=== PATIENT | male | born 1955 | race Caucasian/White ===

== ENCOUNTER → 2023-11-29 09:55 | Outpatient (REF) | payer MEDICARE, OTHER, SELFPAY ==
[2023-11-29 13:30] LABS: Microalbumin, Random Urine < 0.6 mg/dl (0.6-1.7)
[2023-11-29 13:32] LABS: Free T4 1.12 ng/dl (0.78-2.19)
[2023-11-29 13:36] LABS: ALT (SGPT) 39 U/L (0-50); AST (SGOT) 31 U/L (17-59); Albumin 4.7 g/dl (3.5-5.0); Alkaline Phosphatase 53 U/L (38-126); Blood Urea Nitrogen 38 mg/dl (9-20); Calcium 9.9 mg/dl (8.4-10.2); Carbon Dioxide 29 mmol/L (22-30); Chloride 100 mmol/L (98-107); Glucose 125 mg/dl (70-99); HDL Cholesterol 27 mg/dl; LDL Cholesterol, Calculated 50 mg/dl; Potassium 4.8 mmol/L (3.5-5.1); Sodium 143 mmol/L (135-145); Total Bilirubin 0.5 mg/dl (0.2-1.3); Total Cholesterol 115 mg/dl (50-199); Total Protein 7.7 g/dl (6.3-8.2); Triglyceride 191 mg/dl (10-149); Very Low Density Lipoprotein 38 mg/dl (0-30); eGFR > 60.00
[2023-11-29 13:45] LABS: TSH 2.63 uIU/ml (0.47-4.68)
[2023-11-29 14:06] LABS: Glycohemoglobin (HgbA1c) 7.5 % (4.0-5.6)
[2023-12-02 01:21] LABS: Total T3 (Sendout) 101 ng/dL (80-200)
== END ==
LOC: REG 09:55
PROVIDERS: ATTENDING PHYSICIAN Internal Medicine Endocrinology, Diabetes & Metabolism; FAMILY PHYSICIAN Internal Medicine; REFERRING PHYSICIAN Internal Medicine Cardiovascular Disease
DX: E03.9 Hypothyroidism, unspecified (principal); R80.9 Proteinuria, unspecified; E11.65 Type 2 diabetes mellitus with hyperglycemia; R74.01 Elevation of levels of liver transaminase levels; R53.83 Other fatigue
CPT/HCPCS: 36415; 80053; 80061; 82043; 82570; 83036; 84439; 84443; 84480; 84481

== ENCOUNTER → 2023-12-24 07:30 | Outpatient (REF) | payer MEDICARE, OTHER, SELFPAY ==
[2023-12-24 10:42] LABS: Erythrocyte Sed Rate 29 mm/hour (0-20); PSA, Total - Screen 1.81 ng/ml (0.0-4.0)
[2023-12-24 11:01] LABS: Vitamin B12 542 pg/ml (239-931)
[2023-12-24 14:53] LABS: Syphilis/T. pallidum Ab Reflex Negative (Negative)
[2023-12-27 16:12] LABS: Lyme Antibody Screen, EIA Negative (Negative)
== END ==
LOC: RAD 07:30
PROVIDERS: ATTENDING PHYSICIAN Internal Medicine
DX: R41.89 Other symptoms and signs involving cognitive functions and awareness (principal); R91.1 Solitary pulmonary nodule; Z00.00 Encounter for general adult medical examination without abnormal findings; Z79.4 Long term (current) use of insulin; E11.69 Type 2 diabetes mellitus with other specified complication; I10 Essential (primary) hypertension; E66.01 Morbid (severe) obesity due to excess calories; Z68.37 Body mass index [BMI] 37.0-37.9, adult; Z12.5 Encounter for screening for malignant neoplasm of prostate; E78.5 Hyperlipidemia, unspecified; Z87.891 Personal history of nicotine dependence
CPT/HCPCS: 36415; 70450; 71271; 82607; 85652; 86140; 86618; 86780; G0103

== ENCOUNTER → 2024-02-14 10:26 | Outpatient (REF) | payer MEDICARE, OTHER, SELFPAY ==
[2024-02-14 11:09] LABS: % Basophils 1.4 % (0-2); % Eosinophils 3.4 % (0-6); % Immature Granulocytes 0.2 % (0-0.5); % Lymphocytes 19.6 % (20.5-51.1); % Monocytes 9.7 % (1.7-9.3); % Neutrophils 65.7 % (42.2-75.2); Absolute Basophils 0.1 10^3/uL (0-0.2); Absolute Eosinophils 0.2 10^3/uL (0-0.7); Absolute Lymphocytes 1.2 10^3/uL (1.2-3.4); Absolute Monocytes 0.6 10^3/uL (0.1-0.6); Absolute Neutrophils 3.9 10^3/uL (1.4-6.5); Hemoglobin 12.5 g/dL (13.0-18.0); Mean Corp Hgb Conc. 32.9 g/dL (33.0-37.0); Mean Corpuscular Volume 88.2 fL (80.0-94.0); Mean Platelet Volume 10.5 fL (7.4-10.4); Nucleated Red Blood Cells % 0 % (-); Platelet Count 236 10^3/uL (130-400); Red Blood Cell Count 4.31 10^6/uL (4.70-6.10); Red Cell Dist. Width 16.5 % (11.5-14.5); White Blood Cell Count 5.9 10^3/uL (4.8-10.8)
[2024-02-14 11:51] LABS: ALT (SGPT) 33 U/L (0-50); AST (SGOT) 28 U/L (17-59); Albumin 4.7 g/dl (3.5-5.0); Alkaline Phosphatase 58 U/L (38-126); Blood Urea Nitrogen 48 mg/dl (9-20); Calcium 10.1 mg/dl (8.4-10.2); Carbon Dioxide 28 mmol/L (22-30); Chloride 100 mmol/L (98-107); Glucose 156 mg/dl (70-99); HDL Cholesterol 29 mg/dl; LDL Cholesterol, Calculated 58 mg/dl; Potassium 4.3 mmol/L (3.5-5.1); Sodium 140 mmol/L (135-145); Total Bilirubin 0.6 mg/dl (0.2-1.3); Total Cholesterol 124 mg/dl (50-199); Total Protein 7.7 g/dl (6.3-8.2); Triglyceride 185 mg/dl (10-149); Very Low Density Lipoprotein 37 mg/dl (0-30); eGFR > 60.00
[2024-02-14 12:10] LABS: Glycohemoglobin (HgbA1c) 8.2 % (4.0-5.6)
[2024-02-15 14:20] LABS: Syphilis/T. pallidum Ab Reflex Negative (Negative)
== END ==
LOC: REG 10:26
PROVIDERS: ATTENDING PHYSICIAN Internal Medicine
DX: E11.69 Type 2 diabetes mellitus with other specified complication (principal); I10 Essential (primary) hypertension; E66.01 Morbid (severe) obesity due to excess calories; Z79.4 Long term (current) use of insulin; Z12.5 Encounter for screening for malignant neoplasm of prostate; Z00.00 Encounter for general adult medical examination without abnormal findings; Z68.37 Body mass index [BMI] 37.0-37.9, adult
CPT/HCPCS: 36415; 80053; 80061; 83036; 85025; 86780

== ENCOUNTER → 2024-02-22 09:38 | Outpatient (REF) | payer MEDICARE, OTHER, SELFPAY ==
[2024-02-22 10:12] LABS: Urine Albumin Negative (Neg - Trace); Urine Bilirubin Negative (Negative); Urine Character Clear (Clear); Urine Color Yellow; Urine Glucose Trace (Negative); Urine Ketone Negative (Negative); Urine Leukocyte Negative (Negative); Urine Nitrite Negative (Negative); Urine Occult Blood Negative (Negative); Urine Specific Gravity 1.015 (<1.030); Urine Urobilinogen Negative (Neg - 1+)
[2024-02-22 10:22] LABS: % Basophils 0.8 % (0-2); % Immature Granulocytes 0.4 % (0-0.5); % Lymphocytes 13.8 % (20.5-51.1); % Monocytes 8.9 % (1.7-9.3); % Neutrophils 74.1 % (42.2-75.2); Absolute Basophils 0.1 10^3/uL (0-0.2); Absolute Eosinophils 0.2 10^3/uL (0-0.7); Absolute Lymphocytes 1.2 10^3/uL (1.2-3.4); Absolute Monocytes 0.8 10^3/uL (0.1-0.6); Absolute Neutrophils 6.4 10^3/uL (1.4-6.5); Hematocrit 35.2 % (39.0-52.0); Hemoglobin 11.5 g/dL (13.0-18.0); Mean Corp Hgb Conc. 32.7 g/dL (33.0-37.0); Mean Corpuscular Hgb 28.8 pg (27.0-31.0); Mean Corpuscular Volume 88.2 fL (80.0-94.0); Mean Platelet Volume 10.8 fL (7.4-10.4); Nucleated Red Blood Cells % 0 % (-); Platelet Count 194 10^3/uL (130-400); Red Blood Cell Count 3.99 10^6/uL (4.70-6.10); Red Cell Dist. Width 16.7 % (11.5-14.5); White Blood Cell Count 8.6 10^3/uL (4.8-10.8)
[2024-02-22 10:23] LABS: Hemoglobin 11.5 g/dL (13.0-18.0)
[2024-02-22 10:42] LABS: ALT (SGPT) 27 U/L (0-50); AST (SGOT) 23 U/L (17-59); Albumin 4.2 g/dl (3.5-5.0); Alkaline Phosphatase 57 U/L (38-126); Blood Urea Nitrogen 41 mg/dl (9-20); Calcium 9.7 mg/dl (8.4-10.2); Carbon Dioxide 28 mmol/L (22-30); Chloride 104 mmol/L (98-107); Glucose 180 mg/dl (70-99); HDL Cholesterol 25 mg/dl; Iron 53 ug/dl (49-181); LDL Cholesterol, Calculated 62 mg/dl; Potassium 4.2 mmol/L (3.5-5.1); Sodium 142 mmol/L (135-145); Total Bilirubin 0.6 mg/dl (0.2-1.3); Total Cholesterol 122 mg/dl (50-199); Total Protein 7.1 g/dl (6.3-8.2); Triglyceride 177 mg/dl (10-149); Very Low Density Lipoprotein 35 mg/dl (0-30); eGFR > 60.00
[2024-02-22 10:52] LABS: Percent Saturation 16 % (20-50); Total Iron Binding Capacity 314 ug/dl (261-462)
[2024-02-22 10:59] LABS: Microalbumin, Random Urine 1.2 mg/dl (0.6-1.7)
[2024-02-22 11:00] LABS: Free T3 2.81 pg/ml (2.77-5.27)
[2024-02-22 11:14] LABS: TSH 1.94 uIU/ml (0.47-4.68)
[2024-02-22 11:27] LABS: Free T4 1.09 ng/dl (0.78-2.19)
[2024-02-22 11:50] LABS: Vitamin B12 393 pg/ml (239-931)
[2024-02-22 11:54] LABS: Glycohemoglobin (HgbA1c) 7.7 % (4.0-5.6)
[2024-02-22 15:12] LABS: Folate 18.3 ng/ml (2.76-20)
== END ==
LOC: REG 09:38
PROVIDERS: ATTENDING PHYSICIAN Internal Medicine; REFERRING PHYSICIAN Internal Medicine Endocrinology, Diabetes & Metabolism
DX: D64.9 Anemia, unspecified (principal); R20.2 Paresthesia of skin; E11.65 Type 2 diabetes mellitus with hyperglycemia; R53.83 Other fatigue; R80.9 Proteinuria, unspecified; E78.5 Hyperlipidemia, unspecified; E03.9 Hypothyroidism, unspecified
CPT/HCPCS: 36415; 80053; 80061; 81003; 82043; 82570; 82607; 82746; 83036; 83540; 83550; 84439; 84443; 84481; 85018; 85025

== ENCOUNTER 2024-02-27 23:01 | Inpatient (IN) | payer MEDICARE, OTHER, SELFPAY ==
[2024-02-27 18:58] VITALS: BP 117/40
[2024-02-27 18:58] LABS: Glucose - Point of Care 151 mg/dl (70-99)
--- NOTE | 2024-02-27 18:59 | ED.GENMED ---
History of Present Illness
<Justen Gonzáles PA-C - Last Filed: 02/27/24 23:51>
General
Chief Complaint: Fever
Time Seen by Provider: 02/27/24 18:53
History of Present Illness
History of Present Illness:
68 yo male w/ hx of IDDM, PAF on Eliquis, hypothyroidism, and s/p PPM presents to the Emergency Department for evaluation of 'confusion' that began at approx 1500 today. Pt's spouse notes that he developed symptoms and began with a series of
repetitive speech/questions. She checked his blood sugar at 104 via Dexcom. He then noted generalized weakness and dizziness prompting them to come to the ED. He reports having a fever briefly last week for <24 hours, did not seek treatment.
Currently denies chest pain, SOB, abd pain, N/V. Has baseline diplopia secondary to 3rd CN palsy.
Noted to be febrile on arrival to ED.
Past History
<Justen Gonzáles PA-C - Last Filed: 02/27/24 23:51>
Past History
ED Past Medical History: Arrthythmia, HTN, Hypercholesterolemia and NIDDM
ED Past Surgical History: Cardiac
Social History
Tobacco: Smoker
Alcohol: None
Drug: None
Personal:
Living: with family
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
Review of Systems
<Justen Gonzáles PA-C - Last Filed: 02/27/24 23:51>
Review of Systems
Allergies reviewed?: Yes
All Other Systems: ROS reviewed and negative except as documented in HPI and ROS
Phy Exam
<Justen Gonzáles PA-C - Last Filed: 02/27/24 23:51>
Physical Exam
Physical Exam:
GEN: Well appearing, NAD, WDWN
HEENT: Oral mucosa moist, no scleral icterus, no nasal congestion
Cardiac: Regular rate and rhythm
Lung: No respiratory distress, no tachypnea, lungs CTAB
MSK: No gross deformity or injuries
Skin: Good color, no pallor or jaundice, no rashes
Neuro: AO x3; CN II-XII grossly intact, with exception of baseline L CN III palsy. BUE strength 5/5 in all davison, sensation intact and symmetric. BLE strength 5/5 in all davison, sensation intact and symmetric.
Psych: Calm, cooperative
Course
<Justen Gonzáles PA-C - Last Filed: 02/27/24 23:51>
Orders/Labs/Results
Orders:
Orders
02/27/24 18:55
Electrocardiogram (*1) Urgent
Reason for Study: Other
Other Reason for Exam: Possible Stroke
Bedside Glucose- Treatment ONCE
Cardiac Monitoring- Treatment ONCE
IV Insert/Care/Rem.- Treatment PRN
Vital Signs As Directed
Frequency: Other
Weight As Directed
Frequency: Once
Comment: ZERO STRETCHER SCALE FOR ACCURATE WEIGHT
O2 Therapy [RESP] Urgent
Titrate/Wean O2 to maintain O2 sat greater than (%): 93
Special Instructions: MAINTAIN CONTINUOUS O2 SATS > OR = 93%
02/27/24 18:56
EKG- Treatment ONCE
02/27/24 18:57
CT Head W/o Iv Contrast Urgent
Comment:
Reason For Exam: tia symptoms
02/27/24 19:00
Complete Blood Count/With Diff Urgent
Comprehensive Metabolic Panel Urgent
PTT Urgent
Prothrombin Time Urgent
Troponin I Urgent
Urinalysis Reflex To Culture Urgent
Date Specimen was Collected: 02/27/24
Time Specimen was Collected: 18:56
Urine Microscopic Reflex Cult Urgent
Urine Culture Urgent
AR Source: U
Specimen Description:
Date Specimen was Collected: 02/27/24
Time Specimen was Collected: 18:56
02/27/24 19:03
COVID-19 Antigen Urgent
Source: Nasal Swab
Lactic Acid Q4H
Comment: ON ICE, CANCEL 2ND ORDER IF FIRST LACTIC ACID LEVEL <2
Blood Culture Q30M
AR Source: Blood/Venous
Specimen Description:
Comment: FROM 2 SEPARATE SITES
Influenza A+B Rapid Molecular Urgent
AR Source: Nasal Swab
Specimen Description:
02/27/24 19:05
Blood Culture Q30M
AR Source: Blood/Venous
Specimen Description:
Comment: FROM 2 SEPARATE SITES
02/27/24 19:17
Acetaminophen [Tylenol] 650 mg PO NOW STA
CR Chest - 2 Views Urgent
Comment:
Reason For Exam: fever
02/27/24 20:24
CefTRIAXone [Rocephin] 1,000 mg IV NOW STA
02/27/24 20:27
Sterile Water [Sterile Water For Injection] 10 ml .ROUTE .[facility]
02/27/24 21:23
0.9% Sodium Chloride 1000 ml [Nss] 1,000 ml IV BOLUS
02/27/24 22:49
Admit/Transfer Patient As Directed
Co-Sign Provider:
Level of Care: Inpatient admission
Assign to:: Medical/Surgical
Physician / Group: Hospitalist
Diagnosis: UTI
Reason for Hospitalization: UTI with metabolic encephalopathy
Expected length of stay greater than two midnights?: Yes
ELOS- Estimated Length of Stay in days: 3
I certify the patient meets the requirements for IP care: Yes
02/27/24 22:52
Code Status As Directed
Resuscitation Status: Full Code
Abnormal Lab Results
02/27/24 02/27/24
18:56 19:00
WBC 11.2 H 10^3/uL
(4.8-10.8)
RBC 3.82 L 10^6/uL
(4.70-6.10)
Hgb 11.0 L g/dL
(13.0-18.0)
Hct 32.6 L %
(39.0-52.0)
RDW 16.3 H %
(11.5-14.5)
Abs Immat Gran (auto) 0.1 H 10^3/uL
(0-0.05)
Absolute Neuts (auto) 8.6 H 10^3/uL
(1.4-6.5)
Absolute Monos (auto) 1.1 H 10^3/uL
(0.1-0.6)
Neutrophils % 76.8 H %
(42.2-75.2)
Lymphocytes % 10.9 L %
(20.5-51.1)
Monocytes % 9.9 H %
(1.7-9.3)
PT 17.1 H Sec
(11.4-14.6)
APTT 41.8 H Sec
(23.4-35.0)
BUN 40 H mg/dl
(9-20)
Creatinine 1.4 H mg/dL
(0.7-1.3)
Glucose 135 H mg/dl
(70-99)
Ur Occult Blood Reflex 1+ A
(Negative)
Leukocyte Esterase Rfl 2+ A
(Negative)
Urine RBC 3-6 A /HPF
(0-2)
Urine WBC (Reflex) 11-15 A /HPF
(0-5)
Urine Bacteria (Reflex) Few A
(Negative)
Urine Glucose 3+ A
(Negative)
POC Glucose 151 H mg/dl
(70-99)
02/27/24 19:00
02/27/24 19:00
Vital Signs
Initial and Last Documented VS:
Initial Vital Signs
Temp Pulse Resp BP Pulse Ox
101.4 F H 71 20 117/40 92
02/27/24 19:01 02/27/24 19:01 02/27/24 19:01 02/27/24 19:01 02/27/24 19:01
Last Documented Vital Signs
Temp Pulse Resp BP Pulse Ox
99.3 F 71 20 117/40 92
02/27/24 21:20 02/27/24 19:01 02/27/24 19:01 02/27/24 19:01 02/27/24 19:01
<Dorothy Clark MD - Last Filed: 02/27/24 19:44>
Orders/Labs/Results
Orders:
Orders
02/27/24 18:55
Electrocardiogram (*1) Urgent
Reason for Study: Other
Other Reason for Exam: Possible Stroke
Bedside Glucose- Treatment ONCE
Cardiac Monitoring- Treatment ONCE
IV Insert/Care/Rem.- Treatment PRN
Vital Signs As Directed
Frequency: Other
Weight As Directed
Frequency: Once
Comment: ZERO STRETCHER SCALE FOR ACCURATE WEIGHT
O2 Therapy [RESP] Urgent
Titrate/Wean O2 to maintain O2 sat greater than (%): 93
Special Instructions: MAINTAIN CONTINUOUS O2 SATS > OR = 93%
02/27/24 18:56
EKG- Treatment ONCE
02/27/24 18:57
CT Head W/o Iv Contrast Urgent
Comment:
Reason For Exam: tia symptoms
02/27/24 19:00
Complete Blood Count/With Diff Urgent
Comprehensive Metabolic Panel Urgent
PTT Urgent
Prothrombin Time Urgent
Troponin I Urgent
Urinalysis Reflex To Culture Urgent
Date Specimen was Collected: 02/27/24
Time Specimen was Collected: 18:56
Urine Microscopic Reflex Cult Urgent
Urine Culture Urgent
AR Source: U
Specimen Description:
Date Specimen was Collected: 02/27/24
Time Specimen was Collected: 18:56
02/27/24 19:03
COVID-19 Antigen Urgent
Source: Nasal Swab
Lactic Acid Q4H
Comment: ON ICE, CANCEL 2ND ORDER IF FIRST LACTIC ACID LEVEL <2
Blood Culture Q30M
AR Source: Blood/Venous
Specimen Description:
Comment: FROM 2 SEPARATE SITES
Influenza A+B Rapid Molecular Urgent
AR Source: Nasal Swab
Specimen Description:
02/27/24 19:05
Blood Culture Q30M
AR Source: Blood/Venous
Specimen Description:
Comment: FROM 2 SEPARATE SITES
02/27/24 19:17
Acetaminophen [Tylenol] 650 mg PO NOW STA
CR Chest - 2 Views Urgent
Comment:
Reason For Exam: fever
02/27/24 20:24
CefTRIAXone [Rocephin] 1,000 mg IV NOW STA
02/27/24 20:27
Sterile Water [Sterile Water For Injection] 10 ml .ROUTE .[facility]
02/27/24 21:23
0.9% Sodium Chloride 1000 ml [Nss] 1,000 ml IV BOLUS
02/27/24 22:49
Admit/Transfer Patient As Directed
Co-Sign Provider:
Level of Care: Inpatient admission
Assign to:: Medical/Surgical
Physician / Group: Hospitalist
Diagnosis: UTI
Reason for Hospitalization: UTI with metabolic encephalopathy
Expected length of stay greater than two midnights?: Yes
ELOS- Estimated Length of Stay in days: 3
I certify the patient meets the requirements for IP care: Yes
02/27/24 22:52
Code Status As Directed
Resuscitation Status: Full Code
Abnormal Lab Results
02/27/24 02/27/24
18:56 19:00
WBC 11.2 H 10^3/uL
(4.8-10.8)
RBC 3.82 L 10^6/uL
(4.70-6.10)
Hgb 11.0 L g/dL
(13.0-18.0)
Hct 32.6 L %
(39.0-52.0)
RDW 16.3 H %
(11.5-14.5)
Abs Immat Gran (auto) 0.1 H 10^3/uL
(0-0.05)
Absolute Neuts (auto) 8.6 H 10^3/uL
(1.4-6.5)
Absolute Monos (auto) 1.1 H 10^3/uL
(0.1-0.6)
Neutrophils % 76.8 H %
(42.2-75.2)
Lymphocytes % 10.9 L %
(20.5-51.1)
Monocytes % 9.9 H %
(1.7-9.3)
PT 17.1 H Sec
(11.4-14.6)
APTT 41.8 H Sec
(23.4-35.0)
BUN 40 H mg/dl
(9-20)
Creatinine 1.4 H mg/dL
(0.7-1.3)
Glucose 135 H mg/dl
(70-99)
Ur Occult Blood Reflex 1+ A
(Negative)
Leukocyte Esterase Rfl 2+ A
(Negative)
Urine RBC 3-6 A /HPF
(0-2)
Urine WBC (Reflex) 11-15 A /HPF
(0-5)
Urine Bacteria (Reflex) Few A
(Negative)
Urine Glucose 3+ A
(Negative)
POC Glucose 151 H mg/dl
(70-99)
02/27/24 19:00
02/27/24 19:00
Vital Signs
Initial and Last Documented VS:
Initial Vital Signs
Temp Pulse Resp BP Pulse Ox
101.4 F H 71 20 117/40 92
02/27/24 19:01 02/27/24 19:01 02/27/24 19:01 02/27/24 19:01 02/27/24 19:01
Last Documented Vital Signs
Temp Pulse Resp BP Pulse Ox
99.3 F 71 20 117/40 92
02/27/24 21:20 02/27/24 19:01 02/27/24 19:01 02/27/24 19:01 02/27/24 19:01
<Justen Gonzáles PA-C - Last Filed: 02/27/24 23:51>
MDM/Problems Addressed
MDM/Problems Addressed:
Pt displaying no focal neurologic symptoms on arrival to ED, noted to be febrile. Workup remarkable for mild leukocytosis and UA suspicious for UTI; higher risk for UTI in the setting of recent Farxiga use. CXR w/o evidence of pulmonary infiltrate.
PPM interrogation reassuring. Given transient encephalopathy and hx of IDDM, high risk for outpatient management on PO abx. Will admit for IV abx
<Justen Gonzáles PA-C - Last Filed: 02/27/24 23:51>
Comment
Comment:
Initial EKG independently interpreted by me shows a V paced rhythm at a rate of 73
*Critical Care Note
Total Time (30-74mins, 75-104mins- exclusive of procedures): Not Applicable
<Justen Gonzáles PA-C - Last Filed: 02/27/24 23:51>
Update Note
Update Note:
[employer] interrogation reveals no arrhythmia or high rate episodes since last interrogation on 02/23
ED Attending Note
<Justen Gonzáles PA-C - Last Filed: 02/27/24 23:51>
-
Portions of this chart may have been created with voice recognition software.� Occasional wrong word or��sound alike� substitutions may have occurred due to the inherent limitations of voice recognition software.
<Dorothy Clark MD - Last Filed: 02/27/24 19:44>
ED Attending Note
Patient seen and examined by attending physician: Yes
I performed the substantive portion of visit, reviewed & personally made and approve the management plan that is documented in note by myself or JOSE.: Yes
ED Attending Note:
68 yr old male with noted repetitive speech, (not slurred as originally reported) and hightened memory loss/confusion noted today after religion. He also had an episode of urinary incont. No focal findings such as facial droop, motor weakness,
ataxia, etc. Pt awake and alert, says his 'whole body hurts', no focal pain, no sob, no neck stiffness or photophobia. Has a mild headache. Moves neck easily, nods yes and no without hesitation. Fever noted. Suspect infectious process causing
ms changes.
Discharge Plan
Departure
Patient Disposition: Admit
Date of Disposition: 02/27/24
Time of Disposition: 21:24
Admit to: Med/Surg
Presentation/result/management discussed w/ accepting MD/DO: Hospitalist
Discharge Problem:
Acute UTI, Acute metabolic encephalopathy
Interventions
Interventions:
*Risk Screen - Suicide Last Done: 02/27/24 19:01
*General Assessment Last Done: 02/27/24 19:01
*Neglect/Abuse Screening Last Done: 02/27/24 19:01
ED- Fall Risk Assessment Last Done: 02/27/24 19:13
*ED COVID-19 Vaccine History Last Done: 02/27/24 19:01
ED- Neurological Assessment Last Done: 02/27/24 19:23
ED-Skin Assessment Last Done: 02/27/24 19:15
[2024-02-27 19:01] VITALS: BP 117/40; BMI 37.4
[2024-02-27 19:10] LABS: % Basophils 0.7 % (0-2); % Eosinophils 1.3 % (0-6); % Immature Granulocytes 0.4 % (0-0.5); % Lymphocytes 10.9 % (20.5-51.1); % Monocytes 9.9 % (1.7-9.3); % Neutrophils 76.8 % (42.2-75.2); Absolute Basophils 0.1 10^3/uL (0-0.2); Absolute Eosinophils 0.2 10^3/uL (0-0.7); Absolute Immature Granulocytes 0.1 10^3/uL (0-0.05); Absolute Lymphocytes 1.2 10^3/uL (1.2-3.4); Absolute Monocytes 1.1 10^3/uL (0.1-0.6); Absolute Neutrophils 8.6 10^3/uL (1.4-6.5); Hematocrit 32.6 % (39.0-52.0); Mean Corp Hgb Conc. 33.7 g/dL (33.0-37.0); Mean Corpuscular Hgb 28.8 pg (27.0-31.0); Mean Corpuscular Volume 85.3 fL (80.0-94.0); Mean Platelet Volume 10.4 fL (7.4-10.4); Nucleated Red Blood Cells % 0 % (-); Platelet Count 249 10^3/uL (130-400); Red Blood Cell Count 3.82 10^6/uL (4.70-6.10); Red Cell Dist. Width 16.3 % (11.5-14.5); White Blood Cell Count 11.2 10^3/uL (4.8-10.8)
[2024-02-27 19:22] LABS: Lactic Acid 0.9 mmol/L (0.7-2.0)
[2024-02-27 19:23] LABS: INR 1.41; PT 17.1 Sec (11.4-14.6)
[2024-02-27 19:24] LABS: ALT (SGPT) 40 U/L (0-50); APTT 41.8 Sec (23.4-35.0); AST (SGOT) 33 U/L (17-59); Albumin 4.2 g/dl (3.5-5.0); Alkaline Phosphatase 54 U/L (38-126); Blood Urea Nitrogen 40 mg/dl (9-20); Calcium 9.8 mg/dl (8.4-10.2); Carbon Dioxide 26 mmol/L (22-30); Chloride 101 mmol/L (98-107); Estimated Creatinine Clearance 62 ml/min; Glucose 135 mg/dl (70-99); Potassium 4.1 mmol/L (3.5-5.1); Sodium 140 mmol/L (135-145); Total Bilirubin 0.6 mg/dl (0.2-1.3); Total Protein 7.4 g/dl (6.3-8.2); eGFR 54.41
[2024-02-27] MEDS: TYLENOL 650 MG PO (19:25)
[2024-02-27 19:28] LABS: COVID-19 Antigen Negative (Negative)
[2024-02-27 19:36] LABS: Troponin I 0.014 ng/ml
[2024-02-27 19:44] LABS: Urine Albumin Trace (Neg - Trace); Urine Bilirubin Negative (Negative); Urine Character Clear (Clear); Urine Color Yellow; Urine Glucose 3+ (Negative); Urine Ketone Negative (Negative); Urine Leukocyte 2+ (Negative); Urine Nitrite Negative (Negative); Urine Occult Blood 1+ (Negative); Urine Urobilinogen Negative (Neg - 1+)
[2024-02-27 19:54] LABS: Urine Bacteria Few (Negative)
[2024-02-27 20:00] VITALS: BP 119/48
--- NOTE | 2024-02-27 20:02 | EDRN ---
Went over labs and things with patient and patient sitting in chair, more comfortable this way.
[2024-02-27] MEDS: ROCEPHIN 1000 MG IV (20:55)
[2024-02-27] MEDS: NSS 1000 IV (21:52)
[2024-02-27 22:00] VITALS: BP 115/46
--- NOTE | 2024-02-27 22:08 | HPS.HSE ---
Family Physician
-
Family Physician: Chan Conrad
Chief Complaint
-
Change of mental status
History of Present Illness
68 man presents to the Emergency Department for evaluation of 'confusion.'. Pt's noted that he developed symptoms of repetitive speech/questions. His blood sugar was 104. He then had generalized weakness and dizziness and came to the ED. He
reports having a fever briefly last week for <24 hours, but did not seek treatment. He Currently denies chest pain, SOB, abd pain, N/V. He Has baseline diplopia secondary to 3rd CN palsy. At the time of my interview, he said he was feeling better.
Medical History
Past Medical History
Past Medical History: Reports Other
Additional Past Medical History:
Afib arrthythmia, permanent
essential HTN,
Hypercholesterolemia
IDDM
Cardiac surgery
CKD stage 3
Lumbar spine stenosis
Hearing loss
Pulm nodule
Fatty liver
Obesity
Past Surgical History: Reports Other
Additional Past Surgical History:
See above
Social History
Tobacco: Non-smoker
Alcohol: Occasional
Drug: None
Personal:
Living: With Family
Employment: Retired
Family History
Family History: Not pertinent
Allergies / Home Medications
Allergies reflects when Allergies were last updated in [employer].
Home Medications with original date entered in [employer] [facility]
Allergy/Medication List:
Allergies
Allergy/AdvReac Type Severity Reaction Status Date / Time
avocado Allergy Swelling Verified 02/27/24 19:08
banana Allergy Swelling Verified 02/27/24 19:08
morphine Allergy Rash/resp Verified 02/27/24 19:08
distress
tuberculin,PPD,multi-puncture Allergy arm Verified 02/27/24 19:08
[From Tuberculin PPD Joya inflammation
Test]
walnut Allergy swelling Verified 02/27/24 19:08
in your
throat
Home Medications
ascorbic acid (vitamin C) 1,000 mg tablet (Vitamin C) 1,000 mg PO DAILY Supplement 02/08/09
montelukast 10 mg tablet 10 mg PO QPM Lung/breathing issues 02/08/09
multivitamin 1 tab PO DAILY Supplement ##0 02/08/09
omeprazole 20 mg capsule,delayed release 20 mg PO DAILY Gastrointestinal issue 02/08/09
cyanocobalamin (vitamin B-12) 100 mcg tablet (Vitamin B-12) 300 mcg PO DAILY Supplement ##0 10/24/18
pyridoxine (vitamin B6) 100 mg tablet (Vitamin B-6) 100 mg PO DAILY Supplement ##0 10/24/18
Testosterone 1.62 % topical DAILY Hormonal agent 10/22/20
atorvastatin 80 mg tablet 80 mg PO QPM High cholesterol 10/22/20
Fish Oil 1,000 Mg Capsule 4,000 mg PO DAILY Supplement ##0 10/24/20
aspirin 81 mg tablet,delayed release (Thu Low Dose Aspirin) 81 mg PO DAILY Blood clot prevention/tx ##0 10/24/20
albuterol sulfate 90 mcg/actuation aerosol inhaler 2 puff inhalation R Q4 PRN sob 12/28/22
apixaban 5 mg tablet 5 mg PO BID Blood clot prevention/tx 12/28/22
cholecalciferol (vitamin D3) 25 mcg (1,000 unit) tablet (Vitamin D3) 25 mcg PO DAILY Supplement 12/28/22
fenofibrate 160 mg tablet 160 mg PO QPM High cholesterol 12/28/22
levothyroxine 50 mcg tablet 50 mcg PO DAILY AT 0700 Thyroid 12/28/22
pregabalin 75 mg capsule 75 mg PO QPM Neurological Condition 12/28/22
salmeterol 50 mcg/dose blister powder for inhalation (Serevent Diskus) 1 inh inhalation R BID Lung/breathing issues 12/28/22
tamsulosin 0.4 mg capsule 0.4 mg PO QPM Urinary issue 12/28/22
metformin 500 mg tablet 500 mg PO BID@0800,1700 Diabetes 12/29/22
thiamine HCl (vitamin B1) 100 mg tablet 300 mg PO DAILY 01/03/23
insulin aspart U-100 100 unit/mL (3 mL) subcutaneous pen (Novolog FlexPen U-100 Insulin aspart) 15 unit (0.15 mL) SC AC 30 days #15 mL 01/05/23
dapagliflozin propanediol 10 mg tablet (Farxiga) 10 mg PO DAILY 02/27/24
donepezil 10 mg tablet (Aricept) 10 mg PO HS 02/27/24
furosemide 20 mg tablet (Lasix) 80 mg PO AMHS 02/27/24
furosemide 40 mg tablet (Lasix) 40 mg PO .1600 02/27/24
insulin glargine 100 unit/mL subcutaneous solution 50 unit SC BID Diabetes 02/27/24
metolazone 2.5 mg tablet 2.5 mg PO .MON,Wed02/27/24
Review of Systems
-
History Source: Patient
A 12 point ROS was completed and negative except as noted: Yes
Physical Exam
Vital Signs
Vital Signs
Temp Pulse Resp BP Pulse Ox
99.3 F 71 20 117/40 92
02/27/24 21:20 02/27/24 19:01 02/27/24 19:01 02/27/24 19:01 02/27/24 19:01
Physical Exam
General: Well Developed, Well Nourished, No Apparent Distress, Comfortable, Conversant and Obese
HEENT: Moist mucous membranes, No Ptosis, Nose Appears Normal, Ears Appear Normal and Hearing Impaired
Respiratory: Clear
Cardiac: S1/S2 and Irregular Rhythm
GI: Soft, Non Tender and Non Distended; No Flat
Musculoskeletal: No Clubbing, No Cyanosis, Edema, Left Lower Extremity and Edema, Right Lower Extremity
Skin: Warm and Dry
Neuro: Awake, Alert, Oriented and AO x 3
Psych: Calm
Laboratory Results
-
06/16/24 19:00
02/27/24 19:00
Laboratory Results
PT 17.1 Sec (11.4-14.6) H 02/27/24 19:00
INR 1.41 02/27/24 19:00
APTT 41.8 Sec (23.4-35.0) H 02/27/24 19:00
Lactic Acid Cancelled 02/27/24 23:15
Total Bilirubin 0.6 mg/dl (0.2-1.3) 02/27/24 19:00
AST 33 U/L (17-59) 02/27/24 19:00
ALT 40 U/L (0-50) 02/27/24 19:00
Alkaline Phosphatase 54 U/L (38-126) 02/27/24 19:00
Troponin I 0.014 ng/ml 02/27/24 19:00
Data Reviewed
-
Lab Data: Labs Reviewed by me
Impression/Plan
-
IMPRESSION:
68 man with UTI and change of mental status
UA OB, LE, RBC, WBC, Анна
WBC 11.2
BUN/Creat 40/1.4
H/H 11.0/32.6
PLAN:
1. UTI - with metabolic encephalopathy
IV abx
Await culture results
2. Stage 3 renal failure, levels at baseline
encourage usual po intake
3. Chronic anemia - levels at baseline
No indication for transfusion
Otherwise continue home meds
Ful code
VCD for DVTp
--- NOTE | 2024-02-27 22:23 | EDRN ---
Patient ambulated to the restroom to have a BM and back resting in the chair comfortably, call thomason in reach.
[2024-02-27 23:00] VITALS: BP 125/55
--- NOTE | 2024-02-27 23:15 | EDRN ---
Patient provided with a boxed lunch and drink of water, call thomason in reach, is going home for the evening.
[2024-02-28 00:05] VITALS: BP 143/76
[2024-02-28 00:07] VITALS: BMI 36.1
--- NOTE | 2024-02-28 00:10 | PTCARENOTE ---
Pt arrived to room 435-02. Pt ambulated from stretcher to room. Pt AAOx3, VSS. Pt in no signs of acute distress, respirations regular. Pt oriented to room, call thomason placed within reach.
[2024-02-28] MEDS: ARICEPT 10 MG PO ×2 (00:45→21:08)
[2024-02-28] MEDS: TYLENOL 650 MG PO (00:45)
[2024-02-28] MEDS: ProAIR HFA INHALER 2 PUFF INH ×4 (01:23→21:47)
[2024-02-28 01:45] VITALS: PULSE 65
[2024-02-28] MEDS: TYLENOL PO ×6 (05:14→23:13)
[2024-02-28] MEDS: SYNTHROID 50 MCG PO (06:00)
[2024-02-28 07:01] LABS: Hematocrit 30.6 % (39.0-52.0); Hemoglobin 10.1 g/dL (13.0-18.0); Mean Corpuscular Hgb 28.5 pg (27.0-31.0); Mean Corpuscular Volume 86.4 fL (80.0-94.0); Mean Platelet Volume 10.6 fL (7.4-10.4); Platelet Count 230 10^3/uL (130-400); Red Blood Cell Count 3.54 10^6/uL (4.70-6.10); Red Cell Dist. Width 16.2 % (11.5-14.5); White Blood Cell Count 8.6 10^3/uL (4.8-10.8)
[2024-02-28 07:28] LABS: Blood Urea Nitrogen 45 mg/dl (9-20); Calcium 9.4 mg/dl (8.4-10.2); Carbon Dioxide 28 mmol/L (22-30); Chloride 103 mmol/L (98-107); Estimated Creatinine Clearance 57 ml/min; Glucose 79 mg/dl (70-99); Potassium 3.8 mmol/L (3.5-5.1); Sodium 144 mmol/L (135-145); eGFR 50.08
[2024-02-28] MEDS: STRIVERDI RESPIMAT 2 PUFF INH (07:54)
[2024-02-28 08:00] VITALS: BP 126/58
--- NOTE | 2024-02-28 08:00 | PTCARENOTE ---
Addendum entered by Jessica Eagle RN 02/28/24 19:10:
@1638 blood sugar per dexicom device 140.
Addendum entered by Jessica Eagle RN 02/28/24 12:22:
Blood sugar per dexicom device 133
Original Note:
Pt refuses accu checks, morning FBS [address] Watson made aware, to document pt's blood sugars in patient care note.
[2024-02-28] MEDS: NOVOLOG FLEXPEN 15 UNITS SC ×3 (08:36→17:03)
[2024-02-28] MEDS: ZAROXOLYN 2.5 MG PO (08:37)
[2024-02-28] MEDS: VITAMIN B1 300 MG PO (08:39)
[2024-02-28] MEDS: GLUCOPHAGE 500 MG PO ×2 (08:39→16:47)
[2024-02-28] MEDS: ELIQUIS 5 MG PO ×2 (08:39→21:08)
[2024-02-28] MEDS: THERAGRAN 1 TABLET PO (08:40)
[2024-02-28] MEDS: VITAMIN B-12 300 MCG PO (08:40)
[2024-02-28] MEDS: FARXIGA 10 MG PO (08:40)
[2024-02-28] MEDS: PROTONIX 40 MG PO (08:40)
[2024-02-28] MEDS: VITAMIN D3 (cholecalciferol) 25 MCG PO (08:40)
[2024-02-28] MEDS: ASPIR LOW (ENTERIC COATED) 81 MG PO (08:40)
[2024-02-28] MEDS: VITAMIN B-6 100 MG PO (08:40)
[2024-02-28] MEDS: VITAMIN C 1000 MG PO (08:40)
[2024-02-28] MEDS: LANTUS 0.5 UNITS SC ×2 (08:42→21:08)
--- NOTE | 2024-02-28 09:53 | W.PN.HOSP.TC ---
Today's Communication/Plan
-
see bold
Assessment / Plan
Assessment / Plan
HPI: 68 man presents to the Emergency Department for evaluation of 'confusion.'. Pt's noted that he developed symptoms of repetitive speech/questions. His blood sugar was 104. He then had generalized weakness and dizziness and came to the ED.
He reports having a fever briefly last week for <24 hours, but did not seek treatment. He Currently denies chest pain, SOB, abd pain, N/V. He Has baseline diplopia secondary to 3rd CN palsy. At the time of my interview, he said he was feeling better.
#Acute urinary tract infection
Continue Rocephin, follow-up on urine cultures
#Acute toxic metabolic encephalopathy
#Cognitive impairment
Improving per
Continue Aricept
#Chronic heart failure with preserved ejection fraction
states patient takes Lasix 80 mg in the morning, 40 in the afternoon�adjustments made
Continue metolazone, Farxiga
#Stage III chronic kidney disease
Creatinine 1.4. His baseline is about 1.2.
Allow degree of renal sufficiency to maintain euvolemia
#Type 2 diabetes
Continue Farxiga, metformin, glargine 50 units twice daily, NovoLog 15 units AC 3 times daily
#Permanent atrial fibrillation
Continue Eliquis
#Chronic normocytic anemia
Monitor Hgb
#Left eye 3rd nerve palsy
Monitor
DVT prophylaxis�Eliquis
Full code
Updated on phone 02/27
Total time spent to see the patient on the floor, examine the patient, review data and lab results, discuss treatment plan with patient, nursing staff around 50 minutes.
Physical Exam
General: No acute distress
HEENT: Normocephalic, Atraumatic, EOMI, MMM
Left eye 3rd nerve palsy
Respiratory: Clear to Auscultation bilaterally
Cardiac: Normal S1/S2, Regular Rate and Rhythm
GI: Soft, Nontender, Nondistended, Normal Bowel Sounds
Extremities: No Clubbing, Cyanosis, or Edema
Neuro: Pleasantly confused
Psych: Calm, Cooperative
Derm: No Visible lesions
Anticipated Discharge: 24 - 48 hours
Subjective/Interval History
-
Date of Service: February 28, 2024
Patient denies dysuria. He had some nausea, no vomiting. He also has some left-sided flank pain. No fever.
Objective Data
-
Labs:
Laboratory Results
02/28/24
06:06
WBC 8.6
Hgb 10.1 L
Hct 30.6 L
Plt Count 230
Sodium 144
Potassium 3.8
Chloride 103
Carbon Dioxide 28
BUN 45 H
Creatinine 1.5 H
Glucose 79
Calcium 9.4
Vital Signs:
Vital Signs
Temp Pulse Resp BP Pulse Ox
99 F 68 20 126/58 99
02/28/24 08:00 02/28/24 08:00 02/28/24 08:00 02/28/24 08:00 02/28/24 08:00
I&O
02/27/24 02/28/24 02/29/24
06:59 06:59 06:59
Intake Total 120 / 120
Output Total 650 / 650
Balance -530 / -530
[2024-02-28] MEDS: LASIX 80 MG PO (09:57)
--- NOTE | 2024-02-28 15:09 | CM ---
government program manager reviewed patient's chart and met with patient and patient lives with spouse in a 2 story home, patient is independent with adl's and ambulation, patient has a cane and a walker in home that he does not use. Patient has a prescription
plan and uses [facility].
PCP: Dr. Conrad
Plan; Home when stable, no needs.
[2024-02-28 16:00] VITALS: BP 128/60
[2024-02-28] MEDS: FLOMAX 0.400000000000000022 MG PO (16:47)
[2024-02-28] MEDS: TRICOR 145 MG PO (16:47)
[2024-02-28] MEDS: LIPITOR 80 MG PO (16:47)
[2024-02-28] MEDS: SINGULAIR 10 MG PO (16:47)
[2024-02-28] MEDS: LASIX 40 MG PO (16:47)
[2024-02-28] MEDS: LYRICA 75 MG PO (16:51)
--- NOTE | 2024-02-28 21:07 | PTCARENOTE ---
Pt blood sugar per dexcom 141 at 2107.
[2024-02-28] MEDS: STERILE WATER FOR INJECTION 10 ML IV (21:08)
[2024-02-28] MEDS: ROCEPHIN 1000 MG IV (21:08)
[2024-02-28] MEDS: NON-FORMULARY ITEM 1 MCG INH (21:44)
[2024-02-28 23:00] VITALS: BP 136/60
[2024-02-29] MEDS: TYLENOL PO ×2 (04:48→23:24)
[2024-02-29] MEDS: SYNTHROID 50 MCG PO (05:56)
[2024-02-29] MEDS: ProAIR HFA INHALER 2 PUFF INH ×3 (07:13→21:56)
[2024-02-29] MEDS: NON-FORMULARY ITEM 50 MCG INH ×2 (07:13→21:56)
[2024-02-29 07:39] VITALS: BP 120/51
[2024-02-29] MEDS: ASPIR LOW (ENTERIC COATED) 81 MG PO (07:51)
[2024-02-29] MEDS: VITAMIN B1 300 MG PO (07:51)
[2024-02-29] MEDS: FARXIGA 10 MG PO (07:52)
[2024-02-29] MEDS: VITAMIN B-12 300 MCG PO (07:52)
[2024-02-29] MEDS: LASIX 80 MG PO (07:52)
[2024-02-29] MEDS: PROTONIX 40 MG PO (07:52)
[2024-02-29] MEDS: VITAMIN C 1000 MG PO (07:53)
[2024-02-29] MEDS: GLUCOPHAGE 500 MG PO ×2 (07:53→18:05)
[2024-02-29] MEDS: VITAMIN B-6 100 MG PO (07:54)
[2024-02-29] MEDS: VITAMIN D3 (cholecalciferol) 25 MCG PO (07:54)
[2024-02-29] MEDS: TYLENOL 650 MG PO ×4 (07:54→21:15)
[2024-02-29] MEDS: ELIQUIS 5 MG PO ×2 (07:54→21:14)
[2024-02-29] MEDS: THERAGRAN 1 TABLET PO (07:54)
[2024-02-29] MEDS: LANTUS 0.5 UNITS SC ×2 (07:55→21:14)
[2024-02-29 08:22] LABS: Hematocrit 33.6 % (39.0-52.0); Hemoglobin 11.2 g/dL (13.0-18.0); Mean Corp Hgb Conc. 33.3 g/dL (33.0-37.0); Mean Corpuscular Hgb 28.4 pg (27.0-31.0); Mean Corpuscular Volume 85.3 fL (80.0-94.0); Mean Platelet Volume 10.5 fL (7.4-10.4); Platelet Count 299 10^3/uL (130-400); Red Blood Cell Count 3.94 10^6/uL (4.70-6.10); Red Cell Dist. Width 15.9 % (11.5-14.5); White Blood Cell Count 8.6 10^3/uL (4.8-10.8)
[2024-02-29 09:08] LABS: Blood Urea Nitrogen 46 mg/dl (9-20); Calcium 10.1 mg/dl (8.4-10.2); Carbon Dioxide 30 mmol/L (22-30); Chloride 97 mmol/L (98-107); Estimated Creatinine Clearance 57 ml/min; Glucose 154 mg/dl (70-99); Magnesium 1.9 mg/dl (1.6-2.3); Phosphorus 4.5 mg/dl (2.5-4.5); Potassium 4.1 mmol/L (3.5-5.1); Sodium 141 mmol/L (135-145); eGFR 50.08
[2024-02-29] MEDS: NOVOLOG FLEXPEN 15 UNITS SC ×3 (09:08→18:05)
[2024-02-29] MEDS: NOVOLOG FLEXPEN-MODERATE RESISTANCE 1 UNITS SC (09:08)
--- NOTE | 2024-02-29 09:09 | W.PN.HOSP.TC ---
Today's Communication/Plan
-
Possible discharge tomorrow with continued improvement
Assessment / Plan
Assessment / Plan
HPI: 68 man presents to the Emergency Department for evaluation of 'confusion.'. Pt's noted that he developed symptoms of repetitive speech/questions. His blood sugar was 104. He then had generalized weakness and dizziness and came to the ED.
He reports having a fever briefly last week for <24 hours, but did not seek treatment. He Currently denies chest pain, SOB, abd pain, N/V. He Has baseline diplopia secondary to 3rd CN palsy. At the time of my interview, he said he was feeling better.
#Fever/leukocytosis
Patient had fever on 02/26, temperature 101.4, WBC upon admission 11.2
Chest x-ray negative, urine cultures negative, blood cultures negative, influenza negative, COVID-negative
Interestingly enough, he has improved on IV Rocephin
Continue IV Rocephin, likely can transition to cefdinir upon discharge to complete a 7-day course
Seen by PT, he is independent
#Acute urinary tract infection ruled out
Urine cultures with no growth
#Acute toxic metabolic encephalopathy
#Cognitive impairment
Improving per
Continue Aricept
#Chronic heart failure with preserved ejection fraction
states patient takes Lasix 80 mg in the morning, 40 in the afternoon�adjustments made
Continue metolazone, Farxiga
#Stage III chronic kidney disease
Creatinine 1.5. His baseline is about 1.2.
Allow degree of renal sufficiency to maintain euvolemia
#Type 2 diabetes
Continue Farxiga, metformin, glargine 50 units twice daily, NovoLog 15 units AC 3 times daily
#Permanent atrial fibrillation
Continue Eliquis
#Chronic normocytic anemia
Monitor Hgb
#Left eye 3rd nerve palsy
Monitor
DVT prophylaxis�Eliquis
Full code
Updated on phone 02/28
Total time spent to see the patient on the floor, examine the patient, review data and lab results, discuss treatment plan with patient, nursing staff around 50 minutes.
Physical Exam
General: No acute distress
HEENT: Normocephalic, Atraumatic, EOMI, MMM
Left eye 3rd nerve palsy
Respiratory: Clear to Auscultation bilaterally
Cardiac: Normal S1/S2, Regular Rate and Rhythm
GI: Soft, Nontender, Nondistended, Normal Bowel Sounds
Extremities: No Clubbing, Cyanosis
Bilateral lower extremity edema noted
Neuro: Pleasantly confused
Psych: Calm, Cooperative
Derm: No Visible lesions
Anticipated Discharge: Within 24 hours
Subjective/Interval History
-
Date of Service: February 29, 2024
Patient's mentation has improved. Continues to have left-sided abd pain, mild. No nausea, no vomiting.
Objective Data
-
Labs:
Laboratory Results
02/29/24
07:26
WBC 8.6
Hgb 11.2 L
Hct 33.6 L
Plt Count 299 D
Sodium 141
Potassium 4.1
Chloride 97 L
Carbon Dioxide 30
BUN 46 H
Creatinine 1.5 H
Glucose 154 H
Calcium 10.1
Vital Signs:
Vital Signs
Temp Pulse Resp BP Pulse Ox
98.2 F 65 17 120/51 96
02/29/24 07:39 02/29/24 07:39 02/29/24 07:39 02/29/24 07:39 02/29/24 07:39
I&O
02/28/24 02/29/24 03/01/24
06:59 06:59 06:59
Intake Total 120 / 120 960 / 960
Output Total 650 / 650 200 / 200
Balance -530 / -530 760 / 760
[2024-02-29 12:00] LABS: Lipase 122 U/L (23-300)
[2024-02-29] MEDS: NOVOLOG FLEXPEN-MODERATE RESISTANCE 5 UNITS SC (12:08)
--- NOTE | 2024-02-29 12:35 | CM ---
Chart reviewed and plan is to home when stable.
Plan; Home when stable.
[2024-02-29 15:37] VITALS: BP 126/64
[2024-02-29] MEDS: LASIX 40 MG PO (15:56)
[2024-02-29 15:59] VITALS: BMI 34.7
--- NOTE | 2024-02-29 16:47 | PTCARENOTE ---
Pt appears to be doing well cognitively. AOx3, pleasant, conversing w/ staff. Ambulating around unit w/o issue. BILL stockings applied to help w/ b/l lower extremity edema. Complained of leg cramps overnight that improved once up this morning.
Mild BARNETT - asks for inhaler after being OOB. Otherwise no complaints.
[2024-02-29] MEDS: NOVOLOG FLEXPEN-MODERATE RESISTANCE SC (18:04)
[2024-02-29] MEDS: LIPITOR 80 MG PO (18:06)
[2024-02-29] MEDS: TRICOR 145 MG PO (18:06)
[2024-02-29] MEDS: LYRICA 75 MG PO (18:06)
[2024-02-29] MEDS: SINGULAIR 10 MG PO (18:06)
[2024-02-29] MEDS: FLOMAX 0.400000000000000022 MG PO (18:07)
[2024-02-29] MEDS: ARICEPT 10 MG PO (21:15)
[2024-02-29] MEDS: STERILE WATER FOR INJECTION 10 ML IV (21:15)
[2024-02-29] MEDS: ROCEPHIN 1000 MG IV (21:15)
--- NOTE | 2024-02-29 21:21 | PTCARENOTE ---
Pt blood sugar 125 per own dexcom.
[2024-02-29 23:08] VITALS: BP 121/50
[2024-03-01] MEDS: TYLENOL PO (03:54)
--- NOTE | 2024-03-01 04:15 | DOWNTIME ---
There was a Infectious Client Design Technician Downtime on 03/01/2024 from 0100 to 03/01/2024 at 0337. Downtime documentation of patient's care, including medication administrations, has been reconciled in the electronic record per guidelines. Refer to the
patient's paper chart under the miscellaneous tab to see printed paper medication records and downtime forms.
[2024-03-01] MEDS: TYLENOL 650 MG PO ×4 (05:25→15:21)
[2024-03-01] MEDS: SYNTHROID 50 MCG PO (05:27)
[2024-03-01 06:00] VITALS: BMI 34.6
[2024-03-01 07:20] LABS: Hematocrit 34.9 % (39.0-52.0); Hemoglobin 11.6 g/dL (13.0-18.0); Mean Corp Hgb Conc. 33.2 g/dL (33.0-37.0); Mean Corpuscular Hgb 28.5 pg (27.0-31.0); Mean Corpuscular Volume 85.7 fL (80.0-94.0); Mean Platelet Volume 10.2 fL (7.4-10.4); Platelet Count 329 10^3/uL (130-400); Red Blood Cell Count 4.07 10^6/uL (4.70-6.10); Red Cell Dist. Width 15.8 % (11.5-14.5); White Blood Cell Count 10.9 10^3/uL (4.8-10.8)
[2024-03-01 07:29] VITALS: BP 162/81
[2024-03-01] MEDS: NON-FORMULARY ITEM 50 MCG INH (07:45)
[2024-03-01] MEDS: ProAIR HFA INHALER 2 PUFF INH (07:53)
[2024-03-01 08:03] LABS: Blood Urea Nitrogen 53 mg/dl (9-20); Carbon Dioxide 31 mmol/L (22-30); Chloride 96 mmol/L (98-107); Estimated Creatinine Clearance 56 ml/min; Glucose 131 mg/dl (70-99); Potassium 4.1 mmol/L (3.5-5.1); Sodium 142 mmol/L (135-145); eGFR 50.08
[2024-03-01] MEDS: LANTUS 0.5 UNITS SC (08:35)
[2024-03-01] MEDS: NOVOLOG FLEXPEN-MODERATE RESISTANCE 1 UNITS SC ×3 (08:36→16:18)
[2024-03-01] MEDS: NOVOLOG FLEXPEN 15 UNITS SC ×3 (08:36→16:17)
[2024-03-01] MEDS: THERAGRAN 1 TABLET PO (08:42)
[2024-03-01] MEDS: LASIX 80 MG PO (08:42)
[2024-03-01] MEDS: VITAMIN B-6 100 MG PO (08:42)
[2024-03-01] MEDS: VITAMIN B1 300 MG PO (08:42)
[2024-03-01] MEDS: ASPIR LOW (ENTERIC COATED) 81 MG PO (08:42)
[2024-03-01] MEDS: PROTONIX 40 MG PO (08:43)
[2024-03-01] MEDS: VITAMIN C 1000 MG PO (08:43)
[2024-03-01] MEDS: VITAMIN D3 (cholecalciferol) 25 MCG PO (08:43)
[2024-03-01] MEDS: GLUCOPHAGE 500 MG PO ×2 (08:43→16:16)
[2024-03-01] MEDS: VITAMIN B-12 300 MCG PO (08:43)
[2024-03-01] MEDS: FARXIGA 10 MG PO (08:43)
[2024-03-01] MEDS: ELIQUIS 5 MG PO (08:43)
--- NOTE | 2024-03-01 08:49 | PTCARENOTE ---
Pt's sugar was 170 this morning per patients Dexcom. Dr. Watson is ok with patient checking his sugar this way without using our glucometer. Appropriate coverage was given along with morning dose of Lantus.
--- NOTE | 2024-03-01 09:06 | W.PN.HOSP.TC ---
Today's Communication/Plan
-
Discharge today
Assessment / Plan
Assessment / Plan
HPI: 68 man presents to the Emergency Department for evaluation of 'confusion.'. Pt's noted that he developed symptoms of repetitive speech/questions. His blood sugar was 104. He then had generalized weakness and dizziness and came to the ED.
He reports having a fever briefly last week for <24 hours, but did not seek treatment. He Currently denies chest pain, SOB, abd pain, N/V. He Has baseline diplopia secondary to 3rd CN palsy. At the time of my interview, he said he was feeling better.
#Fever/leukocytosis
Patient had fever on 02/26, temperature 101.4, WBC upon admission 11.2
Chest x-ray negative, urine cultures negative, blood cultures negative, influenza negative, COVID-negative
Interestingly enough, he has improved on IV Rocephin
Status post IV Rocephin, transition to cefdinir upon discharge to complete a 7-day course
Seen by PT, he is independent
Medically stable for discharge
#Acute urinary tract infection ruled out
Urine cultures with no growth
#Acute toxic metabolic encephalopathy
#Cognitive impairment
Improving per , but not at baseline
Recommend follow-up with neuropsychiatry outpatient for dementia testing
Continue Aricept
#Left-sided flank pain
Suspect musculoskeletal
Lipase normal
#Chronic heart failure with preserved ejection fraction
states patient takes Lasix 80 mg in the morning, 40 in the afternoon�adjustments made
Continue metolazone, Farxiga
#Stage III chronic kidney disease
Creatinine 1.5. His baseline is about 1.2.
Allow degree of renal sufficiency to maintain euvolemia
#Type 2 diabetes
Continue Farxiga, metformin, glargine 50 units twice daily, NovoLog 15 units AC 3 times daily
#Permanent atrial fibrillation
Continue Eliquis
#Nocturnal leg cramps
Start Flexeril at bedtime
#Chronic normocytic anemia
Monitor Hgb
#Left eye 3rd nerve palsy
Monitor
DVT prophylaxis�Eliquis
Full code
Updated on phone 03/01
Physical Exam
General: No acute distress
HEENT: Normocephalic, Atraumatic, EOMI, MMM
Left eye 3rd nerve palsy
Respiratory: Clear to Auscultation bilaterally
Cardiac: Normal S1/S2, Regular Rate and Rhythm
GI: Soft, Nontender, Nondistended, Normal Bowel Sounds
Extremities: No Clubbing, Cyanosis
Bilateral lower extremity edema noted
Neuro: Pleasantly confused
Psych: Calm, Cooperative
Derm: No Visible lesions
Anticipated Discharge: Today
Subjective/Interval History
-
Date of Service: February 29, 2024
Patient complains of not being go to sleep due to leg cramps at night. No fever, no vomiting.
Objective Data
-
Labs:
Laboratory Results
02/29/24
07:26
WBC 8.6
Hgb 11.2 L
Hct 33.6 L
Plt Count 299 D
Sodium 141
Potassium 4.1
Chloride 97 L
Carbon Dioxide 30
BUN 46 H
Creatinine 1.5 H
Glucose 154 H
Calcium 10.1
Vital Signs:
Vital Signs
Temp Pulse Resp BP Pulse Ox
98.4 F 72 17 126/64 96
02/29/24 15:37 02/29/24 15:37 02/29/24 15:37 02/29/24 15:37 02/29/24 15:37
I&O
02/28/24 02/29/24 03/01/24
06:59 06:59 06:59
Intake Total 120 / 120 960 / 960
Output Total 650 / 650 200 / 200
Balance -530 / -530 760 / 760
[2024-03-01] MEDS: OMNICEF 300 MG PO (11:11)
[2024-03-01 12:11] LABS: % Eosinophils 2.7 % (0-6); % Immature Granulocytes 0.4 % (0-0.5); % Lymphocytes 12.7 % (20.5-51.1); % Monocytes 9.7 % (1.7-9.3); % Neutrophils 73.5 % (42.2-75.2); Absolute Basophils 0.1 10^3/uL (0-0.2); Absolute Eosinophils 0.3 10^3/uL (0-0.7); Absolute Lymphocytes 1.3 10^3/uL (1.2-3.4); Absolute Neutrophils 7.4 10^3/uL (1.4-6.5); Hematocrit 37.8 % (39.0-52.0); Hemoglobin 12.2 g/dL (13.0-18.0); Mean Corp Hgb Conc. 32.3 g/dL (33.0-37.0); Mean Corpuscular Hgb 28.4 pg (27.0-31.0); Mean Corpuscular Volume 87.9 fL (80.0-94.0); Mean Platelet Volume 10.2 fL (7.4-10.4); Nucleated Red Blood Cells % 0 % (-); Platelet Count 349 10^3/uL (130-400); Red Cell Dist. Width 15.8 % (11.5-14.5)
[2024-03-01 12:34] LABS: Vitamin B12 614 pg/ml (239-931)
--- NOTE | 2024-03-01 13:01 | CM ---
Home when stable.
Plan; Home at discharge.
--- NOTE | 2024-03-01 15:08 | W.DCSUMMARY ---
Discharge Summary
Discharge Data
Date of Admission: 02/27/24
Date of Discharge: 03/01/24
-
Pending Results: No
Hospital Course
Discharge diagnosis:
Fever and leukocytosis concerning for infection with no source identified
Acute toxic metabolic encephalopathy
Cognitive impairment
Chronic heart failure with a preserved ejection fraction
Permanent atrial fibrillation on Eliquis
Stage III chronic kidney disease
Type 2 diabetes
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
Obesity due to excess calories
Head CT:
Unenhanced CT imaging of the head reveals no findings to suggest recent infarction, intracranial hemorrhage, extra-axial fluid collection, mass effect or midline shift. The ventricles, cisterns and sulci are stable. The brainstem and posterior fossa
structures demonstrate no significant focal abnormality.
CXR:
No focal parenchymal opacification to suggest pneumonia.
Hospital course:
68-year-old male with a past medical history of cognitive impairment, permanent atrial fibrillation on Eliquis, CHF, stage III chronic kidney disease, type 2 diabetes, and chronic left 3rd nerve palsy presented with altered mental status, fever, and
weakness. Patient was found to have a mildly elevated white blood cell count. Chest x-ray was negative, urine analysis was initially concerning for a urinary tract infection. He was treated with Rocephin.
Urine cultures were negative. Since he did have a leukocytosis with a fever upon admission, his Rocephin was continued to cover for possible bacterial infection. His leukocytosis resolved. His fever resolved.
Patient's mentation did improve. However, his reports that he is not at baseline. It is recommended that he follow-up with neuropsychiatry in the office for official dementia testing. Patient was seen in conjunction with PT, and he was
independent. He is medically stable for discharge on cefdinir 300 mg twice a day to complete a 7-day course. He has been instructed to follow-up with his primary care doctor in 1 week.
Disposition: Home self-care
Discharge planning: Required 39 minutes
Discharge Plan
-
Patient Disposition: Home (Routine Discharge)
Discharge Diagnosis/Procedures: Fever with elevated white blood cell count concerning for infection with no source identified, cognitive impairment with worsening confusion, chronic heart failure, stage III chronic kidney disease, type 2 diabetes,
permanent atrial fibrillation
Condition: Good
Diet: Low Sodium and Diabetic, Carb Controlled
Specialty Instructions: Weigh Daily- Call MD for wt gain/loss 3 lbs overnight/5 lbs in 1 week
Activity Restrictions/Additional Instructions:
You can call Dr. Donavan Collazo, neuropsychiatry, to see if there is an earlier appointment for dementia testing.
Please follow-up with your primary care doctor in 1 week.
Instructions: Fever, Adult (DC)
Referrals:
Vish Collazo PSY [Specified Professional Personl] - in three to four weeks
Calin Conrad MD [Family Provider] - in one week
Prescriptions:
New
furosemide 40 mg Tablet
40 mg PO DAILY@1600 Qty: 0 0RF
furosemide 80 mg Tablet
80 mg PO DAILY Qty: 0 0RF
cefdinir 300 mg capsule
300 mg PO BID 5 Days Qty: 10 0RF
cyclobenzaprine 5 mg tablet
5 mg PO HS Qty: 30 0RF
Continued
multivitamin Tablet
1 tab PO DAILY Qty: 0
ascorbic acid (vitamin C) [Vitamin C] 1,000 MG tablet
1,000 mg PO DAILY
omeprazole 20 MG capsule,delayed release(DR/EC)
20 mg PO DAILY
montelukast 10 MG tablet
10 mg PO QPM
cyanocobalamin (vitamin B-12) [Vitamin B-12] 100 mcg Tablet
300 mcg PO DAILY Qty: 0
pyridoxine (vitamin B6) [Vitamin B-6] 100 mg Tablet
100 mg PO DAILY Qty: 0
atorvastatin 80 MG tablet
80 mg PO QPM
Testosterone
1.62 % topical DAILY
aspirin [Thu Low Dose Aspirin] 81 MG tablet,delayed release (DR/EC)
81 mg PO DAILY Qty: 0 0RF
Rx Instructions:
Resume on 10/28/20.
Fish Oil 1,000 Mg Capsule
4,000 mg PO DAILY Qty: 0 0RF
tamsulosin 0.4 mg Capsule
0.4 mg PO QPM
Patient Comments:
Pt states he dos not take this anymore
levothyroxine 50 mcg tablet
50 mcg PO DAILY AT 0700
Serevent Diskus 50 mcg/dose blister with device
1 inh INHALATION R BID
albuterol sulfate 90 mcg/actuation Hfa Aerosol Inhaler
2 puff INHALATION R Q4 PRN (Reason: sob)
fenofibrate 160 mg tablet
160 mg PO QPM
pregabalin 75 mg capsule
75 mg PO QPM
cholecalciferol (vitamin D3) [Vitamin D3] 25 mcg (1,000 unit) Tablet
25 mcg PO DAILY
apixaban 5 mg Tablet
5 mg PO BID
metformin 500 mg Tablet
500 mg PO BID@0800,1700
thiamine HCl (vitamin B1) 100 mg Tablet
300 mg PO DAILY
Patient Comments:
spoke with pt and about pts medications. Pt/ state pt takes Vitamin B1 300mg PO daily.
insulin aspart U-100 [Novolog FlexPen U-100 Insulin] 100 unit/mL (3 mL) Insulin Pen
15 unit SC AC 30 Days Qty: 15 0RF
Rx Instructions:
sliding scale
donepezil [Aricept] 10 mg Tablet
10 mg PO HS
insulin glargine 100 UNIT/ML solution
50 unit SC BID
metolazone 2.5 mg Tablet
2.5 mg PO .MON,FRI
dapagliflozin propanediol [Farxiga] 10 mg Tablet
10 mg PO DAILY
Discontinued
furosemide [Lasix] 40 mg Tablet
40 mg PO .1600
furosemide [Lasix] 20 mg tablet
80 mg PO AMHS
Discharge Orders:
Discharge Patient (As Directed); Ordered 03/01/24
Ordered By: Justus Watson
Discharge Date and Time
Discharge Date/Time: 03/01/24 17:33
Print Language: MAURITANIAN
[2024-03-01] MEDS: LASIX 40 MG PO (15:21)
--- NOTE | 2024-03-01 15:27 | PTCARENOTE ---
Patients lunch time glucose was 171 via patients Dexcom. appropriate coverage was given.
[2024-03-01 15:39] VITALS: BP 146/57
[2024-03-01] MEDS: LYRICA 75 MG PO (16:44)
[2024-03-01] MEDS: FLOMAX 0.400000000000000022 MG PO (16:44)
[2024-03-01] MEDS: TRICOR 145 MG PO (16:44)
[2024-03-01] MEDS: SINGULAIR 10 MG PO (16:44)
[2024-03-01] MEDS: LIPITOR 80 MG PO (16:44)
== END 2024-03-01 17:33 | disposition home or self-care (01) | DRG 92 ==
LOC: 4 WEST ACU 23:01
PROVIDERS: Physician Assistant; ADMITTING PHYSICIAN Internal Medicine; ATTENDING PHYSICIAN Family Medicine; EMERGENCY PHYSICIAN Emergency Medicine; FAMILY PHYSICIAN Internal Medicine
DX: G92.8 Other toxic encephalopathy (principal); I13.0 Hypertensive heart and chronic kidney disease with heart failure and stage 1 through stage 4 chronic kidney disease, or unspecified chronic kidney disease; I50.32 Chronic diastolic (congestive) heart failure; I48.21 Permanent atrial fibrillation; D72.829 Elevated white blood cell count, unspecified; H53.2 Diplopia; N18.30 Chronic kidney disease, stage 3 unspecified; E11.22 Type 2 diabetes mellitus with diabetic chronic kidney disease; E78.00 Pure hypercholesterolemia, unspecified; H49.02 Third [oculomotor] nerve palsy, left eye; E03.9 Hypothyroidism, unspecified; R50.9 Fever, unspecified; G47.62 Sleep related leg cramps; D63.1 Anemia in chronic kidney disease; G31.84 Mild cognitive impairment of uncertain or unknown etiology; F17.200 Nicotine dependence, unspecified, uncomplicated; K76.0 Fatty (change of) liver, not elsewhere classified; E66.09 Other obesity due to excess calories; Z68.34 Body mass index [BMI] 34.0-34.9, adult; Z79.01 Long term (current) use of anticoagulants; Z88.5 Allergy status to narcotic agent; Z95.0 Presence of cardiac pacemaker; Z79.84 Long term (current) use of oral hypoglycemic drugs; Z79.4 Long term (current) use of insulin; Z79.82 Long term (current) use of aspirin; Z79.890 Hormone replacement therapy; Z11.52 Encounter for screening for COVID-19
CPT/HCPCS: 70450; 71046; 80048; 80053; 81003; 81015; 82607; 82962; 83605; 83690; 83735; 84100; 84484; 85025; 85027; 85610; 85730; 87040; 87086; 87502; 87811; 93005; 94640; 94660; 96361; 96374; 97161; 99285

== ENCOUNTER → 2024-03-22 08:43 | Outpatient (REF) | payer MEDICARE, OTHER, SELFPAY ==
--- NOTE | 2024-03-23 09:24 | PN.DE.MGMTRT ---
Insulin Management
- -
03/22/2024 Insulin review and management Consult
Patient and attended visit. Patient admits he is having difficulty with his memory and his glucose control has been poor. Patient diabetes regimen Lantus 50 units BID, 500 mg metformin BID. A1C 7.7, cr 1.5, EGFR 50.08. On patient previous
admission patient and were instructed on carb counting and dosing insulin for carbs but 'they got away from it'.
When speaking with patient he reports taking lantus at 7am and 7pm. interjected he doesn't get up till 10 so that is not possible. He reports novolog is 16 units with meals or just guesstimating how much he needs.
Provided nutrition booklet and instruction for how to count carbs, will start 1:3 carb ratio. Will also start 1:20 for correction factor. All instructions were written out on how to calculate math for carbs and corrections. Patient to utilize
Char and send emails with glucose for possible needed adjustments.
Diabetes History
- -
Type of Diabetes: 2 requiring insulin
Pre-Admission Diabetes Regimen
Insulin Pump Settings
IP Diabetes Regimen
Patient Education
== END ==
LOC: DES 08:43
PROVIDERS: ATTENDING PHYSICIAN Internal Medicine
DX: E11.65 Type 2 diabetes mellitus with hyperglycemia (principal)
CPT/HCPCS: 99078

== ENCOUNTER → 2024-03-22 10:57 | Outpatient (REF) | payer MEDICARE, OTHER, SELFPAY ==
[2024-03-22 12:35] LABS: NT-proBNP 411 pg/ml
== END ==
LOC: REG 10:57
PROVIDERS: ATTENDING PHYSICIAN Internal Medicine
DX: I50.9 Heart failure, unspecified (principal)
CPT/HCPCS: 36415; 83880

== ENCOUNTER → 2024-03-27 12:49 | Outpatient (REF) | payer MEDICARE, OTHER, SELFPAY | LOC: EMG 12:49 | PROVIDERS: ATTENDING PHYSICIAN Internal Medicine | DX: E11.69 Type 2 diabetes mellitus with other specified complication (principal); M79.604 Pain in right leg; M79.605 Pain in left leg; G56.03 Carpal tunnel syndrome, bilateral upper limbs | CPT/HCPCS: 95886; 95913 ==

== ENCOUNTER → 2024-05-25 10:31 | Outpatient (REF) | payer MEDICARE, OTHER, SELFPAY ==
[2024-05-25 12:09] LABS: Hemoglobin 12.1 g/dL (13.0-18.0)
[2024-05-25 12:38] LABS: Glucose 130 mg/dl (70-99)
[2024-05-25 12:40] LABS: ALT (SGPT) 31 U/L (0-50); AST (SGOT) 32 U/L (17-59); Albumin 4.7 g/dl (3.5-5.0); Alkaline Phosphatase 56 U/L (38-126); Blood Urea Nitrogen 70 mg/dl (9-20); Calcium 9.8 mg/dl (8.4-10.2); Carbon Dioxide 29 mmol/L (22-30); Chloride 98 mmol/L (98-107); Glucose 130 mg/dl (70-99); HDL Cholesterol 27 mg/dl; LDL Cholesterol, Calculated 72 mg/dl; Magnesium 2.1 mg/dl (1.6-2.3); Sodium 145 mmol/L (135-145); Total Bilirubin 0.4 mg/dl (0.2-1.3); Total Cholesterol 151 mg/dl (50-199); Total Protein 7.8 g/dl (6.3-8.2); Triglyceride 260 mg/dl (10-149); Very Low Density Lipoprotein 52 mg/dl (0-30); eGFR 46.35
[2024-05-25 12:55] LABS: Free T3 3.12 pg/ml (2.77-5.27); Free T4 1.09 ng/dl (0.78-2.19)
[2024-05-25 13:08] LABS: TSH 2.89 uIU/ml (0.47-4.68)
[2024-05-25 14:05] LABS: Glycohemoglobin (HgbA1c) 7.2 % (4.0-5.6)
[2024-05-27 05:07] LABS: Total T3 (Sendout) 84 ng/dL (80-200)
[2024-05-27 05:29] LABS: % Free Testosterone 2.2 % (1.6-2.9); Free Testosterone 72 pg/mL (47-244); Sex Hormone Binding Globulin 23 nmol/L (19-76); Total Testosterone 334 ng/dL (300-720)
== END ==
LOC: REG 10:31
PROVIDERS: ATTENDING PHYSICIAN Internal Medicine Cardiovascular Disease; FAMILY PHYSICIAN Internal Medicine; REFERRING PHYSICIAN Internal Medicine Endocrinology, Diabetes & Metabolism
DX: I48.21 Permanent atrial fibrillation (principal); R06.02 Shortness of breath; I50.32 Chronic diastolic (congestive) heart failure; I10 Essential (primary) hypertension; Z79.4 Long term (current) use of insulin; E29.1 Testicular hypofunction; E10.65 Type 1 diabetes mellitus with hyperglycemia; R33.9 Retention of urine, unspecified
CPT/HCPCS: 36415; 80053; 80061; 82947; 83036; 83735; 84153; 84270; 84402; 84403; 84439; 84443; 84480; 84481; 85018

== ENCOUNTER → 2024-06-21 06:37 | Day surgery (SDC) | payer MEDICARE, OTHER, SELFPAY ==
[2024-06-21 07:46] LABS: Glucose - Point of Care 144 mg/dl (70-99)
== END ==
LOC: GI 06:37
PROVIDERS: ATTENDING PHYSICIAN Internal Medicine Gastroenterology
DX: Z12.11 Encounter for screening for malignant neoplasm of colon (principal); K64.8 Other hemorrhoids; K57.30 Diverticulosis of large intestine without perforation or abscess without bleeding; D12.0 Benign neoplasm of cecum; D12.3 Benign neoplasm of transverse colon; D12.4 Benign neoplasm of descending colon; Z86.0100 Personal history of colon polyps, unspecified
CPT/HCPCS: 45385; 88305; 82962

== ENCOUNTER → 2024-07-17 07:32 | Outpatient (REF) | payer MEDICARE, OTHER, SELFPAY | LOC: RAD 07:32 | PROVIDERS: ATTENDING PHYSICIAN Physician Assistant Medical; FAMILY PHYSICIAN Internal Medicine | DX: M54.6 Pain in thoracic spine (principal); M54.16 Radiculopathy, lumbar region; M48.062 Spinal stenosis, lumbar region with neurogenic claudication; Z98.1 Arthrodesis status | CPT/HCPCS: 72131 ==

== ENCOUNTER → 2024-08-02 10:44 | Outpatient (REF) | payer MEDICARE, OTHER, SELFPAY ==
[2024-08-02 12:03] LABS: ALT (SGPT) 38 U/L (0-50); AST (SGOT) 35 U/L (17-59); Albumin 4.9 g/dl (3.5-5.0); Alkaline Phosphatase 45 U/L (38-126); Blood Urea Nitrogen 67 mg/dl (9-20); Calcium 10.1 mg/dl (8.4-10.2); Carbon Dioxide 29 mmol/L (22-30); Chloride 96 mmol/L (98-107); Glucose 142 mg/dl (70-99); HDL Cholesterol 30 mg/dl; LDL Cholesterol, Calculated 70 mg/dl; Sodium 140 mmol/L (135-145); Total Bilirubin 0.4 mg/dl (0.2-1.3); Total Cholesterol 132 mg/dl (50-199); Total Protein 8.2 g/dl (6.3-8.2); Triglyceride 161 mg/dl (10-149); Very Low Density Lipoprotein 32 mg/dl (0-30); eGFR 54.41
[2024-08-02 12:21] LABS: Free T3 3.52 pg/ml (2.77-5.27); Free T4 1.23 ng/dl (0.78-2.19); Vitamin D, 25-OH*** 50.4 ng/mL (30-80)
[2024-08-02 12:31] LABS: Microalbumin, Random Urine <0.6 mg/dl (0.6-1.7)
[2024-08-02 12:34] LABS: TSH 2.58 uIU/ml (0.47-4.68)
[2024-08-02 16:42] LABS: Glycohemoglobin (HgbA1c) 7.1 % (4.0-5.6)
[2024-08-04 11:40] LABS: Thyroid Peroxidase Ab (TPO) 0.4 IU/mL (0.0-9.0)
== END ==
LOC: REG 10:44
PROVIDERS: ATTENDING PHYSICIAN Internal Medicine Endocrinology, Diabetes & Metabolism; FAMILY PHYSICIAN Internal Medicine
DX: E03.9 Hypothyroidism, unspecified (principal); E55.9 Vitamin D deficiency, unspecified; R80.9 Proteinuria, unspecified; E11.65 Type 2 diabetes mellitus with hyperglycemia; E78.5 Hyperlipidemia, unspecified; R53.83 Other fatigue; R74.01 Elevation of levels of liver transaminase levels
CPT/HCPCS: 36415; 80053; 80061; 82043; 82306; 82570; 83036; 84439; 84443; 84481; 86376

== ENCOUNTER → 2024-08-31 10:10 | Outpatient (REF) | payer MEDICARE, OTHER, SELFPAY ==
[2024-08-31 11:48] LABS: ALT (SGPT) 33 U/L (0-50); AST (SGOT) 30 U/L (17-59); Albumin 4.5 g/dl (3.5-5.0); Alkaline Phosphatase 41 U/L (38-126); Blood Urea Nitrogen 60 mg/dl (9-20); Calcium 9.2 mg/dl (8.4-10.2); Carbon Dioxide 32 mmol/L (22-30); Chloride 96 mmol/L (98-107); Glucose 127 mg/dl (70-99); HDL Cholesterol 24 mg/dl; LDL Cholesterol, Calculated 56 mg/dl; Potassium 3.5 mmol/L (3.5-5.1); Sodium 139 mmol/L (135-145); Total Bilirubin 0.2 mg/dl (0.2-1.3); Total Cholesterol 110 mg/dl (50-199); Total Protein 7.4 g/dl (6.3-8.2); Triglyceride 150 mg/dl (10-149); Very Low Density Lipoprotein 30 mg/dl (0-30); eGFR 59.47
[2024-08-31 12:04] LABS: Free T4 1.15 ng/dl (0.78-2.19)
[2024-08-31 12:05] LABS: Free T3 2.68 pg/ml (2.77-5.27)
[2024-09-02 03:08] LABS: Total T3 (Sendout) 96 ng/dL (80-200)
== END ==
LOC: REG 10:10
PROVIDERS: ATTENDING PHYSICIAN Internal Medicine Endocrinology, Diabetes & Metabolism; FAMILY PHYSICIAN Internal Medicine; REFERRING PHYSICIAN Internal Medicine Cardiovascular Disease
DX: E03.9 Hypothyroidism, unspecified (principal); E11.65 Type 2 diabetes mellitus with hyperglycemia; E78.5 Hyperlipidemia, unspecified; R53.83 Other fatigue
CPT/HCPCS: 36415; 80053; 80061; 84403; 84439; 84443; 84480; 84481

== ENCOUNTER → 2024-12-08 09:02 | Outpatient (REF) | payer MEDICARE, OTHER, SELFPAY ==
[2024-12-08 10:14] LABS: Microalbumin, Random Urine 0.7 mg/dl (0.6-1.7); Microalbumin/creatinine Ratio 8.9 mg/g
[2024-12-08 10:26] LABS: ALT (SGPT) 32 U/L (0-50); AST (SGOT) 31 U/L (17-59); Albumin 4.7 g/dl (3.5-5.0); Alkaline Phosphatase 50 U/L (38-126); Blood Urea Nitrogen 61 mg/dl (9-20); Calcium 10.3 mg/dl (8.4-10.2); Carbon Dioxide 30 mmol/L (22-30); Chloride 101 mmol/L (98-107); Glucose 145 mg/dl (70-99); HDL Cholesterol 25 mg/dl; LDL Cholesterol, Calculated 60 mg/dl; Sodium 145 mmol/L (135-145); Total Bilirubin 0.4 mg/dl (0.2-1.3); Total Cholesterol 120 mg/dl (50-199); Total Protein 7.6 g/dl (6.3-8.2); Triglyceride 176 mg/dl (10-149); Very Low Density Lipoprotein 35 mg/dl (0-30); eGFR 49.77
[2024-12-08 10:42] LABS: Free T4 1.18 ng/dl (0.78-2.19)
[2024-12-08 10:45] LABS: Free T3 2.98 pg/ml (2.77-5.27); Vitamin D, 25-OH*** 46.6 ng/mL (30-80)
[2024-12-08 10:56] LABS: TSH 3.62 uIU/ml (0.47-4.68)
[2024-12-08 11:43] LABS: Glycohemoglobin (HgbA1c) 6.9 % (4.0-5.6)
== END ==
LOC: REG 09:02
PROVIDERS: ATTENDING PHYSICIAN Internal Medicine Endocrinology, Diabetes & Metabolism; FAMILY PHYSICIAN Internal Medicine; OTHER PHYSICIAN Internal Medicine Cardiovascular Disease
DX: E78.5 Hyperlipidemia, unspecified (principal); E03.9 Hypothyroidism, unspecified; E55.9 Vitamin D deficiency, unspecified; R80.9 Proteinuria, unspecified; E11.65 Type 2 diabetes mellitus with hyperglycemia; R53.83 Other fatigue; R74.01 Elevation of levels of liver transaminase levels
CPT/HCPCS: 36415; 80053; 80061; 82043; 82306; 82570; 83036; 84403; 84439; 84443; 84481

== ENCOUNTER → 2024-12-25 08:58 | Outpatient (REF) | payer MEDICARE, OTHER, SELFPAY | LOC: HWRAD 08:58 | PROVIDERS: ATTENDING PHYSICIAN Internal Medicine; OTHER PHYSICIAN Internal Medicine Cardiovascular Disease; REFERRING PHYSICIAN Internal Medicine Critical Care Medicine | DX: Z87.891 Personal history of nicotine dependence (principal) | CPT/HCPCS: 71271 ==

== ENCOUNTER → 2025-01-08 07:17 | Outpatient (REF) | payer MEDICARE, OTHER, SELFPAY | LOC: HWRCS 07:17 | PROVIDERS: ATTENDING PHYSICIAN Nurse Practitioner; FAMILY PHYSICIAN Internal Medicine | DX: I48.21 Permanent atrial fibrillation (principal); I50.32 Chronic diastolic (congestive) heart failure; R07.89 Other chest pain | CPT/HCPCS: 78452; 93017; A9500; J2785 ==

== ENCOUNTER → 2025-01-16 13:50 | Outpatient (REF) | payer MEDICARE, OTHER, SELFPAY | LOC: RCS 13:50 | PROVIDERS: ATTENDING PHYSICIAN Nurse Practitioner; FAMILY PHYSICIAN Internal Medicine | DX: I48.21 Permanent atrial fibrillation (principal); I50.32 Chronic diastolic (congestive) heart failure; R07.89 Other chest pain | CPT/HCPCS: 93306 ==

== ENCOUNTER → 2025-01-25 11:28 | Outpatient (REF) | payer MEDICARE, OTHER, SELFPAY ==
[2025-01-25 12:17] LABS: % Basophils 1.5 % (0-2); % Eosinophils 4.9 % (0-6); % Immature Granulocytes 0.2 % (0-0.5); % Lymphocytes 20.2 % (20.5-51.1); % Monocytes 10.7 % (1.7-9.3); % Neutrophils 62.5 % (42.2-75.2); Absolute Basophils 0.1 10^3/uL (0-0.2); Absolute Eosinophils 0.3 10^3/uL (0-0.7); Absolute Lymphocytes 1.1 10^3/uL (1.2-3.4); Absolute Monocytes 0.6 10^3/uL (0.1-0.6); Absolute Neutrophils 3.4 10^3/uL (1.4-6.5); Hematocrit 35.4 % (39.0-52.0); Hemoglobin 11.6 g/dL (13.0-18.0); Mean Corp Hgb Conc. 32.8 g/dL (33.0-37.0); Mean Corpuscular Hgb 29.6 pg (27.0-31.0); Mean Corpuscular Volume 90.3 fL (80.0-94.0); Mean Platelet Volume 10.7 fL (7.4-10.4); Nucleated Red Blood Cells % 0 % (-); Platelet Count 234 10^3/uL (130-400); Red Blood Cell Count 3.92 10^6/uL (4.70-6.10); Red Cell Dist. Width 15.9 % (11.5-14.5); White Blood Cell Count 5.4 10^3/uL (4.8-10.8)
[2025-01-25 12:27] LABS: INR 1.12; PT 14.7 Sec (11.4-14.6)
[2025-01-25 12:50] LABS: ALT (SGPT) 34 U/L (0-50); AST (SGOT) 30 U/L (17-59); Albumin 4.6 g/dl (3.5-5.0); Alkaline Phosphatase 45 U/L (38-126); Blood Urea Nitrogen 53 mg/dl (9-20); Calcium 9.8 mg/dl (8.4-10.2); Carbon Dioxide 29 mmol/L (22-30); Chloride 103 mmol/L (98-107); Glucose 192 mg/dl (70-99); Potassium 4.2 mmol/L (3.5-5.1); Sodium 143 mmol/L (135-145); Total Bilirubin 0.6 mg/dl (0.2-1.3); Total Protein 7.4 g/dl (6.3-8.2)
== END ==
LOC: SDSPAT 11:28
PROVIDERS: ATTENDING PHYSICIAN Internal Medicine Interventional Cardiology; FAMILY PHYSICIAN Internal Medicine; OTHER PHYSICIAN Internal Medicine Cardiovascular Disease
DX: R07.89 Other chest pain (principal); R06.02 Shortness of breath
CPT/HCPCS: 36415; 80053; 85025; 85610; 93005

== ENCOUNTER 2025-01-29 09:51 | Inpatient (IN) | payer MEDICARE, OTHER, SELFPAY ==
[2025-01-25 11:47] VITALS: BMI 37.7
[2025-01-29] VITALS (10 sets, daily range): BP systolic 118–138; BP diastolic 47–72; BMI 33.4
[2025-01-29 07:29] LABS: Glucose - Point of Care 197 mg/dl (70-99)
[2025-01-29] MEDS: NSS 318 ML IV (07:35)
--- NOTE | 2025-01-29 10:15 | CONSULT.CT ---
Consultation
-
Date/Time Consultation Requested: 01/29 0949
Date/Time Consultation Performed: 01/29 1016
Requesting Provider: Raghu NUÑEZ
Performing Provider: Jeancarlos Reyna MD
Reason for Consultation: CABG eval
Patient History
Physicians
Family Physician: Chan Conrad
Outpatient Automotive Starter Repairer: Kurt Donohue MD
Inpatient Automotive Starter Repairer: Zana Carter MD
History of Present Illness
69-year-old male with past medical history significant for HTN, A-fib on Eliquis, IDDM, HLD, SSS s/p PPM in 1998, and CHF with preserved ejection fraction presented electively on 01/29 for a left heart cath with Dr. Carter. He reports of chest pain
with activity that radiates to his jaw and down bilateral upper extremities. This pain has been more happening for weeks and is relieved by rest. Patient underwent an echocardiogram and a nuclear stress test. Echocardiogram showed a low normal
ejection fraction of 50-55% with mild to moderate MR and stress test showed a small mildly reversible defect in the apical inferior and apical lateral segments. Today he came for a left heart cardiac catheterization with Dr. Carter which coronary
artery disease and CT surgery was consulted for surgical evaluation.
Past Medical History
Past Medical History: Other
1. Chest pain.
2. Shortness of breath.
3. Hypertension.
4. Hypertriglyceridemia.
5. Permanent atrial fibrillation, status post remote AVN ablation;
pharmacological therapy with Eliquis.
6. Sick sinus syndrome and complete AV block, status post pacemaker
implant, 1998, and subsequent generator changes.
7. Congestive heart failure, preserved ejection fraction.
8. Mild to moderate mitral regurgitation.
9. COPD with asthmatic component.
10. Obstructive sleep apnea, compliant with CPAP.
11. Chronic kidney disease (patient denied)
12. Insulin-dependent diabetes.
13. GERD.
14. Tubular adenoma on colonoscopy 2017.
15. Diverticulosis.
16. Nephrolithiasis.
17. Pancreatic pseudocyst.
18. Acute pancreatitis, 2008, secondary to hypertriglyceridemia.
19. 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
20. Cognitive impairment.
21. Chronic left 3rd nerve palsy.
22. Vertigo.
23. Lumbar degenerative disc disease with radiculopathy.
24. Hypothyroidism.
25. BPH.
26. History of hematuria 2018.
27. Chronic normocytic anemia.
28. MRSA positive nasal swab 2020; 2 negative swabs since diagnosis.
29. Obesity, BMI 37.7.
30. Remote history of tobacco abuse.
Past Surgical History
Past Surgical History: Other
1. AVN ablation.
2. Cardioversion.
3. Pacemaker implant and subsequent generator changes.
4. Kidney stone extraction.
5. Tonsillectomy.
6. Multiple epidural steroid injections.
7. Multiple colonoscopies
Family History
Family Medical History: CAD (mother)
Social History
Alcohol: Occasional
Drug: None
Tobacco: Former Smoker (quit 20 years ago)
Personal:
Living: With Spouse
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
Allergies
Allergy/AdvReac Type Severity Reaction Status Date / Time
avocado Allergy Swelling Verified 01/29/25 06:55
banana Allergy Patient Verified 01/29/25 06:55
denies
morphine Allergy Patient Verified 01/29/25 06:55
Denies
pollen extracts Allergy Congestion, Verified 01/29/25 06:55
itchy eyes
tuberculin,PPD,multi-puncture Allergy arm Verified 01/29/25 06:55
[From Tuberculin PPD Joya inflammation
Test]
walnut Allergy Throat Verified 01/29/25 06:55
Swelling
Home Medications
�Medication �Instructions �Recorded �Confirmed �Type
montelukast 10 mg tablet 10 mg PO HS Lung/breathing issues 02/08/09 01/29/25 History
multivitamin 1 tab PO DAILY Supplement ##0 02/08/09 01/29/25 History
omeprazole 20 mg capsule,delayed 20 mg PO DAILY Gastrointestinal 02/08/09 01/29/25 History
release issue
cyanocobalamin (vitamin B-12) 100 300 mcg PO DAILY Supplement ##0 10/24/18 01/29/25 History
mcg tablet (Vitamin B-12)
pyridoxine (vitamin B6) 100 mg 100 mg PO DAILY Supplement ##0 10/24/18 01/29/25 History
tablet (Vitamin B-6)
atorvastatin 80 mg tablet 80 mg PO QPM High cholesterol 10/22/20 01/29/25 History
testosterone 50 mg/5 gram (1 %) 2 tube transdermal DAILY Hormonal 10/22/20 01/29/25 History
transdermal gel agent ##0
aspirin 81 mg tablet,delayed 81 mg PO DAILY Blood clot 10/24/20 01/29/25 Rx
release (Thu Low Dose Aspirin) prevention/tx ##0
albuterol sulfate 90 mcg/actuation 2 puff inhalation R Q4 PRN sob 12/28/22 01/29/25 History
aerosol inhaler
apixaban 5 mg tablet 5 mg PO BID Blood clot 12/28/22 01/29/25 History
prevention/tx
cholecalciferol (vitamin D3) 25 50 mcg PO DAILY Supplement 12/28/22 01/29/25 History
mcg (1,000 unit) tablet (Vitamin
D3)
levothyroxine 50 mcg tablet 50 mcg PO DAILY AT 0700 Thyroid 12/28/22 01/29/25 History
pregabalin 75 mg capsule 75 mg PO QPM Neurological Condition 12/28/22 01/29/25 History
salmeterol 50 mcg/dose blister 1 inh inhalation R BID 12/28/22 01/29/25 History
powder for inhalation (Serevent Lung/breathing issues
Diskus)
metformin 500 mg tablet 500 mg PO Daily Diabetes 12/29/22 01/29/25 History
thiamine HCl (vitamin B1) 100 mg 100 mg PO DAILY Supplement 01/03/23 01/29/25 History
tablet
donepezil 10 mg tablet (Aricept) 10 mg PO QPM Alzheimer's 02/27/24 01/29/25 History
insulin glargine 100 unit/mL 50 unit SC BID Diabetes 02/27/24 01/29/25 History
subcutaneous solution
metolazone 2.5 mg tablet 2.5 mg PO MOFR Fluid 02/27/24 01/29/25 History
Retention/Swelling
furosemide 80 mg tablet 80 mg PO DAILY #0 tabs 03/01/24 01/29/25 Rx
ascorbic acid (vitamin C) 500 mg 500 mg PO DAILY 01/24/25 01/29/25 History
tablet (Vitamin C)
buspirone 10 mg tablet 10 mg PO BID 01/24/25 01/29/25 History
fenofibrate micronized 134 mg 134 mg PO QPM 01/24/25 01/29/25 History
capsule
fluticasone 500 mcg-salmeterol 50 1 inh inhalation PRN PRN Chest 01/24/25 01/29/25 History
mcg/dose blistr powdr for Congestion
inhalation
furosemide 40 mg tablet 40 mg PO QPM 01/24/25 01/29/25 History
insulin aspart U-100 100 unit/mL 0 - 20 unit SC AC 01/24/25 01/29/25 History
(3 mL) subcutaneous pen (Novolog
FlexPen U-100 Insulin aspart)
isosorbide mononitrate 30 mg 30 mg PO DAILY 01/24/25 01/29/25 History
tablet,extended release 24 hr
losartan 50 mg tablet 50 mg PO DAILY 01/24/25 01/29/25 History
metformin 500 mg tablet,extended 1,000 mg PO QPM 01/24/25 01/29/25 History
release 24 hr
omega 0-rsp-xta-fish oil 1,000 mg 2 cap PO BID 01/24/25 01/29/25 History
(120 mg-180 mg) capsule (Fish Oil)
pregabalin 75 mg capsule (Lyrica) 75 mg PO PRN PRN Nerve Pain 01/24/25 01/24/25 History
semaglutide 0.25 mg or 0.5 mg (2 0.5 mg SC TU 01/24/25 01/24/25 History
mg/1.5 mL) subcutaneous pen
injector (Ozempic)
Review of Systems
-
History Source: Patient and Family
General: Reports Weight Gain
HEENT: Reports No Symptoms
Respiratory: Reports SOB and BARNETT
Cardiac: Reports Chest Pain
Abdomen/GI: Reports No Symptoms
: Reports No Symptoms
Musculoskeletal: Reports No Symptoms
Skin: Reports No Symptoms
Neurological: Reports No Symptoms
Vascular: Reports No Symptoms
Physical Exam
Vital Signs
Temp 97.8 F 01/29/25 07:19
Temp route: Temporal 01/29/25 07:19
Pulse 71 01/29/25 09:58
Resp Rate 16 01/29/25 07:19
Blood pressure 123/59 01/29/25 09:58
Blood pressure extremity used: Right upper arm 01/29/25 07:19
Position: Sitting 01/29/25 07:19
MAP (cuff-Anthony Monitor) 80 01/29/25 09:58
SaO2 96 01/29/25 09:58
Oxygen Mode of Delivery Room air 01/29/25 07:19
Can the patient verbally communicate their pain? Yes 01/29/25 10:00
Actual Weight 102.512 kg 01/29/25 07:39
Body Mass Index (BMI) 33.4 01/29/25 07:39
Labs
01/29/25 12:33
Exam
General: Well Developed, Well Nourished, No Apparent Distress and Comfortable
HEENT: Normocephalic
Respiratory: Clear
Cardiac: S1/S2 and Regular Rhythm
GI: Soft and Other (obese)
Rectal: Deferred by Provider
Skin: Warm and Dry
Neuro: AO x 3 and Other (endoreses short term memory loss)
Lymph: No Lymphadenopathy
Psych: Calm
Assessment / Plan
-
69-year-old male with past medical history above presented for a left heart cath and was found to have coronary artery disease. CT surgery was consulted for surgical evaluation.
#CAD
-Patient's case will be discussed with attending physician. Further details regarding surgical timing intervention will be determined after attending physicians full evaluation
-Routine preoperative cardiothoracic surgery orders will be initiated.
-STS risk stratification score will be calculated after preoperative testing is complete
-Heparin gtt per cardiology
-Last dose of Eliquis was on Wednesday
[2025-01-29 10:16] LABS: Glucose - Point of Care 210 mg/dl (70-99)
--- NOTE | 2025-01-29 11:30 | PTCARENOTE ---
Received pt from lab animal technician. Right radial cath site with TR band in place. No bleeding or hematoma noted at this time. Positive radial pulse. V-paced on the monitor. HR in the 60-70's. Pt denies chest pain or SOB at this time. Heart failure packet and
education given to pt. pt verbalizes understanding. Call thomason within reach.
[2025-01-29 12:04] LABS: ACT-LR - POC 236 Seconds (116-155)
[2025-01-29 12:04] LABS: ACT-LR - POC 211 Seconds (116-155)
[2025-01-29 12:06] LABS: Glucose - Point of Care 263 mg/dl (70-99)
[2025-01-29] MEDS: NOVOLOG FLEXPEN-MODERATE RESISTANCE 5 UNITS SC (12:09)
[2025-01-29] MEDS: COZAAR 50 MG PO (12:11)
--- NOTE | 2025-01-29 12:11 | CM ---
Chart reviewed. Patient is independent of ADLS, lives with his in a 2 STH, 1-2 GREG, has a RW and SPC at home but does not use them. Plan is for the patient to return home. CM to follow
[2025-01-29 12:44] LABS: Hematocrit 32.5 % (39.0-52.0); Hemoglobin 10.7 g/dL (13.0-18.0); Mean Corp Hgb Conc. 32.9 g/dL (33.0-37.0); Mean Corpuscular Hgb 29.5 pg (27.0-31.0); Mean Corpuscular Volume 89.5 fL (80.0-94.0); Mean Platelet Volume 10.5 fL (7.4-10.4); Platelet Count 203 10^3/uL (130-400); Red Blood Cell Count 3.63 10^6/uL (4.70-6.10); Red Cell Dist. Width 15.9 % (11.5-14.5); White Blood Cell Count 6.2 10^3/uL (4.8-10.8)
--- NOTE | 2025-01-29 12:46 | ITS.CL.CATH ---
Nematologist - Catheterization
Cardiac Catheterization
Procedure Report:
LEFT HEART CATHETERIZATION
Date of Procedure: January 29, 2025
Referring: Dr. Kurt Donohue
PROCEDURES:
1. Left heart catheterization with coronary and single-plane left ventriculography
2. Hemodynamic assessment of RCA
INDICATION: This is a 69-year-old gentleman with a past medical history notable for hypertension, atrial fibrillation on apixaban, insulin-dependent diabetes mellitus, hyperlipidemia, and sick sinus syndrome with history of permanent pacemaker
implant in 1998. He has underlying moderate COPD. He reported the onset of substernal chest tightness that radiates to the jaw and bilateral upper extremities and a recent stress study was notable for a small reversible apical defect and inferior
and apical lateral segment. His symptoms persisted and is now referred for coronary angiography. He has moderate-severe mitral regurgitation.
ACCESS: Right radial artery, 6 Portuguese sheath
HEMODYNAMICS : (mmHg)
AO (s/d) : 105/55, 76
LV (s/d) : 109/13
LVEDP : 22
CORONARY FINDINGS
DOMINANCE: Right
LEFT MAIN: Normal
LEFT ANTERIOR DESCENDING: The LAD is a large-caliber vessel that arises normally from the left main running in the anterior interventricular groove. The mid LAD beyond the first septal public speaking professor has a complex 90% stenosis with aneurysmal dilation
on the distal edge of the stenosis. The mid to distal LAD is large and has minor irregularities but no focal obstructive stenosis
CIRCUMFLEX: The circumflex is a moderate to large caliber nondominant vessel giving rise to a moderate-sized bifurcating OM1. The circumflex then continues in the AV groove with luminal irregularities to 30% just proximal to the origin of a
terminal posterolateral branch.
RIGHT CORONARY ARTERY: The right coronary artery is a large-caliber dominant vessel with a smooth 60-70% stenosis in its midportion just beyond a small RV marginal branch. The mid RCA has a 50% stenosis and the crux of the RCA has a 50% stenosis.
The PDA is large and widely patent. Hemodynamic assessment of the stenotic segments in the mid and distal right coronary artery was performed using a [place] Omni wire. The Omni wire was advanced to the guide catheter tip and normalized to the
guide catheter pressure then advanced to the PDA where hemodynamic assessment was performed. The iFR surprisingly serially measured above the ischemic threshold at 0.97, 0.97, and 0.97. The Omni wire was withdrawn to the guide cath tip confirming
no baseline drift. Angiographically, the RCA appeared significant which was not confirmed with hemodynamic assessment as above
VENTRICULOGRAPHY: Left ventriculography is performed in an BUTCHER projection. The digital single-plane left ventricular ejection fraction is visually estimated at 50% with mild global hypokinesis
SEDATION: 40 minutes of procedural sedation was utilized. An independent medical tech was present to assist with and help manage the patient's level of consciousness and physiologic status.
RADIATION SUMMARY: Fluoro Time (min): 6.2, Dose (mGy): 367, DAP (Gy.cm2) : 59
Closure Device: TR band
CONCLUSIONS
1. There is a high-grade 90% stenosis in the mid LAD beyond the first septal public speaking professor with aneurysmal dilation at the distal edge of the stenosis. Angiographically, the RCA had significant atherosclerotic disease, however, hemodynamically the
iFR measured above the ischemic threshold.
2. Low normal LVEF
RECOMMENDATIONS
1. Given the patient's diabetes and the high-grade LAD stenosis with aneurysmal dilation as well as angiographically significant (hemodynamically nonsignificant) RCA stenosis the decision was made to obtain a CT surgical evaluation render an
opinion on surgical versus percutaneous treatment options.
2. Further management decisions will be made on the basis of CT surgical discussions
Copy to: Dr. Kurt Donohue
[2025-01-29 13:01] LABS: APTT 66.7 Sec (23.4-35.0)
[2025-01-29 13:26] LABS: Glucose - Point of Care 339 mg/dl (70-99)
--- NOTE | 2025-01-29 13:45 | PTCARENOTE ---
@1330 Pt reports 'my glucose monitor is alarming a reading of 341 and rising' after 5 units of insulin given with lunch @ noon. glucose reading taken on our machine resulted 339. Jael Krishnamurthy NP made aware. No further orders for insulin at this
time. To check glucose reading at dinner and dose off sliding scale
[2025-01-29] MEDS: HEPARIN 25000 UNITS/250 ML IV (15:17)
[2025-01-29 15:18] LABS: Glucose - Point of Care 281 mg/dl (70-99)
[2025-01-29 17:06] LABS: Glucose - Point of Care 222 mg/dl (70-99)
[2025-01-29] MEDS: NOVOLOG FLEXPEN-MODERATE RESISTANCE 3 UNITS SC (17:46)
[2025-01-29] MEDS: ARICEPT 10 MG PO (17:46)
[2025-01-29] MEDS: LYRICA 75 MG PO (17:46)
[2025-01-29] MEDS: TRICOR 145 MG PO (17:46)
[2025-01-29] MEDS: LIPITOR 80 MG PO (17:46)
[2025-01-29] MEDS: BUSPAR 10 MG PO (19:44)
[2025-01-29] MEDS: LANTUS 0.5 UNITS SC (19:45)
[2025-01-29 19:52] LABS: Glucose - Point of Care 212 mg/dl (70-99)
[2025-01-29] MEDS: NON-FORMULARY ITEM 1 MCG INH (20:05)
[2025-01-29] MEDS: SINGULAIR 10 MG PO (21:45)
[2025-01-29 21:46] LABS: Glucose - Point of Care 176 mg/dl (70-99)
[2025-01-29 23:04] LABS: APTT 32.8 Sec (23.4-35.0)
--- NOTE | 2025-01-29 23:47 | PTCARENOTE ---
Pt rec'd at change of shift oob in recliner chair where he remains at this time. oob to br independently. Pt and spouse report pt having couple episodes of loose stool which pt reports have lessened at this time. INFANT CHILDCARE PROVIDER on telemetry. Right radial site
with DDI, no bleeding or hematoma present. pt instructed on limb restrictions. Heparin gtt adjusted for ptt. Currently infusing at 1200 units/hr.
[2025-01-30] VITALS (9 sets, daily range): BP systolic 107–134; BP diastolic 42–68; BMI 34.1
[2025-01-30] MEDS: SYNTHROID 50 MCG PO (04:54)
[2025-01-30] MEDS: TYLENOL 650 MG PO (05:20)
[2025-01-30 05:27] LABS: Hematocrit 31.9 % (39.0-52.0); Hemoglobin 10.3 g/dL (13.0-18.0); Mean Corp Hgb Conc. 32.3 g/dL (33.0-37.0); Mean Corpuscular Hgb 29.2 pg (27.0-31.0); Mean Corpuscular Volume 90.4 fL (80.0-94.0); Mean Platelet Volume 10.9 fL (7.4-10.4); Platelet Count 208 10^3/uL (130-400); Red Blood Cell Count 3.53 10^6/uL (4.70-6.10); Red Cell Dist. Width 15.9 % (11.5-14.5); White Blood Cell Count 7.5 10^3/uL (4.8-10.8)
[2025-01-30 05:42] LABS: INR 1.09; PT 14.6 Sec (11.4-14.6)
[2025-01-30 05:43] LABS: APTT 34.2 Sec (23.4-35.0)
[2025-01-30 06:05] LABS: ALT (SGPT) 31 U/L (0-50); AST (SGOT) 22 U/L (17-59); Albumin 4.2 g/dl (3.5-5.0); Alkaline Phosphatase 34 U/L (38-126); Blood Urea Nitrogen 33 mg/dl (9-20); Calcium 9.9 mg/dl (8.4-10.2); Carbon Dioxide 29 mmol/L (22-30); Chloride 110 mmol/L (98-107); Direct Bilirubin 0.1 mg/dl (0.0-0.4); Estimated Creatinine Clearance 82 ml/min; Glucose 176 mg/dl (70-99); HDL Cholesterol 23 mg/dl; LDL Cholesterol, Calculated 40 mg/dl; Potassium 4.2 mmol/L (3.5-5.1); Sodium 145 mmol/L (135-145); Total Bilirubin 0.5 mg/dl (0.2-1.3); Total Cholesterol 105 mg/dl (50-199); Triglyceride 213 mg/dl (10-149); Very Low Density Lipoprotein 42 mg/dl (0-30); eGFR > 60.00
[2025-01-30 06:28] LABS: B.E. 2.9 mmol/L; HCO3 27.1 mmol/L (21-28); O2 Saturation % 96.2 % (94-98); PCO2 39 mmHg (35-48); PO2 86 mmHg (83-108); pH 7.45 (7.35-7.45)
[2025-01-30 08:05] LABS: Glucose - Point of Care 154 mg/dl (70-99)
[2025-01-30 08:08] LABS: Glycohemoglobin (HgbA1c) 6.9 % (4.0-5.6)
[2025-01-30] MEDS: LASIX 80 MG PO (08:33)
[2025-01-30] MEDS: LANTUS 0.5 UNITS SC ×2 (08:33→20:01)
[2025-01-30] MEDS: IMDUR (EXTENDED RELEASE) 30 MG PO (08:33)
[2025-01-30] MEDS: PLAVIX 600 MG PO (08:33)
[2025-01-30] MEDS: COZAAR 50 MG PO (08:33)
[2025-01-30] MEDS: ASPIR LOW (ENTERIC COATED) 81 MG PO (08:33)
[2025-01-30] MEDS: BUSPAR 10 MG PO ×2 (08:33→20:01)
[2025-01-30] MEDS: PROTONIX 40 MG PO (08:33)
[2025-01-30] MEDS: NOVOLOG FLEXPEN-MODERATE RESISTANCE 1 UNITS SC (08:34)
[2025-01-30] MEDS: NON-FORMULARY ITEM 1 MCG INH ×2 (08:40→19:50)
[2025-01-30] MEDS: ProAIR HFA INHALER 2 PUFF INH (08:44)
[2025-01-30 09:24] LABS: Glucose - Point of Care 262 mg/dl (70-99)
--- NOTE | 2025-01-30 10:19 | W.PN.UPDATE ---
Addendum entered and electronically signed by Alana Riojas MD 01/30/25 19:09:
CT surgery evaluated the patient and given underlying pulmonary issues with IFR negative RCA disease he was felt to be too high risk for coronary artery bypass grafting and therefore the plan is to proceed with PCI of mid LAD.
Extensive discussion was had with patient as well as at bedside reviewing the risk and benefits of the procedure and the decision making. The procedure was explained to them in significant detail and we re-reviewed the risk with the procedure
multiple times.
They were agreeable with the plan to move forward later today.
Alana Riojas MD, [facility], [facility]
Total time spent: 36-minutes
Original Note:
Update Note
Progress Note Update
discussed with IC as well as CT surgery. PCI felt to be best option, will plan to move forward with LAD PCI today. NPO after breakfast. given 600mg plavix this AM, 75mg daily to start 01/31. d/w nursing.
[2025-01-30] MEDS: HEPARIN 25000 UNITS/250 ML IV (11:22)
--- NOTE | 2025-01-30 11:43 | CM ---
Chart reviewed. Patient is going for a PCI today. Patient is independent of ADLS, lives with his in a 2 STH, 1-2 GREG, has a RW and SPC at home if needed. Plan is for the patient to return home. CM to follow
--- NOTE | 2025-01-30 12:00 | PTCARENOTE ---
Received pt from tender labor, s/p stent. VSS, v paced on monitor. Right radial band intact, +cms to fingers. Instructed on weight bearing status to right arm/hand. Family at bedside, call thomason in reach.
[2025-01-30 13:15] LABS: APTT 40.9 Sec (23.4-35.0)
[2025-01-30 13:28] LABS: Glucose - Point of Care 192 mg/dl (70-99)
[2025-01-30] MEDS: NOVOLOG FLEXPEN-MODERATE RESISTANCE SC ×2 (13:54→18:15)
[2025-01-30 18:14] LABS: Glucose - Point of Care 116 mg/dl (70-99)
[2025-01-30] MEDS: LYRICA 75 MG PO (18:14)
[2025-01-30] MEDS: ARICEPT 10 MG PO (18:14)
[2025-01-30] MEDS: TRICOR 145 MG PO (18:14)
[2025-01-30] MEDS: LIPITOR 80 MG PO (18:15)
--- NOTE | 2025-01-30 18:45 | ITS.CL.CATH ---
Psychiatric Security Nurse - Catheterization
Cardiac Catheterization
Procedure Report:
LEFT HEART CATHETERIZATION AND CORONARY INTERVENTION
Date of Procedure: January 30, 2025
Referring: Zana Carter
PROCEDURES:
1. Left heart catheterization, selective left coronary angiogram.
2. Moderate sedation.
3. Successful percutaneous coronary artery intervention of a 90% mid LAD stenosis with one 3.0 x 34 mm Medtronic [place] drug-eluting stent, postdilated using IVUS guidance with a 3.5 x 25 mm NC balloon at 18 jose manuel with an excellent angiographic and
IVUS based result.
4. Intravascular ultrasound (IVUS).
INDICATION: Staged PCI of mid LAD
ACCESS: Right radial artery, 6Fr. sheath, under US guidance.
HEMODYNAMICS : (mmHg)
AO (s/d) : 113/50
LVEDP : 22 (assessed to help with post procedure fluid hydration and optimizing diuretics in the setting of known mitral regurgitation)
No significant gradient across the aortic valve to suggest aortic stenosis.
CORONARY FINDINGS
DOMINANCE: Right
LEFT MAIN: Normal
LEFT ANTERIOR DESCENDING: The LAD is a large-caliber vessel that arises normally from the left main running in the anterior interventricular groove. The mid LAD beyond the first septal footwear machinery instructor has a 90% stenosis with aneurysmal dilation on the
distal edge of the stenosis. The mid to distal LAD is large and has minor irregularities but no focal obstructive stenosis
CIRCUMFLEX: The circumflex is a moderate to large caliber nondominant vessel giving rise to a moderate-sized bifurcating OM1. The circumflex then continues in the AV groove with luminal irregularities to 30% just proximal to the origin of a
terminal posterolateral branch.
RIGHT CORONARY ARTERY: The right coronary artery was not selectively shot on this study.
CORONARY INTERVENTION: The left coronary artery was selectively engaged using a 6 Pakistani EBU 3.75 guide catheter. Additional heparin was given to maintain a therapeutic ACT throughout the case. A 190 cm 0.14' run-through coronary wire was
successfully navigated across the mid LAD stenosis into the distal vessel. We initially predilated the lesion using a 2.5 x 15 mm semi-compliant balloon with good expansion. At this point we attempted to deliver a 3.0 x 34 mm Medtronic [place]
drug-eluting stent however we could not get it to pass the most severe lesion. We decided to further predilate using a 3.0 x 25 mm semi-compliant balloon which was delivered using a 6 Pakistani GuideLiner support achieving good expansion. Through the
guide liner we subsequently were able to successfully deliver a 3.0 x 34 mm Medtronic [place] drug-eluting stent. Using [place] eye IVUS catheter, we further postdilated the stent with a 3.5 x 25 mm NC balloon at 18 jose manuel with an excellent
angiographic and IVUS based result. On post PCI IVUS imaging, the stent was well-expanded and well apposed with no evidence of proximal or distal stent edge dissections. The patient tolerated the procedure well. He had been loaded with 600 mg of
Plavix this morning. No acute complications.
SEDATION: 67 minutes of procedural sedation was utilized. IV Midazolam and IV Fentanyl were administered. An independent medical receptionist medical assistant was present to assist with and help manage the patient's level of consciousness and physiologic status.
Closure Device: There were no immediate intra-procedural complications. The sheath was pulled in the laborer salvage and a vascular-band applied to the right wrist for radial artery hemostasis using the patent hemostasis technique.
CONCLUSIONS
1. Successful percutaneous coronary artery intervention of a 90% mid LAD stenosis with one 3.0 x 34 mm Medtronic [place] drug-eluting stent, postdilated using IVUS guidance with a 3.5 x 25 mm NC balloon at 18 jose manuel with an excellent angiographic and
IVUS based result.
2. Elevated LVEDP at 22 mmHg
RECOMMENDATIONS
1. Wean radial band per protocol. Monitor right hand perfusion and for bleeding from the radial site following removal of the vascular-band following trans-radial access.
2. Continue aggressive medical therapy and risk factor modification for secondary CAD prevention.
3. IV diuresis to optimize filling pressures.
4. Dual antiplatelet therapy with daily baby aspirin and Plavix for 7 days with plan to then continue Plavix along with Eliquis which will be resumed tonight as long as there is no issues with the right radial access site. High intensity statin
and beta-ni as tolerated.
5. Referral for outpatient cardiac rehab.
Alana Riojas MD, FACC, [facility]
[2025-01-30 20:08] LABS: Glucose - Point of Care 251 mg/dl (70-99)
[2025-01-30] MEDS: SINGULAIR 10 MG PO (22:44)
[2025-01-30] MEDS: ELIQUIS 5 MG PO (22:46)
--- NOTE | 2025-01-30 23:47 | PTCARENOTE ---
Pt rec'd at change of shift in recliner chair with at bedside. Right radial band removed over couple of hours. site dry and intact with no active bleeding or hematoma present. Presently resting pain free on own cpap.
[2025-01-31 04:25] VITALS: BP 127/55
[2025-01-31] MEDS: ProAIR HFA INHALER 2 PUFF INH (04:31)
[2025-01-31 04:47] VITALS: BMI 34.1
--- NOTE | 2025-01-31 04:51 | PTCARENOTE ---
OOB with assist for wt. and am labs. +2 pedal edema. no c/o cp -mild dyspnea with some wheezing. rsp called for treatment.
[2025-01-31 04:59] LABS: Hemoglobin 10.2 g/dL (13.0-18.0); Mean Corp Hgb Conc. 32.9 g/dL (33.0-37.0); Mean Corpuscular Hgb 29.6 pg (27.0-31.0); Mean Corpuscular Volume 89.9 fL (80.0-94.0); Mean Platelet Volume 10.3 fL (7.4-10.4); Platelet Count 203 10^3/uL (130-400); Red Blood Cell Count 3.45 10^6/uL (4.70-6.10); White Blood Cell Count 8.1 10^3/uL (4.8-10.8)
[2025-01-31 05:26] LABS: Blood Urea Nitrogen 32 mg/dl (9-20); Calcium 9.7 mg/dl (8.4-10.2); Carbon Dioxide 25 mmol/L (22-30); Chloride 110 mmol/L (98-107); Estimated Creatinine Clearance 74 ml/min; Glucose 139 mg/dl (70-99); Sodium 143 mmol/L (135-145); eGFR > 60.00
[2025-01-31] MEDS: SYNTHROID 50 MCG PO (07:11)
[2025-01-31] MEDS: NON-FORMULARY ITEM 1 MCG INH (07:24)
[2025-01-31 07:33] VITALS: BP 128/68
[2025-01-31 07:39] LABS: Glucose - Point of Care 143 mg/dl (70-99)
[2025-01-31] MEDS: NOVOLOG FLEXPEN-MODERATE RESISTANCE SC (07:42)
[2025-01-31] MEDS: PLAVIX 75 MG PO (07:43)
[2025-01-31] MEDS: IMDUR (EXTENDED RELEASE) 30 MG PO (07:43)
[2025-01-31] MEDS: BUSPAR 10 MG PO (07:43)
[2025-01-31] MEDS: PROTONIX 40 MG PO (07:43)
[2025-01-31] MEDS: ASPIR LOW (ENTERIC COATED) 81 MG PO (07:43)
[2025-01-31] MEDS: COZAAR 50 MG PO (07:43)
[2025-01-31] MEDS: LANTUS 0.5 UNITS SC (07:43)
[2025-01-31] MEDS: ELIQUIS 5 MG PO (07:44)
[2025-01-31] MEDS: TYLENOL 650 MG PO (07:44)
[2025-01-31] MEDS: FLUSH (NSS) 1 FLUSH IV ×2 (07:45→07:47)
[2025-01-31] MEDS: LASIX 40 MG IV ×2 (07:47→12:26)
--- NOTE | 2025-01-31 07:55 | PTCARENOTE ---
Patient is aaox4, vital signs are stable. 100% v-paced is noted on the monitor. His right wrist dressing is c/d/i. A positive right radial pulse is noted. He complains of bl lateral left foot pain and rates it an 8/10 on scale. He states that it has
been hurting since last night. +2 pitting edema is noted at the left foot and ankle. Right foot has +1 pitting edema. Tylenol given for pain.
[2025-01-31 08:23] LABS: ACT-LR - POC 273 Seconds (116-155)
[2025-01-31 08:23] LABS: ACT-LR - POC 237 Seconds (116-155)
[2025-01-31 08:23] LABS: ACT-LR - POC 332 Seconds (116-155)
--- NOTE | 2025-01-31 08:38 | W.PN.CARDCBS ---
Addendum entered and electronically signed by Alana Riojas MD 01/31/25 12:46:
I saw and examined the patient.
The Plating Inspector's note was reviewed and I agree with the note.
Comment: Doing well from a cardiac standpoint overnight. Complains of some left foot pain that he has been having even at home predating this admission with no real evaluation which may be a little bit worse. No groin access this admission
.
Vital signs and lab work reviewed. On exam patient is a bit forgetful, no acute distress, awake, alert and oriented x 2-3, regular rate, normal S1 and S2, no murmurs, rubs or gallops, obese, lungs are clear to auscultation bilaterally, abdomen is
obese, soft, nontender with active bowel sounds, right radial access site shows no evidence of hematoma or bruit, warm extremities with 1+ pitting edema
.
Recommendations:
1. Status post mid LAD PCI that was IVUS guided plan for triple therapy with aspirin Plavix and Eliquis for 7 days then plan to stop aspirin and continue Plavix and Eliquis only.
2. X-ray of left foot performed given his complaints which was negative for fracture. Will ask him to follow-up with his primary care physician as an outpatient for this.
3. High intensity statin and beta-ni as tolerated with LDL goal of less than 55 to be followed as an outpatient.
4. We will give additional dose of IV Lasix prior to discharge and increase his outpatient diuretic dose to 80 mg twice daily in the setting of an elevated LVEDP at 22 and bilateral lower extremity edema.
5. He will have a BMP checked in 1 week with cardiology follow-up set up.
6. Referral for outpatient cardiac rehab.
Stable for discharge from a cardiac standpoint.
Discussed with nursing at bedside.
Alana Riojas MD, [facility], [facility]
Original Note:
Today's Communication / Plan
-
Triple therapy with asa/plavix/eliquis for 7 days, then plavix/eliquis only
Xray of left foot
Likely d/c later today
Impression / Plan
-
PCP: Chan Conrad MD
CDY: Tim Donohue MD
69 y/o, PMH HTN, permanent AFib on eliquis, sss w/PPM in 1998 with subsequent AVJ ablation, mild-mod MR, DM, moderate COPD.
Presented with new onset SSCP/tightness radiating to jaw/BUE. NST revealed inferoapical and apical lateral ischemia, EF 50%.
Initial LHC on 01/29 with 50% mid RCA lesion that was non flow limiting, and high grade 90% mid LAD stenosis. Referred to CT surgery, and given underlying pulmonary issues with IFR negative RCA disease, was felt to be too high risk for CABG and
returned to lab for mid LAD PCI.
C 01/30- IVUS guided mid LAD angioplasty/VAN x1
elevated LVEDP at 22mmHg
IMPRESSION/PLAN:
CAD with abnormal NST
s/p staged LAD PCI w/VAN x1
residual 50% mid RCA- iFR negative
radial cath site stable
tele- VPaced w/underlying AF 70s, no VT/arrhythmia
will be on triple therapy w/asa, plavix, eliquis for 7 days, then stop asa and remain on plavix/eliquis only
elevated LVEDP- got 20mg IV lasix post cath and 40mg IV lasix this morning
moderate bl foot/ankle +2-3 pitting edema, L>R that is stable over the last few days
no dyspnea/hypoxia/SOB
mild-mod MR noted on echo
continue losartan, isosorbide, metolazone, furosemide
no BB d/t COPD/asthma
cardiac rehab consulted
followup at [facility] at d/c
anticipate d/c home later today
AFib/SSS/PPM w/prior AVJ ablation
[id number]
has been on heparin gtt since admission, eliquis restarted last evening after cath
Left Foot pain
c/o left lateral foot pain overnight- as noted, mod b/l +2-3 foot/ankle edema, L>R
endorses mild-moderate pain prior to admission in the same area, felt it was related to his shoes
progressive overnight, walking on it with some discomfort
exam with pain on palpation to left lateral foot area only, negative martita's, palpable pulse, +2-3 pitting edema
he has numbness/tingling normally d/t neuropathy but denies that it's worse than normal
possible DVT but unlikely as he has been properly anticoagulated with heparin, eliquis, negative exam
possible gout, possible musculoskeletal issue
will check foot xray today and he can followup with primary doctor
HLD- lipid profile noted, continue atorvastatin, fenofibrate
HTN- good control on current meds
COPD/Asthma- continue inhalers, per pulm
intolerant of Beta blockers
DM- has transdermal glucose monitor
continue insulins, resume metformin 48h after last cath
Progress Note - Rn Examiner
Subjective
Date of Service: January 31, 2025
Denies cp/palps/dyspnea
oob ambulating
c/o left lateral foot pain, progressive since prior to admission, some discomfort with ambulation, mild numbness that is normal d/t neuropathy,
Objective
Labs:
01/31/25 04:39
01/31/25 04:39
Labs
Hgb 10.2 g/dL (13.0-18.0) L 01/31/25 04:39
Hct 31.0 % (39.0-52.0) L 01/31/25 04:39
Plt Count 203 10^3/uL (130-400) 01/31/25 04:39
PT 14.6 Sec (11.4-14.6) 01/30/25 05:00
INR 1.09 01/30/25 05:00
APTT 40.9 Sec (23.4-35.0) H 01/30/25 12:42
Sodium 143 mmol/L (135-145) 01/31/25 04:39
Potassium 4.0 mmol/L (3.5-5.1) 01/31/25 04:39
BUN 32 mg/dl (9-20) H 01/31/25 04:39
Creatinine 1.1 mg/dL (0.7-1.3) 01/31/25 04:39
Glucose 139 mg/dl (70-99) H 01/31/25 04:39
Vital Signs and I&O:
Vital Signs
Temp Pulse Resp BP Pulse Ox
98.9 F 70 18 128/68 95
01/31/25 07:32 01/31/25 07:33 01/31/25 07:32 01/31/25 07:33 01/31/25 07:32
Vital Signs
Temp Pulse Resp BP Pulse Ox
98.9 F 70 18 128/68 95
01/31/25 07:32 01/31/25 07:33 01/31/25 07:32 01/31/25 07:33 01/31/25 07:32
Intake & Output
01/29/25 01/30/25 01/31/25 02/01/25
06:59 06:59 06:59 06:59
Intake Total 240 / 240
Output Total 600 / 600 900 / 900 225 / 225
Balance -600 / -600 -660 / -660 -225 / -225
Physical Exam
Physical Exam
AAOx3, MAEE 5/5
RRR S1 S2, soft 2/6 holosystolic murmur at left base
CTA bilat, non labored
obese soft abd, + be
right radial cath site STEPHANIE, no ht/bleeding, non tender
Bilat LE w/+2-3 pitting edema foot/ankle, L>R
left lateral foot with tenderness on palpation, palpable pulses, negative martita's sign, no calf warmth/tenderness
some pain to foot with ambulation but he is walking to and from the bathroom without limping/no assist
[2025-01-31 11:25] VITALS: BP 137/64
[2025-01-31] MEDS: LYRICA 75 MG PO ×2 (12:26→17:21)
[2025-01-31] MEDS: FLUSH (NSS) 2 FLUSH IV (12:26)
[2025-01-31] MEDS: KCL 20 MEQ PO (12:26)
[2025-01-31 12:35] LABS: Glucose - Point of Care 197 mg/dl (70-99)
[2025-01-31] MEDS: NOVOLOG FLEXPEN-MODERATE RESISTANCE 1 UNITS SC (12:35)
--- NOTE | 2025-01-31 12:43 | W.DS.TRANS ---
DC Summary - Desk Interviewer
-
Discharge Instructions:
Discharge Diagnosis/Procedures Angioplasty and stent to Left Anterior
Descending artery
Diet Low Cholesterol,Diabetic, Carb Controlled
Driving Restrictions No driving for 24 hours
Blood Work BMP in 1 week- results to Dr. Donohue
Other Services Cardiac Rehab
Instructions:
Stand-Alone Forms: DC Instructions- Cath/EP Lab
Changes to Home Medications: Yes
Discharge Medications:
DC Medications w/original date entered in [employer]
montelukast 10 mg tablet 10 mg PO HS Lung/breathing issues 02/08/09
multivitamin 1 tab PO DAILY Supplement ##0 02/08/09
cyanocobalamin (vitamin B-12) 100 mcg tablet (Vitamin B-12) 300 mcg PO DAILY Supplement ##0 10/24/18
pyridoxine (vitamin B6) 100 mg tablet (Vitamin B-6) 100 mg PO DAILY Supplement ##0 10/24/18
atorvastatin 80 mg tablet 80 mg PO QPM High cholesterol 10/22/20
testosterone 50 mg/5 gram (1 %) transdermal gel 2 tube transdermal DAILY Hormonal agent ##0 10/22/20
albuterol sulfate 90 mcg/actuation aerosol inhaler 2 puff inhalation R Q4 PRN sob 12/28/22
apixaban 5 mg tablet 5 mg PO BID Blood clot prevention/tx 12/28/22
cholecalciferol (vitamin D3) 25 mcg (1,000 unit) tablet (Vitamin D3) 50 mcg PO DAILY Supplement 12/28/22
levothyroxine 50 mcg tablet 50 mcg PO DAILY AT 0700 Thyroid 12/28/22
pregabalin 75 mg capsule (Lyrica) 75 mg PO QPM Neurological Condition 12/28/22
salmeterol 50 mcg/dose blister powder for inhalation (Serevent Diskus) 1 inh inhalation R BID Lung/breathing issues 12/28/22
metformin 500 mg tablet 500 mg PO DAILY Diabetes 12/29/22
thiamine HCl (vitamin B1) 100 mg tablet 100 mg PO DAILY Supplement 01/03/23
donepezil 10 mg tablet (Aricept) 10 mg PO QPM Alzheimer's 02/27/24
insulin glargine 100 unit/mL subcutaneous solution 50 unit SC BID Diabetes 02/27/24
metolazone 2.5 mg tablet 2.5 mg PO MOFR Fluid Retention/Swelling 02/27/24
ascorbic acid (vitamin C) 500 mg tablet (Vitamin C) 500 mg PO DAILY 01/24/25
buspirone 10 mg tablet 10 mg PO Q12 01/24/25
fenofibrate micronized 134 mg capsule 134 mg PO QPM 01/24/25
fluticasone 500 mcg-salmeterol 50 mcg/dose blistr powdr for inhalation 1 inh inhalation PRN PRN Chest Congestion 01/24/25
furosemide 40 mg tablet 40 mg PO DAILYPRN PRN leg swelling 01/24/25
insulin aspart U-100 100 unit/mL (3 mL) subcutaneous pen (Novolog FlexPen U-100 Insulin aspart) 0 - 20 unit SC AC 01/24/25
isosorbide mononitrate 30 mg tablet,extended release 24 hr 30 mg PO DAILY 01/24/25
losartan 50 mg tablet 50 mg PO DAILY 01/24/25
omega [id number] oil 1,000 mg (120 mg-180 mg) capsule (Fish Oil) 2 cap PO BID 01/24/25
pregabalin 75 mg capsule (Lyrica) 75 mg PO PRN PRN Nerve Pain 01/24/25
semaglutide 0.25 mg or 0.5 mg (2 mg/1.5 mL) subcutaneous pen injector (Ozempic) 0.5 mg SC TU 01/24/25
metformin 500 mg tablet 1,000 mg PO QPM 01/29/25
aspirin 81 mg tablet,delayed release (Thu Low Dose Aspirin) 81 mg PO DAILY Blood clot prevention/tx #1 tab 01/31/25
clopidogrel 75 mg tablet 75 mg PO DAILY #30 tabs 01/31/25
furosemide 80 mg tablet 80 mg PO BID #0 tabs 01/31/25
pantoprazole 40 mg tablet,delayed release 40 mg PO DAILY #30 tabs 01/31/25
Home Medication Changes
NEW: clopidogrel, pantoprazole
STOP: omeprazole, aspirin after 7 days post cath
DOSE CHANGE: furosemide
Pending Results: No
[2025-01-31 15:35] VITALS: BP 125/64
[2025-01-31] MEDS: ARICEPT 10 MG PO (17:21)
[2025-01-31] MEDS: TRICOR 145 MG PO (17:21)
[2025-01-31] MEDS: LIPITOR 80 MG PO (17:21)
== END 2025-01-31 18:32 | disposition home or self-care (01) | DRG 322 ==
LOC: IVU 09:51
PROVIDERS: Clinical Nurse Specialist Acute Care; Internal Medicine Interventional Cardiology; Nurse Practitioner; ADMITTING PHYSICIAN Internal Medicine Interventional Cardiology; FAMILY PHYSICIAN Internal Medicine
PROC: 4A023N7 Measurement of Cardiac Sampling and Pressure, Left Heart, Percutaneous Approach (ICD-10-PCS; 2025-01-29)
PROC: B2111ZZ Fluoroscopy of Multiple Coronary Arteries using Low Osmolar Contrast (ICD-10-PCS; 2025-01-29)
PROC: B2151ZZ Fluoroscopy of Left Heart using Low Osmolar Contrast (ICD-10-PCS; 2025-01-29)
PROC: 027034Z Dilation of Coronary Artery, One Artery with Drug-eluting Intraluminal Device, Percutaneous Approach (ICD-10-PCS; 2025-01-30)
DX: I25.10 Atherosclerotic heart disease of native coronary artery without angina pectoris (principal); I50.32 Chronic diastolic (congestive) heart failure; I13.0 Hypertensive heart and chronic kidney disease with heart failure and stage 1 through stage 4 chronic kidney disease, or unspecified chronic kidney disease; I48.21 Permanent atrial fibrillation; I44.2 Atrioventricular block, complete; I49.5 Sick sinus syndrome; Z95.0 Presence of cardiac pacemaker; N18.30 Chronic kidney disease, stage 3 unspecified; E11.22 Type 2 diabetes mellitus with diabetic chronic kidney disease; E11.40 Type 2 diabetes mellitus with diabetic neuropathy, unspecified; Z79.4 Long term (current) use of insulin; Z79.84 Long term (current) use of oral hypoglycemic drugs; J44.89 Other specified chronic obstructive pulmonary disease; D63.1 Anemia in chronic kidney disease; E03.9 Hypothyroidism, unspecified; Z79.01 Long term (current) use of anticoagulants; E66.9 Obesity, unspecified; Z68.34 Body mass index [BMI] 34.0-34.9, adult; E78.5 Hyperlipidemia, unspecified; G47.33 Obstructive sleep apnea (adult) (pediatric); K21.9 Gastro-esophageal reflux disease without esophagitis; K52.9 Noninfective gastroenteritis and colitis, unspecified; H49.02 Third [oculomotor] nerve palsy, left eye; M51.16 Intervertebral disc disorders with radiculopathy, lumbar region; N40.0 Benign prostatic hyperplasia without lower urinary tract symptoms; Z87.891 Personal history of nicotine dependence; Z79.890 Hormone replacement therapy; Z82.49 Family history of ischemic heart disease and other diseases of the circulatory system
CPT/HCPCS: 36600; 71250; 73620; 80048; 80053; 80061; 82248; 82805; 82962; 83036; 85027; 85347; 85610; 85730; 92978; 93005; 93458; 93880; 94060; 94640; 99152; 99153; C1725; C1753; C1769; C1874; C1894; C9600; Q9967

== ENCOUNTER → 2025-02-07 10:38 | Outpatient (REF) | payer MEDICARE, OTHER, SELFPAY ==
[2025-02-07 12:04] LABS: Blood Urea Nitrogen 77 mg/dl (9-20); Calcium 9.6 mg/dl (8.4-10.2); Carbon Dioxide 26 mmol/L (22-30); Chloride 101 mmol/L (98-107); Glucose 177 mg/dl (70-99); Potassium 4.4 mmol/L (3.5-5.1); Sodium 138 mmol/L (135-145); eGFR 54.07
== END ==
LOC: REG 10:38
PROVIDERS: ATTENDING PHYSICIAN Internal Medicine Interventional Cardiology; FAMILY PHYSICIAN Internal Medicine; REFERRING PHYSICIAN Internal Medicine Cardiovascular Disease
DX: I25.9 Chronic ischemic heart disease, unspecified (principal); R60.9 Edema, unspecified
CPT/HCPCS: 36415; 80048

== ENCOUNTER → 2025-03-10 10:32 | Outpatient (REF) | payer MEDICARE, OTHER, SELFPAY ==
[2025-03-10 12:10] LABS: ALT (SGPT) 27 U/L (0-50); AST (SGOT) 25 U/L (17-59); Albumin 4.6 g/dl (3.5-5.0); Alkaline Phosphatase 47 U/L (38-126); Blood Urea Nitrogen 57 mg/dl (9-20); Calcium 9.8 mg/dl (8.4-10.2); Carbon Dioxide 32 mmol/L (22-30); Chloride 101 mmol/L (98-107); Glucose 134 mg/dl (70-99); HDL Cholesterol 26 mg/dl; LDL Cholesterol, Calculated 53 mg/dl; Potassium 3.9 mmol/L (3.5-5.1); Sodium 143 mmol/L (135-145); Total Bilirubin 0.5 mg/dl (0.2-1.3); Total Cholesterol 108 mg/dl (50-199); Total Protein 7.7 g/dl (6.3-8.2); Triglyceride 147 mg/dl (10-149); Very Low Density Lipoprotein 29 mg/dl (0-30); eGFR > 60.00
[2025-03-10 12:29] LABS: Free T3 3.32 pg/ml (2.77-5.27); Free T4 1.24 ng/dl (0.78-2.19); Vitamin D, 25-OH*** 49.2 ng/mL (30-80)
[2025-03-10 12:42] LABS: TSH 1.82 uIU/ml (0.47-4.68)
[2025-03-10 12:59] LABS: Microalbumin, Random Urine < 0.6 mg/dl (0.6-1.7)
[2025-03-10 13:01] LABS: Glycohemoglobin (HgbA1c) 7.1 % (4.0-5.6)
== END ==
LOC: REG 10:32
PROVIDERS: ATTENDING PHYSICIAN Internal Medicine Endocrinology, Diabetes & Metabolism; FAMILY PHYSICIAN Internal Medicine; REFERRING PHYSICIAN Internal Medicine Cardiovascular Disease
DX: R74.01 Elevation of levels of liver transaminase levels (principal); R53.83 Other fatigue; D55.9 Anemia due to enzyme disorder, unspecified; E03.9 Hypothyroidism, unspecified; R80.9 Proteinuria, unspecified; E11.65 Type 2 diabetes mellitus with hyperglycemia; E78.5 Hyperlipidemia, unspecified; R79.89 Other specified abnormal findings of blood chemistry
CPT/HCPCS: 36415; 80053; 80061; 82043; 82306; 82570; 83036; 84439; 84443; 84481

== ENCOUNTER 2025-04-11 13:44 | Outpatient (RCR) | payer MEDICARE, OTHER, SELFPAY ==
[2025-03-21 14:38] LABS: Glucose - Point of Care 149 mg/dl (70-99)
[2025-03-21 15:27] LABS: Glucose - Point of Care 135 mg/dl (70-99)
[2025-03-23 13:11] LABS: Glucose - Point of Care 133 mg/dl (70-99)
[2025-03-23 14:12] LABS: Glucose - Point of Care 73 mg/dl (70-99)
[2025-03-23 14:51] LABS: Glucose - Point of Care 131 mg/dl (70-99)
[2025-03-26 13:10] LABS: Glucose - Point of Care 162 mg/dl (70-99)
[2025-03-26 14:09] LABS: Glucose - Point of Care 135 mg/dl (70-99)
[2025-04-02 13:10] LABS: Glucose - Point of Care 109 mg/dl (70-99)
[2025-04-02 14:11] LABS: Glucose - Point of Care 133 mg/dl (70-99)
[2025-04-04 13:06] LABS: Glucose - Point of Care 110 mg/dl (70-99)
[2025-04-04 14:00] LABS: Glucose - Point of Care 123 mg/dl (70-99)
[2025-04-06 13:09] LABS: Glucose - Point of Care 166 mg/dl (70-99)
[2025-04-06 14:03] LABS: Glucose - Point of Care 151 mg/dl (70-99)
[2025-04-09 13:15] LABS: Glucose - Point of Care 187 mg/dl (70-99)
[2025-04-09 14:07] LABS: Glucose - Point of Care 157 mg/dl (70-99)
[2025-04-11 13:02] LABS: Glucose - Point of Care 163 mg/dl (70-99)
[2025-04-11 13:57] LABS: Glucose - Point of Care 140 mg/dl (70-99)
== END 2025-04-11 23:59 | disposition home or self-care (01) ==
LOC: CRHB 13:44
PROVIDERS: ATTENDING PHYSICIAN Internal Medicine Cardiovascular Disease; FAMILY PHYSICIAN Internal Medicine
DX: I25.10 Atherosclerotic heart disease of native coronary artery without angina pectoris (principal); Z95.5 Presence of coronary angioplasty implant and graft
CPT/HCPCS: 82962; G0422; G0423

== ENCOUNTER 2025-05-11 14:06 | Outpatient (RCR) | payer MEDICARE, OTHER, SELFPAY ==
[2025-04-13 13:08] LABS: Glucose - Point of Care 121 mg/dl (70-99)
[2025-04-13 14:09] LABS: Glucose - Point of Care 96 mg/dl (70-99)
[2025-04-13 14:41] LABS: Glucose - Point of Care 138 mg/dl (70-99)
[2025-04-16 13:11] LABS: Glucose - Point of Care 198 mg/dl (70-99)
[2025-04-16 14:10] LABS: Glucose - Point of Care 145 mg/dl (70-99)
[2025-04-20 13:00] LABS: Glucose - Point of Care 273 mg/dl (70-99)
[2025-04-23 13:21] LABS: Glucose - Point of Care 182 mg/dl (70-99)
[2025-04-23 14:02] LABS: Glucose - Point of Care 124 mg/dl (70-99)
[2025-04-25 13:10] LABS: Glucose - Point of Care 148 mg/dl (70-99)
[2025-04-25 14:04] LABS: Glucose - Point of Care 131 mg/dl (70-99)
[2025-04-27 13:17] LABS: Glucose - Point of Care 157 mg/dl (70-99)
[2025-04-27 14:06] LABS: Glucose - Point of Care 118 mg/dl (70-99)
[2025-04-30 13:05] LABS: Glucose - Point of Care 172 mg/dl (70-99)
[2025-04-30 14:08] LABS: Glucose - Point of Care 147 mg/dl (70-99)
[2025-05-02 13:06] LABS: Glucose - Point of Care 85 mg/dl (70-99)
[2025-05-02 13:25] LABS: Glucose - Point of Care 111 mg/dl (70-99)
[2025-05-02 14:07] LABS: Glucose - Point of Care 116 mg/dl (70-99)
[2025-05-04 13:08] LABS: Glucose - Point of Care 122 mg/dl (70-99)
[2025-05-04 14:09] LABS: Glucose - Point of Care 111 mg/dl (70-99)
[2025-05-07 13:02] LABS: Glucose - Point of Care 166 mg/dl (70-99)
[2025-05-07 14:15] LABS: Glucose - Point of Care 150 mg/dl (70-99)
[2025-05-09 13:01] LABS: Glucose - Point of Care 158 mg/dl (70-99)
[2025-05-09 14:08] LABS: Glucose - Point of Care 137 mg/dl (70-99)
[2025-05-11 13:14] LABS: Glucose - Point of Care 163 mg/dl (70-99)
[2025-05-11 14:15] LABS: Glucose - Point of Care 138 mg/dl (70-99)
== END 2025-05-11 23:59 | disposition home or self-care (01) ==
LOC: CRHB 14:06
PROVIDERS: ATTENDING PHYSICIAN Internal Medicine Cardiovascular Disease; FAMILY PHYSICIAN Internal Medicine
DX: I25.10 Atherosclerotic heart disease of native coronary artery without angina pectoris (principal); Z95.5 Presence of coronary angioplasty implant and graft
CPT/HCPCS: 82962; G0422; G0423

== ENCOUNTER 2025-06-11 14:04 | Outpatient (RCR) | payer MEDICARE, OTHER, SELFPAY ==
[2025-05-16 13:44] LABS: Glucose - Point of Care 191 mg/dl (70-99)
[2025-05-16 14:12] LABS: Glucose - Point of Care 191 mg/dl (70-99)
== END 2025-06-11 23:59 | disposition home or self-care (01) ==
LOC: CRHB 14:04
PROVIDERS: ATTENDING PHYSICIAN Internal Medicine Cardiovascular Disease; FAMILY PHYSICIAN Internal Medicine
DX: I25.10 Atherosclerotic heart disease of native coronary artery without angina pectoris (principal); Z95.5 Presence of coronary angioplasty implant and graft
CPT/HCPCS: 82962; 93797; 93798; G0422; G0423

== ENCOUNTER 2025-06-11 22:15 | Inpatient (IN) | payer MEDICARE, OTHER, SELFPAY ==
[2025-06-11 18:21] VITALS: BP 125/46
[2025-06-11] MEDS: TYLENOL 650 MG PO (18:34)
--- NOTE | 2025-06-11 18:49 | ED.GENMED ---
History of Present Illness
<Sharron Rabago PA-C - Last Filed: 06/11/25 23:45>
General
Chief Complaint: Fever
Source: patient and family
Exam Limitations: none
Time Seen by Provider: 06/11/25 18:33
History of Present Illness
History of Present Illness:
69yoM with a history of coronary artery disease s/p LAD stent in January 2025, atrial fibrillation, insulin-dependent diabetes, hypertension, hyperlipidemia presenting via EMS for evaluation of a fever. Patient started with chills earlier today. He
was able to go to cardiac rehab. His returned home this evening and patient was noted to be shaking and confused. 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 He also had a temperature of 103 as well as urinary
incontinence. Patient denies any abdominal pain, flank pain, testicular pain, dysuria, cough, shortness of breath. 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 His Imdur dose was increased and he is
scheduled to have a nuclear stress test next week. He follows with Dr. Donohue.
Past History
<Sharron Rabago PA-C - Last Filed: 06/11/25 23:45>
Past History
ED Past Medical History: Arrthythmia, HTN, Hypercholesterolemia and NIDDM
ED Past Surgical History: Cardiac
Social History
Tobacco: Smoker
Alcohol: None
Drug: None
Personal:
Living: with family
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
Phy Exam
<Sharron Rabago PA-C - Last Filed: 06/11/25 23:45>
Physical Exam
Physical Exam:
Patient ill appearing with rigors
General Physical Exam
General Presentation: mild distress
General Skin: warm and dry
General Habitus: elderly
General Mental: alert
ENT Exam
ENT Exam: normocephalic
Cardiovascular Exam
Cardiovascular Exam: regular rate/rhythm
Pulmonary Exam
Pulmonary Exam: lungs clear, no respiratory distress, no rales, no crackles, no rhonchi and no wheezing
Gastrointestinal Exam
Gastrointestinal Exam: non tender, soft and non distended
Genitourinary Exam Male
Exam Male: no testicular swelling
Neurological Exam
Neurological Exam: alert and other (Oriented to person and place. Does not know month or year. )
[place] Coma Scale
Eye Opening: Spontaneous
Verbal Response: Confused
Motor Response: Obeys Commands
GCS Total Score: 14
Skin Exam
Skin Exam: normal color and warm/dry
Psychiatric Exam
Psychiatric Exam: normal mood/affect
<Edin Valdez DO - Last Filed: 06/11/25 20:37>
[place] Coma Scale
GCS Total Score: 14
Sepsis
<Sharron Rabago PA-C - Last Filed: 06/11/25 23:45>
Sepsis Screening
Sepsis Assessment: Sepsis
Sepsis Screen
Sepsis Screen: Sepsis
Date: 06/11/25
Time: 23:42
Course
<Sharron Rabago PA-C - Last Filed: 06/11/25 23:45>
Orders/Labs/Results
Orders:
Orders
06/11/25 Breakfast
2000 calorie (17 carb) Diabetic
At Your Request: Full Participation
06/11/25 18:31
Acetaminophen [Tylenol] 650 mg PO NOW STA
06/11/25 18:47
0.9% Sodium Chloride 1000 ml [Nss] 1,000 ml IV BOLUS
06/11/25 18:48
Electrocardiogram (*1) Urgent
Reason for Study: Fatigue / Weakness
CT Head W/o Iv Contrast Urgent
Comment:
Reason For Exam: AMS
06/11/25 18:52
CT Abd/pelvis W Iv Cont Urgent
Comment:
Reason For Exam: fever, UTI symptoms
06/11/25 18:53
COVID-19 Antigen Urgent
Source: Nasal Swab
Complete Blood Count/With Diff Urgent
Lactate Level [Lactic Acid] Urgent
Troponin I Urgent
Blood Culture Q30M
AR Source: Blood/Venous
Specimen Description:
Influenza A+B Rapid Molecular Urgent
AR Source: Nasal Swab
Specimen Description:
06/11/25 19:57
Urinalysis Reflex To Culture Urgent
Date Specimen was Collected: 06/11/25
Time Specimen was Collected: 18:38
Urine Microscopic Reflex Cult Urgent
Urine Culture Urgent
AR Source: U
Specimen Description:
Date Specimen was Collected: 06/11/25
Time Specimen was Collected: 18:38
06/11/25 20:01
Comprehensive Metabolic Panel Urgent
Blood Culture Q30M
AR Source: Blood/Venous
Specimen Description:
06/11/25 20:21
0.9% Sodium Chloride 1000 ml [Nss] 1,000 ml IV BOLUS
Cefepime HCl [Maxipime] 2,000 mg IV NOW STA
06/11/25 20:47
Sterile Water [Sterile Water For Injection] 20 ml .ROUTE .[facility]
06/11/25 21:06
Bladder Scan As Directed
Follow Bladder Retention/Intermittent Cath Algorithm?: Yes
PRN if no void in __ hours: 6
Frequency: Per Retention Algorithm
If Bladder Scan Result >: 400
then:: Straight cath
Straight Cath As Directed
Frequency: Per Retention Algorithm
Additional Instructions: straight cath as needed per acute urinary retention algorithm for 24 hrs
Additional Instructions: for bladder scan greater than 400 mL
06/11/25 21:23
Admit/Transfer Patient As Directed
Co-Sign Provider:
Level of Care: Inpatient admission
Assign to:: Telemetry
Physician / Group: antoinette lorenzana
Diagnosis: sepsis
Reason for Telemetry: Arrhythmia
Date to Stop Telemetry: 06/14/25
Time to Stop Telemetry: 11:00
Reason for Hospitalization: sepsis
Expected length of stay greater than two midnights?: Yes
ELOS- Estimated Length of Stay in days: 3
I certify the patient meets the requirements for IP care: Yes
PRN Pain Medication Management As Directed
May give lesser potent ordered pain med per pt: Yes
preference::
Protocol:: Medication orders for pain may be administered in a
manner that supports deferring to patient preference
when the pt is:
- Requesting an ordered lesser potent pain medication.
Least to most potent pain medications are defined
as: acetaminophen < NSAID < tramadol < opioids
(morphine, oxycodone, hydromorphone).
- Requesting a lesser dose of the same medication IF
ORDERED.
- Requesting a less intrusive route of administration
if both routes are prescribed by the provider (PO <
IV).
06/11/25 21:26
Code Status As Directed
Resuscitation Status: Full Code
06/11/25 22:29
0.9% Sodium Chloride 1000 ml [Nss] 1,000 ml IV 80 mls/hr
Albuterol [ProAIR HFA INHALER] 2 puff INH R Q4HPRN PRN sob
Atorvastatin [Lipitor] 80 mg PO QPM
Dextrose 50%-Water [Dextrose 50% Syringe] 12.5 grams IV [id number] PRN
Glucagon [GlucaGen] 1 mg IM PRN PRN
Montelukast Sodium [Singulair] 10 mg PO HS
insulin glargine 50 unit SC BID
06/11/25 22:29
Activity As Directed
Activity Level: As Tolerated
Bedside Glucose Monitoring As Directed
Frequency: AC&HS
Additional Instructions:: Change to q6h if pt on TPN, tube feeding or not eating
Intake/ Output As Directed
Frequency: Per unit guidelines
Vital Signs As Directed
Frequency: Per unit guidelines
Weight As Directed
Frequency: Daily
Cpap [RESP] Routine
Patient to use own unit?: Yes
Instructions: CPAP HS
Pt Eval And Treat Routine
Activity Level: As Tolerated
06/11/25 23:00
Acetaminophen [Tylenol/Feverall] 650 mg RECTAL Q4HPRN PRN
Acetaminophen [Tylenol] 650 mg PO Q4HPRN PRN
Apixaban [Eliquis] 5 mg PO BID
Buspirone [Buspar] 10 mg PO Q12
Clopidogrel Bisulfate [Plavix] 75 mg PO QPM
Donepezil HCl [Aricept] 10 mg PO QPM
06/12/25 03:00
Cefepime HCl [Maxipime] 1,000 mg IV Q6H
06/12/25 06:00
BMP [Basic Metabolic Panel] IN AM
Complete Blood Count/No Diff IN AM
Glycohemoglobin (HgbA1c) IN AM
06/12/25 07:00
Levothyroxine [Synthroid] 50 mcg PO DAILY AT 0700
06/12/25 07:30
Insulin Aspart Corrective Low [Novolog Flexpen-Low Resistance] See Protocol SC AC
06/12/25 08:00
ISOSORBIDE MONOnitrate ER [Imdur (Extended Release)] 120 mg PO DAILY
Olodaterol HCl [Striverdi Respimat] 2 puff INH R DAILY
Pantoprazole [Protonix] 40 mg PO DAILY
Pregabalin [Lyrica] 75 mg PO BID
06/12/25 18:00
Fenofibrate 145 [Tricor] 145 mg PO QPM
06/13/25 06:00
Complete Blood Count/No Diff IN AM
06/14/25 06:00
Complete Blood Count/No Diff IN AM
06/14/25 11:00
DC Protocol for Telemetry ONCE
06/15/25 06:00
Complete Blood Count/No Diff IN AM
Abnormal Lab Results
06/11/25 06/11/25 06/11/25
18:53 19:57 20:01
WBC 14.7 H 10^3/uL
(4.8-10.8)
RBC 3.80 L 10^6/uL
(4.70-6.10)
Hgb 10.7 L g/dL
(13.0-18.0)
Hct 32.9 L %
(39.0-52.0)
MCHC 32.5 L g/dL
(33.0-37.0)
RDW 16.1 H %
(11.5-14.5)
MPV 10.5 H fL
(7.4-10.4)
Abs Immat Gran (auto) 0.1 H 10^3/uL
(0-0.05)
Absolute Neuts (auto) 12.2 H 10^3/uL
(1.4-6.5)
Absolute Lymphs (auto) 0.9 L 10^3/uL
(1.2-3.4)
Absolute Monos (auto) 1.5 H 10^3/uL
(0.1-0.6)
Neutrophils % 82.8 H %
(42.2-75.2)
Lymphocytes % 5.9 L %
(20.5-51.1)
Monocytes % 9.9 H %
(1.7-9.3)
Sodium 134 L D mmol/L
(135-145)
BUN 84 H mg/dl
(9-20)
Creatinine 1.8 H mg/dL
(0.7-1.3)
Glucose 217 H mg/dl
(70-99)
Urine Ketones 1+ A
(Negative)
Ur Occult Blood Reflex 4+ A
(Negative)
Leukocyte Esterase Rfl 3+ A
(Negative)
Urine RBC 3-6 A /HPF
(0-2)
Urine WBC (Reflex) >100 A /HPF
(0-5)
Urine Bacteria (Reflex) Many A
(Negative)
Urine Albumin (Reflex) 2+ A
(Neg - Trace)
POC Glucose 232 H mg/dl
(70-99)
06/11/25 18:53
06/11/25 20:01
Vital Signs
Initial and Last Documented VS:
Initial Vital Signs
Temp Pulse Resp BP Pulse Ox
102.6 F H 69 18 125/46 95
06/11/25 18:21 06/11/25 18:21 06/11/25 18:21 06/11/25 18:21 06/11/25 18:21
Last Documented Vital Signs
Temp Pulse Resp BP Pulse Ox
101.3 F H 65 18 143/50 94
06/11/25 23:00 06/11/25 23:00 06/11/25 23:00 06/11/25 23:00 06/11/25 23:00
<Edin Valdez, DO - Last Filed: 06/11/25 20:37>
Orders/Labs/Results
Orders:
Orders
06/11/25 Breakfast
2000 calorie (17 carb) Diabetic
At Your Request: Full Participation
06/11/25 18:31
Acetaminophen [Tylenol] 650 mg PO NOW STA
06/11/25 18:47
0.9% Sodium Chloride 1000 ml [Nss] 1,000 ml IV BOLUS
06/11/25 18:48
Electrocardiogram (*1) Urgent
Reason for Study: Fatigue / Weakness
CT Head W/o Iv Contrast Urgent
Comment:
Reason For Exam: AMS
06/11/25 18:52
CT Abd/pelvis W Iv Cont Urgent
Comment:
Reason For Exam: fever, UTI symptoms
06/11/25 18:53
COVID-19 Antigen Urgent
Source: Nasal Swab
Complete Blood Count/With Diff Urgent
Lactate Level [Lactic Acid] Urgent
Troponin I Urgent
Blood Culture Q30M
AR Source: Blood/Venous
Specimen Description:
Influenza A+B Rapid Molecular Urgent
AR Source: Nasal Swab
Specimen Description:
06/11/25 19:57
Urinalysis Reflex To Culture Urgent
Date Specimen was Collected: 06/11/25
Time Specimen was Collected: 18:38
Urine Microscopic Reflex Cult Urgent
Urine Culture Urgent
AR Source: U
Specimen Description:
Date Specimen was Collected: 06/11/25
Time Specimen was Collected: 18:38
06/11/25 20:01
Comprehensive Metabolic Panel Urgent
Blood Culture Q30M
AR Source: Blood/Venous
Specimen Description:
06/11/25 20:21
0.9% Sodium Chloride 1000 ml [Nss] 1,000 ml IV BOLUS
Cefepime HCl [Maxipime] 2,000 mg IV NOW STA
06/11/25 20:47
Sterile Water [Sterile Water For Injection] 20 ml .ROUTE .[facility]
06/11/25 21:06
Bladder Scan As Directed
Follow Bladder Retention/Intermittent Cath Algorithm?: Yes
PRN if no void in __ hours: 6
Frequency: Per Retention Algorithm
If Bladder Scan Result >: 400
then:: Straight cath
Straight Cath As Directed
Frequency: Per Retention Algorithm
Additional Instructions: straight cath as needed per acute urinary retention algorithm for 24 hrs
Additional Instructions: for bladder scan greater than 400 mL
06/11/25 21:23
Admit/Transfer Patient As Directed
Co-Sign Provider:
Level of Care: Inpatient admission
Assign to:: Telemetry
Physician / Group: antoinette lorenzana
Diagnosis: sepsis
Reason for Telemetry: Arrhythmia
Date to Stop Telemetry: 06/14/25
Time to Stop Telemetry: 11:00
Reason for Hospitalization: sepsis
Expected length of stay greater than two midnights?: Yes
ELOS- Estimated Length of Stay in days: 3
I certify the patient meets the requirements for IP care: Yes
PRN Pain Medication Management As Directed
May give lesser potent ordered pain med per pt: Yes
preference::
Protocol:: Medication orders for pain may be administered in a
manner that supports deferring to patient preference
when the pt is:
- Requesting an ordered lesser potent pain medication.
Least to most potent pain medications are defined
as: acetaminophen < NSAID < tramadol < opioids
(morphine, oxycodone, hydromorphone).
- Requesting a lesser dose of the same medication IF
ORDERED.
- Requesting a less intrusive route of administration
if both routes are prescribed by the provider (PO <
IV).
06/11/25 21:26
Code Status As Directed
Resuscitation Status: Full Code
06/11/25 22:29
0.9% Sodium Chloride 1000 ml [Nss] 1,000 ml IV 80 mls/hr
Albuterol [ProAIR HFA INHALER] 2 puff INH R Q4HPRN PRN sob
Atorvastatin [Lipitor] 80 mg PO QPM
Dextrose 50%-Water [Dextrose 50% Syringe] 12.5 grams IV [id number] PRN
Glucagon [GlucaGen] 1 mg IM PRN PRN
Montelukast Sodium [Singulair] 10 mg PO HS
insulin glargine 50 unit SC BID
06/11/25 22:29
Activity As Directed
Activity Level: As Tolerated
Bedside Glucose Monitoring As Directed
Frequency: AC&HS
Additional Instructions:: Change to q6h if pt on TPN, tube feeding or not eating
Intake/ Output As Directed
Frequency: Per unit guidelines
Vital Signs As Directed
Frequency: Per unit guidelines
Weight As Directed
Frequency: Daily
Cpap [RESP] Routine
Patient to use own unit?: Yes
Instructions: CPAP HS
Pt Eval And Treat Routine
Activity Level: As Tolerated
06/11/25 23:00
Acetaminophen [Tylenol/Feverall] 650 mg RECTAL Q4HPRN PRN
Acetaminophen [Tylenol] 650 mg PO Q4HPRN PRN
Apixaban [Eliquis] 5 mg PO BID
Buspirone [Buspar] 10 mg PO Q12
Clopidogrel Bisulfate [Plavix] 75 mg PO QPM
Donepezil HCl [Aricept] 10 mg PO QPM
06/12/25 03:00
Cefepime HCl [Maxipime] 1,000 mg IV Q6H
06/12/25 06:00
BMP [Basic Metabolic Panel] IN AM
Complete Blood Count/No Diff IN AM
Glycohemoglobin (HgbA1c) IN AM
06/12/25 07:00
Levothyroxine [Synthroid] 50 mcg PO DAILY AT 0700
06/12/25 07:30
Insulin Aspart Corrective Low [Novolog Flexpen-Low Resistance] See Protocol SC AC
06/12/25 08:00
ISOSORBIDE MONOnitrate ER [Imdur (Extended Release)] 120 mg PO DAILY
Olodaterol HCl [Striverdi Respimat] 2 puff INH R DAILY
Pantoprazole [Protonix] 40 mg PO DAILY
Pregabalin [Lyrica] 75 mg PO BID
06/12/25 18:00
Fenofibrate 145 [Tricor] 145 mg PO QPM
06/13/25 06:00
Complete Blood Count/No Diff IN AM
06/14/25 06:00
Complete Blood Count/No Diff IN AM
06/14/25 11:00
DC Protocol for Telemetry ONCE
06/15/25 06:00
Complete Blood Count/No Diff IN AM
Abnormal Lab Results
06/11/25 06/11/25 06/11/25
18:53 19:57 20:01
WBC 14.7 H 10^3/uL
(4.8-10.8)
RBC 3.80 L 10^6/uL
(4.70-6.10)
Hgb 10.7 L g/dL
(13.0-18.0)
Hct 32.9 L %
(39.0-52.0)
MCHC 32.5 L g/dL
(33.0-37.0)
RDW 16.1 H %
(11.5-14.5)
MPV 10.5 H fL
(7.4-10.4)
Abs Immat Gran (auto) 0.1 H 10^3/uL
(0-0.05)
Absolute Neuts (auto) 12.2 H 10^3/uL
(1.4-6.5)
Absolute Lymphs (auto) 0.9 L 10^3/uL
(1.2-3.4)
Absolute Monos (auto) 1.5 H 10^3/uL
(0.1-0.6)
Neutrophils % 82.8 H %
(42.2-75.2)
Lymphocytes % 5.9 L %
(20.5-51.1)
Monocytes % 9.9 H %
(1.7-9.3)
Sodium 134 L D mmol/L
(135-145)
BUN 84 H mg/dl
(9-20)
Creatinine 1.8 H mg/dL
(0.7-1.3)
Glucose 217 H mg/dl
(70-99)
Urine Ketones 1+ A
(Negative)
Ur Occult Blood Reflex 4+ A
(Negative)
Leukocyte Esterase Rfl 3+ A
(Negative)
Urine RBC 3-6 A /HPF
(0-2)
Urine WBC (Reflex) >100 A /HPF
(0-5)
Urine Bacteria (Reflex) Many A
(Negative)
Urine Albumin (Reflex) 2+ A
(Neg - Trace)
POC Glucose 232 H mg/dl
(70-99)
06/11/25 18:53
06/11/25 20:01
Vital Signs
Initial and Last Documented VS:
Initial Vital Signs
Temp Pulse Resp BP Pulse Ox
102.6 F H 69 18 125/46 95
06/11/25 18:21 06/11/25 18:21 06/11/25 18:21 06/11/25 18:21 06/11/25 18:21
Last Documented Vital Signs
Temp Pulse Resp BP Pulse Ox
101.3 F H 65 18 143/50 94
06/11/25 23:00 06/11/25 23:00 06/11/25 23:00 06/11/25 23:00 06/11/25 23:00
Cherlt;Sharron Rabago PA-C - Last Filed: 06/11/25 23:45>
MDM/Problems Addressed
Differential Diagnosis Includes:
69yoM here with fever, confusion, and urinary incontinence that began this morning. Temp 102.6 on arrival. BP stable. He is awake and alert but is confused. Oriented to person/place but not time. Differential diagnosis includes: UTI, THANIA,
dehydration, sepsis, toxic metabolic encephalopathy
Initial ED plan: Check septic workup including blood cultures, lactate, UA, and COVID/flu swab. Will obtain CT head and CT abdomen. Tylenol and IV fluid bolus.
<Sharron Rabago PA-C - Last Filed: 06/11/25 23:45>
*Pulse Oximetry
SaO2: 95
Oxygen Mode of Delivery: Room air
Patient hypoxic: no
*Critical Care Note
Total Time (30-74mins, 75-104mins- exclusive of procedures): Not Applicable
<Sharron Rabago PA-C - Last Filed: 06/11/25 23:45>
Update Note
Update Note:
Labs reveal a leukocytosis with a white count of 14.7 with a left shift. Lactate normal. Creatinine elevated at 1.8. Patient did have blood work earlier today and creatinine was 1.3 at that time. UA with >100 WBC and many bacteria. No
obstructive uropathy seen on CT. IV cefepime ordered and patient admitted for further management.
ED Attending Note
<Sharron Rabago PA-C - Last Filed: 06/11/25 23:45>
-
Portions of this chart may have been created with voice recognition software.� Occasional wrong word or��sound alike� substitutions may have occurred due to the inherent limitations of voice recognition software.
<Edin Valdez, - Last Filed: 06/11/25 20:37>
ED Attending Note
Patient seen and examined by attending physician: Yes
ED Attending Note:
I reviewed and agree with history and treatment plan by Sharron Rabago PA-C. My exam revealed 69-year-old male febrile no respiratory distress. Normal heart rate. Symptoms and labs consistent with UTI. Cefepime given. CT abdomen pelvis
pending. Admit to hospital
Discharge Plan
Departure
Patient Disposition: Admit
Date of Disposition: 06/11/25
Time of Disposition: 20:46
Presentation/result/management discussed w/ accepting MD/DO: Hospitalist
Discharge Problem:
Sepsis, Acute kidney injury, Urinary tract infection
Interventions
Interventions:
*General Assessment Last Done: 06/11/25 18:21
*ED- Fall Risk Assessment Last Done: 06/11/25 18:29
*Nursing Disposition Last Done: 06/11/25 22:25
ED- Neurological Assessment Last Done: 06/11/25 18:29
ED-Skin Assessment Last Done: 06/11/25 20:07
Discharge Date and Time
Discharge Date/Time: 06/11/25 22:26
[2025-06-11 19:03] LABS: Hematocrit 32.9 % (39.0-52.0); Hemoglobin 10.7 g/dL (13.0-18.0); Mean Corp Hgb Conc. 32.5 g/dL (33.0-37.0); Mean Corpuscular Volume 86.6 fL (80.0-94.0); Nucleated Red Blood Cells % 0 % (-); Platelet Count 297 10^3/uL (130-400); Red Cell Dist. Width 16.1 % (11.5-14.5)
[2025-06-11 20:00] VITALS: BP 102/48
[2025-06-11 20:03] LABS: Glucose - Point of Care 232 mg/dl (70-99)
[2025-06-11] MEDS: NSS 1000 IV (20:06)
[2025-06-11 20:12] LABS: Urine Character Cloudy (Clear)
[2025-06-11 20:17] LABS: Troponin I 0.015 ng/ml
[2025-06-11 20:20] LABS: Urine Squamous Cell 0-2 /LPF (Few); Urine White Cell >100 /HPF (0-5)
[2025-06-11 20:29] LABS: COVID-19 Antigen Negative (Negative)
[2025-06-11 20:41] LABS: ALT (SGPT) 21 U/L (0-50); AST (SGOT) 22 U/L (17-59); Albumin 4.1 g/dl (3.5-5.0); Alkaline Phosphatase 38 U/L (38-126); Blood Urea Nitrogen 84 mg/dl (9-20); Calcium 9.0 mg/dl (8.4-10.2); Carbon Dioxide 24 mmol/L (22-30); Chloride 99 mmol/L (98-107); Glucose 217 mg/dl (70-99); Potassium 4.7 mmol/L (3.5-5.1); Sodium 134 mmol/L (135-145); Total Protein 7.2 g/dl (6.3-8.2); eGFR 39.99
[2025-06-11] MEDS: MAXIPIME 2000 MG IV (20:50)
--- NOTE | 2025-06-11 20:50 | HPS.HSE ---
Family Physician
-
Family Physician: Chan Conrad
Chief Complaint
-
confusion, urinary urgency, painful urination
History of Present Illness
69yoM with a history of coronary artery disease s/p LAD stent in January 2025, atrial fibrillation, insulin-dependent diabetes, hypertension, hyperlipidemia presenting via EMS for evaluation of a fever. Patient started with chills earlier today. He
was able to go to cardiac rehab. His returned home this evening and patient was noted to be shaking and confused. he was sitting on the toilet confused. He empty the manager concrete and put everything away in the wrong spot. He also had a
temperature of 103 as well as urinary incontinence. as per he was confused and was not making sense. he was noted very weak. he was having painful urination in the ER as well as noted urgency here in the hospital. Patient denies any
abdominal pain, flank pain, testicular pain, dysuria, cough, shortness of breath.
concern for sepsis secondary to UTI. received Tylenol, cefepime, normal saline in ER. blood culture sent from ER. admitting for further management.
Medical History
Past Medical History
Past Medical History: Reports Other
Additional Past Medical History:
Hypertension, pancreatitis, asthma, A-fib, sick sinus syndrome type 1 diabetes, complete heart block diverticulosis, pneumonia, CHF
Past Surgical History: Reports Other
Additional Past Surgical History:
Cardiac ablation, cardiac pacemaker, tonsillectomy laminectomy with fusion
Social History
Tobacco: Non-smoker
Alcohol: None
Drug: None
Personal:
Living: With Family
Family History
Family History: Not pertinent
Allergies / Home Medications
Allergies reflects when Allergies were last updated in [facility].
Home Medications with original date entered in [facility]
Allergy/Medication List:
Allergies
Allergy/AdvReac Type Severity Reaction Status Date / Time
avocado Allergy Swelling Verified 06/11/25 18:21
banana Allergy Patient Verified 06/11/25 18:21
denies
house dust Allergy Congestion, Verified 06/11/25 18:21
itchy eyes
mold Allergy Congestion, Verified 06/11/25 18:21
itchy eyes
morphine Allergy Patient Verified 06/11/25 18:21
Denies
pollen extracts Allergy Congestion, Verified 06/11/25 18:21
itchy eyes
tree and shrub pollen Allergy Congestion, Verified 06/11/25 18:21
itchy eyes
tuberculin,PPD,multi-puncture Allergy arm Verified 06/11/25 18:21
(From Tuberculin PPD Joya inflammation
Test)
walnut Allergy Throat Verified 06/11/25 18:21
Swelling
Home Medications
montelukast 10 mg tablet 10 mg PO HS Lung/breathing issues 02/08/09
multivitamin (One-A-Day Essential tablet) 1 tab PO DAILY Supplement ##0 02/08/09
cyanocobalamin (vitamin B-12) 100 mcg tablet (Vitamin B-12) 300 mcg PO DAILY@1200 Supplement ##0 10/24/18
pyridoxine (vitamin B6) 100 mg tablet (Vitamin B-6) 100 mg PO DAILY@1200 Supplement ##0 10/24/18
atorvastatin 80 mg tablet 80 mg PO QPM High cholesterol 10/22/20
albuterol sulfate 90 mcg/actuation aerosol inhaler 2 puff inhalation R Q4HPRN PRN sob 12/28/22
apixaban 5 mg tablet 5 mg PO BID Blood clot prevention/tx 12/28/22
cholecalciferol (vitamin D3) 25 mcg (1,000 unit) tablet (Vitamin D3) 50 mcg PO DAILY@1200 Supplement 12/28/22
levothyroxine 50 mcg tablet 50 mcg PO DAILY AT 0700 Thyroid 12/28/22
salmeterol 50 mcg/dose blister powder for inhalation (Serevent Diskus) 1 inh inhalation R BID Lung/breathing issues 12/28/22
metformin 500 mg tablet 500 mg PO DAILY Diabetes 12/29/22
donepezil 10 mg tablet (Aricept) 10 mg PO QPM Alzheimer's 02/27/24
insulin glargine 100 unit/mL subcutaneous solution 50 unit SC BID Diabetes 02/27/24
metolazone 2.5 mg tablet 2.5 mg PO MOFR Fluid Retention/Swelling 02/27/24
ascorbic acid (vitamin C) 500 mg tablet (Vitamin C) 250 mg PO DAILY@1200 01/24/25
buspirone 10 mg tablet 10 mg PO Q12 01/24/25
fenofibrate micronized 134 mg capsule 134 mg PO QPM 01/24/25
furosemide 40 mg tablet 40 mg PO QPM 01/24/25
losartan 50 mg tablet 50 mg PO DAILY 01/24/25
omega [id number]-rfq-fish oil 1,000 mg (120 mg-180 mg) capsule (Fish Oil) 2 cap PO BID 01/24/25
pregabalin 75 mg capsule (Lyrica) 75 mg PO BID 01/24/25
metformin 500 mg tablet 1,000 mg PO QPM 01/29/25
pantoprazole 40 mg tablet,delayed release 40 mg PO DAILY #30 tabs 01/31/25
clopidogrel 75 mg tablet 75 mg PO QPM 06/11/25
furosemide 80 mg tablet 80 mg PO DAILY 06/11/25
insulin lispro 100 unit/mL subcutaneous solution (Humalog U-100 Insulin) 20 sliding scale dose SC AC 06/11/25
isosorbide mononitrate 120 mg tablet,extended release 24 hr 120 mg PO DAILY 06/11/25
sodium chloride 0.65 % nasal spray aerosol 2 spray intranasal HS 06/11/25
testosterone 2 pump topical DAILY 06/11/25
tirzepatide 2.5 mg/0.5 mL subcutaneous pen injector (Mounjaro) 2.5 mg SC FR 06/11/25
Review of Systems
-
Constitutional: Reports Fever and Chills
EENT: Reports No Symptoms
Respiratory: Reports No Symptoms
Cardiac: Reports No Symptoms
Abdomen/GI: Reports No Symptoms
: Reports Difficulty Voiding and Urgency
Musculoskeletal: Reports No Symptoms
Skin: Reports No Symptoms
Neurological: Reports No Symptoms
Endocrine: Reports No Symptoms
Hematologic/Lymphatic: Reports No Symptoms
Psych: Reports No Symptoms
Physical Exam
Vital Signs
Vital Signs
Temp Pulse Resp BP Pulse Ox
100.2 F 65 14 102/48 94
06/11/25 20:06 06/11/25 20:00 06/11/25 20:00 06/11/25 20:00 06/11/25 19:55
Physical Exam
General: Well Developed, Well Nourished and No Apparent Distress
HEENT: NormoCephalic, Moist mucous membranes and Atraumatic
Respiratory: Clear
Cardiac: S1/S2 and Regular Rhythm; No Murmur or Rub
GI: Soft, Non Tender, Non Distended and Normal Bowel Sounds; No Organomegaly
Rectal: Deferred by Provider
Musculoskeletal: No Clubbing, No Cyanosis and No Edema
Skin: No Rash
Neuro: AO x 3 and Nonfocal/grossly intact
Psych: Calm
Laboratory Results
-
06/11/25 18:53
06/11/25 20:01
Laboratory Results
Lactic Acid 1.9 mmol/L (0.7-2.0) 06/11/25 18:53
Total Bilirubin 0.7 mg/dl (0.2-1.3) 06/11/25 20:01
AST 22 U/L (17-59) 06/11/25 20:01
ALT 21 U/L (0-50) 06/11/25 20:01
Alkaline Phosphatase 38 U/L (38-126) 06/11/25 20:01
Troponin I 0.015 ng/ml 06/11/25 18:53
Data Reviewed
-
CT Scan: Report Reviewed by me
Lab Data: Labs Reviewed by me
Impression/Plan
-
# Metabolic encephalopathy/sepsis secondary to urinary tract infection
- Temp 102.6, WBCs 14.7, lactate normal
- IV cefepime continued
- Fluids continued
-Blood culture sent from ER, urine culture pending
- Tylenol as needed for fever or pain
- CT abdomen pelvis with impression of Hepatomegaly. Fatty infiltration of liver.No obstructive uropathy. Relatively stable mild chronic perinephric soft tissue stranding. Small renal cysts.A few scattered diverticula of the colon. No evidence of
acute diverticulitis. The bladder is underdistended, with limited assessment of bowel wall thickness.
- Head CT No acute intracranial abnormality noted.trace air-fluid level in the right maxillary sinus, which may be related to nonspecific inflammation, allergy, or infection (Sinusitis).
# THANIA on CKD stage IIIb secondary to dehydration
- Creatinine 1.8
- Fluids continued
- Monitor BMP in the morning
# Anemia of chronic disease
- Hemoglobin stable at 10.7, no active bleeding
- Continue to monitor
#Chronic heart failure with preserved ejection fraction
-will hold Lasix and metolazone. strict I&O,daily weight
-ctm
#Type 2 diabetes
-glargine 50u with meals, sliding scale
-hold metformin
-CHO diet
#hxt of CAD s/p stents
-cardiac stents
-Imdur continued
#GERD
-PPI continued
#hypothyroidism
-levothyroxine continued
#essential HTN
-hold losartan
#Permanent atrial fibrillation
Continue Eliquis
#hxt of CVA
-Plavix continued
#alzhmiers
-Aricept continued
#HLD
-statin,fenofibrate continued
#anxiety
-Buspirone continued
#hxt of COPD
-Singulair continued
DVT prophylaxis�Eliquis
Full code
--- NOTE | 2025-06-11 20:55 | W.PN.UPDATE ---
Addendum entered and electronically signed by Shay Fiore MD 06/12/25 08:10:
Reviewed VS:
Vital Signs
Temp Pulse Resp BP Pulse Ox
98 F 62 17 141/48 100
PE
Gen: obese , intermittently fallen asleep
HEENT: anicteric
Neck:supple
Lungs: symmetric AE
Cor:RRR
Abdomen:�obese
DIAMOND SORTER: awake , interactive but sleepy from time ti time
Original Note:
Update Note
Progress Note Update
This note serves as an addendum to the H&P by shellfish dredge operator JOSE�
Maryellen UZAIR�
HPI�
69M Class II obesity HX CAD s/p LAD stent in January 2025, AF, IDDM, HTN, HLD, BiB EMS
- for evaluation of a fever with chills earlier today.
- returned home this evening and noted patoent is shaking and confused.
- fever 103 as well as urinary incontinence.
- denies any abdominal pain, flank pain, testicular pain, dysuria
- denied cough, shortness of breath.
Of note,
- was seen by his lieutenant fire fighter last week and was experiencing chest pain.
- Imdur dose was increased and he is scheduled to have a nuclear stress test next week.
- follows with Dr. Donohue
Relevant VS
Temp Pulse Resp BP Pulse Ox
100.2 F 65 14 102/48 94
06/11/25 20:06 06/11/25 20:00 06/11/25 20:00 06/11/25 20:00 06/11/25 19:55
Reviewed VS:
PE
Gen:
HEENT:
Neck:
Lungs:
Cor:
Abdomen:�
DIAMOND SORTER:
MS:
Psych:
Relevant Data�
06/11/25
19:57
Leukocyte Esterase Rfl 3+ A
Urine RBC 3-6 A
Urine WBC (Reflex) >100 A
Urine Bacteria (Reflex) Many A
01/31/25 06/11/25 06/11/25
04:39 10:27 18:53
WBC 14.7 H
Hgb 10.2 L 10.7 L
Sodium 134
BUN 71 H 84
Creatinine 1.3 1.8
eGFR 59.10 39.9
Troponin I 0.015
BCx sent
HCT
- No acute intracranial abnormality noted.
CT AP
- Hepatomegaly.
- Fatty infiltration of liver.
- No obstructive uropathy. Relatively stable mild chronic perinephric soft tissue stranding. Small renal cysts.
- A few scattered diverticula of the colon. No evidence of acute diverticulitis.
- The bladder is underdistended, with limited assessment of bowel wall thickness.
Last admission to [facility] card: DATE OF ADMISSION: 01/29/2025 -DATE OF DISCHARGE: 01/31/2025
DC DX;
- CAD abnormal stress test.
- S/P IVUS-guided angioplasty with VAN stent to the left anterior descending, 01/31/2025.
ASSESSMENT & PLAN
Sepsis due to UTI
AMS due to TME 2/2 UTI and THANIA
Mildly hypotensive
- UCx and BCx sent
- Empiric IV CFP
- Hold Losartan
- Septic IVF w NS s/p 2 L
- Trend T and WCC
Hypotension due to sepsis
Benign HTN
- Observe BP in response to septic IVF plus observing off anti HTN and diuretics
THANIA Cr 1.8 due to sepsis
HX CKD2/3a - baseline Cr 1.3, baseline eGFR hi 50s
- Trend Cr in response to septic Fluid
- Hold Metformin
- Hold Losartan
IDDM
- c/w [employer] FORMER Lantus
- add ISS low
- Holding metformin due to THANIA
HX CAD s/p LAD stent in January 2025
- HX IMN
HX chr HFpEF
- Hold off [employer] FORMER Lasix for now guillermo to THANIA + sepsis with hypotension
- daily Wt
Class II obesity
Known REINA wear CPAP HS
- c/w CPAP HS ( own)
Known HX
Hx Prx AF
HX SSS with PPM implant and prior atrioventricular junction ablation.
Hyperlipidemia.
COPD
Mild to moderate MR
HX Dementia suspect vascular origin - Mild
DVT Px:
Full code
IP TLM
[2025-06-11 21:00] VITALS: BP 122/42
[2025-06-11 21:35] VITALS: BMI 35.5
[2025-06-11 22:00] VITALS: BP 119/46
[2025-06-11 22:21] VITALS: BP 120/44
[2025-06-11 22:31] VITALS: BMI 34.6
--- NOTE | 2025-06-11 22:37 | PTCARENOTE ---
Pt arrived onto floor @2237. Pt AAOx3 and able to ambulate into room w/ assistance. Pt with no complaints of pain at this time. Pt oriented to room and call thomason; will continue to monitor
[2025-06-11 23:00] VITALS: BP 143/50
[2025-06-11 23:07] LABS: Glucose - Point of Care 251 mg/dl (70-99)
[2025-06-11] MEDS: LIPITOR 80 MG PO (23:50)
[2025-06-11] MEDS: ARICEPT 10 MG PO (23:50)
[2025-06-11] MEDS: PLAVIX 75 MG PO (23:50)
[2025-06-11] MEDS: ELIQUIS 5 MG PO (23:50)
[2025-06-11] MEDS: BUSPAR 10 MG PO (23:50)
[2025-06-11] MEDS: SINGULAIR 10 MG PO (23:50)
[2025-06-11] MEDS: LANTUS 0.3 UNITS SC (23:51)
[2025-06-12] VITALS (7 sets, daily range): BP systolic 112–141; BP diastolic 42–58; O2SAT 96; BMI 34.6; BMI 34.5
[2025-06-12] MEDS: NSS 1000 IV ×2 (00:18→11:47)
[2025-06-12] MEDS: TYLENOL 650 MG PO (02:20)
[2025-06-12] MEDS: STERILE WATER FOR INJECTION 10 ML IV ×4 (02:21→20:15)
[2025-06-12] MEDS: MAXIPIME 1000 MG IV ×4 (02:21→20:14)
[2025-06-12] MEDS: SYNTHROID 50 MCG PO (06:06)
[2025-06-12 07:53] LABS: Glucose - Point of Care 208 mg/dl (70-99)
[2025-06-12 08:06] LABS: Hematocrit 30.3 % (39.0-52.0); Hemoglobin 9.8 g/dL (13.0-18.0); Mean Corp Hgb Conc. 32.3 g/dL (33.0-37.0); Mean Corpuscular Volume 86.1 fL (80.0-94.0); Platelet Count 239 10^3/uL (130-400); Red Cell Dist. Width 16.4 % (11.5-14.5)
[2025-06-12] MEDS: STRIVERDI RESPIMAT 2 PUFF INH (08:13)
[2025-06-12] MEDS: ELIQUIS 5 MG PO ×2 (08:19→20:14)
[2025-06-12] MEDS: IMDUR (EXTENDED RELEASE) 120 MG PO (08:19)
[2025-06-12] MEDS: PROTONIX 40 MG PO (08:19)
[2025-06-12] MEDS: LYRICA 75 MG PO (08:19)
[2025-06-12] MEDS: LANTUS 0.3 UNITS SC ×2 (08:20→20:14)
[2025-06-12] MEDS: BUSPAR 10 MG PO ×2 (08:24→20:14)
[2025-06-12 08:29] LABS: Blood Urea Nitrogen 87 mg/dl (9-20); Calcium 8.9 mg/dl (8.4-10.2); Carbon Dioxide 26 mmol/L (22-30); Chloride 102 mmol/L (98-107); Estimated Creatinine Clearance 41 ml/min; Glucose 172 mg/dl (70-99); Potassium 3.8 mmol/L (3.5-5.1); Sodium 139 mmol/L (135-145); eGFR 35.24
[2025-06-12] MEDS: NOVOLOG FLEXPEN-LOW RESISTANCE 2 UNITS SC (09:48)
[2025-06-12 11:41] LABS: Glucose - Point of Care 307 mg/dl (70-99)
[2025-06-12] MEDS: NOVOLOG FLEXPEN-LOW RESISTANCE 4 UNITS SC ×2 (12:03→17:12)
--- NOTE | 2025-06-12 14:55 | W.PN.HOSP.TC ---
Today's Communication/Plan
-
Empiric antibiotics pending urine and blood cultures.
Hold diuretics
IV hydration
Follow renal function
Assessment / Plan
Assessment / Plan
Impression:
69 years old male with CAD, recent PCI with LAD stent 02/04, atrial fibrillation, IDDM, hypertension, dyslipidemia presenting via EMS for evaluation of fever and confusion. He complains of shaking chills at home. He denies any urinary,
gastrointestinal, respiratory complaints upon admission.
Concern for sepsis secondary to urinary tract infection
Abnormal urinalysis with mild pyuria without urinary complaints.
Leukocytosis.
Acute kidney injury
Mild hypovolemic hyponatremia
Toxic metabolic encephalopathy
Conditions prior to admission:
CAD.
� Status post angioplasty with VAN to LAD 02/04.
Chronic atrial fibrillation.
Anticoagulation with Eliquis per
Sick sinus syndrome with pacemaker implantation
Mild MR
Dyslipidemia
Hypertension
Chronic obstructive pulmonary disease/asthma.
Obesity due to excessive calories BMI 34.
Obstructive sleep apnea on CPAP at night
IDDM.
Hypothyroidism on replacement
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
BPH
Plan:
Concern for sepsis.
UTI? Prostatitis
Urinalysis with pyuria.
Patient offers no urinary complaints. Complains of chills at home.
CT scan of the abdomen pelvis with mild chronic perinephric stranding, no obstructive uropathy
Empiric antibiotics: Cefepime pending blood and urine cultures
COVID-negative
Toxic metabolic encephalopathy in patient with suspected underlying Alzheimer's versus vascular dementia.
Forgetful, although with no focal findings on exam.
CT scan of the head with no acute abnormalities.
Monitor closely
Continue preadmission Aricept
Hold Lyrica acutely
Continue BuSpar
Acute kidney injury
CKD stage IIIa-IIIb
Bladder scan rule out retention.
Continue IV fluids with isotonic solution
Hold Lasix.
Hold losartan
Follow BMP
IDDM
Hemoglobin A1c 7.1
Preadmission regimen including Mounjaro, Lantus, metformin
Continue Lantus, dose reduced from 50 to 30 units twice daily. Adjust accordingly avoiding type for glycemic given decreased GFR
Basal bolus protocol
Hold metformin
CAD
Recent VAN to LAD.
Echo 02/04 LVEF 50-55%.
Preadmission regimen including Plavix, statin, Imdur, losartan.
In addition on Lasix and metolazone MAIL CLERK BILLS with preserved biventricular function.
Chronic atrial fibrillation baseline rate controlled with metoprolol.
Continue anticoagulation with Eliquis
Full code.
Anticipated Discharge: 24 - 48 hours
Subjective/Interval History
-
Date of Service: June 12, 2025
Objective Data
-
Labs:
Laboratory Results
06/12/25
07:40
WBC 16.6 H
Hgb 9.8 L
Hct 30.3 L
Plt Count 239
Sodium 139
Potassium 3.8
Chloride 102
Carbon Dioxide 26
BUN 87 H
Creatinine 2.0 H
Glucose 172 H
Calcium 8.9
Vital Signs:
Vital Signs
Temp Pulse Resp BP Pulse Ox
100.5 F H 67 14 112/47 95
06/12/25 11:24 06/12/25 11:24 06/12/25 11:24 06/12/25 11:24 06/12/25 11:24
I&O
06/11/25 06/12/25 06/13/25
06:59 06:59 06:59
Output Total 200 / 200
Balance -200 / -200
Physical Exam
-
General: Well Developed and No Apparent Distress
HEENT: Normocephalic, Atraumatic and Moist Mucous Membranes
Respiratory: Clear to Auscultation
Cardiac: Regular Rhythm and S1/S2; Negative Murmur, Rub or Gallop
GI: Soft, Nontender, Nondistended and Normal Bowel Sounds; Negative Organomegaly
Rectal: Deferred by Provider
Musculoskeletal: No Clubbing, No Cyanosis and No Edema
Skin: Negative Rash
Neuro: Awake, Alert, Oriented (Name and place, not on time) and Nonfocal/Grossly Intact
--- NOTE | 2025-06-12 15:57 | CM ---
Patient seen at bedside on . Patient lives with his in a 2 story home with a nebulizer and CPAP machine at home. Patient uses [facility] on [address] and his pcp is Dr. Conrad. Patient has had [facility] in the past.Patient has had cardiac rehab
recently. 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 Patient plan is for discharge home with VN pending therapy recommendations. CM will continue to follow for discharge planning needs.
Plan; home with VN vs cardiac rehab
[2025-06-12] MEDS: LIPITOR 80 MG PO (17:07)
[2025-06-12] MEDS: TRICOR 145 MG PO (17:08)
[2025-06-12] MEDS: PLAVIX 75 MG PO (17:08)
[2025-06-12] MEDS: ARICEPT 10 MG PO (17:08)
[2025-06-12 17:12] LABS: Glucose - Point of Care 303 mg/dl (70-99)
[2025-06-12 19:10] LABS: Glucose - Point of Care 279 mg/dl (70-99)
[2025-06-12] MEDS: SINGULAIR 10 MG PO (20:14)
[2025-06-12] MEDS: OCEAN, SALINE MIST 1 SPRAYS NASAL (20:15)
[2025-06-13 03:00] VITALS: BP 133/48
[2025-06-13 03:39] VITALS: BMI 35.1
[2025-06-13] MEDS: MAXIPIME 1000 MG IV ×4 (03:58→21:16)
[2025-06-13] MEDS: STERILE WATER FOR INJECTION 10 ML IV ×4 (03:58→21:16)
[2025-06-13] MEDS: SYNTHROID 50 MCG PO (04:06)
[2025-06-13] MEDS: NSS 1000 IV ×2 (04:08→12:12)
[2025-06-13 07:15] VITALS: BP 120/53
[2025-06-13 07:42] LABS: Glucose - Point of Care 218 mg/dl (70-99)
[2025-06-13] MEDS: STRIVERDI RESPIMAT 2 PUFF INH (07:57)
[2025-06-13] MEDS: ELIQUIS 5 MG PO ×2 (08:10→19:35)
[2025-06-13] MEDS: IMDUR (EXTENDED RELEASE) 120 MG PO (08:10)
[2025-06-13] MEDS: BUSPAR 10 MG PO ×2 (08:10→19:35)
[2025-06-13] MEDS: PROTONIX 40 MG PO (08:10)
[2025-06-13] MEDS: LANTUS 0.3 UNITS SC (08:10)
[2025-06-13] MEDS: NOVOLOG FLEXPEN-LOW RESISTANCE 2 UNITS SC (08:13)
[2025-06-13 08:18] LABS: Hematocrit 28.1 % (39.0-52.0); Hemoglobin 9.2 g/dL (13.0-18.0); Mean Corp Hgb Conc. 32.7 g/dL (33.0-37.0); Mean Corpuscular Volume 87.5 fL (80.0-94.0); Platelet Count 205 10^3/uL (130-400); Red Cell Dist. Width 16.1 % (11.5-14.5)
[2025-06-13 09:03] LABS: Blood Urea Nitrogen 83 mg/dl (9-20); Calcium 8.4 mg/dl (8.4-10.2); Carbon Dioxide 24 mmol/L (22-30); Chloride 105 mmol/L (98-107); Estimated Creatinine Clearance 52 ml/min; Glucose 189 mg/dl (70-99); Potassium 3.8 mmol/L (3.5-5.1); Sodium 138 mmol/L (135-145); eGFR 46.06
[2025-06-13 11:15] VITALS: BP 111/45
[2025-06-13 11:51] LABS: Glucose - Point of Care 320 mg/dl (70-99)
--- NOTE | 2025-06-13 12:02 | CM ---
CM reviewed chart, patient seen bedside.
CM discussed therapy recommendations of home health. Patient reports he is current with cardiac therapy and would like to continue with that.
Patient on IV antibiotics.
Patient denies needs from CM at this time, will continue to follow.
Plan; home with continuance of cardiac therapy
[2025-06-13] MEDS: NOVOLOG FLEXPEN-LOW RESISTANCE 4 UNITS SC (12:10)
[2025-06-13] MEDS: NOVOLOG FLEXPEN 8 UNITS SC ×2 (12:11→17:34)
--- NOTE | 2025-06-13 12:28 | PN.DE.MGMTRT ---
Insulin Management
- -
06/13/2025 Diabetes Management Consult
Patient admitted 06/11 with confusion, fever - sepsis, UTI. PMH CAD s/p LAD stent 02/04, a-fib, diabetes, HTN, HLD. Prior to admission was taking lantus 50 units in AM and had recently reduced HS dose from 50 units to 35 units lantus due to AM
hypoglycemia, Humalog ~ 20 units ac with metformin 500 mg in AM and 1000 mg pm and Mounjaro 2.5 mg on Wednesday. A1C 7.8%, cr 1.6, eGFR 46.06.
Patient sleeping, awakened confused, forgetful. Admits he has been quite forgetful recently. Able to be oriented and discuss diabetes care. States he recently decreased his HS lantus to 35 units but continued 50 units in AM.
Patient glucose yesterday 208 to 307. Received 30 units lantus AM and @ hs last evening. Fasting glucose 218. AC novolog started with lunch 8 units. Pre lunch glucose today 320. will give one time dose 15 units lantus now. Will increase AM
lantus to 50 units to start tomorrow.
Discussed with nurse.
Will follow.
Diabetes History
- -
Type of Diabetes: 2 requiring insulin
Pre-Admission Diabetes Regimen
06/13/25
07:09
Creatinine 1.6 H
Insulin Pump Settings
IP Diabetes Regimen
06/12/25 06/12/25 06/13/25
17:10 19:09 07:09
Glucose 189 H
POC Glucose 303 H 279 H
06/13/25 06/13/25
07:41 11:48
Glucose
POC Glucose 218 H 320 H
Patient Education
--- NOTE | 2025-06-13 12:34 | W.PN.HOSP.TC ---
Today's Communication/Plan
-
Monitor vitals
See plan
PT evaluation
Diabetes PRINCIPAL RESEARCH ECONOMIST
Continue with antibiotic
Urine culture with E. coli
Assessment / Plan
Assessment / Plan
Impression:
69 years old male with CAD, recent PCI with LAD stent 02/04, atrial fibrillation, IDDM, hypertension, dyslipidemia presenting via EMS for evaluation of fever and confusion. He complains of shaking chills at home. He denies any urinary,
gastrointestinal, respiratory complaints upon admission.
Concern for sepsis secondary to urinary tract infection
Abnormal urinalysis with mild pyuria without urinary complaints.
Leukocytosis.
Acute kidney injury
Mild hypovolemic hyponatremia
Toxic metabolic encephalopathy
Conditions prior to admission:
CAD.
� Status post angioplasty with VAN to LAD 02/04.
Chronic atrial fibrillation.
Anticoagulation with Eliquis per
Sick sinus syndrome with pacemaker implantation
Mild MR
Dyslipidemia
Hypertension
Chronic obstructive pulmonary disease/asthma.
Obesity due to excessive calories BMI 34.
Obstructive sleep apnea on CPAP at night
IDDM.
Hypothyroidism on replacement
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
BPH
Plan:
Concern for sepsis.
UTI? Prostatitis
Urinalysis with pyuria.
Patient offers no urinary complaints. Complains of chills at home.
CT scan of the abdomen pelvis with mild chronic perinephric stranding, no obstructive uropathy
Empiric antibiotics: Cefepime pending blood and urine cultures
urine cx with ecoli
COVID-negative
Toxic metabolic encephalopathy in patient with suspected underlying Alzheimer's versus vascular dementia.
Forgetful, although with no focal findings on exam.
CT scan of the head with no acute abnormalities.
Monitor closely
Continue preadmission Aricept
Hold Lyrica acutely
Continue BuSpar
Acute kidney injury
CKD stage IIIa-IIIb
Bladder scan rule out retention.
Continue IV fluids with isotonic solution
Hold Lasix.
Hold losartan
Follow BMP
IDDM
Hemoglobin A1c 7.1
Preadmission regimen including Mounjaro, Lantus, metformin
Continue Lantus, Requested diabetes PRINCIPAL RESEARCH ECONOMIST for management as he sees them outpatient, Added mealtime insulin
Basal bolus protocol
Hold metformin
CAD
Recent VAN to LAD.
Echo 02/04 LVEF 50-55%.
Preadmission regimen including Plavix, statin, Imdur, losartan.
In addition on Lasix and metolazone PATIENT SUPPORT REPRESENTATIVE with preserved biventricular function.
Chronic atrial fibrillation baseline rate controlled with metoprolol.
Continue anticoagulation with Eliquis
Full code.
General: Well Developed and No Apparent Distress
HEENT: Normocephalic, Atraumatic and Moist Mucous Membranes
Respiratory: Clear to Auscultation
Cardiac: Regular Rhythm and S1/S2
GI: Soft, Nontender, Nondistended and Normal Bowel Sounds
Musculoskeletal: No Edema
Neuro: Awake, Alert, Oriented and Nonfocal/Grossly Intact
Anticipated Discharge: > 48 hours
Subjective/Interval History
-
Date of Service: June 13, 2025
denies nausea
Objective Data
-
Labs:
Laboratory Results
06/13/25
07:09
WBC 12.9 H
Hgb 9.2 L
Hct 28.1 L
Plt Count 205
Sodium 138
Potassium 3.8
Chloride 105
Carbon Dioxide 24
BUN 83 H
Creatinine 1.6 H
Glucose 189 H
Calcium 8.4
Vital Signs:
Vital Signs
Temp Pulse Resp BP Pulse Ox
99.7 F 68 24 111/45 96
06/13/25 11:15 06/13/25 11:15 06/13/25 11:15 06/13/25 11:15 06/13/25 11:15
I&O
06/12/25 06/13/25 06/14/25
06:59 06:59 06:59
Intake Total 880 / 880
Output Total 750 / 750 500 / 500
Balance 130 / 130 -500 / -500
[2025-06-13] MEDS: LANTUS 0.15 UNITS SC (13:01)
[2025-06-13 15:15] VITALS: BP 119/48
[2025-06-13] MEDS: TYLENOL 650 MG PO (16:16)
[2025-06-13 17:04] LABS: Glucose - Point of Care 296 mg/dl (70-99)
[2025-06-13] MEDS: NOVOLOG FLEXPEN-LOW RESISTANCE 3 UNITS SC (17:35)
[2025-06-13] MEDS: LIPITOR 80 MG PO (17:36)
[2025-06-13] MEDS: PLAVIX 75 MG PO (17:36)
[2025-06-13] MEDS: ARICEPT 10 MG PO (17:36)
[2025-06-13] MEDS: TRICOR 145 MG PO (17:36)
[2025-06-13 19:00] VITALS: BP 136/63
[2025-06-13] MEDS: SINGULAIR 10 MG PO (21:16)
[2025-06-13] MEDS: OCEAN, SALINE MIST 1 SPRAYS NASAL (21:17)
[2025-06-13] MEDS: LANTUS 0.35 UNITS SC (21:22)
[2025-06-13 21:23] LABS: Glucose - Point of Care 192 mg/dl (70-99)
[2025-06-13 23:00] VITALS: BP 144/61
[2025-06-14] MEDS: STERILE WATER FOR INJECTION 10 ML IV ×2 (02:27→09:08)
[2025-06-14] MEDS: MAXIPIME 1000 MG IV (02:27)
[2025-06-14 03:00] VITALS: BP 131/55
[2025-06-14] MEDS: SYNTHROID 50 MCG PO (05:59)
[2025-06-14 07:15] VITALS: BP 118/51
[2025-06-14] MEDS: STRIVERDI RESPIMAT 2 PUFF INH (07:48)
[2025-06-14 08:00] VITALS: BMI 35.1
--- NOTE | 2025-06-14 08:13 | PN.DE.MGMTRT ---
Insulin Management
- -
06/14/2025 Diabetes Management Consult Follow up
Patient admitted 06/11 with confusion, fever - sepsis, UTI. PMH CAD s/p LAD stent 02/04, a-fib, diabetes, HTN, HLD. Prior to admission was taking lantus 50 units in AM and had recently reduced HS dose from 50 units to 35 units lantus due to AM
hypoglycemia, Humalog ~ 20 units ac with metformin 500 mg in AM and 1000 mg pm and Mounjaro 2.5 mg on Wednesday. A1C 7.8%, cr 1.6, eGFR 46.06.
Patient awake alert and oriented, out of bed in chair. Admits he has been quite forgetful recently. Able to discuss diabetes care. at bedside very supportive. States he recently decreased his HS lantus to 35 units but continued 50 units in
AM.
Patient glucose yesterday 192 to 320. Received 30 units lantus AM with additional 15 units ~ 12 noon and AC novolog started with lunch 8 units. Glucose improved by HS - 192.
Fasting glucose 201. To resume home dose AM lantus 50 units this AM with novolog 12 units and low corrective insulin. Will continue 35 units lantus @ HS.
Discussed with nurse.
Will follow.
Diabetes History
- -
Type of Diabetes: 2 requiring insulin
Pre-Admission Diabetes Regimen
06/13/25
07:09
Creatinine 1.6 H
Insulin Pump Settings
IP Diabetes Regimen
06/13/25 06/13/25 06/13/25
07:09 11:48 17:00
Glucose 189 H
POC Glucose 320 H 296 H
06/13/25
21:21
Glucose
POC Glucose 192 H
Meal type: Dinner
Meal type: Lunch
Meal type: Breakfast
Amount consumed: 100%
Amount consumed: 100%
Amount consumed: 100%
Patient Education
[2025-06-14 08:15] LABS: Hematocrit 28.6 % (39.0-52.0); Hemoglobin 9.3 g/dL (13.0-18.0); Mean Corp Hgb Conc. 32.5 g/dL (33.0-37.0); Mean Corpuscular Volume 88.5 fL (80.0-94.0); Platelet Count 222 10^3/uL (130-400); Red Cell Dist. Width 16.2 % (11.5-14.5)
[2025-06-14 08:33] LABS: Glucose - Point of Care 201 mg/dl (70-99)
[2025-06-14] MEDS: LANTUS 0.5 UNITS SC (08:56)
[2025-06-14] MEDS: PROTONIX 40 MG PO (08:56)
[2025-06-14] MEDS: IMDUR (EXTENDED RELEASE) 120 MG PO (08:56)
[2025-06-14] MEDS: BUSPAR 10 MG PO ×2 (08:56→20:17)
[2025-06-14] MEDS: ELIQUIS 5 MG PO ×2 (08:56→20:17)
[2025-06-14] MEDS: NOVOLOG FLEXPEN-LOW RESISTANCE 2 UNITS SC ×2 (08:57→17:29)
[2025-06-14] MEDS: NOVOLOG FLEXPEN 8 UNITS SC (08:58)
[2025-06-14] MEDS: TYLENOL 650 MG PO ×2 (09:07→20:16)
[2025-06-14] MEDS: ROCEPHIN 1000 MG IV (09:08)
[2025-06-14 09:32] LABS: Blood Urea Nitrogen 72 mg/dl (9-20); Calcium 8.6 mg/dl (8.4-10.2); Carbon Dioxide 22 mmol/L (22-30); Chloride 108 mmol/L (98-107); Estimated Creatinine Clearance 52 ml/min; Glucose 169 mg/dl (70-99); Potassium 4.0 mmol/L (3.5-5.1); Sodium 142 mmol/L (135-145); eGFR 46.06
[2025-06-14 11:31] VITALS: BP 115/59
[2025-06-14 11:43] LABS: Glucose - Point of Care 269 mg/dl (70-99)
[2025-06-14] MEDS: LASIX 80 MG PO (11:52)
--- NOTE | 2025-06-14 12:43 | W.PN.HOSP.TC ---
Today's Communication/Plan
-
Monitor vital signs see plan
Continues to spike fever, ID evaluation
Continue ceftriaxone
Bladder scan
Restart Lasix
Check proBNP
Cardiology evaluation
Monitor mental status
Assessment / Plan
Assessment / Plan
Impression:
69 years old male with CAD, recent PCI with LAD stent 02/04, atrial fibrillation, IDDM, hypertension, dyslipidemia presenting via EMS for evaluation of fever and confusion. He complains of shaking chills at home. He denies any urinary,
gastrointestinal, respiratory complaints upon admission.
Concern for sepsis secondary to urinary tract infection
Abnormal urinalysis with mild pyuria without urinary complaints.
Leukocytosis.
Acute kidney injury
Mild hyponatremia
Toxic metabolic encephalopathy
Conditions prior to admission:
CAD.
� Status post angioplasty with VAN to LAD 02/04.
Chronic atrial fibrillation.
Anticoagulation with Eliquis per
Sick sinus syndrome with pacemaker implantation
Mild MR
Dyslipidemia
Hypertension
Chronic obstructive pulmonary disease/asthma.
Obesity due to excessive calories BMI 34.
Obstructive sleep apnea on CPAP at night
IDDM.
Hypothyroidism on replacement
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
BPH
Plan:
Concern for sepsis.
Suspected UTI with possibility of pyelonephritis
Urine culture with E. coli, switched cefepime to ceftriaxone. Blood culture NGTD
Continues to spike fever, consult infectious disease
CT scan of the abdomen pelvis with mild chronic perinephric stranding, no obstructive uropathy
COVID-negative
Toxic metabolic encephalopathy in patient with suspected underlying Alzheimer's versus vascular dementia.
Forgetful, although with no focal findings on exam.
CT scan of the head with no acute abnormalities.
Monitor closely
Continue preadmission Aricept
Hold Lyrica acutely
Continue BuSpar
Acute kidney injury
CKD stage IIIa-IIIb
Bladder scan rule out retention.
cr now 1.6; restart lasix
Hold losartan
Follow BMP
IDDM
Hemoglobin A1c 7.1
Preadmission regimen including Mounjaro, Lantus, metformin
Continue Lantus, Requested diabetes [employer] for management as he sees them outpatient, Added mealtime insulin
Basal bolus protocol
Hold metformin
CAD
Recent VAN to LAD.
Echo 02/04 LVEF 50-55%.
hx of Chronic CHF with preserved EF; LE swelling. Follows up with Dr. Donohue outpatient. Restart Lasix. Consult cardiology. check probnp
Preadmission regimen including Plavix, statin, Imdur, losartan.
In addition on Lasix and metolazone [employer] with preserved biventricular function.
Chronic atrial fibrillation baseline rate controlled with metoprolol.
Continue anticoagulation with Eliquis
Full code.
General: Well Developed and No Apparent Distress
HEENT: Normocephalic, Atraumatic and Moist Mucous Membranes
Respiratory: Clear to Auscultation
Cardiac: Regular Rhythm and S1/S2
GI: Soft, Nontender, Nondistended and Normal Bowel Sounds
Musculoskeletal: No Edema
Neuro: Awake, Alert, Oriented
I spent a total of 52 minutes with the patient or on the floor. More than 50% of this time involved counseling and coordination of care.
Anticipated Discharge: > 48 hours
Subjective/Interval History
-
Date of Service: June 14, 2025
Continues to spike fever
Objective Data
-
Labs:
Laboratory Results
06/14/25 06/14/25
07:18 07:19
WBC 12.8 H
Hgb 9.3 L
Hct 28.6 L
Plt Count 222
Sodium 142
Potassium 4.0
Chloride 108 H
Carbon Dioxide 22
BUN 72 H
Creatinine 1.6 H
Glucose 169 H
Calcium 8.6
Vital Signs:
Vital Signs
Temp Pulse Resp BP Pulse Ox
99.3 F 66 24 118/51 95
06/14/25 11:31 06/14/25 11:31 06/14/25 11:31 06/14/25 11:52 06/14/25 11:33
I&O
06/13/25 06/14/25 06/15/25
06:59 06:59 06:59
Intake Total 880 / 880 1100 / 1100
Output Total 750 / 750 1325 / 1325
Balance 130 / 130 -225 / -225
[2025-06-14] MEDS: NOVOLOG FLEXPEN-LOW RESISTANCE 3 UNITS SC (12:48)
[2025-06-14] MEDS: NOVOLOG FLEXPEN 12 UNITS SC ×2 (12:49→17:31)
[2025-06-14] MEDS: NOVOLOG FLEXPEN SC (12:53)
[2025-06-14 15:15] VITALS: BP 140/59
--- NOTE | 2025-06-14 15:22 | CON.ID ---
Consultation
-
Date/Time Consultation Requested: 06/14/2025 0929
Date/Time Consultation Performed: 06/14/2025 1523
Requesting Provider: Dr. Vizcaino
Performing Provider: Dr. Vargas
Reason for Consultation: Fever
Chief Complaint / Past History
History of Present Illness
Jack Burnette is a 69-year-old man being evaluated at the request of Dr. Vizcaino in regards to bacteremia. History is obtained from chart review, along with patient interview.
The patient presented to [facility] on 06/11 via EMS for evaluation of fever after chills were noted earlier in the day. The patient noted that following cardiac rehab that day he returned home and developed generalized shaking and appeared
more confused to his . He was noted to have temperature up to 103 and urinary incontinence. Upon presentation to the emergency room, he was found to be febrile to 102.6 degrees. Additionally, he was noted to have a leukocytosis, but abdominal
imaging did not reveal any significant pathology. Blood cultures obtained at the time of admission have remained negative, but a urine culture has revealed growth of E. coli. Because of ongoing fevers, Infectious Diseases asked to comment upon
further antimicrobial therapy.
At present, he admits to some right flank discomfort. Additionally, he is currently rigors. He denies any other pain. He denies any dysuria.
Past History
Additional Past Medical History:
A-fib
HTN
HLD
DM type II
Diverticulosis
CHF
Additional Past Surgical History:
Cardiac ablation
PPM placement
Tonsillectomy
Laminectomy
PCI with stenting
Allergy History:
avocado Allergy (Verified 06/11/25 18:21)
Swelling
banana Allergy (Verified 06/11/25 18:21)
Patient denies
house dust Allergy (Verified 06/11/25 18:21)
Congestion, itchy eyes
mold Allergy (Verified 06/11/25 18:21)
Congestion, itchy eyes
morphine Allergy (Verified 06/11/25 18:21)
Patient Denies
pollen extracts Allergy (Verified 06/11/25 18:21)
Congestion, itchy eyes
tree and shrub pollen Allergy (Verified 06/11/25 18:21)
Congestion, itchy eyes
tuberculin,PPD,multi-puncture (From Tuberculin PPD Joya Test) Allergy (Verified 06/11/25 18:21)
arm inflammation
walnut Allergy (Verified 06/11/25 18:21)
Throat Swelling
Medications Reviewed: Yes
Current Antibiotics:
Ceftriaxone 1 gm IV q.24 hours
Social History
Tobacco: Non-Smoker
Alcohol: None
Drug: None
Personal:
Living: With Family
Employment: Retired
Family History
Family History: Not Pertinent
Review of Systems
Review of Systems
General: Fever and Chills
HEENT: Negative Headache
Cardiovascular: Dyspnea; Negative Edema
Gasteroenterology: Negative Nausea or Vomiting
Genital / Urological: Flank Pain (right); Negative Dysuria or Hematuria
Vital Signs
Temp Pulse Resp BP Pulse Ox
99.3 F 66 24 118/51 95
06/14/25 11:31 06/14/25 11:31 06/14/25 11:31 06/14/25 11:52 06/14/25 11:33
Physical Exam
Physical Exam
Constitutional: Acutely Ill, Chronically Ill, Non-toxic and Obese
Head: Normocephalic
Eyes: Pupils Equal, Pupils Round, No Conjunctival Hemorrhage and Sclera Anicteric
Oral: Poor Dentition, No Thrush and No Ulcers
Cardiovascular: Irregular Rate and S1/S2; Negative S3/S4
Pulmonary: Clear; Negative Wheezes, Rales or Rhonchi
Gastrointestinal: Soft, Non Tender, Non Distended, Normal Bowel Sounds, No Rebound and No Guarding
Genito-Urinary: CVA Tenderness (right; mild); Negative Clark
Extremities: Negative Edema, Cyanosis or Erythema
Musculoskeletal: Negative Joint Swelling or Joint Effusion
Skin: Warm and Dry; Negative Rash or Jaundice
Neurological: Awake and Alert
Psychological: Calm
.
Lab / Diagnostic Study Results
06/14/25 07:19
06/14/25 07:18
Abs Immat Gran (auto) 0.1 10^3/uL (0-0.05) H 06/11/25 18:53
Absolute Neuts (auto) 12.2 10^3/uL (1.4-6.5) H 06/11/25 18:53
Absolute Lymphs (auto) 0.9 10^3/uL (1.2-3.4) L 06/11/25 18:53
Absolute Monos (auto) 1.5 10^3/uL (0.1-0.6) H 06/11/25 18:53
Absolute Basos (auto) 0.1 10^3/uL (0-0.2) 06/11/25 18:53
Immature Gran % 0.5 % (0-0.5) 06/11/25 18:53
Neutrophils % 82.8 % (42.2-75.2) H 06/11/25 18:53
Lymphocytes % 5.9 % (20.5-51.1) L 06/11/25 18:53
Monocytes % 9.9 % (1.7-9.3) H 06/11/25 18:53
Eosinophils % 0.4 % (0-6) 06/11/25 18:53
Basophils % 0.5 % (0-2) 06/11/25 18:53
Lactic Acid 1.9 mmol/L (0.7-2.0) 06/11/25 18:53
Ur Squamous Epith Cells 0-2 /LPF (Few) 06/11/25 19:57
Microbiology Results
Micro:
06/11/25 19:57 Urine Culture - Final
Urine Escherichia coli
06/11/25 20:01 Blood Culture - Preliminary
Blood/Venous No Growth in 48 hours- Final report to follow
06/11/25 18:53 Blood Culture - Preliminary
Blood/Venous No Growth in 48 hours- Final report to follow
06/12/25 03:44 MRSA Screen - Final
Nose No Methicillin Resistant Staphylococcus aureus isolated.
06/11/25 18:53 Influenza Types A & B (RANJAN) - Final
Nasal Swab Negative for Influenza A & B, NAAT
Negative results must be combined with clinical observations
and patient history.
Nucleic Acid Amplification test (NAAT)performed on the
[employer] platform.
Urine Culture Final 06/11/25
CC: Greater than 100,000 CFU/ML Escherichia coli
Organism 1 Escherichia coli
1. Escherichia coli
M.I.C. RX
--------- ---
Amoxicillin/Potas. Clavulanate <=8/4 S
Ampicillin <=8 S
Ampicillin/Sulbactam <=4/2 S
Aztreonam <=4 S
Cefazolin <=2 S
Ertapenem <=0.5 S
Ciprofloxacin <=0.25 S
Gentamicin <=2 S
Meropenem <=1 S
Nitrofurantoin-Urine Only <=32 S
Piperacillin/Tazobactam <=8 S
Tetracycline <=4 S
Tobramycin 4 S
Trimethoprim/Sulfamethoxazole <=2/38 S
Imaging:
06/11/2025 CT abdomen/pelvis with contrast: no renal or ureteral calculi noted. No hydronephrosis or obstructive uropathy. There is minor perinephric soft tissue stranding bilaterally, but also seen on previous exams. Few scattered diverticula
noted in the colon. No evidence of acute diverticulitis. Hepatomegaly and fatty infiltration of the liver noted. No obstructive uropathy. Please see full dictation for additional detail.
Assessment / Plan
Ongoing fevers
Complicated urinary tract infection 2* E. coli
Rigors
Leukocytosis
A-fib
HTN
HLD
DM type II
Tightness
Diverticulosis
CHF
Recommendations:
Given current rigors, will check blood cultures to assess for bacteremia. Admission blood cultures NGTG
Given right flank discomfort, suspect a component of pyelonephritis to which the rigors may be attributed.
E. coli isolate susceptibilities reviewed. Will transition to cefazolin 2 gm IV q.8 hours.
Monitor white count and temperature curve.
--- NOTE | 2025-06-14 15:28 | CON.CAR ---
Addendum entered and electronically signed by Zana Lima MD 06/14/25 17:33:
69-year-old man well-known to our practice with complex cardiac history, most recently with LAD PCI January 2025. He was admitted in June 11 with fever and confusion related to a complicated UTI/pyelonephritis. In the setting, he had THANIA with
creatinine up to 2.0, furosemide has been held, and now he has some lower extremity edema with proBNP of 2049, usually mid 100s. Creatinine is dropping, currently 1.6, feels it has been resumed and he has a minimally detectable troponin of 0.15.
Of late he has had chest discomfort and a sestamibi study had been planned for next week.
PMH/PSH: Permanent A-fib, HFpEF, Medtronic pacemaker, AV farzad ablation, hypertension, hyperlipidemia, CKD 3B, obesity, asthma, VAN to LAD January 2025 with moderate RCA disease, spinal stenosis with L4-L5 laminectomy/fusion, obesity, cognitive
impairment
Current meds: Apixaban 5 mg twice daily, atorvastatin 80 mg nightly, BuSpar 10 every 12, clopidogrel 75 daily, Aricept
Fenofibrate, Imdur 120 mg a day, levothyroxine, Singulair, pantoprazole, Lyrica, Striverdi, Lantus, furosemide 80 mg a.m. and 40 p.m., resumed today, cefazolin
140/59, pulse 65, Tmax 39.2, respiratory rate 20, currently with rigors, head neck exam unremarkable, lungs relatively clear, regular rate and rhythm soft apical systolic murmur, JVD not dramatically elevated, no gallops and limited exam, abdomen
obese, extremities with 1+ to 2+ edema distal pulses diminished but still palpable
ECG: A-fib with ventricular pacing
White count 12.8, hemoglobin 9.3, BUN/creatinine 72 and 1.6, Cr peaked at 2.0, was 1.3 on admission, potassium 4.0, proBNP today 2049, Troponin 0.015
Impression:
Complicated UTI/pyelonephritis
Mild acute on chronic HFpEF
THANIA on CKD
Lower extremity edema
Chest pain
CAD status post VAN 01/30/2025, known 50% RCA stenosis, nonflow limiting
Permanent atrial fibrillation status post AVJ ablation, on Eliquis
Sick sinus syndrome
Pacemaker-Medtronic
Hypertension
COPD/asthma
hyperlipidemia
Diabetes mellitus
Plan:
Note below reviewed in detail and agree, unless otherwise specified.
He presents with evidence of mild acute on chronic HFpEF in the setting of THANIA related to pyelonephritis, after diuretics have been held.
At present, major issue remains ongoing pyelonephritis. Defer to hospitalist and ID regarding best management.
Furosemide has been restarted at prior dose. This seems appropriate. His creatinine has peaked and is dropping.
SGLT2 antagonist for HFpEF probably contraindicated given UTI/pyelonephritis. Spironolactone probably not warranted given THANIA.
When recovered from pyelonephritis he should undergo pharmacologic sestamibi study as planned given his ongoing symptoms of chest pain and minimally detectable troponin. Will recheck a troponin in the a.m. His proBNP is elevated but not
dramatically so.
Further cardiac management to be based upon his clinical course.
Original Note:
Consultation
Consultation Request
Date/Time Consultation Requested: 06/14/2025, 11 AM
Date/Time Consultation Performed: 06/14/2025, 1130
Requesting Provider: Dr. Vizcaino
Performing Provider: SAVANNAH Mckenna for Dr. Lima
Reason for Consultation: Lower extremity edema
Medical History
-
Chief Complaint: Lower extremity edema
History of Present Illness:
Patient is a 69 yo M with PMH of permanent atrial fibrillation on Eliquis s/p remote AVN ablation and Medtronic PPM implant in , chronic HFpEF, HTN, HLD, DM, CKD3b, asthma, obesity, and most recently diagnosed with CAD s/p IVUS guided mid LAD
angioplasty and stenting on 01/30/2025. LVEDP was elevated at 22 mmHg. Of note he also had a 50% mid RCA lesion. He was initially referred to CT surgery but given his underlying pulmonary issues he was felt to be high to high risk for CABG and
underwent PTCA and stenting as above. Furosemide was uptitrated for elevated LVEDP. He participated in cardiac rehab. He has continued to have chest pain with both typical and atypical features and was recently seen by his primary director systems,
Dr. Kurt Donohue and Imdur was uptitrated to 120 mg daily and a Lexiscan nuclear stress test was ordered and is scheduled for next week. He was continued on Plavix as well as Eliquis, high intensity statin. He is not on a beta-ni given
his brittle lung disease.
He presented to the ED on 06/11/2025 with fever as high as 103, confusion. He was found to have E. coli UTI with concern for pyelonephritis. Blood cultures checked and so far negative, influenza A and B negative. Lasix held due to THANIA with
creatinine up to 2.0, baseline creatinine 1-1.3.
He has developed increasing lower extremity edema since admission, cardiology consulted for evaluation of edema.
proBNP today 2049, which is highest it has been.
Weight today 237 pounds, was 234 pounds on admission 06/11/2025.
troponin 06/11/2025 0.015
PMH:
UTI
CAD status post VAN to LAD 01/30/2025, also with known 50% mid RCA lesion
Permanent atrial fibrillation status post remote AVN ablation and Medtronic pacemaker implant in the
Chronic heart failure with preserved EF
Hypertension
Hyperlipidemia
Hypothyroidism
DM
CKD 3B
Asthma
chronic back pain
Lumbar spinal stenosis s/p L4-L5 laminectomy and post spinal infusion
Obesity
Past Medical History
Past Medical History: Other (in HPI)
Past Surgical History: Other (Pacemaker, AV farzad ablation, back injections, tonsillectomy, L4-L5 laminectomy with fusion 2020, LAD stent 2024)
Social History
Tobacco: Former Smoker
Alcohol: None
Personal:
Living: With Family
Employment: Retired
Family History
Family History: Cancer, Diabetes and Hypertension
Allergies / Home Medications
Allergy/AdvReac Type Severity Reaction Status Date / Time
avocado Allergy Swelling Verified 06/11/25 18:21
banana Allergy Patient Verified 06/11/25 18:21
denies
house dust Allergy Congestion, Verified 06/11/25 18:21
itchy eyes
mold Allergy Congestion, Verified 06/11/25 18:21
itchy eyes
morphine Allergy Patient Verified 06/11/25 18:21
Denies
pollen extracts Allergy Congestion, Verified 06/11/25 18:21
itchy eyes
tree and shrub pollen Allergy Congestion, Verified 06/11/25 18:21
itchy eyes
tuberculin,PPD,multi-puncture Allergy arm Verified 06/11/25 18:21
(From Tuberculin PPD Joya inflammation
Test)
walnut Allergy Throat Verified 06/11/25 18:21
Swelling
�Medication �Instructions �Recorded �Confirmed �Type
montelukast 10 mg tablet 10 mg PO HS Lung/breathing issues 02/08/09 06/11/25 History
multivitamin (One-A-Day Essential 1 tab PO DAILY Supplement ##0 02/08/09 06/11/25 History
tablet)
cyanocobalamin (vitamin B-12) 100 300 mcg PO DAILY@1200 Supplement 10/24/18 06/11/25 History
mcg tablet (Vitamin B-12) ##0
pyridoxine (vitamin B6) 100 mg 100 mg PO DAILY@1200 Supplement ##0 10/24/18 06/11/25 History
tablet (Vitamin B-6)
atorvastatin 80 mg tablet 80 mg PO QPM High cholesterol 10/22/20 06/11/25 History
albuterol sulfate 90 mcg/actuation 2 puff inhalation R Q4HPRN PRN sob 12/28/22 06/11/25 History
aerosol inhaler
apixaban 5 mg tablet 5 mg PO BID Blood clot 12/28/22 06/11/25 History
prevention/tx
cholecalciferol (vitamin D3) 25 50 mcg PO DAILY@1200 Supplement 12/28/22 06/11/25 History
mcg (1,000 unit) tablet (Vitamin
D3)
levothyroxine 50 mcg tablet 50 mcg PO DAILY AT 0700 Thyroid 12/28/22 06/11/25 History
salmeterol 50 mcg/dose blister 1 inh inhalation R BID 12/28/22 06/11/25 History
powder for inhalation (Serevent Lung/breathing issues
Diskus)
metformin 500 mg tablet 500 mg PO DAILY Diabetes 12/29/22 06/11/25 History
donepezil 10 mg tablet (Aricept) 10 mg PO QPM Alzheimer's 02/27/24 06/11/25 History
insulin glargine 100 unit/mL 50 unit SC BID Diabetes 02/27/24 06/11/25 History
subcutaneous solution
metolazone 2.5 mg tablet 2.5 mg PO MOFR Fluid 02/27/24 06/11/25 History
Retention/Swelling
ascorbic acid (vitamin C) 500 mg 250 mg PO DAILY@1200 Supplement 01/24/25 06/11/25 History
tablet (Vitamin C)
buspirone 10 mg tablet 10 mg PO Q12 Antianxiety Agent 01/24/25 06/11/25 History
fenofibrate micronized 134 mg 134 mg PO QPM HIGH TRIGLYCERIDES 01/24/25 06/11/25 History
capsule
furosemide 40 mg tablet 40 mg PO QPM Fluid 01/24/25 06/11/25 History
Retention/Swelling
losartan 50 mg tablet 50 mg PO DAILY Blood Pressure 01/24/25 06/11/25 History
omega 6-skj-lqj-fish oil 1,000 mg 2 cap PO BID Supplement 01/24/25 06/11/25 History
(120 mg-180 mg) capsule (Fish Oil)
pregabalin 75 mg capsule (Lyrica) 75 mg PO BID Antiseizure Agent 01/24/25 06/11/25 History
metformin 500 mg tablet 1,000 mg PO QPM Diabetes 01/29/25 06/11/25 History
pantoprazole 40 mg tablet,delayed 40 mg PO DAILY #30 tabs 01/31/25 06/11/25 Rx
release
clopidogrel 75 mg tablet 75 mg PO QPM Blood Clot 06/11/25 06/11/25 History
Prevention/Tx
furosemide 80 mg tablet 80 mg PO DAILY Fluid 06/11/25 06/11/25 History
Retention/Swelling
insulin lispro 100 unit/mL 20 sliding scale dose SC AC 06/11/25 06/11/25 History
subcutaneous solution (Humalog Diabetes
U-100 Insulin)
isosorbide mononitrate 120 mg 120 mg PO DAILY Heart 06/11/25 06/11/25 History
tablet,extended release 24 hr Disease/Condition
sodium chloride 0.65 % nasal spray 2 spray intranasal HS Congestion 06/11/25 06/11/25 History
aerosol
testosterone 2 pump topical DAILY HORMONE 06/11/25 06/11/25 History
tirzepatide 2.5 mg/0.5 mL 2.5 mg SC FR Diabetes 06/11/25 06/11/25 History
subcutaneous pen injector
(Rosalind)
Review of Systems
-
History Source: Patient and Family
All other systems: Negative unless noted
Physical Exam
Vital Signs
Temp Pulse Resp BP Pulse Ox
99.3 F 66 24 118/51 95
06/14/25 11:31 06/14/25 11:31 06/14/25 11:31 06/14/25 11:52 06/14/25 11:33
Lab Results
06/14/25 07:19
06/14/25 07:18
Troponin I 0.015 ng/ml 06/11/25 18:53
Gry-Q-Qcojcxcgfgp Pept 2050 pg/ml 06/14/25 07:18
GEN: No distress, awake, Ox3
HEENT: supple, anicteric, mmm
LUNGS: CTA, no wheezes/rales
CV: Reg, S1/S2, 1/6 syst LSB, no murmur
ABD: soft, BS+, NT/ND
EXT: 1+ lower extremity edema bilaterally
NEURO: Gross non-focal
SKIN: No rash
Impression / Plan
-
PCP: Chan Conrad MD
CDY: Tim Donohue MD
Impression:
UTI
Lower extremity edema
Chest pain
CAD status post VAN 01/30/2025, known 50% RCA stenosis, nonflow limiting
Permanent atrial fibrillation status post AVJ ablation, on Eliquis
Sick sinus syndrome
Pacemaker-Medtronic
Hypertension
COPD
hyperlipidemia
Diabetes mellitus
Previous cardiovascular testing:
Left heart cath 01/29/15: 50% mid RCA lesion that was non flow limiting, and high grade 90% mid LAD stenosis, s/p angioplasty VAN LAD 01/30/2025., LVEDP 22 mmHg
*initially referred to CT surgery, and given underlying pulmonary issues with IFR negative RCA disease, was felt to be too high risk for CABG and returned to lab for mid LAD PCI.
Lexiscan nuclear stress test 01/08/2025: Small, mild defect in the apical inferior and apical lateral segments which is reversible and persistent prone imaging suggestive of mild ischemia
Echo 01/16/2025: Normal LV chamber size, LVEF 50 to 55%, RV enlarged, mild to moderate MR, PAP 34 mmHg
Plan:
69 yo M with CAD s/p VAN LAD 01/2025, permanent afib, AVN ablation, PPM, chronic HFpEF, HTN, HLD, DM, CKD3b, asthma, obesity, recently with reoccurrence with chest discomfort that has both typical and atypical features with uptitration in isosorbide
and plan for outpt nuclear stress test, presents to ED 06/11/25 with fever 103, confusion, found to have E. coli UTI with concern for pyelonephritis. Blood cultures checked and so far negative, influenza A and B negative. Lasix held due to THANIA with
creatinine up to 2.0, baseline creatinine 1-1.3.
He has developed increasing lower extremity edema since admission, cardiology consulted for evaluation of edema.
proBNP today 2049.
1.HFpEF
- Outpatient diuretic (Lasix 80 mg in morning, 40 mg at night) has been on hold due to THANIA with bump in creatinine to 2.0, baseline creatinine 1-1.3. Patient subsequently developed increased lower extremity edema and 3lb weight gain since admission.
- BNP 2049, highest its been
- Given improvement in creatinine okay to resume Lasix at outpt dose. If no diuresis by am, switch to IV Lasix
-Patient has chronic lower extremity edema but worsened this admission
-Losartan on hold due to THANIA, cont to hold for now and if creat improves, resume
-echo 01/2025 EF 50-55%
2. CAD
- Status post VAN to LAD on 01/30/2025. Also with known 50% mid RCA lesion. Was on triple therapy with aspirin, Plavix, and Eliquis for 1 week post stent, subsequently on Plavix and Eliquis. Continue these meds.
- Not on beta-ni due to brittle COPD
- Isosorbide recently uptitrated due to both typical and atypical anginal symptoms and plan for nuclear stress test next week
- Patient without chest pain
- Troponin checked on admission and was 0.015
- Twelve-lead EKG V-paced
- Continue atorvastatin 80 mg, fenofibrate.
-He is not on a beta-ni given his brittle lung disease.
- Telemetry personally reviewed, V-paced 70s
3.AFib/SSS/PPM w/prior AVJ ablation
[id number]
Continue Eliquis 5 mg twice daily
4. HLD
- lipid profile noted with LDL 62, HDL 27, triglycerides 163, total cholesterol 121.
-continue atorvastatin, fenofibrate
5. HTN
- good control on current meds
6. UTI
-care per primary team
Data Reviewed
-
EKG: Tracing Personally Visualized and interpreted
Labs: Labs Reviewed by me
Old Records: Reviewed
[2025-06-14] MEDS: TYLENOL/FEVERALL 650 MG RECTAL (15:57)
[2025-06-14 16:27] LABS: Glucose - Point of Care 209 mg/dl (70-99)
[2025-06-14] MEDS: LASIX 40 MG PO (17:24)
[2025-06-14] MEDS: LIPITOR 80 MG PO (17:24)
[2025-06-14] MEDS: PLAVIX 75 MG PO (17:24)
[2025-06-14] MEDS: ARICEPT 10 MG PO (17:29)
[2025-06-14] MEDS: TRICOR 145 MG PO (17:29)
--- NOTE | 2025-06-14 18:45 | PTCARENOTE ---
Pt had an oral temp of 102.5. Tylenol given suppository. Temp came down to 100.5. Plan of care ongoing. Hospitalist aware.
[2025-06-14 19:00] VITALS: BP 129/53
[2025-06-14] MEDS: OCEAN, SALINE MIST 1 SPRAYS NASAL (20:18)
[2025-06-14] MEDS: SINGULAIR 10 MG PO (20:18)
[2025-06-14 21:57] LABS: Glucose - Point of Care 152 mg/dl (70-99)
[2025-06-14] MEDS: LANTUS 0.35 UNITS SC (22:03)
[2025-06-14 23:00] VITALS: BP 139/63
[2025-06-15] VITALS (7 sets, daily range): BP systolic 104–155; BP diastolic 45–65; BMI 35.6
[2025-06-15] MEDS: TYLENOL 650 MG PO ×3 (00:40→18:19)
--- NOTE | 2025-06-15 07:46 | PN.DE.MGMTRT ---
Insulin Management
- -
06/15/2025: Diabetes Management Follow up
Patient admitted 06/11 with confusion, fever - sepsis, UTI. PMH: CAD s/p LAD stent 02/04, A-Fib, T2DM, HTN, HLD.
Prior to admission was taking Lantus 50 units in AM and had recently reduced HS dose from 50 units to 35 units Lantus due to AM hypoglycemia, Humalog ~ 20 units ac with metformin 500 mg in AM and 1000 mg pm and Mounjaro 2.5 mg on Wednesday. A1C 7.8%,
cr 1.6, eGFR 46.06. Pt admits he has been quite forgetful recently.
Patient awake, alert and oriented, resting in bed, states he is not hungry this morning. NovoLog dose has been held. Pt able to discuss diabetes care.
Glucose range yesterday was 201 to 269. Received 50 units Lantus in AM. pre-lunch glucose was 269, AC NovoLog was increased from 8 units to 12 units.
Glucose improved by HS- 152, received Lantus 35 units, Fasting glucose 103 POC this AM.
Will cont home dose AM Lantus 50 units, 35 units Lantus. Cont AC NovoLog 12 units and low corrective insulin.
Discussed with nurse. Will cont to follow.
Diabetes History
- -
Type of Diabetes: 2 requiring insulin
Pre-Admission Diabetes Regimen
06/14/25
07:18
Creatinine 1.6 H
Insulin Pump Settings
IP Diabetes Regimen
06/14/25 06/14/25 06/14/25
07:18 08:31 11:42
Glucose 169 H
POC Glucose 201 H 269 H
06/14/25 06/14/25
16:23 21:55
Glucose
POC Glucose 209 H 152 H
Meal type: Dinner
Meal type: Lunch
Meal type: Breakfast
Amount consumed: 50%
Amount consumed: 25%
Amount consumed: 50%
Patient Education
[2025-06-15 07:47] LABS: Glucose - Point of Care 103 mg/dl (70-99)
[2025-06-15] MEDS: NOVOLOG FLEXPEN-LOW RESISTANCE SC ×2 (07:49→11:26)
[2025-06-15] MEDS: STRIVERDI RESPIMAT 2 PUFF INH (08:04)
[2025-06-15] MEDS: SYNTHROID 50 MCG PO (08:17)
[2025-06-15 08:53] LABS: Hematocrit 27.7 % (39.0-52.0); Hemoglobin 8.8 g/dL (13.0-18.0); Mean Corp Hgb Conc. 31.8 g/dL (33.0-37.0); Mean Corpuscular Volume 86.0 fL (80.0-94.0); Nucleated Red Blood Cells % 0 % (-); Platelet Count 202 10^3/uL (130-400); Red Cell Dist. Width 16.3 % (11.5-14.5)
[2025-06-15] MEDS: LASIX 80 MG PO (08:56)
[2025-06-15] MEDS: IMDUR (EXTENDED RELEASE) 120 MG PO (08:56)
[2025-06-15] MEDS: BUSPAR 10 MG PO ×2 (08:56→20:16)
[2025-06-15] MEDS: ELIQUIS 5 MG PO ×2 (08:56→20:17)
[2025-06-15] MEDS: ANCEF 10 IV ×3 (08:56→23:07)
[2025-06-15] MEDS: PROTONIX 40 MG PO (08:56)
[2025-06-15] MEDS: LANTUS 0.5 UNITS SC (08:59)
[2025-06-15] MEDS: NOVOLOG FLEXPEN SC ×3 (09:06→19:24)
[2025-06-15 09:20] LABS: Troponin I 0.123 ng/ml
[2025-06-15 09:46] LABS: Blood Urea Nitrogen 76 mg/dl (9-20); Calcium 8.7 mg/dl (8.4-10.2); Carbon Dioxide 23 mmol/L (22-30); Chloride 106 mmol/L (98-107); Estimated Creatinine Clearance 52 ml/min; Glucose 105 mg/dl (70-99); Potassium 4.0 mmol/L (3.5-5.1); Sodium 142 mmol/L (135-145); eGFR 46.06
[2025-06-15 11:20] LABS: Glucose - Point of Care 131 mg/dl (70-99)
--- NOTE | 2025-06-15 11:23 | W.PN.HOSP.TC ---
Addendum entered and electronically signed by Greyson Vizcaino MD 06/15/25 15:01:
Unclear chronicity of pyelonephritis at this time
Original Note:
Today's Communication/Plan
-
Monitor vitals
See plan
Continue with Lasix
Monitor renal function
Check chest x-ray
Cardiology to see today
Follow fever curve
Continue with antibiotic
Bladder scan
Discussed with Spouse
Assessment / Plan
Assessment / Plan
Impression:
69 years old male with CAD, recent PCI with LAD stent 02/04, atrial fibrillation, IDDM, hypertension, dyslipidemia presenting via EMS for evaluation of fever and confusion. He complains of shaking chills at home. He denies any urinary,
gastrointestinal, respiratory complaints upon admission.
Concern for sepsis secondary to urinary tract infection
Complicated UTI
Leukocytosis.
Acute kidney injury
Mild hyponatremia
Toxic metabolic encephalopathy
Acute on chronic HFpEF
elevated trop
Conditions prior to admission:
CAD.
� Status post angioplasty with VAN to LAD 02/04.
Chronic atrial fibrillation.
Anticoagulation with Eliquis per
Sick sinus syndrome with pacemaker implantation
Mild MR
Dyslipidemia
Hypertension
Chronic obstructive pulmonary disease/asthma.
Obesity due to excessive calories BMI 34.
Obstructive sleep apnea on CPAP at night
IDDM.
Hypothyroidism on replacement
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
BPH
Plan:
Concern for sepsis.
Suspected UTI with possibility of pyelonephritis
Urine culture with E. coli, now on ancef. Blood culture from admission NGTD. new sets ordered by ID pending
Continues to spike fever, ID following
CT scan of the abdomen pelvis with mild chronic perinephric stranding, no obstructive uropathy
COVID-negative
Toxic metabolic encephalopathy in patient with suspected underlying Alzheimer's versus vascular dementia.
Forgetful, although with no focal findings on exam.
CT scan of the head with no acute abnormalities.
Monitor closely
Continue preadmission Aricept
Hold Lyrica acutely
Continue BuSpar
Mild acute on chronic HFpEF
check CXR
cw lasix; might need to switch to IV if do not improve
cardiology following
Acute kidney injury
CKD stage IIIa-IIIb
Bladder scan rule out retention.
cr now 1.6; restarted lasix
Hold losartan
Follow BMP
IDDM
Hemoglobin A1c 7.1
Preadmission regimen including Mounjaro, Lantus, metformin
Continue Lantus, Requested diabetes [facility] for management as he sees them outpatient, Added mealtime insulin
Hold metformin
CAD
Recent VAN to LAD.
Echo 02/04 LVEF 50-55%.
Follows up with Dr. Donohue outpatient. Restarted lasix.
Preadmission regimen including Plavix, statin, Imdur, losartan. losartan on hold
stress test when ok with cardiology
trop elevated; unclear etiology, denies any chest pain at this time. also has THANIA
Chronic atrial fibrillation baseline rate controlled with metoprolol.
Continue anticoagulation with Eliquis
Full code.
General: Well Developed and No Apparent Distress
HEENT: Normocephalic, Atraumatic and Moist Mucous Membranes
Respiratory: Clear to Auscultation
Cardiac: Regular Rhythm and S1/S2
GI: Soft, Nontender, Nondistended and Normal Bowel Sounds
Musculoskeletal: No Edema
Neuro: Awake, Alert, Oriented
I spent a total of 53 minutes with the patient or on the floor. More than 50% of this time involved counseling and coordination of care.
Anticipated Discharge: > 48 hours
Subjective/Interval History
-
Date of Service: June 15, 2025
continues to spike fever
Objective Data
-
Labs:
Laboratory Results
06/15/25
08:31
WBC 11.1 H
Hgb 8.8 L
Hct 27.7 L
Plt Count 202
Sodium 142
Potassium 4.0
Chloride 106
Carbon Dioxide 23
BUN 76 H
Creatinine 1.6 H
Glucose 105 H
Calcium 8.7
Vital Signs:
Vital Signs
Temp Pulse Resp BP Pulse Ox
100.9 F H 60 20 155/65 95
06/15/25 07:00 06/15/25 08:09 06/15/25 08:09 06/15/25 08:56 06/15/25 11:22
I&O
06/14/25 06/15/25 06/16/25
06:59 06:59 06:59
Intake Total 1100 / 1100 1470 / 1470
Output Total 1325 / 1325 200 / 200
Balance -225 / -225 1270 / 1270
--- NOTE | 2025-06-15 13:02 | W.PN.CARDCBS ---
Addendum entered and electronically signed by Sanchez Brooks MD 06/15/25 17:34:
I saw and examined the patient.
The Electrical Service Technician's note was reviewed and I agree with the note.
Comment: Briefly, 69-year-old man past medical history of heart failure with preserved ejection fraction presenting with confusion and dysuria diagnosed with complicated UTI and is currently on IV antibiotics.
Cardiology is consulted with concern for acute heart failure
Patient appears mildly volume overloaded on exam, proBNP greater than 2000 and chest x-ray concerning for pulmonary edema
Plan to treat with IV Lasix 40 mg twice daily
Follow renal function electrolytes closely
Ideally would have standing weights
Low-level troponin elevation noted. Would trend to peak.
Not reporting chest discomfort to me
ECG is paced which makes interpretation of ischemic changes challenging
Overall suspect nonischemic myocardial injury troponin elevation
Rest per Malka Cruz
Original Note:
Today's Communication / Plan
-
change to IV diuretics
Impression / Plan
-
PCP: Chan Conrad MD
CDY: Tim Donohue MD
Impression:
UTI
Lower extremity edema
acute on chronic HFpEF
elevated troponin
Chest pain
CAD status post VAN 01/30/2025, known 50% RCA stenosis, nonflow limiting
Permanent atrial fibrillation status post AVJ ablation, on Eliquis
Sick sinus syndrome
Pacemaker-Medtronic
Hypertension
COPD
hyperlipidemia
Diabetes mellitus
Previous cardiovascular testing:
Left heart cath 01/29/15: 50% mid RCA lesion that was non flow limiting, and high grade 90% mid LAD stenosis, s/p angioplasty VAN LAD 01/30/2025., LVEDP 22 mmHg
*initially referred to CT surgery, and given underlying pulmonary issues with IFR negative RCA disease, was felt to be too high risk for CABG and returned to lab for mid LAD PCI.
Lexiscan nuclear stress test 01/08/2025: Small, mild defect in the apical inferior and apical lateral segments which is reversible and persistent prone imaging suggestive of mild ischemia
Echo 01/16/2025: Normal LV chamber size, LVEF 50 to 55%, RV enlarged, mild to moderate MR, PAP 34 mmHg
Plan:
69 yo M with CAD s/p VAN LAD 01/2025, permanent afib, AVN ablation, PPM, chronic HFpEF, HTN, HLD, DM, CKD3b, asthma, obesity, recently with reoccurrence with chest discomfort that has both typical and atypical features with uptitration in isosorbide
and plan for outpt nuclear stress test, presents to ED 06/11/25 with fever 103, confusion, found to have E. coli UTI with concern for pyelonephritis. Blood cultures checked and so far negative, influenza A and B negative. Lasix held due to THANIA with
creatinine up to 2.0, baseline creatinine 1-1.3.
He has developed increasing lower extremity edema since admission, cardiology consulted for evaluation of edema.
proBNP today 2049.
1.HFpEF
- Outpatient diuretic (Lasix 80 mg in morning, 40 mg at night) has been on hold due to THANIA with bump in creatinine to 2.0, baseline creatinine 1-1.3. Patient subsequently developed increased lower extremity edema and 3lb weight gain since admission.
- BNP 2049, highest its been
-started home doses of Lasix 06/14 but wt up 4lbs overnight so switch to IV Lasix. Will give 40 mg IV now, start 40 mg IV bid.
-Patient has chronic lower extremity edema but worsened this admission
-Losartan on hold due to THANIA, cont to hold for now and if creat improves, resume
-echo 01/2025 EF 50-55%
-repeat echo
2. CAD
- Status post VAN to LAD on 01/30/2025. Also with known 50% mid RCA lesion. Was on triple therapy with aspirin, Plavix, and Eliquis for 1 week post stent, subsequently on Plavix and Eliquis. Continue these meds.
- Not on beta-ni due to brittle COPD
- Isosorbide recently uptitrated due to both typical and atypical anginal symptoms and had plan for nuclear stress test next week. Now that pt in house consider inpt stress test on Wednesday.
- Patient without chest pain
- Troponin 0.015 --> 0.123, cont to trend
- Twelve-lead EKG V-paced
- Continue atorvastatin 80 mg, fenofibrate.
-He is not on a beta-ni given his brittle lung disease.
- Telemetry personally reviewed, V-paced 70s
3.AFib/SSS/PPM w/prior AVJ ablation
[id number]
Continue Eliquis 5 mg twice daily
4. HLD
- lipid profile noted with LDL 62, HDL 27, triglycerides 163, total cholesterol 121.
-continue atorvastatin, fenofibrate
5. HTN
- good control on current meds
6. UTI
-care per primary team
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
Subjective
Date of Service: June 15, 2025
SOB and wt up 4 lbs overnight
no chest pain
Objective
Labs:
06/15/25 08:31
06/15/25 08:31
Labs
Hgb 8.8 g/dL (13.0-18.0) L 06/15/25 08:31
Hct 27.7 % (39.0-52.0) L 06/15/25 08:31
Plt Count 202 10^3/uL (130-400) 06/15/25 08:
Sodium 142 mmol/L (135-145) 06/15/25 08:
Potassium 4.0 mmol/L (3.5-5.1) 06/15/25 08:31
BUN 76 mg/dl (9-20) H 06/15/25 08:31
Creatinine 1.6 mg/dL (0.7-1.3) H 06/15/25 08:31
Glucose 105 mg/dl (70-99) H 06/15/25 08:31
Troponins
06/15/25
08:31
Troponin I 0.123 H*
Vital Signs and I&O:
Vital Signs
Temp Pulse Resp BP Pulse Ox
100.9 F H 60 20 155/65 95
06/15/25 07:00 06/15/25 08:09 06/15/25 08:09 06/15/25 08:56 06/15/25 11:22
Vital Signs
Temp Pulse Resp BP Pulse Ox
100.9 F H 60 20 155/65 95
06/15/25 07:00 06/15/25 08:09 06/15/25 08:09 06/15/25 08:56 06/15/25 11:22
Intake & Output
06/13/25 06/14/25 06/15/25 06/16/25
06:59 06:59 06:59 06:59
Intake Total 880 / 880 1100 / 1100 1470 / 1470
Output Total 750 / 750 1325 / 1325 200 / 200
Balance 130 / 130 -225 / -225 1270 / 1270
Physical Exam
Physical Exam
GEN: No distress, awake, Ox3
HEENT: supple, anicteric, mmm
LUNGS: CTA, no wheezes/rales
CV: irreg, irreg no murmur
ABD: soft, BS+, NT/ND
EXT: tr B/L LE edema
NEURO: Gross non-focal
SKIN: No rash
[2025-06-15] MEDS: LASIX 40 MG IV (14:06)
[2025-06-15] MEDS: NOVOLOG FLEXPEN 4 UNITS SC (14:34)
--- NOTE | 2025-06-15 14:52 | PN.CDI ---
CDI
- -
CDI:
Physician Documentation Request
Admit Date: 06/11/25 22:15
Dear Doctor Carrillo,
Patient admitted with concern for sepsis suspected UTI with possibility of pyelonephritis
Please clarify which of the following accurately represents the acuity of the (possible) pyelonephritis
____ Acute
Chronic
____ Other
Use of terms such as suspected, likely, concern for, or probable (associated with a specific diagnosis that is being evaluated, monitored, or treated as if it exists) are acceptable and can be coded in the inpatient setting, when documented at the
time of discharge.
Thank you,
Pam Jaramillo RN, BSN
CDI Specialist
tiger text
Please use your independent medical judgment in providing your response.
--- NOTE | 2025-06-15 15:14 | W.PN.ID1 ---
Date of Service
Date of Service: June 15, 2025
Today's Communication
Continue antibiotics.
Assessment / Plan
Ongoing fevers
- Temperature curve appears to be slightly improved.
Complicated urinary tract infection 2* E. coli
Rigors
Leukocytosis
A-fib
HTN
HLD
DM type II
Tightness
Diverticulosis
CHF
Recommendations:
Admission blood cultures NGTG. Repeat blood cultures from yesterday pending.
Given right flank discomfort, suspect a component of pyelonephritis to which the rigors may be attributed.
E. coli isolate susceptibilities reviewed.
Continue cefazolin 2 gm IV q.8 hours.
Monitor white count and temperature curve.
����������������������������������������������������������
Chief Complaint
-: Fever
Vital Signs / Physical Exam
Vital Signs
Vital Signs
Temp Pulse Resp BP Pulse Ox
99.7 F 62 22 108/53 95
06/15/25 14:03 06/15/25 14:03 06/15/25 14:03 06/15/25 14:06 06/15/25 14:03
Physical Exam
Constitutional: Comfortable, Chronically Ill and Non-toxic
Eyes: Sclera Anicteric
Cardiovascular: S1/S2; Negative S3/S4
Pulmonary: Non Labored
Gastrointestinal: Soft
Genito-Urinary: CVA Tenderness (right)
Neurological: Awake and Alert
Objective Data
Lab Data
Lab Results
06/15/25 08:31
06/15/25 08:31
Estimated Creat Clear 52 ml/min 06/15/25 08:31
Lactic Acid 1.9 mmol/L (0.7-2.0) 06/11/25 18:53
Total Bilirubin 0.7 mg/dl (0.2-1.3) 06/11/25 20:01
AST 22 U/L (17-59) 06/11/25 20:01
ALT 21 U/L (0-50) 06/11/25 20:01
Alkaline Phosphatase 38 U/L (38-126) 06/11/25 20:01
Most recent labs reviewed.
Micro Results:
06/15/25 01:30 Blood Culture - Pending
Blood/Venous
06/15/25 00:31 Blood Culture - Pending
Blood/Venous
06/11/25 20:01 Blood Culture - Preliminary
Blood/Venous No Growth in 72 hours- Final report to follow
06/11/25 18:53 Blood Culture - Preliminary
Blood/Venous No Growth in 72 hours- Final report to follow
06/11/25 19:57 Urine Culture - Final
Urine Escherichia coli
06/12/25 03:44 MRSA Screen - Final
Nose No Methicillin Resistant Staphylococcus aureus isolated.
06/11/25 18:53 Influenza Types A & B (RANJAN) - Final
Nasal Swab Negative for Influenza A & B, NAAT
Negative results must be combined with clinical observations
and patient history.
Nucleic Acid Amplification test (NAAT)performed on the
[employer] platform.
Urine Culture Final 06/11/25
CC: Greater than 100,000 CFU/ML Escherichia coli
Organism 1 Escherichia coli
1. Escherichia coli
M.I.C. RX
--------- ---
Amoxicillin/Potas. Clavulanate <=8/4 S
Ampicillin <=8 S
Ampicillin/Sulbactam <=4/2 S
Aztreonam <=4 S
Cefazolin <=2 S
Ertapenem <=0.5 S
Ciprofloxacin <=0.25 S
Gentamicin <=2 S
Meropenem <=1 S
Nitrofurantoin-Urine Only <=32 S
Piperacillin/Tazobactam <=8 S
Tetracycline <=4 S
Tobramycin 4 S
Trimethoprim/Sulfamethoxazole <=2/38 S
Imaging:
06/11/2025 CT abdomen/pelvis with contrast: no renal or ureteral calculi noted. No hydronephrosis or obstructive uropathy. There is minor perinephric soft tissue stranding bilaterally, but also seen on previous exams. Few scattered diverticula
noted in the colon. No evidence of acute diverticulitis. Hepatomegaly and fatty infiltration of the liver noted. No obstructive uropathy. Please see full dictation for additional detail.
--- NOTE | 2025-06-15 15:43 | CM ---
CM reviewed chart, care ongoing.
Anticipated d/c <48 hrs
Patient remains on IV antibiotics.
Cardiology following.
CM will continue to follow for all d/c planning needs.
Plan: return home with outpatient cardiac rehab once stable.
[2025-06-15 16:29] LABS: Glucose - Point of Care 183 mg/dl (70-99)
[2025-06-15] MEDS: TRICOR 145 MG PO (17:20)
[2025-06-15] MEDS: LIPITOR 80 MG PO (17:20)
[2025-06-15] MEDS: ARICEPT 10 MG PO (17:20)
[2025-06-15] MEDS: PLAVIX 75 MG PO (17:20)
[2025-06-15] MEDS: NOVOLOG FLEXPEN-LOW RESISTANCE 1 UNITS SC (18:14)
[2025-06-15 20:58] LABS: Glucose - Point of Care 153 mg/dl (70-99)
[2025-06-15] MEDS: LANTUS 0.35 UNITS SC (21:55)
[2025-06-15] MEDS: OCEAN, SALINE MIST 1 SPRAYS NASAL (21:58)
[2025-06-15] MEDS: SINGULAIR 10 MG PO (22:00)
[2025-06-16 00:57] LABS: Troponin I 0.065 ng/ml
[2025-06-16] MEDS: TYLENOL 650 MG PO ×2 (02:37→20:35)
[2025-06-16 03:00] VITALS: BP 127/55
[2025-06-16 05:38] VITALS: BMI 35.4
[2025-06-16] MEDS: SYNTHROID 50 MCG PO (05:38)
--- NOTE | 2025-06-16 06:17 | PTCARENOTE ---
Pt not sleeping well t/o the night. Restless/ painful legs is reported as the problem. Pt takes his own CPAP on and off numerous times. Pt uses call thomason but forgets why he ran. Confused to time, frequent orientation provided. Pt using urinal as
needed. Call thomason in reach. Will continue to monitor.
[2025-06-16 07:25] VITALS: BP 158/67
[2025-06-16 07:36] LABS: Hematocrit 24.3 % (39.0-52.0); Hemoglobin 7.9 g/dL (13.0-18.0); Mean Corp Hgb Conc. 32.5 g/dL (33.0-37.0); Mean Corpuscular Volume 85.9 fL (80.0-94.0); Nucleated Red Blood Cells % 0 % (-); Platelet Count 182 10^3/uL (130-400); Red Cell Dist. Width 16.2 % (11.5-14.5)
[2025-06-16] MEDS: STRIVERDI RESPIMAT 2 PUFF INH (07:48)
[2025-06-16 07:49] LABS: Glucose - Point of Care 136 mg/dl (70-99)
[2025-06-16 08:02] LABS: Blood Urea Nitrogen 74 mg/dl (9-20); Calcium 8.3 mg/dl (8.4-10.2); Carbon Dioxide 26 mmol/L (22-30); Chloride 102 mmol/L (98-107); Estimated Creatinine Clearance 56 ml/min; Glucose 112 mg/dl (70-99); Potassium 3.4 mmol/L (3.5-5.1); Sodium 139 mmol/L (135-145); eGFR 49.77
[2025-06-16] MEDS: NOVOLOG FLEXPEN SC ×3 (08:18→18:17)
[2025-06-16] MEDS: NOVOLOG FLEXPEN-LOW RESISTANCE SC ×2 (08:18→08:35)
[2025-06-16 08:59] LABS: Troponin I 0.047 ng/ml
[2025-06-16] MEDS: LYRICA 50 MG PO ×2 (09:30→19:41)
[2025-06-16] MEDS: IMDUR (EXTENDED RELEASE) 120 MG PO (09:30)
[2025-06-16] MEDS: ANCEF 10 IV ×3 (09:30→23:13)
[2025-06-16] MEDS: ELIQUIS 5 MG PO ×2 (09:31→20:35)
[2025-06-16] MEDS: BUSPAR 10 MG PO ×2 (09:32→20:35)
[2025-06-16] MEDS: PROTONIX 40 MG PO (09:32)
[2025-06-16] MEDS: LASIX 40 MG IV ×2 (09:33→18:15)
[2025-06-16] MEDS: LANTUS 0.5 UNITS SC (09:33)
--- NOTE | 2025-06-16 10:17 | W.PN.CARDCBS ---
Today's Communication / Plan
-
Continue diuresis, weight down 2 pounds.
Antibiotics as per primary service
Impression / Plan
-
PCP: Chan Conrad MD
CDY: Tim Donohue MD
Impression:
UTI
Lower extremity edema
acute on chronic HFpEF
elevated troponin
Chest pain
CAD status post VAN 01/30/2025, known 50% RCA stenosis, nonflow limiting
Permanent atrial fibrillation status post AVJ ablation, on Eliquis
Sick sinus syndrome
Pacemaker-Medtr[employer]
Hypertension
COPD
hyperlipidemia
Diabetes mellitus
Previous cardiovascular testing:
Left heart cath 01/29/15: 50% mid RCA lesion that was non flow limiting, and high grade 90% mid LAD stenosis, s/p angioplasty VAN LAD 01/30/2025., LVEDP 22 mmHg
*initially referred to CT surgery, and given underlying pulmonary issues with IFR negative RCA disease, was felt to be too high risk for CABG and returned to lab for mid LAD PCI.
Lexiscan nuclear stress test 01/08/2025: Small, mild defect in the apical inferior and apical lateral segments which is reversible and persistent prone imaging suggestive of mild ischemia
Echo 01/16/2025: Normal LV chamber size, LVEF 50 to 55%, RV enlarged, mild to moderate MR, PAP 34 mmHg
Plan:
69 yo M with CAD s/p VAN LAD 01/2025, permanent afib, AVN ablation, PPM, chronic HFpEF, HTN, HLD, DM, CKD3b, asthma, obesity, recently with reoccurrence with chest discomfort that has both typical and atypical features with uptitration in isosorbide
and plan for outpt nuclear stress test, presents to ED 06/11/25 with fever 103, confusion, found to have E. coli UTI with concern for pyelonephritis. Blood cultures checked and so far negative, influenza A and B negative. Lasix held due to THANIA with
creatinine up to 2.0, baseline creatinine 1-1.3.
He has developed increasing lower extremity edema since admission, cardiology consulted for evaluation of edema.
proBNP today 2049.
1.HFpEF
- Outpatient diuretic (Lasix 80 mg in morning, 40 mg at night) has been on hold due to THANIA with bump in creatinine to 2.0, baseline creatinine 1-1.3. Patient subsequently developed increased lower extremity edema and 3lb weight gain since
admission. BNP 2049, highest its been
started home doses of Lasix 06/14 but wt up 4lbs by 06/15
on 06/15 started Lasix 40 mg IV twice daily.
Weight is down 2 pounds, fluid balance is -600 cc, Creatinine improved to 1.5 morning of 06/16/2025
Continue diuresis with Lasix 40 mg IV twice daily
Replete potassium, check magnesium (goal potassium is between 4 and 5 and goal magnesium between 2 and 3). Will order 40 mill equivalents of K-Dur now
Echocardiogram was ordered to this admission and echocardiogram June 15, 2025 finds LVEF of 55 to 60%, RV is mildly dilated with normal systolic function, there is pacing wire seen in the right ventricle. There is abnormal paradoxical septal
motion consistent with pacing. Both the left atrium and the right atrium are mildly enlarged. There is mild to moderate pulmonary hypertension. Pulmonary artery systolic pressure is estimated at 45 mmHg. When compared to echocardiogram from January
2024 there is no significant change.
2. CAD
- Status post VAN to LAD on 01/30/2025. Also with known 50% mid RCA lesion. Was on triple therapy with aspirin, Plavix, and Eliquis for 1 week post stent, subsequently on Plavix and Eliquis. Continue these meds.
- Not on beta-ni due to brittle COPD
- Isosorbide recently uptitrated due to both typical and atypical anginal symptoms and had plan for nuclear stress test next week, this can be deferred until he is completely recovered from his infectious illness.
- Patient remains without chest pain
- Troponin 0.015 --> 0.123 --> 0.065 --> 0.047 and stable 12 lead EKG, V-paced
- Continue atorvastatin 80 mg, fenofibrate.
- He is not on a beta-ni given his brittle lung disease.
- Telemetry personally reviewed, V-paced 70s
3.AFib is permanent/SSS/PPM w/prior AVJ ablation
[id number]=7
Continue Eliquis 5 mg twice daily
4. HLD
- lipid profile noted with LDL 62, HDL 27, triglycerides 163, total cholesterol 121.
-continue atorvastatin, fenofibrate
5. HTN
- Losartan on hold due to THANIA, cont to hold for now and if creat improves/stabilizes please resume
6. UTI
-care per primary team
Progress Note - Commissions Manager
Subjective
Date of Service: June 16, 2025
Sleeping but arousable. No chest pain shortness of breath palpitations or dizziness
Objective
Labs:
06/16/25 06:42
06/16/25 06:42
Labs
Hgb 7.9 g/dL (13.0-18.0) L 06/16/25 06:42
Hct 24.3 % (39.0-52.0) L 06/16/25 06:42
Plt Count 182 10^3/uL (130-400) 06/16/25 06:42
Sodium 139 mmol/L (135-145) 06/16/25 06:42
Potassium 3.4 mmol/L (3.5-5.1) L 06/16/25 06:42
BUN 74 mg/dl (9-20) H 06/16/25 06:42
Creatinine 1.5 mg/dL (0.7-1.3) H 06/16/25 06:42
Glucose 112 mg/dl (70-99) H 06/16/25 06:42
Troponins
06/15/25 06/15/25 06/16/25
08:31 23:56 06:42
Troponin I 0.123 H* 0.065 H* 0.047 H* D
Vital Signs and I&O:
Vital Signs
Temp Pulse Resp BP Pulse Ox
98.6 F 59 16 158/67 100
06/16/25 07:25 06/16/25 09:33 06/16/25 07:50 06/16/25 09:33 06/16/25 07:50
Vital Signs
Temp Pulse Resp BP Pulse Ox
98.6 F 59 16 158/67 100
06/16/25 07:25 06/16/25 09:33 06/16/25 07:50 06/16/25 09:33 06/16/25 07:50
Intake & Output
06/14/25 06/15/25 06/16/25 06/17/25
06:59 06:59 06:59 06:59
Intake Total 1100 / 1100 1470 / 1470 1000 / 1000 480 / 480
Output Total 1325 / 1325 200 / 200 1250 / 1250 825 / 825
Balance -225 / -225 1270 / 1270 -250 / -250 -345 / -345
Physical Exam
Physical Exam
General: Sleeping but arousable then oriented. Obese.
HEENT: Normocephalic, Atraumatic and Moist Mucous Membranes
Respiratory: Clear to Auscultation bilaterally
Cardiac: Regular Rhythm and S1/S2
GI: Soft, Nontender, Nondistended and Normal Bowel Sounds
Musculoskeletal: There is +2 bilateral lower extremity edema
Neuro: Awake, Alert, Oriented
[2025-06-16] MEDS: KCL 40 MEQ PO (11:05)
[2025-06-16 11:35] LABS: Glucose - Point of Care 197 mg/dl (70-99)
[2025-06-16 11:55] VITALS: BP 113/45
--- NOTE | 2025-06-16 12:02 | W.PN.HOSP.TC ---
Today's Communication/Plan
-
Continue antibiotic
Monitor temperature curve
Resume decreased dose Lyrica
Monitor renal function
Continue Lasix
Spouse updated
Assessment / Plan
Assessment / Plan
Impression:
69 years old male with CAD, recent PCI with LAD stent 02/04, atrial fibrillation, IDDM, hypertension, dyslipidemia presenting via EMS for evaluation of fever and confusion. He complains of shaking chills at home. He denies any urinary,
gastrointestinal, respiratory complaints upon admission.
Concern for sepsis secondary to urinary tract infection
Complicated UTI
Leukocytosis.
Acute kidney injury
Mild hyponatremia
Toxic metabolic encephalopathy
Acute on chronic HFpEF
elevated trop
Conditions prior to admission:
CAD.
� Status post angioplasty with VAN to LAD 02/04.
Chronic atrial fibrillation.
Anticoagulation with Eliquis per
Sick sinus syndrome with pacemaker implantation
Mild MR
Dyslipidemia
Hypertension
Chronic obstructive pulmonary disease/asthma.
Obesity due to excessive calories BMI 34.
Obstructive sleep apnea on CPAP at night
IDDM.
Hypothyroidism on replacement
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
BPH
Plan:
Concern for sepsis.
Suspected UTI with possibility of pyelonephritis
Urine culture with E. coli, now on ancef. Blood culture from admission NGTD. Repeat blood culture remains negative as well.
CT scan of the abdomen pelvis with mild chronic perinephric stranding, no obstructive uropathy
COVID-negative
Patient WBC has been normalized. Fever is getting less frequent and less severe. Monitor for effervescence
Toxic metabolic encephalopathy in patient with suspected underlying Alzheimer's versus vascular dementia.
Forgetful, although with no focal findings on exam.
CT scan of the head with no acute abnormalities.
Monitor closely
Continue preadmission Aricept
Patient Lyrica was held although patient/family upset as patient have significant neuropathic symptoms. Starting at a lower then home dose of 50 mg twice daily.
Continue BuSpar
Mild acute on chronic HFpEF
Chest x-ray showing possible interstitial pulmonary edema
Weight has been downtrending slowly and 108 points on program today. Continue on oral Lasix
cardiology following
Acute kidney injury
CKD stage IIIa-IIIb
Bladder scan rule out retention.
Creatinine slowly improving and 1.5 today. Has been restarted on Lasix, monitor renal function
Hold losartan
Follow BMP
IDDM
Hemoglobin A1c 7.1
Preadmission regimen including Mounjaro, Lantus, metformin
Continue Lantus, Requested diabetes [employer] for management as he sees them outpatient, Added mealtime insulin
Hold metformin
CAD
Recent VAN to LAD.
Echo 02/04 LVEF 50-55%.
Follows up with Dr. Donohue outpatient. Restarted lasix.
Preadmission regimen including Plavix, statin, Imdur, losartan. losartan on hold
stress test when ok with cardiology
trop elevated; unclear etiology, denies any chest pain at this time. also has THANIA
Chronic atrial fibrillation baseline rate controlled with metoprolol.
Continue anticoagulation with Eliquis
Full code.
Anticipated Discharge: 24 - 48 hours
Subjective/Interval History
-
Date of Service: June 16, 2025
Denies of having any abdominal pain/nausea/vomiting
Mentation better no reported agitation
Had fever overnight
Objective Data
-
Labs:
Laboratory Results
06/16/25
06:42
WBC 9.0
Hgb 7.9 L
Hct 24.3 L
Plt Count 182
Sodium 139
Potassium 3.4 L
Chloride 102
Carbon Dioxide 26
BUN 74 H
Creatinine 1.5 H
Glucose 112 H
Calcium 8.3 L
Vital Signs:
Vital Signs
Temp Pulse Resp BP Pulse Ox
98.6 F 75 16 158/67 100
06/16/25 07:25 06/16/25 11:30 06/16/25 11:30 06/16/25 09:33 06/16/25 11:30
I&O
06/15/25 06/16/25 06/17/25
06:59 06:59 06:59
Intake Total 1470 / 1470 1000 / 1000 480 / 480
Output Total 200 / 200 1250 / 1250 825 / 825
Balance 1270 / 1270 -250 / -250 -345 / -345
Review of Systems
-
Respiratory: Reports No Symptoms
Cardiac: Reports No Symptoms
Abdomen/GI: Reports No Symptoms
Physical Exam
-
General: No Apparent Distress and Comfortable
HEENT: Negative Oxygen
Musculoskeletal: No Edema
Neuro: Awake, Alert, Oriented and Nonfocal/Grossly Intact
Psych: Calm
[2025-06-16] MEDS: NOVOLOG FLEXPEN 12 UNITS SC (13:53)
[2025-06-16] MEDS: NOVOLOG FLEXPEN-LOW RESISTANCE 1 UNITS SC (13:54)
[2025-06-16 15:15] VITALS: BP 123/48
[2025-06-16 16:25] LABS: Glucose - Point of Care 165 mg/dl (70-99)
[2025-06-16] MEDS: NOVOLOG FLEXPEN-LOW RESISTANCE 300 UNITS SC (18:17)
[2025-06-16] MEDS: LIPITOR 80 MG PO (18:18)
[2025-06-16] MEDS: PLAVIX 75 MG PO (18:18)
[2025-06-16] MEDS: TRICOR 145 MG PO (18:21)
[2025-06-16] MEDS: ARICEPT 10 MG PO (18:21)
[2025-06-16 19:00] VITALS: BP 131/53
[2025-06-16 21:54] LABS: Glucose - Point of Care 150 mg/dl (70-99)
[2025-06-16 23:00] VITALS: BP 116/58
[2025-06-16] MEDS: OCEAN, SALINE MIST 1 SPRAYS NASAL (23:11)
[2025-06-16] MEDS: SINGULAIR 10 MG PO (23:12)
[2025-06-16] MEDS: LANTUS 0.35 UNITS SC (23:12)
[2025-06-17] VITALS (7 sets, daily range): BP systolic 94–130; BP diastolic 37–61; PULSE 70; O2SAT 99; BMI 34.6
[2025-06-17] MEDS: SYNTHROID 50 MCG PO (05:52)
[2025-06-17] MEDS: TYLENOL 650 MG PO ×2 (05:52→16:30)
[2025-06-17 07:35] LABS: Blood Urea Nitrogen 70 mg/dl (9-20); Calcium 8.2 mg/dl (8.4-10.2); Carbon Dioxide 28 mmol/L (22-30); Chloride 104 mmol/L (98-107); Estimated Creatinine Clearance 63 ml/min; Glucose 133 mg/dl (70-99); Magnesium 2.5 mg/dl (1.6-2.3); Potassium 3.9 mmol/L (3.5-5.1); Sodium 140 mmol/L (135-145); eGFR 59.10
[2025-06-17 07:42] LABS: Glucose - Point of Care 168 mg/dl (70-99)
[2025-06-17] MEDS: STRIVERDI RESPIMAT 2 PUFF INH (07:44)
[2025-06-17] MEDS: NOVOLOG FLEXPEN 12 UNITS SC ×3 (10:39→18:22)
[2025-06-17] MEDS: NOVOLOG FLEXPEN-LOW RESISTANCE 1 UNITS SC ×2 (10:40→12:12)
[2025-06-17] MEDS: IMDUR (EXTENDED RELEASE) 120 MG PO (10:41)
[2025-06-17] MEDS: LASIX 40 MG IV ×2 (10:41→16:24)
[2025-06-17] MEDS: ANCEF 10 IV (10:41)
[2025-06-17] MEDS: LANTUS 0.5 UNITS SC (10:43)
[2025-06-17] MEDS: ELIQUIS 5 MG PO ×2 (10:44→20:41)
[2025-06-17] MEDS: PROTONIX 40 MG PO (10:44)
[2025-06-17] MEDS: BUSPAR 10 MG PO ×2 (10:44→20:41)
[2025-06-17] MEDS: LYRICA 50 MG PO (10:45)
--- NOTE | 2025-06-17 10:53 | W.PN.ID1 ---
Date of Service
Date of Service: June 17, 2025
Today's Communication
transition to keflex for a 10 day total course 06/12-06/21
Assessment / Plan
Ongoing fevers
- Temperature curve appears to be improved.
Complicated urinary tract infection 2* E. coli
Rigors
Leukocytosis
A-fib
HTN
HLD
DM type II
Tightness
Diverticulosis
CHF
Recommendations:
Admission blood cultures NGTG. Repeat blood cultures from yesterday pending.
Given right flank discomfort, suspect a component of pyelonephritis to which the rigors may be attributed.
E. coli isolate susceptibilities reviewed.
transition to keflex for a 10 day total course 06/12-06/21
Monitor white count and temperature curve.
Diarrhea
possibly antibiotic associated
check C difficile
Lower extremity compression for edema
����������������������������������������������������������
Chief Complaint
-: Fever
Subjective / Review of Systems
fever curve improving
bp stable
tolerating current therapies
2 episodes of liquid stool
'I feel horrible'
Vital Signs / Physical Exam
Vital Signs
Vital Signs
Temp Pulse Resp BP Pulse Ox
98.2 F 61 18 130/61 98
06/17/25 08:00 06/17/25 08:00 06/17/25 08:00 06/17/25 08:00 06/17/25 08:00
Physical Exam
Constitutional: No Acute Distress
Cardiovascular: Regular Rate and S1/S2; Negative Murmur or Rub
Pulmonary: Clear and Symmetric; Negative Wheezes or Rales
Gastrointestinal: Soft, Non Tender, Non Distended, Normal Bowel Sounds and Other (foul smelling diarrhea noted)
Skin: Warm and Dry; Negative Rash or Jaundice
Objective Data
Lab Data
Lab Results
06/16/25 06:42
06/17/25 06:17
Estimated Creat Clear 63 ml/min 06/17/25 06:17
Lactic Acid 1.9 mmol/L (0.7-2.0) 06/11/25 18:53
Total Bilirubin 0.7 mg/dl (0.2-1.3) 06/11/25 20:01
AST 22 U/L (17-59) 06/11/25 20:01
ALT 21 U/L (0-50) 06/11/25 20:01
Alkaline Phosphatase 38 U/L (38-126) 06/11/25 20:01
Most recent labs reviewed.
Micro Results:
06/15/25 01:30 Blood Culture - Preliminary
Blood/Venous No Growth in 48 hours- Final report to follow
06/15/25 00:31 Blood Culture - Preliminary
Blood/Venous No Growth in 48 hours- Final report to follow
06/11/25 20:01 Blood Culture - Final
Blood/Venous No Growth - Final Report
06/11/25 18:53 Blood Culture - Final
Blood/Venous No Growth - Final Report
06/11/25 19:57 Urine Culture - Final
Urine Escherichia coli
06/12/25 03:44 MRSA Screen - Final
Nose No Methicillin Resistant Staphylococcus aureus isolated.
06/11/25 18:53 Influenza Types A & B (RNAJAN) - Final
Nasal Swab Negative for Influenza A & B, NAAT
Negative results must be combined with clinical observations
and patient history.
Nucleic Acid Amplification test (NAAT)performed on the
[employer] platform.
[2025-06-17 11:40] LABS: Glucose - Point of Care 178 mg/dl (70-99)
--- NOTE | 2025-06-17 12:14 | W.PN.HOSP.TC ---
Today's Communication/Plan
-
monitor T curve
renal function improved
on iv lasix, monitor weight/cr
pending PT evluation
Assessment / Plan
Assessment / Plan
Impression:
69 years old male with CAD, recent PCI with LAD stent 02/04, atrial fibrillation, IDDM, hypertension, dyslipidemia presenting via EMS for evaluation of fever and confusion. He complains of shaking chills at home. He denies any urinary,
gastrointestinal, respiratory complaints upon admission.
Concern for sepsis secondary to urinary tract infection
Complicated UTI
Leukocytosis.
Acute kidney injury
Mild hyponatremia
Toxic metabolic encephalopathy
Acute on chronic HFpEF
elevated trop
Conditions prior to admission:
CAD.
� Status post angioplasty with VAN to LAD 02/04.
Chronic atrial fibrillation.
Anticoagulation with Eliquis per
Sick sinus syndrome with pacemaker implantation
Mild MR
Dyslipidemia
Hypertension
Chronic obstructive pulmonary disease/asthma.
Obesity due to excessive calories BMI 34.
Obstructive sleep apnea on CPAP at night
IDDM.
Hypothyroidism on replacement
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
BPH
Plan:
Concern for sepsis.
Suspected UTI with possibility of pyelonephritis
Urine culture with E. coli, now on ancef. Blood culture from admission NGTD. Repeat blood culture remains negative as well.
CT scan of the abdomen pelvis with mild chronic perinephric stranding, no obstructive uropathy
COVID-negative
Patient WBC has been normalized. Fever is getting less frequent and less severe. Monitor for effervescence
Toxic metabolic encephalopathy in patient with suspected underlying Alzheimer's versus vascular dementia.
Mentation has improved.
CT scan of the head with no acute abnormalities.
Continue preadmission Aricept
Patient Lyrica was held although patient/family upset as patient have significant neuropathic symptoms. Starting at a lower then home dose of 50 mg twice daily.
Continue BuSpar
Mild acute on chronic HFpEF
Chest x-ray showing possible interstitial pulmonary edema
Weight has been downtrending slowly and 108 points on program today.
Remains on IV lasix 40mg/bid, renal functions stable.
cardiology following
Acute kidney injury
CKD stage IIIa-IIIb
Bladder scan rule out retention.
Creatinine slowly improving and 1.3 today.
Hold losartan
Follow BMP
IDDM
Hemoglobin A1c 7.1
Preadmission regimen including Mounjaro, Lantus, metformin
Continue Lantus, Requested diabetes [facility] for management as he sees them outpatient, Added mealtime insulin
Hold metformin
CAD
Recent VAN to LAD.
Echo 02/04 LVEF 50-55%.
Follows up with Dr. Donohue outpatient. Restarted lasix.
Preadmission regimen including Plavix, statin, Imdur, losartan. losartan on hold
stress test when ok with cardiology
trop elevated; unclear etiology, denies any chest pain at this time. also has THANIA
Chronic atrial fibrillation baseline rate controlled with metoprolol.
Continue anticoagulation with Eliquis
Full code.
Anticipated Discharge: 24 - 48 hours
Subjective/Interval History
-
Date of Service: June 17, 2025
denies of having any issues
Temp of 100.5F yesterday 1500
mentation improved
Objective Data
-
Labs:
Laboratory Results
06/17/25
06:17
Sodium 140
Potassium 3.9
Chloride 104
Carbon Dioxide 28
BUN 70 H
Creatinine 1.3
Glucose 133 H
Calcium 8.2 L
Vital Signs:
Vital Signs
Temp Pulse Resp BP Pulse Ox
98.2 F 60 16 130/61 99
06/17/25 08:00 06/17/25 11:35 06/17/25 11:35 06/17/25 10:41 06/17/25 11:35
I&O
06/16/25 06/17/25 06/18/25
06:59 06:59 06:59
Intake Total 1000 / 1000 1440 / 1440
Output Total 1250 / 1250 2925 / 2925
Balance -250 / -250 -1485 / -1485
Review of Systems
-
Respiratory: Reports No Symptoms
Cardiac: Reports No Symptoms
Abdomen/GI: Reports No Symptoms
Physical Exam
-
General: No Apparent Distress and Comfortable
HEENT: Negative Oxygen
Musculoskeletal: No Edema
Neuro: Awake, Alert, Oriented and Nonfocal/Grossly Intact
Psych: Calm
[2025-06-17] MEDS: KEFLEX 500 MG PO ×3 (12:26→22:44)
--- NOTE | 2025-06-17 14:56 | CM ---
Chart reviewed and patient's spouse is interested in skilled placement, immigration case worker met with patient and provided list of medicare.gov options.
Plan; Skilled placement.
[2025-06-17 16:29] LABS: Glucose - Point of Care 109 mg/dl (70-99)
[2025-06-17] MEDS: ARICEPT 10 MG PO (16:31)
[2025-06-17] MEDS: LIPITOR 80 MG PO (16:32)
[2025-06-17] MEDS: PLAVIX 75 MG PO (16:32)
[2025-06-17] MEDS: TRICOR 145 MG PO (16:32)
[2025-06-17] MEDS: NOVOLOG FLEXPEN-LOW RESISTANCE SC (18:23)
[2025-06-17] MEDS: LYRICA 75 MG PO (20:44)
[2025-06-17 20:49] LABS: Glucose - Point of Care 175 mg/dl (70-99)
[2025-06-17] MEDS: OCEAN, SALINE MIST 1 SPRAYS NASAL (22:41)
[2025-06-17] MEDS: SINGULAIR 10 MG PO (22:41)
[2025-06-17 22:47] LABS: Glucose - Point of Care 256 mg/dl (70-99)
[2025-06-17] MEDS: LANTUS 0.35 UNITS SC (22:51)
[2025-06-18] VITALS (7 sets, daily range): BP systolic 114–145; BP diastolic 52–83; PULSE 65; O2SAT 97; BMI 35.4; BMI 34.4
[2025-06-18] MEDS: SYNTHROID 50 MCG PO (05:59)
--- NOTE | 2025-06-18 07:41 | PN.DE.MGMTRT ---
Insulin Management
- -
06/18/2025: Diabetes Management Follow up
Patient admitted 06/11 with confusion, fever - sepsis, UTI. PMH: CAD s/p LAD stent 02/04, A-Fib, T2DM, HTN, HLD.
Prior to admission was taking Lantus 50 units in AM and had recently reduced HS dose from 50 units to 35 units Lantus due to AM hypoglycemia, Humalog ~ 20 units ac with metformin 500 mg in AM and 1000 mg pm and Mounjaro 2.5 mg on Wednesday. A1C 7.8%,
cr 1.6-->1.2, eGFR >60 today. Pt admits he has been quite forgetful recently.
Patient awake, alert and oriented, sitting up in chair, offers no complaints, states he feels better today, able to discuss diabetes care.
Received Lantus 50 units in AM, glucose range yesterday was 109 to 178. Received Lantus 35 units @ HS, Fasting glucose 119 V, 125 POC this AM.
Will make no changes to current regimen: Lantus 50 units in AM, 35 units in PM, AC NovoLog 12 units and low corrective with meals.
Discussed with nurse. Will cont to follow.
Diabetes History
- -
Type of Diabetes: 2 requiring insulin
Pre-Admission Diabetes Regimen
Insulin Pump Settings
IP Diabetes Regimen
06/17/25 06/17/25 06/17/25
07:40 11:39 16:27
POC Glucose 168 H 178 H 109 H
06/17/25 06/17/25
20:48 22:46
POC Glucose 175 H 256 H
Meal type: Dinner
Meal type: Lunch
Meal type: Breakfast
Amount consumed: 100%
Amount consumed: 100%
Amount consumed: 100%
Patient Education
[2025-06-18 07:51] LABS: Glucose - Point of Care 125 mg/dl (70-99)
[2025-06-18] MEDS: STRIVERDI RESPIMAT 2 PUFF INH (07:55)
[2025-06-18 08:30] LABS: Blood Urea Nitrogen 60 mg/dl (9-20); Calcium 8.3 mg/dl (8.4-10.2); Carbon Dioxide 27 mmol/L (22-30); Chloride 104 mmol/L (98-107); Estimated Creatinine Clearance 70 ml/min; Glucose 119 mg/dl (70-99); Potassium 4.0 mmol/L (3.5-5.1); Sodium 141 mmol/L (135-145); eGFR > 60.00
[2025-06-18] MEDS: NOVOLOG FLEXPEN-LOW RESISTANCE SC ×2 (09:12→13:44)
[2025-06-18] MEDS: NOVOLOG FLEXPEN 12 UNITS SC ×3 (09:14→17:21)
[2025-06-18] MEDS: IMDUR (EXTENDED RELEASE) 120 MG PO (09:23)
[2025-06-18] MEDS: ELIQUIS 5 MG PO ×2 (09:23→19:52)
[2025-06-18] MEDS: LANTUS 0.5 UNITS SC (09:23)
[2025-06-18] MEDS: PROTONIX 40 MG PO (09:24)
[2025-06-18] MEDS: BUSPAR 10 MG PO ×2 (09:24→19:52)
[2025-06-18] MEDS: LASIX 40 MG IV (09:25)
[2025-06-18] MEDS: FLUSH (NSS) 2 FLUSH IV (09:27)
[2025-06-18] MEDS: LYRICA 75 MG PO ×2 (09:30→19:52)
[2025-06-18] MEDS: KEFLEX 500 MG PO ×4 (09:30→21:19)
[2025-06-18 09:45] LABS: Hematocrit 24.4 % (39.0-52.0); Hemoglobin 8.3 g/dL (13.0-18.0); Mean Corp Hgb Conc. 34.0 g/dL (33.0-37.0); Mean Corpuscular Volume 84.4 fL (80.0-94.0); Platelet Count 253 10^3/uL (130-400); Red Cell Dist. Width 15.9 % (11.5-14.5)
--- NOTE | 2025-06-18 10:00 | W.PN.CARDCBS ---
Today's Communication / Plan
-
Get standing scale weight
Increase Lasix to 80 mg IV twice daily
Restart losartan
Impression / Plan
-
PCP: Chan Conrad MD
CDY: Tim Donohue MD
Impression:
UTI
Lower extremity edema
acute on chronic HFpEF
elevated troponin
Chest pain
CAD status post VAN 01/30/2025, known 50% RCA stenosis, nonflow limiting
Permanent atrial fibrillation status post AVJ ablation, on Eliquis
Sick sinus syndrome
Pacemaker-[employer]
Hypertension
COPD
hyperlipidemia
Diabetes mellitus
Previous cardiovascular testing:
Left heart cath 01/29/15: 50% mid RCA lesion that was non flow limiting, and high grade 90% mid LAD stenosis, s/p angioplasty VAN LAD 01/30/2025., LVEDP 22 mmHg
*initially referred to CT surgery, and given underlying pulmonary issues with IFR negative RCA disease, was felt to be too high risk for CABG and returned to lab for mid LAD PCI.
Lexiscan nuclear stress test 01/08/2025: Small, mild defect in the apical inferior and apical lateral segments which is reversible and persistent prone imaging suggestive of mild ischemia
Echo 01/16/2025: Normal LV chamber size, LVEF 50 to 55%, RV enlarged, mild to moderate MR, PAP 34 mmHg
echocardiogram June 15, 2025 finds LVEF of 55 to 60%, RV is mildly dilated with normal systolic function, there is pacing wire seen in the right ventricle. There is abnormal paradoxical septal motion consistent with pacing. Both the left atrium
and the right atrium are mildly enlarged. There is mild to moderate pulmonary hypertension. Pulmonary artery systolic pressure is estimated at 45 mmHg. When compared to echocardiogram from January 16, 2025 there is no significant change.
Plan:
Appears to be volume overloaded
Weight 239 pounds on 06/18 but will get standing scale weight
Patient reports weight at home is normally 233 pound
Will increase Lasix to 80 mg IV twice daily
Remains in rate controlled atrial fibrillation
Continue Eliquis
Will resume losartan now that renal insufficiency has resolved
PREADMIT DATA
69 yo M with CAD s/p VAN LAD 01/2025, permanent afib, AVN ablation, PPM, chronic HFpEF, HTN, HLD, DM, CKD3b, asthma, obesity, recently with reoccurrence with chest discomfort that has both typical and atypical features with uptitration in isosorbide
and plan for outpt nuclear stress test, presents to ED 06/11/25 with fever 103, confusion, found to have E. coli UTI with concern for pyelonephritis. Blood cultures checked and so far negative, influenza A and B negative. David held due to THANIA with
creatinine up to 2.0, baseline creatinine 1-1.3.
He has developed increasing lower extremity edema since admission, cardiology consulted for evaluation of edema.
proBNP today 2049.
Progress Note - Flying Shear Operator
Subjective
Date of Service: June 18, 2025
no Chest pain or shortness of breath.
Objective
Labs:
06/18/25 07:11
06/18/25 07:11
Labs
Hgb 8.3 g/dL (13.0-18.0) L 06/18/25 07:11
Hct 24.4 % (39.0-52.0) L 06/18/25 07:11
Plt Count 253 10^3/uL (130-400) D 06/18/25 07:11
Sodium 141 mmol/L (135-145) 06/18/25 07:11
Potassium 4.0 mmol/L (3.5-5.1) 06/18/25 07:11
BUN 60 mg/dl (9-20) H 06/18/25 07:11
Creatinine 1.2 mg/dL (0.7-1.3) 06/18/25 07:11
Glucose 119 mg/dl (70-99) H 06/18/25 07:11
Troponins
06/15/25 06/16/25
23:56 06:42
Troponin I 0.065 H* 0.047 H* D
Vital Signs and I&O:
Vital Signs
Temp Pulse Resp BP Pulse Ox
99.2 F 67 20 145/64 97
06/18/25 08:19 06/18/25 08:19 06/18/25 08:19 06/18/25 08:19 06/18/25 08:19
Vital Signs
Temp Pulse Resp BP Pulse Ox
99.2 F 67 20 145/64 97
06/18/25 08:19 06/18/25 08:19 06/18/25 08:19 06/18/25 08:19 06/18/25 08:19
Intake & Output
06/16/25 06/17/25 06/18/25 06/19/25
06:59 06:59 06:59 06:59
Intake Total 1000 / 1000 1440 / 1440 1440 / 1440
Output Total 1250 / 1250 2925 / 2925 2600 / 2600
Balance -250 / -250 -1485 / -1485 -1160 / -1160
Physical Exam
Physical Exam
General: Well developed, well nourished in NAD.
Neck: Supple, no JVD, HJR, carotids +2 B/L, no bruits bilaterally.
Heart: Non displaced PMI, irregular, no murmurs, No S3, S4, no rubs.
Lungs: Crackles at the bases bilaterally
Extremities: Moderate edema bilaterally
Neuro: Grossly nonfocal, awake, alert and oriented x3.
--- NOTE | 2025-06-18 10:03 | W.PN.ID1 ---
Addendum entered and electronically signed by Richard Vargas DO 06/18/25 13:12:
I personally interviewed and examined the patient. I reviewed the resident�s note and agree with findings and plan as documented in the resident�s note.
Temperature curve overall improved. No fevers times greater than 72 hours. Continue current course of cephalexin through 06/21/2025.
Original Note:
Date of Service
Date of Service: June 18, 2025
Today's Communication
Continue Keflex
Assessment / Plan
#Ongoing fevers
- No further fevers
#Complicated urinary tract infection Secondary to E. coli
#Rigors
#Leukocytosis
-Improved
#A-fib
#HTN
#HLD
#DM type II
#Tightness
#Diverticulosis
#CHF
Recommendations:
- Admission blood cultures NGTG
- Blood cultures negative, continue following
- E. coli isolate susceptibilities reviewed
- Continue Keflex for a 10 day total course 06/12-06/21 (500mg QID)
- Monitor white count and temperature curve.
#Diarrhea
- Resolved, no further diarrhea
����������������������������������������������������������
Chief Complaint
-: Fever
Subjective / Review of Systems
Patient seen this morning while he was sitting in his chair. He was comfortable resting well. Reports no further fevers, chills, reports no back pain or difficulty urinating. States that his diarrhea from yesterday has resolved and he no longer
has any loose stools. Overall feeling much better and tolerating oral Keflex well.
Review of Systems: No Fever, No Chills, No Headache, No Abdominal Pain, No Nausea, No Vomiting, No Diarrhea and No Dysuria
Vital Signs / Physical Exam
Vital Signs
Vital Signs
Temp Pulse Resp BP Pulse Ox
99.2 F 67 20 145/64 97
06/18/25 08:19 06/18/25 08:19 06/18/25 08:19 06/18/25 08:19 06/18/25 08:19
Physical Exam
Constitutional: No Acute Distress, Comfortable and Non-toxic
Head: Normocephalic
Cardiovascular: Regular Rate and S1/S2; Negative Murmur
Pulmonary: Clear, Symmetric and Non Labored
Gastrointestinal: Soft, Non Tender, Non Distended and Normal Bowel Sounds
Genito-Urinary: Negative Suprapubic Tenderness or CVA Tenderness
Skin: Warm and Dry
Wound: None
Neurological: Awake, Alert, Oriented and AO x 3
Psychological: Calm
Objective Data
Lab Data
Lab Results
06/18/25 07:11
06/18/25 07:11
Estimated Creat Clear 70 ml/min 06/18/25 07:11
Lactic Acid 1.9 mmol/L (0.7-2.0) 06/11/25 18:53
Total Bilirubin 0.7 mg/dl (0.2-1.3) 06/11/25 20:01
AST 22 U/L (17-59) 06/11/25 20:01
ALT 21 U/L (0-50) 06/11/25 20:01
Alkaline Phosphatase 38 U/L (38-126) 06/11/25 20:01
Most recent labs reviewed.
Microbiology: Report Reviewed
Micro Results:
06/15/25 01:30 Blood Culture - Preliminary
Blood/Venous No Growth in 72 hours- Final report to follow
06/15/25 00:31 Blood Culture - Preliminary
Blood/Venous No Growth in 72 hours- Final report to follow
06/11/25 20:01 Blood Culture - Final
Blood/Venous No Growth - Final Report
06/11/25 18:53 Blood Culture - Final
Blood/Venous No Growth - Final Report
06/11/25 19:57 Urine Culture - Final
Urine Escherichia coli
06/12/25 03:44 MRSA Screen - Final
Nose No Methicillin Resistant Staphylococcus aureus isolated.
06/11/25 18:53 Influenza Types A & B (RANJAN) - Final
Nasal Swab Negative for Influenza A & B, NAAT
Negative results must be combined with clinical observations
and patient history.
Nucleic Acid Amplification test (NAAT)performed on the
[employer] platform.
Imaging:
06/11/2025: CT Abd/pelvis W Iv Cont- No obstructive uropathy. Relatively stable mild chronic perinephric soft tissue stranding. Small renal cysts. Bladder is underdistended, with limited assessment of bowel wall thickness.
CT Scan: Report Reviewed
--- NOTE | 2025-06-18 11:27 | CM ---
Addendum entered by Reema Weber 06/18/25 13:08:
CM reviewed therapy notes, patient seen bedside. Patient reports he spoken with his and would be interested in discharging to [facility], unsure on facility at this time, will review with . Patient reports he is considering [facility] and a
few facilities in [place]. CM will follow up with patient once confirms with which facilities he would like.
Original Note:
CM reviewed chart, spoke with patients , Ingrid, regarding d.c planning.
reports depending on patient progress, may need to d/c to SNF. reports patient has 16 total steps to bedroom, (8 steps, landing, antoher 8 steps).
previously provided Medicare.gov list for local SNFS. unsure which facilities at this time but confirms has list of SNFS.
Patient remains on IV lasix.
CM will continue to follow for all d.c planning needs.
Plan; home with vs SNF- depending on pt progress
[2025-06-18 11:40] LABS: Glucose - Point of Care 122 mg/dl (70-99)
[2025-06-18] MEDS: COZAAR 50 MG PO (13:51)
--- NOTE | 2025-06-18 13:54 | W.PN.HOSP.TC ---
Today's Communication/Plan
-
Monitor vitals
See plan
PT
Continue with IV diuresis
Monitor renal function
Continue with antibiotic
Discussed with spouse
Assessment / Plan
Assessment / Plan
Impression:
69 years old male with CAD, recent PCI with LAD stent 02/04, atrial fibrillation, IDDM, hypertension, dyslipidemia presenting via EMS for evaluation of fever and confusion. He complains of shaking chills at home. He denies any urinary,
gastrointestinal, respiratory complaints upon admission.
Concern for sepsis secondary to urinary tract infection
Complicated UTI
Leukocytosis.
Acute kidney injury
Mild hyponatremia
Toxic metabolic encephalopathy
Acute on chronic HFpEF
elevated trop
Conditions prior to admission:
CAD.
� Status post angioplasty with VAN to LAD 02/04.
Chronic atrial fibrillation.
Anticoagulation with Eliquis per
Sick sinus syndrome with pacemaker implantation
Mild MR
Dyslipidemia
Hypertension
Chronic obstructive pulmonary disease/asthma.
Obesity due to excessive calories BMI 34.
Obstructive sleep apnea on CPAP at night
IDDM.
Hypothyroidism on replacement
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
BPH
Plan:
Concern for sepsis.
Suspected UTI with possibility of pyelonephritis
Urine culture with E. coli. transition to keflex for a 10 day total course 06/12-06/21. Blood culture from admission NGTD. Repeat blood culture remains negative as well.
CT scan of the abdomen pelvis with mild chronic perinephric stranding, no obstructive uropathy
COVID-negative
Patient WBC has been normalized. Fever is getting less frequent and less severe. Monitor for effervescence
Toxic metabolic encephalopathy in patient with suspected underlying Alzheimer's versus vascular dementia.
Mentation has improved.
CT scan of the head with no acute abnormalities.
Continue preadmission Aricept
Patient Lyrica was held although patient/family upset as patient have significant neuropathic symptoms. Starting at a lower then home dose of 50 mg twice daily.
Continue BuSpar
Mild acute on chronic HFpEF
Chest x-ray showing possible interstitial pulmonary edema
Increased IV Lasix
cardiology following
Acute kidney injury
CKD stage IIIa-IIIb
Bladder scan rule out retention.
Creatinine slowly improving and 1.2 today.
Restarted losartan
Follow BMP
IDDM
Hemoglobin A1c 7.1
Preadmission regimen including Mounjaro, Lantus, metformin
Continue Lantus, Requested diabetes COMPACTING MACHINE OPERATOR/TENDER for management as he sees them outpatient, Added mealtime insulin
Hold metformin
CAD
Recent VAN to LAD.
Echo 02/04 LVEF 50-55%.
Follows up with Dr. Donohue outpatient. Restarted lasix.
Preadmission regimen including Plavix, statin, Imdur, losartan. losartan on hold
stress test when ok with cardiology
trop elevated; unclear etiology, denies any chest pain at this time. also has THANIA
Chronic atrial fibrillation baseline rate controlled with metoprolol.
Continue anticoagulation with Eliquis
Full code
PT
General: Well Developed and No Apparent Distress
HEENT: Normocephalic, Atraumatic and Moist Mucous Membranes
Respiratory: Clear to Auscultation
Cardiac: Regular Rhythm and S1/S2
GI: Soft, Nontender, Nondistended and Normal Bowel Sounds
Musculoskeletal: No Edema
Neuro: Awake, Alert
Anticipated Discharge: > 48 hours
Subjective/Interval History
-
Date of Service: June 18, 2025
denies nausea
Objective Data
-
Labs:
Laboratory Results
06/18/25
07:11
WBC 9.1
Hgb 8.3 L
Hct 24.4 L
Plt Count 253 D
Sodium 141
Potassium 4.0
Chloride 104
Carbon Dioxide 27
BUN 60 H
Creatinine 1.2
Glucose 119 H
Calcium 8.3 L
Vital Signs:
Vital Signs
Temp Pulse Resp BP Pulse Ox
97.4 F 61 20 132/52 98
06/18/25 12:16 06/18/25 12:16 06/18/25 12:16 06/18/25 12:16 06/18/25 12:16
I&O
06/17/25 06/18/25 06/19/25
06:59 06:59 06:59
Intake Total 1440 / 1440 1440 / 1440
Output Total 2925 / 2925 2600 / 2600
Balance -1485 / -1485 -1160 / -1160
[2025-06-18 16:35] LABS: Glucose - Point of Care 155 mg/dl (70-99)
[2025-06-18] MEDS: NOVOLOG FLEXPEN-LOW RESISTANCE 1 UNITS SC (17:21)
[2025-06-18] MEDS: LIPITOR 80 MG PO (17:26)
[2025-06-18] MEDS: LASIX 80 MG IV (17:26)
[2025-06-18] MEDS: PLAVIX 75 MG PO (17:26)
[2025-06-18] MEDS: ARICEPT 10 MG PO (17:33)
[2025-06-18] MEDS: TRICOR 145 MG PO (17:33)
[2025-06-18 21:17] LABS: Glucose - Point of Care 170 mg/dl (70-99)
[2025-06-18] MEDS: SINGULAIR 10 MG PO (21:19)
[2025-06-18] MEDS: LANTUS 0.35 UNITS SC (21:19)
[2025-06-18] MEDS: OCEAN, SALINE MIST 1 SPRAYS NASAL (21:20)
[2025-06-19 03:22] VITALS: BP 137/59
[2025-06-19 07:15] VITALS: BP 114/41
[2025-06-19] MEDS: SYNTHROID 50 MCG PO (07:52)
[2025-06-19] MEDS: STRIVERDI RESPIMAT 2 PUFF INH (08:08)
--- NOTE | 2025-06-19 08:15 | PN.DE.MGMTRT ---
Insulin Management
- -
06/19/2025: Diabetes Management Follow up
Patient admitted 06/11 with confusion, fever - sepsis, UTI. PMH: CAD s/p LAD stent 02/04, A-Fib, T2DM, HTN, HLD.
Prior to admission was taking Lantus 50 units in AM and had recently reduced HS dose from 50 units to 35 units Lantus due to AM hypoglycemia, Humalog ~ 20 units ac with metformin 500 mg in AM and 1000 mg pm and Mounjaro 2.5 mg on Wednesday. A1C 7.8%,
cr 1.6-->1.1, eGFR >60 today. Pt admits he has been quite forgetful recently.
Patient awake, alert and oriented, sitting up on side of bed eating breakfast, offers no complaints, states he feels better today, able to discuss diabetes care.
Received Lantus 50 units in AM, glucose range yesterday was 122 to 170. Received Lantus 35 units @ HS, Fasting glucose 110.
Will make no changes to current regimen: Lantus 50 units in AM, 35 units in PM, AC NovoLog 12 units and low corrective with meals.
Discussed with nurse. Will cont to follow.
Diabetes History
- -
Type of Diabetes: 2 requiring insulin
Pre-Admission Diabetes Regimen
06/18/25
07:11
Creatinine 1.2
Insulin Pump Settings
IP Diabetes Regimen
06/18/25 06/18/25 06/18/25
07:11 11:37 16:12
Glucose 119 H
POC Glucose 122 H 155 H
06/18/25
21:15
Glucose
POC Glucose 170 H
Patient Education
[2025-06-19 08:36] LABS: Glucose - Point of Care 110 mg/dl (70-99)
[2025-06-19] MEDS: NOVOLOG FLEXPEN-LOW RESISTANCE SC ×2 (08:38→12:33)
[2025-06-19] MEDS: KEFLEX 500 MG PO ×4 (08:50→21:13)
[2025-06-19] MEDS: PROTONIX 40 MG PO (08:50)
[2025-06-19] MEDS: BUSPAR 10 MG PO ×2 (08:51→21:14)
[2025-06-19] MEDS: LYRICA 75 MG PO ×2 (08:51→21:13)
[2025-06-19] MEDS: IMDUR (EXTENDED RELEASE) 120 MG PO (08:51)
[2025-06-19] MEDS: ELIQUIS 5 MG PO ×2 (08:51→21:13)
[2025-06-19] MEDS: NOVOLOG FLEXPEN 12 UNITS SC ×3 (08:52→17:25)
[2025-06-19] MEDS: COZAAR 50 MG PO (08:52)
[2025-06-19] MEDS: LANTUS 0.5 UNITS SC (08:52)
[2025-06-19] MEDS: LASIX 80 MG IV ×2 (08:52→17:24)
[2025-06-19 08:58] LABS: Hematocrit 24.7 % (39.0-52.0); Hemoglobin 8.1 g/dL (13.0-18.0); Mean Corp Hgb Conc. 32.8 g/dL (33.0-37.0); Mean Corpuscular Volume 87.3 fL (80.0-94.0); Platelet Count 307 10^3/uL (130-400); Red Cell Dist. Width 16.2 % (11.5-14.5)
[2025-06-19 09:24] LABS: Blood Urea Nitrogen 47 mg/dl (9-20); Calcium 8.3 mg/dl (8.4-10.2); Carbon Dioxide 29 mmol/L (22-30); Chloride 104 mmol/L (98-107); Estimated Creatinine Clearance 75 ml/min; Glucose 100 mg/dl (70-99); Potassium 4.1 mmol/L (3.5-5.1); Sodium 140 mmol/L (135-145); eGFR > 60.00
[2025-06-19 10:14] VITALS: BMI 34.6
[2025-06-19 11:35] VITALS: BP 107/43
[2025-06-19 11:52] VITALS: BP 107/43; PULSE 65; O2SAT 98
--- NOTE | 2025-06-19 12:21 | W.PN.CARDCBS ---
Addendum entered and electronically signed by Luisito Mckenzie MD 06/19/25 13:37:
I saw and examined the patient.
The TRACK GRINDER OPERATOR or PA's note was reviewed and I agree with the note.
Comment: General: Well developed, well nourished in NAD.
Neck: Supple, no JVD, HJR, carotids +2 B/L, no bruits bilaterally.
Heart: Non displaced PMI, RRR, no murmurs, No S3, S4, no rubs.
Lungs: Scattered rhonchi
Extremities: Moderate lower extremity edema bilaterally.
Neuro: Grossly nonfocal, awake, alert and oriented x3.
He continues with edema. Weight is relatively unchanged despite IV Lasix increased to 80 mg twice daily on June 18. Will continue IV Lasix. May need to consider adding metolazone. His weight may be near his baseline of 233 pounds at home
however. He will need rehab likely. Discussed with patient and daughter at bedside
Original Note:
Today's Communication / Plan
-
continue IV lasix 80mg BID
Impression / Plan
-
PCP: Chan Conrad MD
CDY: Tim Donohue MD
Impression:
UTI
Lower extremity edema
acute on chronic HFpEF
elevated troponin
Chest pain
CAD status post VAN 01/30/2025, known 50% RCA stenosis, nonflow limiting
Permanent atrial fibrillation status post AVJ ablation, on Eliquis
Sick sinus syndrome
Pacemaker-[employer]
Hypertension
COPD
hyperlipidemia
Diabetes mellitus
Previous cardiovascular testing:
Left heart cath 01/29/15: 50% mid RCA lesion that was non flow limiting, and high grade 90% mid LAD stenosis, s/p angioplasty VAN LAD 01/30/2025., LVEDP 22 mmHg
*initially referred to CT surgery, and given underlying pulmonary issues with IFR negative RCA disease, was felt to be too high risk for CABG and returned to lab for mid LAD PCI.
Lexiscan nuclear stress test 01/08/2025: Small, mild defect in the apical inferior and apical lateral segments which is reversible and persistent prone imaging suggestive of mild ischemia
Echo 01/16/2025: Normal LV chamber size, LVEF 50 to 55%, RV enlarged, mild to moderate MR, PAP 34 mmHg
echo 06/15/25: LVEF of 55 to 60%, RV is mildly dilated with normal systolic function, there is pacing wire seen in the right ventricle. There is abnormal paradoxical septal motion consistent with pacing. Both the left atrium and the right atrium
are mildly enlarged. There is mild to moderate pulmonary hypertension. Pulmonary artery systolic pressure is estimated at 45 mmHg. When compared to echocardiogram from January 16, 2025 there is no significant change.
Plan:
-remains grossly volume overloaded on exam. responding to IV lasix 80mg BID. Cr stable. suspect dry weight 230 pounds or less. continue diuresis.
-CHF education
-he has permanent afib with history of AVJ ablation. remains in vpaced rhythm. not on BB due to COPD
-continue eliquis, plavix
-continue imdur, cozaar
-he was supposed to have OP stress test prior to admission for possible anginal symptoms however now admitted, can be deferred until recovered in OP setting
-plan for SNF upon DC
PREADMIT DATA:
69 yo M with CAD s/p VAN LAD 01/2025, permanent afib, AVN ablation, PPM, chronic HFpEF, HTN, HLD, DM, CKD3b, asthma, obesity, recently with reoccurrence with chest discomfort that has both typical and atypical features with uptitration in isosorbide
and plan for outpt nuclear stress test, presents to ED 06/11/25 with fever 103, confusion, found to have E. coli UTI with concern for pyelonephritis. Blood cultures checked and so far negative, influenza A and B negative. Lasix held due to THANIA with
creatinine up to 2.0, baseline creatinine 1-1.3.
He has developed increasing lower extremity edema since admission, cardiology consulted for evaluation of edema.
proBNP today 2049.
Progress Note - [facility]
Subjective
Date of Service: June 19, 2025
reports remains with LE edema. reports good urine output
Objective
Labs:
06/19/25 07:50
06/19/25 07:50
Labs
Hgb 8.1 g/dL (13.0-18.0) L 06/19/25 07:50
Hct 24.7 % (39.0-52.0) L 06/19/25 07:50
Plt Count 307 10^3/uL (130-400) D 06/19/25 07:50
Sodium 140 mmol/L (135-145) 06/19/25 07:50
Potassium 4.1 mmol/L (3.5-5.1) 06/19/25 07:50
BUN 47 mg/dl (9-20) H 06/19/25 07:50
Creatinine 1.1 mg/dL (0.7-1.3) 06/19/25 07:50
Glucose 100 mg/dl (70-99) H 06/19/25 07:50
Vital Signs and I&O:
Vital Signs
Temp Pulse Resp BP Pulse Ox
98.5 F 74 14 107/43 98
06/19/25 11:35 06/19/25 11:44 06/19/25 11:44 06/19/25 11:35 06/19/25 11:35
Vital Signs
Temp Pulse Resp BP Pulse Ox
98.5 F 74 14 107/43 98
06/19/25 11:35 06/19/25 11:44 06/19/25 11:44 06/19/25 11:35 06/19/25 11:35
Intake & Output
06/17/25 06/18/25 06/19/25 06/20/25
07:59 07:59 07:59 07:59
Intake Total 960 / 960 1440 / 1440 210 / 210
Output Total 2100 / 2100 2600 / 2600 1800 / 1800 1400 / 1400
Balance -1140 / -1140 -1160 / -1160 -1590 / -1590 -1400 / -1400
Physical Exam
Physical Exam
GEN: No distress, awake, alert, oriented x3. sitting in chair. obese
HEENT: supple, anicteric, mmm, eomi
LUNGS: CTA B/L, no wheezes/rales
CV: Reg, S1/S2, no murmur
ABD: soft, BS+, NT/ND
EXT: No cyanosis, clubbing. 3+ edema of feet and LE
NEURO: Gross non-focal
SKIN: Warm, pink, dry. No rash
[2025-06-19 12:25] LABS: Glucose - Point of Care 139 mg/dl (70-99)
--- NOTE | 2025-06-19 13:04 | W.PN.HOSP.TC ---
Today's Communication/Plan
-
Monitor vital signs see plan
Continue with antibiotic
Continue with IV diuresis
Monitor renal function
Discussed with spouse
Eventual SNF
Assessment / Plan
Assessment / Plan
Impression:
69 years old male with CAD, recent PCI with LAD stent 02/04, atrial fibrillation, IDDM, hypertension, dyslipidemia presenting via EMS for evaluation of fever and confusion. He complains of shaking chills at home. He denies any urinary,
gastrointestinal, respiratory complaints upon admission.
Concern for sepsis secondary to urinary tract infection
Complicated UTI
Leukocytosis.
Acute kidney injury
Mild hyponatremia
Toxic metabolic encephalopathy
Acute on chronic HFpEF
elevated trop
Conditions prior to admission:
CAD.
� Status post angioplasty with VAN to LAD 02/04.
Chronic atrial fibrillation.
Anticoagulation with Eliquis per
Sick sinus syndrome with pacemaker implantation
Mild MR
Dyslipidemia
Hypertension
Chronic obstructive pulmonary disease/asthma.
Obesity due to excessive calories BMI 34.
Obstructive sleep apnea on CPAP at night
IDDM.
Hypothyroidism on replacement
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
BPH
Plan:
Concern for sepsis.
Suspected UTI with possibility of pyelonephritis
Urine culture with E. coli. transition to keflex for a 10 day total course 06/12-06/21. Blood culture from admission NGTD. Repeat blood culture remains negative as well.
CT scan of the abdomen pelvis with mild chronic perinephric stranding, no obstructive uropathy
COVID-negative
Patient WBC has been normalized. Fever is getting less frequent and less severe. Monitor for effervescence
Toxic metabolic encephalopathy in patient with suspected underlying Alzheimer's versus vascular dementia.
Mentation has improved.
CT scan of the head with no acute abnormalities.
Continue preadmission Aricept
Lyrica restarted
Continue BuSpar
Mild acute on chronic HFpEF
Chest x-ray showing possible interstitial pulmonary edema
Increased IV Lasix
cardiology following
Acute kidney injury
CKD stage IIIa-IIIb
Bladder scan rule out retention.
Creatinine slowly improving and 1.1 today.
Restarted losartan
Follow BMP
IDDM
Hemoglobin A1c 7.1
Preadmission regimen including Mounjaro, Lantus, metformin
Continue Lantus, Requested diabetes LABORATORY HELPER for management as he sees them outpatient, Added mealtime insulin
Hold metformin
CAD
Recent VAN to LAD.
Echo 02/04 LVEF 50-55%.
Follows up with Dr. Donohue outpatient. Restarted lasix.
Preadmission regimen including Plavix, statin, Imdur, losartan. losartan on hold
stress test when ok with cardiology
trop elevated; unclear etiology, denies any chest pain at this time. also has THANIA
Chronic atrial fibrillation baseline rate controlled with metoprolol.
Continue anticoagulation with Eliquis
Full code
PT rec SNF
General: Well Developed and No Apparent Distress
HEENT: Normocephalic, Atraumatic and Moist Mucous Membranes
Respiratory: Clear to Auscultation
Cardiac: Regular Rhythm and S1/S2
GI: Soft, Nontender, Nondistended and Normal Bowel Sounds
Musculoskeletal: No Edema
Neuro: Awake, Alert
Anticipated Discharge: 24 - 48 hours
Subjective/Interval History
-
Date of Service: June 19, 2025
denies nausea
Objective Data
-
Labs:
Laboratory Results
06/19/25
07:50
WBC 10.3
Hgb 8.1 L
Hct 24.7 L
Plt Count 307 D
Sodium 140
Potassium 4.1
Chloride 104
Carbon Dioxide 29
BUN 47 H
Creatinine 1.1
Glucose 100 H
Calcium 8.3 L
Vital Signs:
Vital Signs
Temp Pulse Resp BP Pulse Ox
98.5 F 74 14 107/43 98
06/19/25 11:35 06/19/25 11:44 06/19/25 11:44 06/19/25 11:35 06/19/25 11:35
I&O
06/18/25 06/19/25 06/20/25
06:59 06:59 06:59
Intake Total 1440 / 1440 210 / 210
Output Total 2600 / 2600 1800 / 1800 1400 / 1400
Balance -1160 / -1160 -1590 / -1590 -1400 / -1400
--- NOTE | 2025-06-19 14:40 | W.PN.ID1 ---
Date of Service
Date of Service: June 19, 2025
Today's Communication
Continue current course of Keflex.
Assessment / Plan
#Ongoing fevers
- No further fevers
#Complicated urinary tract infection Secondary to E. coli
#Rigors
#Leukocytosis
-Improved
#A-fib
#HTN
#HLD
#DM type II
#Tightness
#Diverticulosis
#CHF
Recommendations:
- Blood cultures negative
- E. coli isolate susceptibilities reviewed
- Continue Keflex for a 10 day total course 06/12-06/21 (500mg QID)
- Monitor white count and temperature curve.
#Diarrhea
- Resolved, no further diarrhea
����������������������������������������������������������
Chief Complaint
-: Fever
Subjective / Review of Systems
Review of Systems: No Fever, No Chills and No Dysuria
Vital Signs / Physical Exam
Vital Signs
Vital Signs
Temp Pulse Resp BP Pulse Ox
98.5 F 74 14 107/43 98
06/19/25 11:35 06/19/25 11:44 06/19/25 11:44 06/19/25 11:35 06/19/25 11:35
Physical Exam
Constitutional: No Acute Distress, Comfortable and Non-toxic
Eyes: Sclera Anicteric
Cardiovascular: S1/S2; Negative S3/S4
Pulmonary: Non Labored
Neurological: Awake
Psychological: Calm
Objective Data
Lab Data
Lab Results
06/19/25 07:50
06/19/25 07:50
Estimated Creat Clear 75 ml/min 06/19/25 07:50
Lactic Acid 1.9 mmol/L (0.7-2.0) 06/11/25 18:53
Total Bilirubin 0.7 mg/dl (0.2-1.3) 06/11/25 20:01
AST 22 U/L (17-59) 06/11/25 20:01
ALT 21 U/L (0-50) 06/11/25 20:01
Alkaline Phosphatase 38 U/L (38-126) 06/11/25 20:01
Most recent labs reviewed.
Micro Results:
06/15/25 01:30 Blood Culture - Preliminary
Blood/Venous No Growth in 4 days- Final report to follow
06/15/25 00:31 Blood Culture - Preliminary
Blood/Venous No Growth in 4 days- Final report to follow
06/11/25 20:01 Blood Culture - Final
Blood/Venous No Growth - Final Report
06/11/25 18:53 Blood Culture - Final
Blood/Venous No Growth - Final Report
06/11/25 19:57 Urine Culture - Final
Urine Escherichia coli
06/12/25 03:44 MRSA Screen - Final
Nose No Methicillin Resistant Staphylococcus aureus isolated.
06/11/25 18:53 Influenza Types A & B (RANJAN) - Final
Nasal Swab Negative for Influenza A & B, NAAT
Negative results must be combined with clinical observations
and patient history.
Nucleic Acid Amplification test (NAAT)performed on the
[employer] platform.
Imaging:
06/11/2025: CT Abd/pelvis W Iv Cont- No obstructive uropathy. Relatively stable mild chronic perinephric soft tissue stranding. Small renal cysts. Bladder is underdistended, with limited assessment of bowel wall thickness.
[2025-06-19 15:15] VITALS: BP 112/45
--- NOTE | 2025-06-19 15:36 | CM ---
DIMITRIOS [place] edema, IV/Lasix, following renal function. Met with patient concerning SNF referrals. He requested I speak with . Called and spoke with . She would like referrals sent to [facility] and [facility].
Referrals to be forwarded. Discharge POC: SNF. No auth required.
[2025-06-19 17:10] LABS: Glucose - Point of Care 243 mg/dl (70-99)
[2025-06-19] MEDS: LIPITOR 80 MG PO (17:23)
[2025-06-19] MEDS: PLAVIX 75 MG PO (17:23)
[2025-06-19] MEDS: NOVOLOG FLEXPEN-LOW RESISTANCE 2 UNITS SC (17:25)
[2025-06-19] MEDS: TRICOR 145 MG PO (17:27)
[2025-06-19] MEDS: ARICEPT 10 MG PO (17:27)
[2025-06-19] MEDS: SINGULAIR 10 MG PO (21:14)
[2025-06-19] MEDS: OCEAN, SALINE MIST 1 SPRAYS NASAL (21:14)
[2025-06-19 21:17] LABS: Glucose - Point of Care 233 mg/dl (70-99)
[2025-06-19] MEDS: LANTUS 0.35 UNITS SC (21:18)
[2025-06-19 23:23] VITALS: BP 100/38
[2025-06-20] MEDS: TYLENOL 650 MG PO ×2 (00:45→08:28)
[2025-06-20] MEDS: SYNTHROID 50 MCG PO (05:51)
[2025-06-20 06:00] VITALS: BMI 34.4
[2025-06-20 07:28] VITALS: BP 119/59
[2025-06-20] MEDS: STRIVERDI RESPIMAT 2 PUFF INH (07:34)
[2025-06-20 08:03] LABS: Glucose - Point of Care 172 mg/dl (70-99)
[2025-06-20 08:06] LABS: Hematocrit 24.4 % (39.0-52.0); Hemoglobin 7.8 g/dL (13.0-18.0); Mean Corp Hgb Conc. 32.0 g/dL (33.0-37.0); Mean Corpuscular Volume 87.1 fL (80.0-94.0); Platelet Count 357 10^3/uL (130-400); Red Cell Dist. Width 16.4 % (11.5-14.5)
--- NOTE | 2025-06-20 08:21 | PN.DE.MGMTRT ---
Insulin Management
- -
06/20/2025: Diabetes Management Follow up
Patient admitted 06/11 with confusion, fever - sepsis, UTI. PMH: CAD s/p LAD stent 02/04, A-Fib, T2DM, HTN, HLD.
Prior to admission was taking Lantus 50 units in AM and had recently reduced HS dose from 50 units to 35 units Lantus due to AM hypoglycemia, Humalog ~ 20 units ac with metformin 500 mg in AM and 1000 mg pm and Mounjaro 2.5 mg on Wednesday. A1C 7.8%,
cr 1.6-->1.1, eGFR >60 today. Pt admits he has been quite forgetful recently.
Patient awake, alert and oriented, sitting up on side of bed eating breakfast, offers no complaints, states he feels better today, able to discuss diabetes care.
Received Lantus 50 units in AM, glucose range yesterday was 110 to 243. Received Lantus 35 units @ HS, Fasting glucose 172.
Will make no changes to current regimen: Lantus 50 units in AM, 35 units in PM, AC NovoLog 12 units and low corrective with meals.
Discussed with nurse. Will cont to follow.
Diabetes History
- -
Type of Diabetes: 2 requiring insulin
Pre-Admission Diabetes Regimen
06/19/25
07:50
Creatinine 1.1
Insulin Pump Settings
IP Diabetes Regimen
06/19/25 06/19/25 06/19/25
07:50 08:35 12:24
Glucose 100 H
POC Glucose 110 H 139 H
06/19/25 06/19/25 06/20/25
17:09 21:16 08:00
Glucose
POC Glucose 243 H 233 H 172 H
Meal type: Breakfast
Amount consumed: 100%
Patient Education
[2025-06-20] MEDS: LANTUS 0.5 UNITS SC (08:24)
[2025-06-20] MEDS: NOVOLOG FLEXPEN-LOW RESISTANCE 1 UNITS SC ×2 (08:25→12:05)
[2025-06-20] MEDS: NOVOLOG FLEXPEN 12 UNITS SC ×3 (08:26→17:34)
[2025-06-20] MEDS: ELIQUIS 5 MG PO ×2 (08:28→20:38)
[2025-06-20] MEDS: IMDUR (EXTENDED RELEASE) 120 MG PO (08:28)
[2025-06-20] MEDS: PROTONIX 40 MG PO (08:28)
[2025-06-20] MEDS: LYRICA 75 MG PO (08:29)
[2025-06-20] MEDS: LASIX 80 MG IV ×2 (08:29→17:32)
[2025-06-20] MEDS: KEFLEX 500 MG PO ×4 (08:29→21:54)
[2025-06-20] MEDS: BUSPAR 10 MG PO ×2 (08:29→20:38)
[2025-06-20] MEDS: COZAAR 50 MG PO (08:29)
[2025-06-20 09:03] LABS: Blood Urea Nitrogen 47 mg/dl (9-20); Calcium 8.4 mg/dl (8.4-10.2); Carbon Dioxide 29 mmol/L (22-30); Chloride 104 mmol/L (98-107); Estimated Creatinine Clearance 82 ml/min; Glucose 144 mg/dl (70-99); Potassium 4.0 mmol/L (3.5-5.1); Sodium 124 mmol/L (135-145); eGFR > 60.00
--- NOTE | 2025-06-20 11:14 | W.PN.ID1 ---
Date of Service
Date of Service: June 20, 2025
Today's Communication
Continue current antibiotics. See below�
Assessment / Plan
#Ongoing fevers
- No further fevers
#Complicated urinary tract infection Secondary to E. coli
#Rigors
#Leukocytosis
-Improved
#A-fib
#HTN
#HLD
#DM type II
#Tightness
#Diverticulosis
#CHF
Recommendations:
- Blood cultures negative
- E. coli isolate susceptibilities reviewed
- Continue Keflex (d#10 abx) through 06/24/25 then D/C abx and observe
- Monitor white count and temperature curve.
#Diarrhea
- Resolved, no further diarrhea
����������������������������������������������������������
Chief Complaint
-: Fever
Subjective / Review of Systems
Patient seen and examined. Reports occasional chills, but no fevers. Denies dysuria. Denies back pain. Denies flank pain. No diarrhea.
Vital Signs / Physical Exam
Vital Signs
Vital Signs
Temp Pulse Resp BP Pulse Ox
98.2 F 72 14 119/59 99
06/20/25 07:28 06/20/25 07:41 06/20/25 07:41 06/20/25 07:28 06/20/25 07:28
Physical Exam
Constitutional: No Acute Distress, Comfortable and Non-toxic
Eyes: Sclera Anicteric
Cardiovascular: S1/S2; Negative S3/S4
Pulmonary: Non Labored
Neurological: Awake
Psychological: Calm
Objective Data
Lab Data
Lab Results
06/20/25 07:04
06/20/25 07:04
Estimated Creat Clear 82 ml/min 06/20/25 07:04
Lactic Acid 1.9 mmol/L (0.7-2.0) 06/11/25 18:53
Total Bilirubin 0.7 mg/dl (0.2-1.3) 06/11/25 20:01
AST 22 U/L (17-59) 06/11/25 20:01
ALT 21 U/L (0-50) 06/11/25 20:01
Alkaline Phosphatase 38 U/L (38-126) 06/11/25 20:01
Most recent labs reviewed.
Micro Results:
06/15/25 01:30 Blood Culture - Final
Blood/Venous No Growth - Final Report
06/15/25 00:31 Blood Culture - Final
Blood/Venous No Growth - Final Report
06/11/25 20:01 Blood Culture - Final
Blood/Venous No Growth - Final Report
06/11/25 18:53 Blood Culture - Final
Blood/Venous No Growth - Final Report
06/11/25 19:57 Urine Culture - Final
Urine Escherichia coli
06/12/25 03:44 MRSA Screen - Final
Nose No Methicillin Resistant Staphylococcus aureus isolated.
06/11/25 18:53 Influenza Types A & B (RANJAN) - Final
Nasal Swab Negative for Influenza A & B, NAAT
Negative results must be combined with clinical observations
and patient history.
Nucleic Acid Amplification test (NAAT)performed on the
[employer] platform.
Imaging:
06/11/2025: CT Abd/pelvis W Iv Cont- No obstructive uropathy. Relatively stable mild chronic perinephric soft tissue stranding. Small renal cysts. Bladder is underdistended, with limited assessment of bowel wall thickness.
--- NOTE | 2025-06-20 11:44 | CM ---
CM reviewed chart, received call from patients , Ingrid, to discuss SNF.
Ingrid reports she provided CM yesterday with a few facilities, she would like to disregard those provided yesterday- requesting referrals to [facility], [facility], [facility], and [facility].
[facility]. No [facility] required.
Patient remains on IV Lasix.
Will continue to follow for all d.c planning needs.
Plan; SNF once medically stable, no auth required.
[2025-06-20 12:00] LABS: Glucose - Point of Care 189 mg/dl (70-99)
--- NOTE | 2025-06-20 12:13 | W.PN.CARDCBS ---
Addendum entered and electronically signed by Sanchez Brooks MD 06/20/25 18:18:
I saw and examined the patient.
The [employer]'s note was reviewed and I agree with the note.
Comment: Briefly, 69-year-old man past medical history of heart failure with preserved ejection fraction presenting with confusion and dysuria diagnosed with complicated UTI
Reports that he is responding well to IV Lasix 80 mg twice daily, but remains volume overloaded on exam
Can consider one-time dose of metolazone if no significant improvement
Follow renal function and electrolytes closely
Low-level troponin elevation noted
Overall suspect nonischemic myocardial injury troponin elevation
Would consider ischemic evaluation as an outpatient
Original Note:
Documented by User: Lucie Renee PA-C 06/20/25 12:35
Today's Communication / Plan
-
continue IV diuresis
Impression / Plan
-
PCP: Chan Conrad MD
CDY: Tim Donohue MD
Impression:
UTI
Lower extremity edema
acute on chronic HFpEF
elevated troponin
Chest pain
CAD status post LAD VAN 01/30/2025, known 50% RCA stenosis, nonflow limiting
Permanent atrial fibrillation status post AVJ ablation, on Eliquis
Sick sinus syndrome
Pacemaker-[employer]tr[employer]
Hypertension
COPD
hyperlipidemia
Diabetes mellitus
Previous cardiovascular testing:
Left heart cath 01/29/15: 50% mid RCA lesion that was non flow limiting, and high grade 90% mid LAD stenosis, s/p angioplasty VAN LAD 01/30/2025., LVEDP 22 mmHg
*initially referred to CT surgery, and given underlying pulmonary issues with IFR negative RCA disease, was felt to be too high risk for CABG and returned to lab for mid LAD PCI.
Lexiscan nuclear stress test 01/08/2025: Small, mild defect in the apical inferior and apical lateral segments which is reversible and persistent prone imaging suggestive of mild ischemia
Echo 01/16/2025: Normal LV chamber size, LVEF 50 to 55%, RV enlarged, mild to moderate MR, PAP 34 mmHg
echo 06/15/25: LVEF of 55 to 60%, RV is mildly dilated with normal systolic function, there is pacing wire seen in the right ventricle. There is abnormal paradoxical septal motion consistent with pacing. Both the left atrium and the right atrium
are mildly enlarged. There is mild to moderate pulmonary hypertension. Pulmonary artery systolic pressure is estimated at 45 mmHg. When compared to echocardiogram from January 16, 2025 there is no significant change.
Plan:
-unclear if weights accurate but by I&O responding to IV lasix 80mg BID, continue. Cr stable. dry weight suspected 230 pounds or less. was on po lasix 80mg QPM and 40mg QPM prior to admission
-CHF education
-follow sodium, unclear if accurate as went from
-echo 06/15 with results as above, EF preserved
-he has permanent afib with history of AVJ ablation. remains in vpaced rhythm. not on BB due to COPD
-continue eliquis, plavix for afib and LAD PCI 01/2025. has chronic anemia, hgb 7.8 on 06/20, follow
-continue imdur, cozaar
-he was supposed to have OP stress test prior to admission for possible anginal symptoms however now admitted, can be deferred until recovered in OP setting
-plan for SNF upon DC
-OP cardiac follow up arranged
PREADMIT DATA:
69 yo M with CAD s/p VAN LAD 01/2025, permanent afib, AVN ablation, PPM, chronic HFpEF, HTN, HLD, DM, CKD3b, asthma, obesity, recently with reoccurrence with chest discomfort that has both typical and atypical features with uptitration in isosorbide
and plan for outpt nuclear stress test, presents to ED 06/11/25 with fever 103, confusion, found to have E. coli UTI with concern for pyelonephritis. Blood cultures checked and so far negative, influenza A and B negative. Lasix held due to THANIA with
creatinine up to 2.0, baseline creatinine 1-1.3.
He has developed increasing lower extremity edema since admission, cardiology consulted for evaluation of edema.
proBNP today 2049.
Progress Note - [facility]
Subjective
Date of Service: June 20, 2025
resting comfortably
Objective
Labs:
06/20/25 07:04
06/20/25 07:04
Labs
Hgb 7.8 g/dL (13.0-18.0) L 06/20/25 07:04
Hct 24.4 % (39.0-52.0) L 06/20/25 07:04
Plt Count 357 10^3/uL (130-400) 06/20/25 07:04
Sodium 124 mmol/L (135-145) L D 06/20/25 07:04
Potassium 4.0 mmol/L (3.5-5.1) 06/20/25 07:04
BUN 47 mg/dl (9-20) H 06/20/25 07:04
Creatinine 1.0 mg/dL (0.7-1.3) 06/20/25 07:04
Glucose 144 mg/dl (70-99) H 06/20/25 07:04
Vital Signs and I&O:
Vital Signs
Temp Pulse Resp BP Pulse Ox
98.2 F 70 14 119/59 99
06/20/25 07:28 06/20/25 11:15 06/20/25 11:15 06/20/25 07:28 06/20/25 07:28
Vital Signs
Temp Pulse Resp BP Pulse Ox
98.2 F 70 14 119/59 99
06/20/25 07:28 06/20/25 11:15 06/20/25 11:15 06/20/25 07:28 06/20/25 07:28
Intake & Output
06/18/25 06/19/25 06/20/25 06/21/25
07:59 07:59 07:59 07:59
Intake Total 1440 / 1440 210 / 210 1080 / 1080
Output Total 2600 / 2600 1800 / 1800 3725 / 3725 600 / 600
Balance -1160 / -1160 -1590 / -1590 -2645 / -2645 -600 / -600
Physical Exam
Physical Exam
GEN: No distress, resting comfortably
LUNGS: no audible wheezes
CV: vpaced on tele

Documented by User: Sanchez Brooks MD 06/20/25 18:12
Impression / Plan
-
PCP: Chan Conrad MD
CDY: Tim Donohue MD
Impression:
UTI
Lower extremity edema
acute on chronic HFpEF
elevated troponin
Chest pain
CAD status post LAD VAN 01/30/2025, known 50% RCA stenosis, nonflow limiting
Permanent atrial fibrillation status post AVJ ablation, on Eliquis
Sick sinus syndrome
Pacemaker-[employer]
Hypertension
COPD
hyperlipidemia
Diabetes mellitus
Previous cardiovascular testing:
Left heart cath 01/29/15: 50% mid RCA lesion that was non flow limiting, and high grade 90% mid LAD stenosis, s/p angioplasty VAN LAD 01/30/2025., LVEDP 22 mmHg
*initially referred to CT surgery, and given underlying pulmonary issues with IFR negative RCA disease, was felt to be too high risk for CABG and returned to lab for mid LAD PCI.
Lexiscan nuclear stress test 01/08/2025: Small, mild defect in the apical inferior and apical lateral segments which is reversible and persistent prone imaging suggestive of mild ischemia
Echo 01/16/2025: Normal LV chamber size, LVEF 50 to 55%, RV enlarged, mild to moderate MR, PAP 34 mmHg
echo 06/15/25: LVEF of 55 to 60%, RV is mildly dilated with normal systolic function, there is pacing wire seen in the right ventricle. There is abnormal paradoxical septal motion consistent with pacing. Both the left atrium and the right atrium
are mildly enlarged. There is mild to moderate pulmonary hypertension. Pulmonary artery systolic pressure is estimated at 45 mmHg. When compared to echocardiogram from January 16, 2025 there is no significant change.
Plan:
-unclear if weights accurate but by I&O responding to IV lasix 80mg BID, continue. Cr stable. dry weight suspected 230 pounds or less. was on po lasix 80mg QPM and 40mg QPM prior to admission
-CHF education
-follow sodium, unclear if accurate
-echo 06/15 with results as above, EF preserved
-he has permanent afib with history of AVJ ablation. remains in vpaced rhythm. not on BB due to COPD
-continue eliquis, plavix for afib and LAD PCI 01/2025. has chronic anemia, hgb 7.8 on 06/20, follow
-continue imdur, cozaar
-he was supposed to have OP stress test prior to admission for possible anginal symptoms however now admitted, can be deferred until recovered in OP setting
-plan for SNF upon DC
-OP cardiac follow up arranged
PREADMIT DATA:
69 yo M with CAD s/p VAN LAD 01/2025, permanent afib, AVN ablation, PPM, chronic HFpEF, HTN, HLD, DM, CKD3b, asthma, obesity, recently with reoccurrence with chest discomfort that has both typical and atypical features with uptitration in isosorbide
and plan for outpt nuclear stress test, presents to ED 06/11/25 with fever 103, confusion, found to have E. coli UTI with concern for pyelonephritis. Blood cultures checked and so far negative, influenza A and B negative. Lasix held due to THANIA with
creatinine up to 2.0, baseline creatinine 1-1.3.
He has developed increasing lower extremity edema since admission, cardiology consulted for evaluation of edema.
proBNP today 2049.
--- NOTE | 2025-06-20 13:25 | W.PN.HOSP.TC ---
Today's Communication/Plan
-
Monitor vital signs see plan
Continue with IV diuresis
Continue with antibiotics per ID
Monitor volume status
Monitor renal function
Increase Lyrica
Assessment / Plan
Assessment / Plan
Impression:
69 years old male with CAD, recent PCI with LAD stent 02/04, atrial fibrillation, IDDM, hypertension, dyslipidemia presenting via EMS for evaluation of fever and confusion. He complains of shaking chills at home. He denies any urinary,
gastrointestinal, respiratory complaints upon admission.
Concern for sepsis secondary to urinary tract infection
Complicated UTI
Leukocytosis.
Acute kidney injury
Mild hyponatremia
Toxic metabolic encephalopathy
Acute on chronic HFpEF
elevated trop
Conditions prior to admission:
CAD.
� Status post angioplasty with VAN to LAD 02/04.
Chronic atrial fibrillation.
Anticoagulation with Eliquis per
Sick sinus syndrome with pacemaker implantation
Mild MR
Dyslipidemia
Hypertension
Chronic obstructive pulmonary disease/asthma.
Obesity due to excessive calories BMI 34.
Obstructive sleep apnea on CPAP at night
IDDM.
Hypothyroidism on replacement
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
BPH
Plan:
Concern for sepsis.
Suspected UTI with possibility of pyelonephritis
Urine culture with E. coli. transition to keflex, through 06/24/25. Blood culture from admission NGTD. Repeat blood culture remains negative as well.
CT scan of the abdomen pelvis with mild chronic perinephric stranding, no obstructive uropathy
COVID-negative
Patient WBC has been normalized. Fever is getting less frequent and less severe. Monitor for effervescence
Toxic metabolic encephalopathy in patient with suspected underlying Alzheimer's versus vascular dementia.
Mentation has improved.
CT scan of the head with no acute abnormalities.
Continue preadmission Aricept
Lyrica restarted; inc to 100mg BID
Continue BuSpar
Mild acute on chronic HFpEF
Chest x-ray showing possible interstitial pulmonary edema
Increased IV Lasix
cardiology following
Acute kidney injury
CKD stage IIIa-IIIb
Bladder scan rule out retention.
Creatinine slowly improving and 1 today.
Restarted losartan
Follow BMP
IDDM
Hemoglobin A1c 7.1
Preadmission regimen including Mounjaro, Lantus, metformin
Continue Lantus, Requested diabetes [employer] for management as he sees them outpatient, Added mealtime insulin
Hold metformin
CAD
Recent VAN to LAD.
Echo 02/04 LVEF 50-55%.
Follows up with Dr. Donohue outpatient. Restarted lasix.
Preadmission regimen including Plavix, statin, Imdur, losartan. losartan on hold
stress test when ok with cardiology
trop elevated; unclear etiology, denies any chest pain at this time. also has THANIA
Chronic atrial fibrillation baseline rate controlled with metoprolol.
Continue anticoagulation with Eliquis
Full code
PT rec SNF
General: Well Developed and No Apparent Distress
HEENT: Normocephalic, Atraumatic and Moist Mucous Membranes
Respiratory: Clear to Auscultation
Cardiac: Regular Rhythm and S1/S2
GI: Soft, Nontender, Nondistended and Normal Bowel Sounds
Musculoskeletal: No Edema
Neuro: Awake, Alert
Anticipated Discharge: > 48 hours
Subjective/Interval History
-
Date of Service: June 20, 2025
denies nausea
Objective Data
-
Labs:
Laboratory Results
06/20/25
07:04
WBC 9.8
Hgb 7.8 L
Hct 24.4 L
Plt Count 357
Sodium 124 L D
Potassium 4.0
Chloride 104
Carbon Dioxide 29
BUN 47 H
Creatinine 1.0
Glucose 144 H
Calcium 8.4
Vital Signs:
Vital Signs
Temp Pulse Resp BP Pulse Ox
98.2 F 70 14 119/59 99
06/20/25 07:28 06/20/25 11:15 06/20/25 11:15 06/20/25 07:28 06/20/25 07:28
I&O
06/19/25 06/20/25 06/21/25
06:59 06:59 06:59
Intake Total 210 / 210 1080 / 1080
Output Total 1800 / 1800 3725 / 3725 600 / 600
Balance -1590 / -1590 -2645 / -2645 -600 / -600
[2025-06-20 15:57] VITALS: BP 123/50
[2025-06-20 17:07] LABS: Glucose - Point of Care 142 mg/dl (70-99)
[2025-06-20] MEDS: NOVOLOG FLEXPEN-LOW RESISTANCE SC (17:23)
[2025-06-20] MEDS: TRICOR 145 MG PO (17:32)
[2025-06-20] MEDS: ARICEPT 10 MG PO (17:32)
[2025-06-20] MEDS: PLAVIX 75 MG PO (17:32)
[2025-06-20] MEDS: LIPITOR 80 MG PO (17:32)
[2025-06-20] MEDS: LYRICA 100 MG PO (20:40)
[2025-06-20 21:11] LABS: Glucose - Point of Care 232 mg/dl (70-99)
[2025-06-20] MEDS: LANTUS 0.35 UNITS SC (21:54)
[2025-06-20] MEDS: SINGULAIR 10 MG PO (21:54)
[2025-06-20] MEDS: OCEAN, SALINE MIST 1 SPRAYS NASAL (21:55)
[2025-06-20 23:15] VITALS: BP 117/46
[2025-06-21 06:00] VITALS: BMI 34.0
[2025-06-21] MEDS: SYNTHROID 50 MCG PO (06:38)
[2025-06-21 07:30] VITALS: BP 119/43
[2025-06-21 07:45] LABS: Glucose - Point of Care 164 mg/dl (70-99)
[2025-06-21] MEDS: STRIVERDI RESPIMAT 2 PUFF INH (08:09)
--- NOTE | 2025-06-21 08:12 | PN.DE.MGMTRT ---
Insulin Management
- -
06/21/2025: Diabetes Management Follow up
Patient admitted 06/11 with confusion, fever - sepsis, UTI. PMH: CAD s/p LAD stent 02/04, A-Fib, T2DM, HTN, HLD.
Prior to admission was taking Lantus 50 units in AM and had recently reduced HS dose from 50 units to 35 units Lantus due to AM hypoglycemia, Humalog ~ 20 units ac with metformin 500 mg in AM and 1000 mg pm and Mounjaro 2.5 mg on Wednesday. A1C 7.8%,
cr 1.6-->1.1, eGFR >60 today. Pt admits he has been quite forgetful recently.
Patient awake, alert and oriented, out of bed, offers no complaints, states he feels better today, able to discuss diabetes care. Continues to receive lasix.
Received Lantus 50 units in AM, glucose range yesterday was 142 to 172. Received Lantus 35 units @ HS, Fasting glucose 164.
Will make no changes to current regimen: Lantus 50 units in AM, 35 units in PM, AC NovoLog 12 units and low corrective with meals.
Discussed with nurse. Will cont to follow.
Diabetes History
- -
Type of Diabetes: 2 requiring insulin
Pre-Admission Diabetes Regimen
06/20/25
07:04
Creatinine 1.0
Insulin Pump Settings
IP Diabetes Regimen
06/20/25 06/20/25 06/20/25
07:04 11:59 17:06
Glucose 144 H
POC Glucose 189 H 142 H
06/20/25 06/21/25
21:09 07:44
Glucose
POC Glucose 232 H 164 H
Meal type: Breakfast
Amount consumed: 100%
Patient Education
[2025-06-21 08:46] LABS: Hematocrit 27.7 % (39.0-52.0); Hemoglobin 8.7 g/dL (13.0-18.0); Mean Corp Hgb Conc. 31.4 g/dL (33.0-37.0); Mean Corpuscular Volume 87.7 fL (80.0-94.0); Nucleated Red Blood Cells % 0 % (-); Platelet Count 429 10^3/uL (130-400); Red Cell Dist. Width 16.4 % (11.5-14.5)
[2025-06-21 09:35] LABS: Blood Urea Nitrogen 38 mg/dl (9-20); Calcium 8.9 mg/dl (8.4-10.2); Carbon Dioxide 30 mmol/L (22-30); Chloride 106 mmol/L (98-107); Estimated Creatinine Clearance 82 ml/min; Glucose 155 mg/dl (70-99); Potassium 4.7 mmol/L (3.5-5.1); Sodium 142 mmol/L (135-145); eGFR > 60.00
--- NOTE | 2025-06-21 09:49 | W.PN.ID1 ---
Addendum entered and electronically signed by Richard Vargas DO 06/21/25 12:29:
I saw and evaluated the patient. I reviewed the resident�s note and agree with findings and plan as documented in the resident�s note.
Original Note:
Date of Service
Date of Service: June 21, 2025
Today's Communication
- Continue Antibiotics
Assessment / Plan
#Ongoing fevers
- No further fevers
#Complicated urinary tract infection Secondary to E. coli
#Rigors
#Leukocytosis
-Improved
#A-fib
#HTN
#HLD
#DM type II
#Tightness
#Diverticulosis
#CHF
Recommendations:
- Blood cultures negative
- E. coli isolate susceptibilities reviewed
- Continue Keflex (d#11 abx) through 06/24/25 then D/C abx and observe
- Monitor white count and temperature curve.
#Diarrhea
- Resolved, no further diarrhea
����������������������������������������������������������
Chief Complaint
-: Fever
Subjective / Review of Systems
Patient seen this morning, was resting comfortably in his bed. Reports no acute changes, has had no issues with diarrhea, nausea or vomiting. Has not had any issues with dysuria or any frequency of urination. Overall feeling well. Tolerating
oral antibiotics.
Review of Systems: No Fever, No Chills, No Headache, No Cough, No Chest Pain, No Palpitations, No Abdominal Pain, No Nausea, No Vomiting and No Dysuria
Vital Signs / Physical Exam
Vital Signs
Vital Signs
Temp Pulse Resp BP Pulse Ox
98.3 F 72 16 119/43 100
06/21/25 07:30 06/21/25 08:10 06/21/25 08:10 06/21/25 07:30 06/21/25 07:30
Physical Exam
Constitutional: No Acute Distress, Comfortable and Non-toxic
Head: Normocephalic
Cardiovascular: Regular Rate and S1/S2; Negative Murmur
Pulmonary: Clear, Symmetric and Non Labored
Gastrointestinal: Soft, Non Tender, Non Distended and Normal Bowel Sounds
Genito-Urinary: Negative Suprapubic Tenderness or CVA Tenderness
Skin: Warm and Dry
Wound: None
Neurological: Awake, Alert, Oriented and AO x 3
Psychological: Calm
Objective Data
Lab Data
Lab Results
06/21/25 08:22
06/21/25 08:22
Estimated Creat Clear 82 ml/min 06/21/25 08:22
Lactic Acid 1.9 mmol/L (0.7-2.0) 06/11/25 18:53
Total Bilirubin 0.7 mg/dl (0.2-1.3) 06/11/25 20:01
AST 22 U/L (17-59) 06/11/25 20:01
ALT 21 U/L (0-50) 06/11/25 20:01
Alkaline Phosphatase 38 U/L (38-126) 06/11/25 20:01
Most recent labs reviewed.
Micro Results:
06/15/25 01:30 Blood Culture - Final
Blood/Venous No Growth - Final Report
06/15/25 00:31 Blood Culture - Final
Blood/Venous No Growth - Final Report
06/11/25 20:01 Blood Culture - Final
Blood/Venous No Growth - Final Report
06/11/25 18:53 Blood Culture - Final
Blood/Venous No Growth - Final Report
06/11/25 19:57 Urine Culture - Final
Urine Escherichia coli
06/12/25 03:44 MRSA Screen - Final
Nose No Methicillin Resistant Staphylococcus aureus isolated.
06/11/25 18:53 Influenza Types A & B (RANJAN) - Final
Nasal Swab Negative for Influenza A & B, NAAT
Negative results must be combined with clinical observations
and patient history.
Nucleic Acid Amplification test (NAAT)performed on the
[employer] platform.
Imaging:
06/11/2025: CT Abd/pelvis W Iv Cont- No obstructive uropathy. Relatively stable mild chronic perinephric soft tissue stranding. Small renal cysts. Bladder is underdistended, with limited assessment of bowel wall thickness.
[2025-06-21] MEDS: NOVOLOG FLEXPEN 12 UNITS SC ×3 (10:15→18:01)
[2025-06-21] MEDS: NOVOLOG FLEXPEN-LOW RESISTANCE 1 UNITS SC ×2 (10:15→18:00)
[2025-06-21] MEDS: KEFLEX 500 MG PO ×4 (10:16→22:56)
[2025-06-21] MEDS: ELIQUIS 5 MG PO ×2 (10:16→20:17)
[2025-06-21] MEDS: BUSPAR 10 MG PO ×2 (10:16→20:18)
[2025-06-21] MEDS: LYRICA 100 MG PO ×2 (10:16→20:17)
[2025-06-21] MEDS: COZAAR 50 MG PO (10:17)
[2025-06-21] MEDS: PROTONIX 40 MG PO ×2 (10:18)
[2025-06-21] MEDS: LASIX 80 MG IV ×2 (10:19→16:31)
[2025-06-21] MEDS: IMDUR (EXTENDED RELEASE) 120 MG PO (10:21)
[2025-06-21] MEDS: LANTUS 0.5 UNITS SC (10:22)
[2025-06-21 10:42] VITALS: BP 132/78; PULSE 64; O2SAT 98
--- NOTE | 2025-06-21 10:42 | CM ---
CM reviewed chart, care ongoing.
Spoke with patients , Ingrid, discussed accepting facilities ([facility], [facility], [facility], [facility]).
Ingrid prefers [facility] facility, no auth required.
ID following, Cardiology following.
CM will continue to follow for all d/c planning needs.
Plan; SNF once stable, no auth required.
--- NOTE | 2025-06-21 11:18 | W.PN.HOSP.TC ---
Today's Communication/Plan
-
Monitor vital signs see plan
Continue with diuresis
Continue with antibiotic
Continue Lyrica
PT
Assessment / Plan
Assessment / Plan
Impression:
69 years old male with CAD, recent PCI with LAD stent 02/04, atrial fibrillation, IDDM, hypertension, dyslipidemia presenting via EMS for evaluation of fever and confusion. He complains of shaking chills at home. He denies any urinary,
gastrointestinal, respiratory complaints upon admission.
Concern for sepsis secondary to urinary tract infection
Complicated UTI
Leukocytosis.
Acute kidney injury
Mild hyponatremia
Toxic metabolic encephalopathy
Acute on chronic HFpEF
elevated trop
Conditions prior to admission:
CAD.
� Status post angioplasty with VAN to LAD 02/04.
Chronic atrial fibrillation.
Anticoagulation with Eliquis per
Sick sinus syndrome with pacemaker implantation
Mild MR
Dyslipidemia
Hypertension
Chronic obstructive pulmonary disease/asthma.
Obesity due to excessive calories BMI 34.
Obstructive sleep apnea on CPAP at night
IDDM.
Hypothyroidism on replacement
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
BPH
Plan:
Concern for sepsis.
Suspected UTI with possibility of pyelonephritis
Urine culture with E. coli. transition to keflex, through 06/24/25. Blood culture from admission NGTD. Repeat blood culture remains negative as well.
CT scan of the abdomen pelvis with mild chronic perinephric stranding, no obstructive uropathy
COVID-negative
Patient WBC has been normalized. Fever is getting less frequent and less severe. Monitor for effervescence
Toxic metabolic encephalopathy in patient with suspected underlying Alzheimer's versus vascular dementia.
Mentation has improved.
CT scan of the head with no acute abnormalities.
Continue preadmission Aricept
Lyrica restarted; inc to 100mg BID
Continue BuSpar
Mild acute on chronic HFpEF
Chest x-ray showing possible interstitial pulmonary edema
cw IV Lasix
cardiology following
Sodium 10/8 appears abnormal lab value
Acute kidney injury
CKD stage IIIa-IIIb
Bladder scan rule out retention.
Creatinine slowly improving and 1 today.
Restarted losartan
Follow BMP
IDDM
Hemoglobin A1c 7.1
Preadmission regimen including Mounjaro, Lantus, metformin
Continue Lantus, Requested diabetes [employer] for management as he sees them outpatient, Added mealtime insulin
Hold metformin
CAD
Recent VAN to LAD.
Echo 02/04 LVEF 50-55%.
Follows up with Dr. Donohue outpatient. Restarted lasix.
Preadmission regimen including Plavix, statin, Imdur, losartan. losartan on hold
stress test when ok with cardiology
trop elevated; unclear etiology, denies any chest pain at this time. also has THANIA
Chronic atrial fibrillation baseline rate controlled with metoprolol.
Continue anticoagulation with Eliquis
Full code
PT rec SNF
General: Well Developed and No Apparent Distress
HEENT: Normocephalic, Atraumatic and Moist Mucous Membranes
Respiratory: Clear to Auscultation
Cardiac: Regular Rhythm and S1/S2
GI: Soft, Nontender, Nondistended and Normal Bowel Sounds
Musculoskeletal: No Edema
Neuro: Awake, Alert
Anticipated Discharge: 24 - 48 hours
Subjective/Interval History
-
Date of Service: June 21, 2025
Denies nausea
Objective Data
-
Labs:
Laboratory Results
06/21/25
08:22
WBC 9.1
Hgb 8.7 L
Hct 27.7 L
Plt Count 429 H D
Sodium 142 D
Potassium 4.7
Chloride 106
Carbon Dioxide 30
BUN 38 H
Creatinine 1.0
Glucose 155 H
Calcium 8.9
Vital Signs:
Vital Signs
Temp Pulse Resp BP Pulse Ox
98.3 F 63 16 119/43 100
06/21/25 07:30 06/21/25 10:19 06/21/25 08:10 06/21/25 10:19 06/21/25 07:30
I&O
06/20/25 06/21/25 06/22/25
06:59 06:59 06:59
Intake Total 1080 / 1080
Output Total 3725 / 3725 3250 / 3250
Balance -2645 / -2645 -3250 / -3250
[2025-06-21 11:38] LABS: Glucose - Point of Care 237 mg/dl (70-99)
--- NOTE | 2025-06-21 14:25 | W.PN.CARDCBS ---
Addendum entered and electronically signed by Jack Astorga MD 06/21/25 17:06:
I saw and examined the patient.
The Sheet Ironworker's note was reviewed and I agree with the note.
Comment:
GEN: No distress, awake, Ox3
HEENT: supple, anicteric, mmm
LUNGS: CTA, no wheezes/rales
CV: Reg, S1/S2, 1/6 syst LSB, S3+
ABD: soft, BS+, NT/ND
EXT: +2 edema
NEURO: Gross non-focal
SKIN: No rash
Plan:
Continues to have lower extremity edema. Will continue with IV Lasix for another 24 hours and then reassess.
Driving but overall stable at 1.0. Likely will need to reestablish her lower dry weight around 225.
Continue Eliquis. He remains in permanent A-fib status post pacemaker/AVJ ablation.
Continue medical therapy for coronary artery disease. Continue Plavix, atorvastatin, isosorbide, and fenofibrate
Original Note:
Today's Communication / Plan
-
continue IV lasix
Impression / Plan
-
PCP: Chan Conrad MD
CDY: Tim Donohue MD
Impression:
UTI
Lower extremity edema
acute on chronic HFpEF
elevated troponin
Chest pain
CAD status post LAD VAN 01/30/2025, known 50% RCA stenosis, nonflow limiting
Permanent atrial fibrillation status post AVJ ablation, on Eliquis
Sick sinus syndrome
Pacemaker-[employer]
Hypertension
COPD
hyperlipidemia
Diabetes mellitus
Previous cardiovascular testing:
Left heart cath 01/29/15: 50% mid RCA lesion that was non flow limiting, and high grade 90% mid LAD stenosis, s/p angioplasty VAN LAD 01/30/2025., LVEDP 22 mmHg
*initially referred to CT surgery, and given underlying pulmonary issues with IFR negative RCA disease, was felt to be too high risk for CABG and returned to lab for mid LAD PCI.
Lexiscan nuclear stress test 01/08/2025: Small, mild defect in the apical inferior and apical lateral segments which is reversible and persistent prone imaging suggestive of mild ischemia
Echo 01/16/2025: Normal LV chamber size, LVEF 50 to 55%, RV enlarged, mild to moderate MR, PAP 34 mmHg
echo 06/15/25: LVEF of 55 to 60%, RV is mildly dilated with normal systolic function, there is pacing wire seen in the right ventricle. There is abnormal paradoxical septal motion consistent with pacing. Both the left atrium and the right atrium
are mildly enlarged. There is mild to moderate pulmonary hypertension. Pulmonary artery systolic pressure is estimated at 45 mmHg. When compared to echocardiogram from January 16, 2025 there is no significant change.
Plan:
- Weight overnight down 3 pounds of accurate to 230 pounds which was previously felt to be patient's dry weight. He reports he still remains with lower extremity edema. Will continue IV Lasix 80 mg twice daily. Creatinine stable. was on po lasix
80mg QPM and 40mg QPM prior to admission
- Sodium yesterday appears to be inaccurate as improved to normal today
-echo 06/15 with results as above, EF preserved
-he has permanent afib with history of AVJ ablation. remains vpaced. not on BB due to COPD
-continue eliquis, plavix for afib and LAD PCI 01/2025. has chronic anemia, hgb 8.7 on 06/21
-continue imdur, cozaar
-he was supposed to have OP stress test prior to admission for possible anginal symptoms however now admitted, can be deferred until recovered in OP setting
-plan for SNF upon DC
-OP cardiac follow up arranged
PREADMIT DATA:
69 yo M with CAD s/p VAN LAD 01/2025, permanent afib, AVN ablation, PPM, chronic HFpEF, HTN, HLD, DM, CKD3b, asthma, obesity, recently with reoccurrence with chest discomfort that has both typical and atypical features with uptitration in isosorbide
and plan for outpt nuclear stress test, presents to ED 06/11/25 with fever 103, confusion, found to have E. coli UTI with concern for pyelonephritis. Blood cultures checked and so far negative, influenza A and B negative. Lasix held due to THANIA with
creatinine up to 2.0, baseline creatinine 1-1.3.
He has developed increasing lower extremity edema since admission, cardiology consulted for evaluation of edema.
proBNP today 2049.
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
Subjective
Date of Service: June 21, 2025
Denies shortness of breath. Patient reports good response to IV Lasix. Reports remains with lower extremity edema
Objective
Labs:
06/21/25 08:22
06/21/25 08:22
Labs
Hgb 8.7 g/dL (13.0-18.0) L 06/21/25 08:22
Hct 27.7 % (39.0-52.0) L 06/21/25 08:22
Plt Count 429 10^3/uL (130-400) H D 06/21/25 08:22
Sodium 142 mmol/L (135-145) D 06/21/25 08:22
Potassium 4.7 mmol/L (3.5-5.1) 06/21/25 08:22
BUN 38 mg/dl (9-20) H 06/21/25 08:22
Creatinine 1.0 mg/dL (0.7-1.3) 06/21/25 08:22
Glucose 155 mg/dl (70-99) H 06/21/25 08:22
Vital Signs and I&O:
Vital Signs
Temp Pulse Resp BP Pulse Ox
98.3 F 76 16 119/43 100
06/21/25 07:30 06/21/25 11:15 06/21/25 11:15 06/21/25 10:19 06/21/25 07:30
Vital Signs
Temp Pulse Resp BP Pulse Ox
98.3 F 76 16 119/43 100
06/21/25 07:30 06/21/25 11:15 06/21/25 11:15 06/21/25 10:19 06/21/25 07:30
Intake & Output
06/19/25 06/20/25 06/21/25 06/22/25
07:59 07:59 07:59 07:59
Intake Total 210 / 210 1080 / 1080
Output Total 1800 / 1800 3725 / 3725 3250 / 3250
Balance -1590 / -1590 -2645 / -2645 -3250 / -3250
Physical Exam
Physical Exam
GEN: No distress, awake, alert, oriented x3
HEENT: supple, anicteric, mmm, EOMI
LUNGS: CTA B/L, no wheezes/rales
CV: Irreg, S1/S2, no murmur
ABD: soft, BS+, NT/ND
EXT: No cyanosis, clubbing. 2+ edema of B/L LE
NEURO: Gross non-focal
SKIN: Warm, pink, dry. No rash
[2025-06-21] MEDS: NOVOLOG FLEXPEN-LOW RESISTANCE 2 UNITS SC (14:30)
[2025-06-21 15:40] VITALS: BP 95/50
--- NOTE | 2025-06-21 16:04 | PTCARENOTE ---
Assumed care of pt from previous nurse. Pt conts with some intermittent confusion and forgetfulness. Pt call thomason is within reach, pt does not always ring olvin. bed alarm in place, will cont to monitor. No complaints of pain.
[2025-06-21 16:45] LABS: Glucose - Point of Care 171 mg/dl (70-99)
[2025-06-21] MEDS: ARICEPT 10 MG PO (18:01)
[2025-06-21] MEDS: PLAVIX 75 MG PO (18:02)
[2025-06-21] MEDS: TRICOR 145 MG PO (18:02)
[2025-06-21] MEDS: LIPITOR 80 MG PO (18:02)
[2025-06-21 22:04] LABS: Glucose - Point of Care 263 mg/dl (70-99)
[2025-06-21] MEDS: LANTUS 0.35 UNITS SC (22:55)
[2025-06-21] MEDS: SINGULAIR 10 MG PO (22:56)
[2025-06-21] MEDS: OCEAN, SALINE MIST 1 SPRAYS NASAL (22:58)
[2025-06-21 23:00] VITALS: BP 114/47
[2025-06-22 02:47] VITALS: BMI 33.8
[2025-06-22] MEDS: SYNTHROID 50 MCG PO (06:14)
[2025-06-22 07:31] LABS: Glucose - Point of Care 140 mg/dl (70-99)
[2025-06-22 07:35] VITALS: BP 117/59
[2025-06-22] MEDS: STRIVERDI RESPIMAT 2 PUFF INH (07:36)
--- NOTE | 2025-06-22 08:25 | PN.DE.MGMTRT ---
Insulin Management
- -
06/22/2025: Diabetes Management Follow up
Patient admitted 06/11 with confusion, fever - sepsis, UTI. PMH: CAD s/p LAD stent 02/04, A-Fib, T2DM, HTN, HLD.
Prior to admission was taking Lantus 50 units in AM and had recently reduced HS dose from 50 units to 35 units Lantus due to AM hypoglycemia, Humalog ~ 20 units ac with metformin 500 mg in AM and 1000 mg pm and Mounjaro 2.5 mg on Wednesday. A1C 7.8%,
cr 1.6-->1.1, eGFR >60 today. Pt admits he has been quite forgetful recently.
Patient awake, alert and oriented, resting in bed, offers no complaints, able to discuss diabetes care. Continues to receive Lasix.
Received Lantus 50 units in AM, glucose range yesterday was 171 to 237. Received Lantus 35 units @ HS, Fasting glucose 140.
Will make no changes to current regimen: Lantus 50 units in AM, 35 units in PM, AC NovoLog 12 units and low corrective with meals.
Discussed with nurse. Will cont to follow.
Diabetes History
- -
Type of Diabetes: 2 requiring insulin
Pre-Admission Diabetes Regimen
06/21/25
08:22
Creatinine 1.0
Insulin Pump Settings
IP Diabetes Regimen
06/21/25 06/21/25 06/21/25
08:22 11:37 16:44
Glucose 155 H
POC Glucose 237 H 171 H
06/21/25 06/22/25
22:03 07:30
Glucose
POC Glucose 263 H 140 H
Meal type: Lunch
Meal type: Breakfast
Amount consumed: 100%
Amount consumed: 100%
Patient Education
[2025-06-22 08:41] VITALS: BP 121/56; PULSE 65; O2SAT 97
[2025-06-22] MEDS: IMDUR (EXTENDED RELEASE) 120 MG PO (08:43)
[2025-06-22] MEDS: COZAAR 50 MG PO (08:43)
[2025-06-22] MEDS: BUSPAR 10 MG PO ×2 (08:43→20:01)
[2025-06-22] MEDS: KEFLEX 500 MG PO ×4 (08:43→21:17)
[2025-06-22] MEDS: PROTONIX 40 MG PO (08:43)
[2025-06-22] MEDS: LYRICA 100 MG PO ×2 (08:43→20:03)
[2025-06-22] MEDS: LASIX 80 MG IV ×2 (08:43→16:20)
[2025-06-22] MEDS: ELIQUIS 5 MG PO ×2 (08:43→20:02)
[2025-06-22] MEDS: NOVOLOG FLEXPEN 12 UNITS SC ×3 (08:44→18:09)
[2025-06-22] MEDS: LANTUS 0.5 UNITS SC (08:44)
[2025-06-22] MEDS: NOVOLOG FLEXPEN-LOW RESISTANCE SC (08:45)
[2025-06-22 08:53] LABS: Hematocrit 27.2 % (39.0-52.0); Hemoglobin 8.2 g/dL (13.0-18.0); Mean Corp Hgb Conc. 30.1 g/dL (33.0-37.0); Mean Corpuscular Volume 90.4 fL (80.0-94.0); Nucleated Red Blood Cells % 0 % (-); Platelet Count 462 10^3/uL (130-400); Red Cell Dist. Width 16.5 % (11.5-14.5)
[2025-06-22 09:32] LABS: Blood Urea Nitrogen 35 mg/dl (9-20); Calcium 9.0 mg/dl (8.4-10.2); Carbon Dioxide 31 mmol/L (22-30); Chloride 104 mmol/L (98-107); Estimated Creatinine Clearance 74 ml/min; Glucose 132 mg/dl (70-99); Potassium 4.7 mmol/L (3.5-5.1); Sodium 142 mmol/L (135-145); eGFR > 60.00
--- NOTE | 2025-06-22 11:33 | W.PN.CARDCBS ---
Addendum entered and electronically signed by Jack Astorga MD 06/22/25 12:51:
I saw and examined the patient.
The Medical Technologist Microbiology's note was reviewed and I agree with the note.
Comment:
GEN: No distress, awake, Ox3
HEENT: supple, anicteric, mmm
LUNGS: CTA, no wheezes/rales
CV: Reg, S1/S2, 1/6 syst LSB, no gallop
ABD: soft, BS+, NT/ND
EXT: +1 edema
NEURO: Gross non-focal
SKIN: No rash
PLan:
Weight continues to fall with IV Lasix twice daily. Creatinine remained stable with BUN of 35.
Would attempt to continue IV diuresis for another 24 hours or so.
CHF education with low-salt diet and fluid restriction.
Continue antibiotics. Will need Lasix 80 mg p.o. twice daily upon discharge.
Continue medical therapy for abnormal troponin with known history of coronary artery disease.
Continue Eliquis, Plavix, Imdur, losartan, and atorvastatin
Hs Hx of AVJ abl/pacer
No SLG 2 inhibitor with UTIs.
Original Note:
Today's Communication / Plan
-
Ongoing IV diuresis
Low-sodium diet less than 2 g
Continue antibiotics for UTI per ID through 06/24
PT/OT, plan for discharge to rehab
Eventual outpatient stress test once recovered from UTI
Cardiology follow-up has been arranged
Impression / Plan
-
PCP: Chan Conrad MD
CDY: Tim Donohue MD
Impression:
Presented 06/11/2025 with fever, confusion
Acute UTI
Lower extremity edema
acute on chronic HFpEF, proBNP 2049
elevated troponin, peaked 0.123
Chest pain
CAD status post LAD VAN 01/30/2025, known 50% RCA stenosis, nonflow limiting
Permanent atrial fibrillation status post AVJ ablation, on Eliquis
Sick sinus syndrome
Pacemaker-Medtr[employer]
Hypertension
COPD
hyperlipidemia
Diabetes mellitus
Previous cardiovascular testing:
Left heart cath 01/29/15: 50% mid RCA lesion that was non flow limiting, and high grade 90% mid LAD stenosis, s/p angioplasty VAN LAD 01/30/2025., LVEDP 22 mmHg
*initially referred to CT surgery, and given underlying pulmonary issues with IFR negative RCA disease, was felt to be too high risk for CABG and returned to lab for mid LAD PCI.
Lexiscan nuclear stress test 01/08/2025: Small, mild defect in the apical inferior and apical lateral segments which is reversible and persistent prone imaging suggestive of mild ischemia
Echo 01/16/2025: Normal LV chamber size, LVEF 50 to 55%, RV enlarged, mild to moderate MR, PAP 34 mmHg
echo 06/15/25: LVEF of 55 to 60%, RV is mildly dilated with normal systolic function, there is pacing wire seen in the right ventricle. There is abnormal paradoxical septal motion consistent with pacing. Both the left atrium and the right atrium
are mildly enlarged. There is mild to moderate pulmonary hypertension. Pulmonary artery systolic pressure is estimated at 45 mmHg. When compared to echocardiogram from January 16, 2025 there is no significant change.
Plan:
-Presented 06/11/2025 with fever, confusion found to have acute UTI with E. coli. Per ID continue Keflex through 06/24/2025 then discontinue
-Acute heart failure, proBNP 2049. weight down 5 pounds since admission. Currently 229 pounds, but still appears to be acutely volume overloaded with persistent lower extremity edema. Will continue IV Lasix 80 mg twice daily. Creatinine stable.
was on po lasix 80mg QPM and 40mg QPM prior to admission
-Will change to low-sodium diet as patient currently has Caesar salad, tomato soup and tunafish salad for lunch. Discussed importance of adhering to less than 2 g of sodium
-Electrolytes stable, suspect sodium value 06/20/2025 was erroneous result
-echo 06/15 with results as above, EF preserved
-he has permanent afib with history of AVJ ablation. remains vpaced. not on BB due to COPD
-continue eliquis, plavix for afib and LAD PCI 01/2025. has chronic anemia, hgb 8.2 on 06/22
-continue imdur, cozaar
-he was supposed to have OP stress test prior to admission for possible anginal symptoms however now admitted, can be deferred until recovered in OP setting
-I talked with patient's on phone for 15 minutes and answered all her questions, updated her on ongoing treatment plan and decision.
-plan for SNF upon DC
-OP cardiac follow up arranged
PREADMIT DATA:
69 yo M with CAD s/p VAN LAD 01/2025, permanent afib, AVN ablation, PPM, chronic HFpEF, HTN, HLD, DM, CKD3b, asthma, obesity, recently with reoccurrence with chest discomfort that has both typical and atypical features with uptitration in isosorbide
and plan for outpt nuclear stress test, presents to ED 06/11/25 with fever 103, confusion, found to have E. coli UTI with concern for pyelonephritis. Blood cultures checked and so far negative, influenza A and B negative. Lasix held due to THANIA with
creatinine up to 2.0, baseline creatinine 1-1.3.
He has developed increasing lower extremity edema since admission, cardiology consulted for evaluation of edema.
proBNP today 2049.
Progress Note - Case Worker
Subjective
Date of Service: June 22, 2025
Patient seen and examined patient sitting in bed. Patient's on phone who I talked to her for 15 minutes regarding ongoing plan and decision. Patient reports he did work with physical therapy and was able to ambulate around the halls slowly
today.
Objective
Labs:
06/22/25 08:12
06/22/25 08:12
Labs
Hgb 8.2 g/dL (13.0-18.0) L 06/22/25 08:12
Hct 27.2 % (39.0-52.0) L 06/22/25 08:12
Plt Count 462 10^3/uL (130-400) H 06/22/25 08:12
Sodium 142 mmol/L (135-145) 06/22/25 08:12
Potassium 4.7 mmol/L (3.5-5.1) 06/22/25 08:12
BUN 35 mg/dl (9-20) H 06/22/25 08:12
Creatinine 1.1 mg/dL (0.7-1.3) 06/22/25 08:12
Glucose 132 mg/dl (70-99) H 06/22/25 08:12
Vital Signs and I&O:
Vital Signs
Temp Pulse Resp BP Pulse Ox
98.1 F 65 18 117/59 98
06/22/25 07:35 06/22/25 07:43 06/22/25 07:43 06/22/25 07:35 06/22/25 07:35
Vital Signs
Temp Pulse Resp BP Pulse Ox
98.1 F 65 18 117/59 98
06/22/25 07:35 06/22/25 07:43 06/22/25 07:43 06/22/25 07:35 06/22/25 07:35
Intake & Output
06/20/25 06/21/25 06/22/25 06/23/25
06:59 06:59 06:59 06:59
Intake Total 1080 / 1080 1140 / 1140
Output Total 3725 / 3725 3250 / 3250 2420 / 2420 200 / 200
Balance -2645 / -2645 -3250 / -3250 -1280 / -1280 -200 / -200
Physical Exam
Physical Exam
GEN: No distress, awake, Ox3
HEENT: supple, anicteric, mmm
LUNGS: CTA, no wheezes/rales, on room air
CV: Reg, S1/S2, no murmur, rub or gallop
ABD: soft, BS+, NT/ND
EXT: +2 pitting lower extremity edema bilaterally, no clubbing cyanosis
NEURO: Gross non-focal
SKIN: No rash, warm, dry, pink
[2025-06-22 11:49] LABS: Glucose - Point of Care 159 mg/dl (70-99)
--- NOTE | 2025-06-22 13:33 | W.PN.HOSP.TC ---
Addendum entered and electronically signed by Grant Zamora MD 06/22/25 13:52:
#Anemia
chronic, owever Hgb dropped over past Month
check anemia w/u including stool for occult blood
follow CBC
#Thrombocytosis'
most likely with diuresis
follow CBC
#Fatty liver disease
low fat diet
Original Note:
Today's Communication/Plan
-
cont LAsix
labs in AM
Assessment / Plan
Assessment / Plan
69yo M with PMHx of CAD s/p PCI in 01/2025, hypothyroidism, HTN, GERD, AFib on eliquis, DM came with confusion, found UTI and later managed for CHF exacerbation
A/P:
#Mild acute on chronic HFpEF
#CAD, stable
#Elevated trop, unclear etiology
Recent VAN to LAD in January 2025
Echo: EF 55-60%, mild-moderate TR and mild pulm HTN - similar to January 2025
Follows up with Dr. Donohue outpatient
Chest x-ray showing possible interstitial pulmonary edema
cw IV Lasix, daily weight, electrolytes
Dry weight 225lbs targeted
cardiology following
DAPT
#Sepsis 2/2UTI with possibility of pyelonephritis
#Toxic mentabolic encephalopathy 2/2 infection
Urine culture with E. coli. transition to keflex, through 06/24/25. Blood culture from admission NGTD. Repeat blood culture remains negative as well.
CT scan of the abdomen pelvis with mild chronic perinephric stranding, no obstructive uropathy
COVID-negative
Patient WBC has been normalized. Fever is getting less frequent and less severe. Monitor for effervescence
#suspected underlying Alzheimer's versus vascular dementia.
Mentation has improved.
CT scan of the head with no acute abnormalities.
Continue preadmission Aricept
Lyrica restarted; inc to 100mg BID
Continue BuSpar
#Acute kidney injury on CKD stage IIIa-IIIb
Bladder scan ruled out retention.
Creatinine slowly improved
Follow BMP
#DM type 2 with neuropathy
Hemoglobin A1c 7.1
Preadmission regimen including Mounjaro, Lantus, metformin
Continue Lantus, Requested diabetes [employer] for management as he sees them outpatient, Added mealtime insulin
Hold metformin
#Ambulatory deficiency
PT/OT recommended rehab
#Chronic atrial fibrillation
rate controlled with metoprolol.
Continue anticoagulation with Eliquis
#Dyslipidemia
#Essential Hypertension
#Chronic obstructive pulmonary disease/asthma.
#Obesity due to excessive calories BMI 34.
#Obstructive sleep apnea on CPAP at night
#Hypothyroidism on replacement
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
#BPH
Decrease calorie intake
cont home meds
watch for retention
DVT ppx Eliquis
Full code
I have spent at ;least 58min reviewing chart, test reuslts, communication with consultants and providing direct patient care
Anticipated Discharge: Within 24 hours
Subjective/Interval History
-
Date of Service: June 22, 2025
Objective Data
-
Labs:
Laboratory Results
06/22/25
08:12
WBC 7.7
Hgb 8.2 L
Hct 27.2 L
Plt Count 462 H
Sodium 142
Potassium 4.7
Chloride 104
Carbon Dioxide 31 H
BUN 35 H
Creatinine 1.1
Glucose 132 H
Calcium 9.0
Vital Signs:
Vital Signs
Temp Pulse Resp BP Pulse Ox
98.1 F 67 18 117/59 96
06/22/25 07:35 06/22/25 11:38 06/22/25 11:38 06/22/25 07:35 06/22/25 12:33
I&O
06/21/25 06/22/25 06/23/25
06:59 06:59 06:59
Intake Total 1140 / 1140
Output Total 3250 / 3250 2420 / 2420 200 / 200
Balance -3250 / -3250 -1280 / -1280 -200 / -200
Review of Systems
-
History Source: Patient
All other systems: Reviewed and negative
Physical Exam
-
General: No Apparent Distress
HEENT: Normocephalic
Cardiac: Regular Rhythm
GI: Soft, Nontender and Nondistended
Musculoskeletal: Edema, Left Upper Extrem and Edema, Right Lower Extrem
Neuro: Awake, Alert, Oriented and AO x 3
Psych: Calm
--- NOTE | 2025-06-22 13:34 | CM ---
CM reviewed chart, reviewed with Hospitalist, care ongoing.
CM spoke with patients , requesting call from Hospitalist when able.
Updated referrals sent to [facility], spoke with Sita ([phone]), DON at [facility], able to accept over weekend if patient stable.
Per Cardiology, patient will continue with IV diuresis for another 24 hrs.
CM will continue to follow for all d/c planning needs.
Plan; d/c to [facility] once stable, able to accept over weekend if medically stable
[2025-06-22] MEDS: NOVOLOG FLEXPEN-LOW RESISTANCE 1 UNITS SC ×2 (13:57→18:09)
[2025-06-22 14:10] LABS: Reticulocyte Count 1.7 % (0.4-2.8)
[2025-06-22 14:28] LABS: Iron 33 ug/dl (49-181); LDH 176 U/L (120-246)
[2025-06-22 14:38] LABS: Total Iron Binding Capacity 255 ug/dl (261-462)
[2025-06-22 15:12] VITALS: BP 117/52
--- NOTE | 2025-06-22 15:26 | W.PN.ID1 ---
Date of Service
Date of Service: June 22, 2025
Today's Communication
Continue current course of antibiotics.
Assessment / Plan
#Ongoing fevers
- No further fevers
#Complicated urinary tract infection Secondary to E. coli
#Rigors
#Leukocytosis
-Improved
#A-fib
#HTN
#HLD
#DM type II
#Tightness
#Diverticulosis
#CHF
Recommendations:
- Blood cultures negative
- E. coli isolate susceptibilities reviewed
- Continue Keflex (d#12 abx) through 06/24/25 then D/C abx and observe
#Diarrhea
- Resolved, no further diarrhea
Nothing further to add from a Infectious Diseases standpoint.
Will see again at your request.
����������������������������������������������������������
Chief Complaint
-: Fever
Subjective / Review of Systems
Review of Systems: No Fever
Vital Signs / Physical Exam
Vital Signs
Vital Signs
Temp Pulse Resp BP Pulse Ox
98.6 F 71 18 117/52 97
06/22/25 15:12 06/22/25 15:12 06/22/25 15:12 06/22/25 15:12 06/22/25 15:12
Physical Exam
Constitutional: No Acute Distress, Comfortable and Non-toxic
Pulmonary: Non Labored
Gastrointestinal: Non Distended
Skin: Negative Jaundice
Objective Data
Lab Data
Lab Results
06/22/25 08:12
06/22/25 08:12
Estimated Creat Clear 74 ml/min 06/22/25 08:12
Lactic Acid 1.9 mmol/L (0.7-2.0) 06/11/25 18:53
Total Bilirubin 0.7 mg/dl (0.2-1.3) 06/11/25 20:01
AST 22 U/L (17-59) 06/11/25 20:01
ALT 21 U/L (0-50) 06/11/25 20:01
Alkaline Phosphatase 38 U/L (38-126) 06/11/25 20:01
Most recent labs reviewed.
Micro Results:
06/15/25 01:30 Blood Culture - Final
Blood/Venous No Growth - Final Report
06/15/25 00:31 Blood Culture - Final
Blood/Venous No Growth - Final Report
06/11/25 20:01 Blood Culture - Final
Blood/Venous No Growth - Final Report
06/11/25 18:53 Blood Culture - Final
Blood/Venous No Growth - Final Report
06/11/25 19:57 Urine Culture - Final
Urine Escherichia coli
06/12/25 03:44 MRSA Screen - Final
Nose No Methicillin Resistant Staphylococcus aureus isolated.
06/11/25 18:53 Influenza Types A & B (RANJAN) - Final
Nasal Swab Negative for Influenza A & B, NAAT
Negative results must be combined with clinical observations
and patient history.
Nucleic Acid Amplification test (NAAT)performed on the
[employer] platform.
Imaging:
06/11/2025: CT Abd/pelvis W Iv Cont- No obstructive uropathy. Relatively stable mild chronic perinephric soft tissue stranding. Small renal cysts. Bladder is underdistended, with limited assessment of bowel wall thickness.
[2025-06-22 15:45] LABS: Folate 13.9 ng/ml (2.76-20); Vitamin B12 933 pg/ml (239-931)
[2025-06-22 16:48] LABS: Glucose - Point of Care 151 mg/dl (70-99)
[2025-06-22] MEDS: LIPITOR 80 MG PO (18:10)
[2025-06-22] MEDS: ARICEPT 10 MG PO (18:10)
[2025-06-22] MEDS: TRICOR 145 MG PO (18:10)
[2025-06-22] MEDS: PLAVIX 75 MG PO (18:10)
[2025-06-22] MEDS: TYLENOL 650 MG PO (20:10)
[2025-06-22 21:15] LABS: Glucose - Point of Care 152 mg/dl (70-99)
[2025-06-22] MEDS: LANTUS 0.35 UNITS SC (21:17)
[2025-06-22] MEDS: SINGULAIR 10 MG PO (21:18)
[2025-06-22] MEDS: OCEAN, SALINE MIST 1 SPRAYS NASAL (21:19)
[2025-06-22 23:06] VITALS: BP 106/48
[2025-06-23] MEDS: SYNTHROID 50 MCG PO (05:39)
[2025-06-23 05:43] VITALS: BMI 33.3
[2025-06-23 07:27] VITALS: BP 121/48
[2025-06-23] MEDS: STRIVERDI RESPIMAT 2 PUFF INH (07:36)
[2025-06-23 08:04] LABS: Glucose - Point of Care 90 mg/dl (70-99)
[2025-06-23] MEDS: ELIQUIS 5 MG PO ×2 (08:04→21:39)
[2025-06-23] MEDS: IMDUR (EXTENDED RELEASE) 120 MG PO (08:04)
[2025-06-23] MEDS: BUSPAR 10 MG PO ×2 (08:04→21:39)
[2025-06-23] MEDS: LYRICA 100 MG PO ×2 (08:04→21:39)
[2025-06-23] MEDS: KEFLEX 500 MG PO ×4 (08:09→21:39)
[2025-06-23] MEDS: COZAAR 50 MG PO (08:09)
[2025-06-23] MEDS: LASIX 80 MG IV ×2 (08:09→15:45)
[2025-06-23] MEDS: LANTUS 0.5 UNITS SC (08:14)
[2025-06-23] MEDS: NOVOLOG FLEXPEN-LOW RESISTANCE SC ×3 (08:15→11:50)
[2025-06-23] MEDS: NOVOLOG FLEXPEN 12 UNITS SC ×3 (08:17→17:34)
[2025-06-23 09:58] LABS: Hematocrit 28.3 % (39.0-52.0); Hemoglobin 8.9 g/dL (13.0-18.0); Mean Corp Hgb Conc. 31.4 g/dL (33.0-37.0); Mean Corpuscular Volume 87.3 fL (80.0-94.0); Nucleated Red Blood Cells % 0 % (-); Platelet Count 523 10^3/uL (130-400); Red Cell Dist. Width 16.2 % (11.5-14.5)
[2025-06-23 10:09] LABS: ALT (SGPT) 48 U/L (0-50); AST (SGOT) 27 U/L (17-59); Albumin 3.8 g/dl (3.5-5.0); Alkaline Phosphatase 67 U/L (38-126); Blood Urea Nitrogen 34 mg/dl (9-20); Calcium 9.2 mg/dl (8.4-10.2); Carbon Dioxide 31 mmol/L (22-30); Chloride 102 mmol/L (98-107); Estimated Creatinine Clearance 74 ml/min; Glucose 122 mg/dl (70-99); Magnesium 2.3 mg/dl (1.6-2.3); Potassium 4.4 mmol/L (3.5-5.1); Sodium 141 mmol/L (135-145); Total Protein 7.0 g/dl (6.3-8.2); eGFR > 60.00
--- NOTE | 2025-06-23 10:39 | W.PN.HOSP.TC ---
Today's Communication/Plan
-
cont diuresis as per card - still on IV lasix
Assessment / Plan
Assessment / Plan
69yo M with PMHx of CAD s/p PCI in 01/2025, hypothyroidism, HTN, GERD, AFib on eliquis, DM came with confusion, found UTI and later managed for CHF exacerbation. As per ID Abx switched to oral and to be completed on 06/24/24. Lasix swuitched to oral
as per cardiology and patient medically stable to be d/c to [facility] as recommended by PT/OT
A/P:
#Mild acute on chronic HFpEF
#CAD, stable
#Elevated trop, unclear etiology
Recent VAN to LAD in January 2025
Echo: EF 55-60%, mild-moderate TR and mild pulm HTN - similar to January 2025
Follows up with Dr. Donohue outpatient
Chest x-ray showing possible interstitial pulmonary edema
cw IV Lasix, daily weight, electrolytes
Dry weight 225lbs targeted
cardiology following
DAPT
#Sepsis 2/2UTI with possibility of pyelonephritis
#Toxic metabolic encephalopathy 2/2 infection
Urine culture with E. coli. transition to keflex, through 06/24/25. Blood culture from admission NGTD. Repeat blood culture remains negative as well.
CT scan of the abdomen pelvis with mild chronic perinephric stranding, no obstructive uropathy
COVID-negative
Patient WBC has been normalized. Fever is getting less frequent and less severe. Monitor for effervescence
#suspected underlying Alzheimer's versus vascular dementia.
Mentation has improved.
CT scan of the head with no acute abnormalities.
Continue preadmission Aricept
Lyrica restarted; inc to 100mg BID
Continue BuSpar
#Acute kidney injury on CKD stage IIIa-IIIb
Bladder scan ruled out retention.
Creatinine slowly improved
Follow BMP
#DM type 2 with neuropathy
Hemoglobin A1c 7.1
Preadmission regimen including Mounjaro, Lantus, metformin
Continue Lantus, Requested diabetes [employer] for management as he sees them outpatient, Added mealtime insulin
Hold metformin
#Ambulatory deficiency
PT/OT recommended rehab
#Chronic atrial fibrillation
rate controlled with metoprolol.
Continue anticoagulation with Eliquis
#Dyslipidemia
#Essential Hypertension
#Chronic obstructive pulmonary disease/asthma.
#Obesity due to excessive calories BMI 34.
#Obstructive sleep apnea on CPAP at night
#Hypothyroidism on replacement
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
#BPH
Decrease calorie intake
cont home meds
watch for retention
#Dementia, unspecified with short term memory impairment
frequent reorientation
DVT ppx Eliquis
Full code
I have spent at least 36min reviewing chart, test reuslts, communication with consultants and providing direct patient care
Anticipated Discharge: Today
Subjective/Interval History
-
Date of Service: June 23, 2025
Objective Data
-
Labs:
Laboratory Results
06/23/25
09:39
WBC 7.3
Hgb 8.9 L
Hct 28.3 L
Plt Count 523 H
Sodium 141
Potassium 4.4
Chloride 102
Carbon Dioxide 31 H
BUN 34 H
Creatinine 1.1
Glucose 122 H
Calcium 9.2
Total Bilirubin 0.7
AST 27
ALT 48
Alkaline Phosphatase 67
Vital Signs:
Vital Signs
Temp Pulse Resp BP Pulse Ox
98.3 F 81 16 121/98 96
06/23/25 07:27 06/23/25 08:09 06/23/25 07:39 06/23/25 08:09 06/23/25 07:27
I&O
06/22/25 06/23/25 06/24/25
06:59 06:59 06:59
Intake Total 1140 / 1140 2240 / 2240
Output Total 2420 / 2420 4300 / 4300 700 / 700
Balance -1280 / -1280 -0 / -2060 -700 / -700
Review of Systems
-
History Source: Patient
All other systems: Reviewed and negative
Physical Exam
-
General: No Apparent Distress
HEENT: Normocephalic
GI: Soft, Nontender and Nondistended
Musculoskeletal: Edema, Right Lower Extrem and Edema, Left Lower Extrem
Neuro: Awake, Alert and Oriented
Psych: Calm and Apparent Dementia
--- NOTE | 2025-06-23 11:06 | W.PN.CARDCBS ---
Addendum entered and electronically signed by Kayden Phillip DO 06/23/25 13:10:
I saw and examined the patient.
The Community Life Director's note was reviewed and I agree with the note.
Comment:
Patient seen and examined. Patient denies any chest pain but so reports mild shortness of breath lower extremity swelling. Denies any fever, chills, weakness
Patient still with evidence of volume overload. Roughly 2.5 L output in the last 24 hours. Heart rate, BP stable.
Continue IV diuresis and encourage leg wraps and compression.
Monitor renal function, electrolytes, intake and output
Original Note:
Today's Communication / Plan
-
continue IV lasix
wrap legs/compression
Impression / Plan
-
PCP: Chan Conrad MD
CDY: Tim Donohue MD
Impression:
Presented 06/11/2025 with fever, confusion
Acute UTI
Lower extremity edema
acute on chronic HFpEF, proBNP 2049
elevated troponin, peaked 0.123
Chest pain
CAD status post LAD VAN 01/30/2025, known 50% RCA stenosis, nonflow limiting
Permanent atrial fibrillation status post AVJ ablation, on Eliquis
Sick sinus syndrome
Pacemaker-[employer]tr[employer]
Hypertension
COPD
hyperlipidemia
Diabetes mellitus
Previous cardiovascular testing:
Left heart cath 01/29/15: 50% mid RCA lesion that was non flow limiting, and high grade 90% mid LAD stenosis, s/p angioplasty VAN LAD 01/30/2025., LVEDP 22 mmHg
*initially referred to CT surgery, and given underlying pulmonary issues with IFR negative RCA disease, was felt to be too high risk for CABG and returned to lab for mid LAD PCI.
Lexiscan nuclear stress test 01/08/2025: Small, mild defect in the apical inferior and apical lateral segments which is reversible and persistent prone imaging suggestive of mild ischemia
Echo 01/16/2025: Normal LV chamber size, LVEF 50 to 55%, RV enlarged, mild to moderate MR, PAP 34 mmHg
echo 06/15/25: LVEF of 55 to 60%, RV is mildly dilated with normal systolic function, there is pacing wire seen in the right ventricle. There is abnormal paradoxical septal motion consistent with pacing. Both the left atrium and the right atrium
are mildly enlarged. There is mild to moderate pulmonary hypertension. Pulmonary artery systolic pressure is estimated at 45 mmHg. When compared to echocardiogram from January 16, 2025 there is no significant change.
Plan:
-Presented 06/11/2025 with fever, confusion found to have acute UTI with E. coli. Per ID continue Keflex through 06/24/2025 then discontinue
-continue diuresis with IV lasix, responding well. weight down 5 pounds overnight if accurate. new dry weight needs to be established. was on po lasix 80mg QPM and 40mg QPM prior to admission, would plan to DC on po lasix 80mg BID
-BMP in 1 week upon DC
-wrap legs/compression
-echo 06/15 with results as above, EF preserved
-he has permanent afib with history of AVJ ablation. remains vpaced. not on BB due to COPD
-continue eliquis, plavix for afib and LAD PCI 01/2025. has chronic anemia, hgb 8.9
-continue imdur, cozaar
-he was supposed to have OP stress test prior to admission for possible anginal symptoms however now admitted, can be deferred until recovered in OP setting
-plan for SNF upon DC
-OP cardiac follow up arranged
PREADMIT DATA:
69 yo M with CAD s/p VAN LAD 01/2025, permanent afib, AVN ablation, PPM, chronic HFpEF, HTN, HLD, DM, CKD3b, asthma, obesity, recently with reoccurrence with chest discomfort that has both typical and atypical features with uptitration in isosorbide
and plan for outpt nuclear stress test, presents to ED 06/11/25 with fever 103, confusion, found to have E. coli UTI with concern for pyelonephritis. Blood cultures checked and so far negative, influenza A and B negative. Lasix held due to THANIA with
creatinine up to 2.0, baseline creatinine 1-1.3.
He has developed increasing lower extremity edema since admission, cardiology consulted for evaluation of edema.
proBNP today 2049.
Progress Note - Zoology Teacher
Subjective
Date of Service: June 23, 2025
reports remains with LE edema. no CP, SOB
Objective
Labs:
06/23/25 09:39
06/23/25 09:39
Labs
Hgb 8.9 g/dL (13.0-18.0) L 06/23/25 09:39
Hct 28.3 % (39.0-52.0) L 06/23/25 09:39
Plt Count 523 10^3/uL (130-400) H 06/23/25 09:39
Sodium 141 mmol/L (135-145) 06/23/25 09:39
Potassium 4.4 mmol/L (3.5-5.1) 06/23/25 09:39
BUN 34 mg/dl (9-20) H 06/23/25 09:39
Creatinine 1.1 mg/dL (0.7-1.3) 06/23/25 09:39
Glucose 122 mg/dl (70-99) H 06/23/25 09:39
Vital Signs and I&O:
Vital Signs
Temp Pulse Resp BP Pulse Ox
98.3 F 81 16 121/98 96
06/23/25 07:27 06/23/25 08:09 06/23/25 07:39 06/23/25 08:09 06/23/25 07:27
Vital Signs
Temp Pulse Resp BP Pulse Ox
98.3 F 81 16 121/98 96
06/23/25 07:27 06/23/25 08:09 06/23/25 07:39 06/23/25 08:09 06/23/25 07:27
Intake & Output
06/21/25 06/22/25 06/23/25 06/24/25
07:59 07:59 07:59 07:59
Intake Total 1140 / 1140 2240 / 2240
Output Total 3250 / 3250 2420 / 2420 4300 / 4300 700 / 700
Balance -3250 / -3250 -1280 / -1280 -2060 / -2060 -700 / -700
Physical Exam
Physical Exam
GEN: No distress, awake, alert, oriented x3. sitting in chair. obese
HEENT: supple, anicteric, mmm, EOMI
LUNGS: CTA B/L, no wheezes/rales
CV: Irreg, S1/S2, no murmur
ABD: soft, BS+, NT/ND
EXT: No cyanosis, clubbing. 1+ edema of B/L LE
NEURO: Gross non-focal
SKIN: Warm, pink, dry. No rash
[2025-06-23 11:48] LABS: Glucose - Point of Care 112 mg/dl (70-99)
[2025-06-23 16:19] VITALS: BP 118/53
[2025-06-23 16:54] LABS: Glucose - Point of Care 151 mg/dl (70-99)
[2025-06-23] MEDS: LIPITOR 80 MG PO (17:34)
[2025-06-23] MEDS: TRICOR 145 MG PO (17:34)
[2025-06-23] MEDS: NOVOLOG FLEXPEN-LOW RESISTANCE 1 UNITS SC (17:34)
[2025-06-23] MEDS: PLAVIX 75 MG PO (17:34)
[2025-06-23] MEDS: ARICEPT 10 MG PO (17:34)
[2025-06-23] MEDS: TYLENOL 650 MG PO (17:39)
[2025-06-23 21:14] LABS: Glucose - Point of Care 199 mg/dl (70-99)
[2025-06-23] MEDS: OCEAN, SALINE MIST 1 SPRAYS NASAL (21:39)
[2025-06-23] MEDS: SINGULAIR 10 MG PO (21:40)
[2025-06-23] MEDS: LANTUS 0.35 UNITS SC (21:40)
[2025-06-23 23:00] VITALS: BP 122/44
[2025-06-24 06:00] VITALS: BMI 33.1
[2025-06-24] MEDS: SYNTHROID 50 MCG PO (07:00)
[2025-06-24 07:42] VITALS: BP 113/51
[2025-06-24] MEDS: STRIVERDI RESPIMAT 2 PUFF INH (07:46)
[2025-06-24] MEDS: PROTONIX 40 MG PO (08:10)
[2025-06-24] MEDS: LYRICA 100 MG PO ×2 (08:12→19:49)
[2025-06-24] MEDS: COZAAR 50 MG PO (08:12)
[2025-06-24] MEDS: KEFLEX 500 MG PO ×3 (08:13→17:05)
[2025-06-24] MEDS: ELIQUIS 5 MG PO ×2 (08:13→19:49)
[2025-06-24] MEDS: LASIX 80 MG IV ×2 (08:13→16:35)
[2025-06-24] MEDS: IMDUR (EXTENDED RELEASE) 120 MG PO (08:13)
[2025-06-24] MEDS: BUSPAR 10 MG PO ×2 (08:13→19:49)
[2025-06-24 08:21] LABS: Hematocrit 28.0 % (39.0-52.0); Hemoglobin 8.8 g/dL (13.0-18.0); Mean Corp Hgb Conc. 31.4 g/dL (33.0-37.0); Mean Corpuscular Volume 88.1 fL (80.0-94.0); Nucleated Red Blood Cells % 0 % (-); Platelet Count 547 10^3/uL (130-400); Red Cell Dist. Width 16.2 % (11.5-14.5)
[2025-06-24 08:27] LABS: Glucose - Point of Care 126 mg/dl (70-99)
[2025-06-24] MEDS: TYLENOL 650 MG PO ×2 (08:27→13:17)
[2025-06-24] MEDS: NOVOLOG FLEXPEN 12 UNITS SC ×3 (08:28→17:05)
[2025-06-24] MEDS: NOVOLOG FLEXPEN-LOW RESISTANCE SC ×3 (08:28→17:05)
[2025-06-24] MEDS: LANTUS 0.5 UNITS SC (08:28)
[2025-06-24 08:45] LABS: ALT (SGPT) 39 U/L (0-50); AST (SGOT) 23 U/L (17-59); Albumin 3.5 g/dl (3.5-5.0); Alkaline Phosphatase 63 U/L (38-126); Blood Urea Nitrogen 36 mg/dl (9-20); Calcium 9.2 mg/dl (8.4-10.2); Carbon Dioxide 31 mmol/L (22-30); Chloride 103 mmol/L (98-107); Estimated Creatinine Clearance 81 ml/min; Glucose 117 mg/dl (70-99); Magnesium 2.4 mg/dl (1.6-2.3); Potassium 4.6 mmol/L (3.5-5.1); Sodium 140 mmol/L (135-145); Total Protein 6.5 g/dl (6.3-8.2); eGFR > 60.00
[2025-06-24 11:47] LABS: Glucose - Point of Care 121 mg/dl (70-99)
--- NOTE | 2025-06-24 11:51 | W.PN.CARDCBS ---
Today's Communication / Plan
-
Continue IV diuresis
Intake and output, daily weights, monitor renal function and electrolytes
Impression / Plan
-
PCP: Chan Conrad MD
CDY: Tim Donohue MD
Impression:
Presented 06/11/2025 with fever, confusion
Acute UTI
Lower extremity edema
acute on chronic HFpEF, proBNP 2049
elevated troponin, peaked 0.123
Chest pain
CAD status post LAD VAN 01/30/2025, known 50% RCA stenosis, nonflow limiting
Permanent atrial fibrillation status post AVJ ablation, on Eliquis
Sick sinus syndrome
Pacemaker-[employer]tr[employer]
Hypertension
COPD
hyperlipidemia
Diabetes mellitus
Previous cardiovascular testing:
Left heart cath 01/29/15: 50% mid RCA lesion that was non flow limiting, and high grade 90% mid LAD stenosis, s/p angioplasty VAN LAD 01/30/2025., LVEDP 22 mmHg
*initially referred to CT surgery, and given underlying pulmonary issues with IFR negative RCA disease, was felt to be too high risk for CABG and returned to lab for mid LAD PCI.
Lexiscan nuclear stress test 01/08/2025: Small, mild defect in the apical inferior and apical lateral segments which is reversible and persistent prone imaging suggestive of mild ischemia
Echo 01/16/2025: Normal LV chamber size, LVEF 50 to 55%, RV enlarged, mild to moderate MR, PAP 34 mmHg
echo 06/15/25: LVEF of 55 to 60%, RV is mildly dilated with normal systolic function, there is pacing wire seen in the right ventricle. There is abnormal paradoxical septal motion consistent with pacing. Both the left atrium and the right atrium
are mildly enlarged. There is mild to moderate pulmonary hypertension. Pulmonary artery systolic pressure is estimated at 45 mmHg. When compared to echocardiogram from January 16, 2025 there is no significant change.
Plan:
-Presented 06/11/2025 with fever, confusion found to have acute UTI with E. coli. Per ID continue Keflex through 06/24/2025 then discontinue
-continue diuresis with IV lasix, responding well. weight down 5 pounds overnight if accurate. new dry weight needs to be established. Continue aggressive IV diuretic therapy at this time as patient continues to lose weight with good urine output.
Was on po lasix 80mg QPM and 40mg QPM prior to admission, would plan to DC on po lasix 80mg BID
-BMP in 1 week upon DC
-wrap legs/compression
-echo 06/15 with results as above, EF preserved
-he has permanent afib with history of AVJ ablation. remains vpaced. not on BB due to COPD
-continue eliquis, plavix for afib and LAD PCI 01/2025. has chronic anemia, hgb 8.9
-continue imdur, cozaar
-he was supposed to have OP stress test prior to admission for possible anginal symptoms however now admitted, can be deferred until recovered in OP setting
-plan for SNF upon DC
-OP cardiac follow up arranged
Discussed with nursing, hospitalist,
PREADMIT DATA:
69 yo M with CAD s/p VAN LAD 01/2025, permanent afib, AVN ablation, PPM, chronic HFpEF, HTN, HLD, DM, CKD3b, asthma, obesity, recently with reoccurrence with chest discomfort that has both typical and atypical features with uptitration in isosorbide
and plan for outpt nuclear stress test, presents to ED 06/11/25 with fever 103, confusion, found to have E. coli UTI with concern for pyelonephritis. Blood cultures checked and so far negative, influenza A and B negative. Lasix held due to THANIA with
creatinine up to 2.0, baseline creatinine 1-1.3.
He has developed increasing lower extremity edema since admission, cardiology consulted for evaluation of edema.
proBNP today 2049.
Progress Note - Master Automotive Glass Technician
Subjective
Date of Service: June 24, 2025
Patient seen and examined. No acute events overnight. Patient resting comfortably in chair. Note still some shortness of breath and lower extremity swelling. Denies chest pain, palpitations, fever, chills, or weakness.
Objective
Labs:
06/24/25 07:57
06/24/25 07:57
Labs
Hgb 8.8 g/dL (13.0-18.0) L 06/24/25 07:57
Hct 28.0 % (39.0-52.0) L 06/24/25 07:57
Plt Count 547 10^3/uL (130-400) H 06/24/25 07:57
Sodium 140 mmol/L (135-145) 06/24/25 07:57
Potassium 4.6 mmol/L (3.5-5.1) 06/24/25 07:57
BUN 36 mg/dl (9-20) H 06/24/25 07:57
Creatinine 1.0 mg/dL (0.7-1.3) 06/24/25 07:57
Glucose 117 mg/dl (70-99) H 06/24/25 07:57
Vital Signs and I&O:
Vital Signs
Temp Pulse Resp BP Pulse Ox
98.2 F 68 18 173/57 97
06/24/25 07:42 06/24/25 08:47 06/24/25 08:47 06/24/25 08:12 06/24/25 08:47
Vital Signs
Temp Pulse Resp BP Pulse Ox
98.2 F 68 18 173/57 97
06/24/25 07:42 06/24/25 08:47 06/24/25 08:47 06/24/25 08:12 06/24/25 08:47
Intake & Output
06/22/25 06/23/25 06/24/25 06/25/25
06:59 06:59 06:59 06:59
Intake Total 1140 / 1140 2240 / 2240 670 / 670
Output Total 2420 / 2420 4300 / 4300 2950 / 2950 250 / 250
Balance -1280 / -1280 -0 / -2060 -2280 / -2280 -250 / -250
Physical Exam
Physical Exam
GEN: No distress, awake, alert, oriented x3. sitting in chair. obese
HEENT: supple, anicteric, mmm, EOMI
LUNGS: CTA B/L, no wheezes/rales
CV: Irreg, S1/S2, no murmur
ABD: soft, BS+, NT/ND
EXT: No cyanosis, clubbing. 1+ edema of B/L LE
NEURO: Gross non-focal
SKIN: Warm, pink, dry. No rash
--- NOTE | 2025-06-24 13:39 | W.PN.HOSP.TC ---
Today's Communication/Plan
-
cont to follow electrolytes while on IV diuresis by cardio
IV iron
check stool for occult blood
Assessment / Plan
Assessment / Plan
69yo M with PMHx of CAD s/p PCI in 01/2025, hypothyroidism, HTN, GERD, AFib on eliquis, DM came with confusion, found UTI and later managed for CHF exacerbation. As per ID Abx switched to oral and to be completed on 06/24/24. Lasix swuitched to oral
as per cardiology and patient medically stable to be d/c to STR as recommended by PT/OT
A/P:
#Mild acute on chronic HFpEF
#CAD, stable
#Elevated trop, unclear etiology
Recent VAN to LAD in January 2025
Echo: EF 55-60%, mild-moderate TR and mild pulm HTN - similar to January 2025
Follows up with Dr. Donohue outpatient
Chest x-ray showing possible interstitial pulmonary edema
cw IV Lasix, daily weight, electrolytes
Dry weight 225lbs targeted
cardiology following
DAPT
#Sepsis 2/2UTI with possibility of pyelonephritis
#Toxic metabolic encephalopathy 2/2 infection
Urine culture with E. coli. transition to keflex, through 06/24/25. Blood culture from admission NGTD. Repeat blood culture remains negative as well.
CT scan of the abdomen pelvis with mild chronic perinephric stranding, no obstructive uropathy
COVID-negative
Patient WBC has been normalized. Fever is getting less frequent and less severe. Monitor for effervescence
#suspected underlying Alzheimer's versus vascular dementia.
Mentation has improved.
CT scan of the head with no acute abnormalities.
Continue preadmission Aricept
Lyrica restarted; inc to 100mg BID
Continue BuSpar
#Acute kidney injury on CKD stage IIIa-IIIb
Bladder scan ruled out retention.
Creatinine slowly improved
Follow BMP
#DM type 2 with neuropathy
Hemoglobin A1c 7.1
Preadmission regimen including Mounjaro, Lantus, metformin
Continue Lantus, Requested diabetes [employer]ER for management as he sees them outpatient, Added mealtime insulin
Hold metformin
#Ambulatory deficiency
PT/OT recommended rehab
#Chronic atrial fibrillation
rate controlled with metoprolol.
Continue anticoagulation with Eliquis
#Chronic anemia
#IDAIV iron
check stool for occult blood
B12, folate not decreased
#Dyslipidemia
#Essential Hypertension
#Chronic obstructive pulmonary disease/asthma.
#Obesity due to excessive calories BMI 34.
#Obstructive sleep apnea on CPAP at night
#Hypothyroidism on replacement
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
#BPH
Decrease calorie intake
cont home meds
watch for retention
#Dementia, unspecified with short term memory impairment
frequent reorientation
DVT ppx Eliquis
Full code
I have spent at least 51min reviewing chart, test reuslts, communication with consultants, over the phone and providing direct patient care
Anticipated Discharge: 24 - 48 hours
Subjective/Interval History
-
Date of Service: June 24, 2025
Objective Data
-
Labs:
Laboratory Results
06/24/25
07:57
WBC 6.1
Hgb 8.8 L
Hct 28.0 L
Plt Count 547 H
Sodium 140
Potassium 4.6
Chloride 103
Carbon Dioxide 31 H
BUN 36 H
Creatinine 1.0
Glucose 117 H
Calcium 9.2
Total Bilirubin 0.6
AST 23
ALT 39
Alkaline Phosphatase 63
Vital Signs:
Vital Signs
Temp Pulse Resp BP Pulse Ox
98.2 F 68 18 173/57 97
06/24/25 07:42 06/24/25 08:47 10/12/25 08:47 06/24/25 08:12 06/24/25 08:47
I&O
06/23/25 06/24/25 06/25/25
06:59 06:59 06:59
Intake Total 2240 / 2240 670 / 670
Output Total 4300 / 4300 2950 / 2950 1050 / 1050
Balance -2059 / -2059 -0 / -2280 -1049 / -105
Review of Systems
-
History Source: Patient
All other systems: Reviewed and negative
Physical Exam
-
General: No Apparent Distress
HEENT: Normocephalic
Respiratory: Clear to Auscultation
Cardiac: Regular Rhythm
Musculoskeletal: Edema, Right Lower Extrem and Edema, Left Lower Extrem
Neuro: Awake, Alert, Oriented and AO x 3
Psych: Calm
[2025-06-24] MEDS: FERRLECIT 110 MG IV (14:22)
[2025-06-24 15:27] VITALS: BP 113/51
[2025-06-24 16:29] LABS: Glucose - Point of Care 126 mg/dl (70-99)
[2025-06-24] MEDS: TRICOR 145 MG PO (17:05)
[2025-06-24] MEDS: LIPITOR 80 MG PO (17:05)
[2025-06-24] MEDS: PLAVIX 75 MG PO (17:05)
[2025-06-24] MEDS: ARICEPT 10 MG PO (17:05)
[2025-06-24 21:03] LABS: Glucose - Point of Care 123 mg/dl (70-99)
[2025-06-24] MEDS: SINGULAIR 10 MG PO (21:40)
[2025-06-24] MEDS: OCEAN, SALINE MIST 1 SPRAYS NASAL (21:40)
[2025-06-24] MEDS: LANTUS 0.35 UNITS SC (21:47)
[2025-06-24 23:30] VITALS: BP 116/48
[2025-06-25] MEDS: TYLENOL 650 MG PO (04:36)
[2025-06-25 06:00] VITALS: BMI 32.6
[2025-06-25] MEDS: SYNTHROID 50 MCG PO (06:12)
[2025-06-25 07:00] LABS: Hematocrit 27.2 % (39.0-52.0); Hemoglobin 8.7 g/dL (13.0-18.0); Mean Corp Hgb Conc. 32.0 g/dL (33.0-37.0); Mean Corpuscular Volume 87.2 fL (80.0-94.0); Nucleated Red Blood Cells % 0 % (-); Platelet Count 562 10^3/uL (130-400); Red Cell Dist. Width 16.2 % (11.5-14.5)
[2025-06-25 07:10] LABS: Blood Urea Nitrogen 42 mg/dl (9-20); Calcium 9.1 mg/dl (8.4-10.2); Carbon Dioxide 30 mmol/L (22-30); Chloride 103 mmol/L (98-107); Estimated Creatinine Clearance 73 ml/min; Glucose 119 mg/dl (70-99); Magnesium 2.3 mg/dl (1.6-2.3); Potassium 4.5 mmol/L (3.5-5.1); Sodium 140 mmol/L (135-145); eGFR > 60.00
[2025-06-25 07:40] VITALS: BP 117/55
[2025-06-25 07:51] LABS: Glucose - Point of Care 130 mg/dl (70-99)
[2025-06-25] MEDS: STRIVERDI RESPIMAT 2 PUFF INH (07:59)
--- NOTE | 2025-06-25 08:08 | PN.DE.MGMTRT ---
Insulin Management
- -
06/25/2025: Diabetes Management Follow up
Patient admitted 06/11 with confusion, fever - sepsis, UTI. PMH: CAD s/p LAD stent 02/04, A-Fib, T2DM, HTN, HLD.
Prior to admission was taking Lantus 50 units in AM and had recently reduced HS dose from 50 units to 35 units Lantus due to AM hypoglycemia, Humalog ~ 20 units ac with metformin 500 mg in AM and 1000 mg pm and Mounjaro 2.5 mg on Wednesday. A1C 7.8%,
cr 1.6-->1.1, eGFR >60 today. Pt admits he has been quite forgetful recently.
Patient awake, alert and oriented, resting in bed, offers no complaints, able to discuss diabetes care. Continues on IV Lasix
Received Lantus 50 units in AM, glucose range yesterday was 121 to 126. Received Lantus 35 units @ HS, Fasting glucose 119 V, 130 POC .
Will make no changes to current regimen: Lantus 50 units in AM, 35 units in PM, AC NovoLog 12 units and low corrective with meals.
Discussed with nurse. Will cont to follow.
Diabetes History
- -
Type of Diabetes: 2 requiring insulin
Pre-Admission Diabetes Regimen
06/24/25 06/25/25
07:57 06:31
Creatinine 1.0 1.1
Insulin Pump Settings
IP Diabetes Regimen
06/24/25 06/24/25 06/24/25
07:57 08:26 11:46
Glucose 117 H
POC Glucose 126 H 121 H
06/24/25 06/24/25 06/25/25
16:28 21:02 06:31
Glucose 119 H
POC Glucose 126 H 123 H
06/25/25
07:49
Glucose
POC Glucose 130 H
Meal type: Lunch
Meal type: Breakfast
Amount consumed: 95%
Amount consumed: 100%
Patient Education
[2025-06-25] MEDS: NOVOLOG FLEXPEN-LOW RESISTANCE SC ×3 (08:30→17:15)
[2025-06-25] MEDS: LANTUS 0.5 UNITS SC (09:24)
[2025-06-25] MEDS: NOVOLOG FLEXPEN 12 UNITS SC ×3 (09:25→18:17)
[2025-06-25] MEDS: PROTONIX 40 MG PO (09:25)
[2025-06-25] MEDS: COZAAR 50 MG PO (09:25)
[2025-06-25] MEDS: BUSPAR 10 MG PO ×2 (09:25→21:12)
[2025-06-25] MEDS: ELIQUIS 5 MG PO ×2 (09:25→21:12)
[2025-06-25] MEDS: IMDUR (EXTENDED RELEASE) 120 MG PO (09:25)
[2025-06-25] MEDS: LYRICA 100 MG PO ×2 (09:25→21:15)
[2025-06-25] MEDS: LASIX 80 MG IV ×2 (09:36→17:19)
--- NOTE | 2025-06-25 09:38 | W.PN.HOSP.TC ---
Today's Communication/Plan
-
cont IV diuresis as per card
Assessment / Plan
Assessment / Plan
69yo M with PMHx of CAD s/p PCI in 01/2025, hypothyroidism, HTN, GERD, AFib on eliquis, DM came with confusion, found UTI and later managed for CHF exacerbation. As per ID Abx switched to oral and to be completed on 06/24/24. Lasix swuitched to oral
as per cardiology and patient medically stable to be d/c to STR as recommended by PT/OT
A/P:
#Mild acute on chronic HFpEF
#CAD, stable
#Elevated trop, unclear etiology
Recent VAN to LAD in January 2025
Echo: EF 55-60%, mild-moderate TR and mild pulm HTN - similar to January 2025
Follows up with Dr. Donohue outpatient
Chest x-ray showing possible interstitial pulmonary edema
cw IV Lasix, daily weight, electrolytes
Dry weight 225lbs targeted
cardiology following
DAPT
#Sepsis 2/2UTI with possibility of pyelonephritis
#Toxic metabolic encephalopathy 2/2 infection
Urine culture with E. coli. transition to keflex, through 06/24/25. Blood culture from admission NGTD. Repeat blood culture remains negative as well.
CT scan of the abdomen pelvis with mild chronic perinephric stranding, no obstructive uropathy
COVID-negative
Patient WBC has been normalized. Fever is getting less frequent and less severe. Monitor for effervescence
#suspected underlying Alzheimer's versus vascular dementia.
Mentation has improved.
CT scan of the head with no acute abnormalities.
Continue preadmission Aricept
Lyrica restarted; inc to 100mg BID
Continue BuSpar
#Acute kidney injury on CKD stage IIIa-IIIb
Bladder scan ruled out retention.
Creatinine slowly improved
Follow BMP
#DM type 2 with neuropathy
Hemoglobin A1c 7.1
Preadmission regimen including Mounjaro, Lantus, metformin
Continue Lantus, Requested diabetes [employer]ER for management as he sees them outpatient, Added mealtime insulin
Hold metformin
#Ambulatory deficiency
PT/OT recommended rehab
#Chronic atrial fibrillation
rate controlled with metoprolol.
Continue anticoagulation with Eliquis
#Chronic anemia
#FRANCISCO
IV iron
stool neg for occult blood
B12, folate not decreased
Outpatient follow up with repeated CBC and possible music instructor eval - defer to PCP
#Dyslipidemia
#Essential Hypertension
#Chronic obstructive pulmonary disease/asthma.
#Obesity due to excessive calories BMI 34.
#Obstructive sleep apnea on CPAP at night
#Hypothyroidism on replacement
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
#BPH
Decrease calorie intake
cont home meds
watch for retention
#Dementia, unspecified with short term memory impairment
frequent reorientation
DVT ppx Eliquis
Full code
I have spent at least 36min reviewing chart, test reuslts, communication with consultants, over the phone and providing direct patient care
Anticipated Discharge: Today
Subjective/Interval History
-
Date of Service: June 25, 2025
Objective Data
-
Labs:
Laboratory Results
06/25/25
06:31
WBC 6.3
Hgb 8.7 L
Hct 27.2 L
Plt Count 562 H
Sodium 140
Potassium 4.5
Chloride 103
Carbon Dioxide 30
BUN 42 H
Creatinine 1.1
Glucose 119 H
Calcium 9.1
Vital Signs:
Vital Signs
Temp Pulse Resp BP Pulse Ox
98.2 F 60 14 117/55 99
06/25/25 07:40 06/25/25 08:02 06/25/25 08:02 06/25/25 07:40 06/25/25 08:02
I&O
06/24/25 06/25/25 06/26/25
06:59 06:59 06:59
Intake Total 670 / 670 1630 / 1630
Output Total 2950 / 2950 4200 / 4200
Balance -2280 / -2280 -2570 / -2570
Review of Systems
-
History Source: Patient
All other systems: Reviewed and negative
Physical Exam
-
General: No Apparent Distress
HEENT: Normocephalic
Respiratory: Clear to Auscultation
Cardiac: Regular Rhythm
Musculoskeletal: Edema, Right Lower Extrem and Edema, Left Lower Extrem
Neuro: Awake, Alert, Oriented and AO x 3
Psych: Calm and Apparent Dementia
[2025-06-25 10:31] VITALS: PULSE 69; O2SAT 95
--- NOTE | 2025-06-25 10:40 | W.PN.CARDCBS ---
Addendum entered and electronically signed by Angelito Brown DO 06/25/25 13:55:
I saw and examined the patient.
The Top Cutter's note was reviewed and I agree with the note.
Comment:
Plan:
Transition to oral Lasix next 24 hours
Check BMP in 1 week
Outpatient cardiac follow-up has been arranged.
Patient is going to [facility] [place] upon discharge.
Original Note:
Today's Communication / Plan
-
Continue IV diuresis during hospitalization with consideration of transitioning to oral Lasix in next 24 hours
Would discharge home on Lasix 80 mg twice daily
Needs BMP 1 week after discharge
Outpatient cardiology follow-up has been arranged
Plan for patient to go to [facility] upon discharge
Impression / Plan
-
PCP: Chan Conrad MD
CDY: Tim Donohue MD
Impression:
Presented 06/11/2025 with fever, confusion
Acute UTI
Lower extremity edema
acute on chronic HFpEF, proBNP 2049
elevated troponin, peaked 0.123
Chest pain
CAD status post LAD VAN 01/30/2025, known 50% RCA stenosis, nonflow limiting
Permanent atrial fibrillation status post AVJ ablation, on Eliquis
Sick sinus syndrome
Pacemaker-Medtronic
Hypertension
COPD
hyperlipidemia
Diabetes mellitus
Previous cardiovascular testing:
Left heart cath 01/29/15: 50% mid RCA lesion that was non flow limiting, and high grade 90% mid LAD stenosis, s/p angioplasty VAN LAD 01/30/2025., LVEDP 22 mmHg
*initially referred to CT surgery, and given underlying pulmonary issues with IFR negative RCA disease, was felt to be too high risk for CABG and returned to lab for mid LAD PCI.
Lexiscan nuclear stress test 01/08/2025: Small, mild defect in the apical inferior and apical lateral segments which is reversible and persistent prone imaging suggestive of mild ischemia
Echo 01/16/2025: Normal LV chamber size, LVEF 50 to 55%, RV enlarged, mild to moderate MR, PAP 34 mmHg
echo 06/15/25: LVEF of 55 to 60%, RV is mildly dilated with normal systolic function, there is pacing wire seen in the right ventricle. There is abnormal paradoxical septal motion consistent with pacing. Both the left atrium and the right atrium
are mildly enlarged. There is mild to moderate pulmonary hypertension. Pulmonary artery systolic pressure is estimated at 45 mmHg. When compared to echocardiogram from January 16, 2025 there is no significant change.
Plan:
-Presented 06/11/2025 with fever, confusion found to have acute UTI with E. coli. Per ID continue Keflex through 06/24/2025 then discontinue
- Appears significantly better from volume standpoint. Weight down 3 pounds overnight and 20 lbs since admission and weight seems to be near baseline per patient with significant improvement of lower extremity edema. Continue diuresis with IV
Lasix, responding well. Continue IV diuresis for another 24 hours then consider transitioning to oral Lasix. Was on po lasix 80mg QPM and 40mg QPM prior to admission, would plan to DC on po lasix 80mg BID
-Slightly upward trending BUN with stable creatinine at 1.1.
-BMP in 1 week upon DC
-echo 06/15 with results as above, EF preserved
-he has permanent afib with history of AVJ ablation. remains vpaced. not on BB due to COPD
-continue eliquis, plavix for afib and LAD PCI 01/2025. has chronic anemia, hgb 8.7
-continue imdur, cozaar
-he was supposed to have OP stress test prior to admission for possible anginal symptoms however now admitted, can be deferred until recovered in OP setting
-plan for SNF upon DC
-OP cardiac follow up arranged
Discussed with nursing, hospitalist
PREADMIT DATA:
69 yo M with CAD s/p VAN LAD 01/2025, permanent afib, AVN ablation, PPM, chronic HFpEF, HTN, HLD, DM, CKD3b, asthma, obesity, recently with reoccurrence with chest discomfort that has both typical and atypical features with uptitration in isosorbide
and plan for outpt nuclear stress test, presents to ED 06/11/25 with fever 103, confusion, found to have E. coli UTI with concern for pyelonephritis. Blood cultures checked and so far negative, influenza A and B negative. Lasix held due to HTANIA with
creatinine up to 2.0, baseline creatinine 1-1.3.
He has developed increasing lower extremity edema since admission, cardiology consulted for evaluation of edema.
proBNP today 2049.
Progress Note - Advanced Practice Nurse
Subjective
Date of Service: June 25, 2025
Patient seen and examined. Patient sitting up in chair. Reporting he is feeling better. He was able to walk up and down the key without chest pain or shortness of breath. Did have some weakness in his legs with ambulation. Denies orthopnea or
PND
Objective
Labs:
06/25/25 06:31
06/25/25 06:31
Labs
Hgb 8.7 g/dL (13.0-18.0) L 06/25/25 06:31
Hct 27.2 % (39.0-52.0) L 06/25/25 06:31
Plt Count 562 10^3/uL (130-400) H 06/25/25 06:31
Sodium 140 mmol/L (135-145) 06/25/25 06:31
Potassium 4.5 mmol/L (3.5-5.1) 06/25/25 06:31
BUN 42 mg/dl (9-20) H 06/25/25 06:31
Creatinine 1.1 mg/dL (0.7-1.3) 06/25/25 06:31
Glucose 119 mg/dl (70-99) H 06/25/25 06:31
Vital Signs and I&O:
Vital Signs
Temp Pulse Resp BP Pulse Ox
98.2 F 60 14 117/55 99
06/25/25 07:40 06/25/25 08:02 06/25/25 08:02 06/25/25 07:40 06/25/25 08:02
Vital Signs
Temp Pulse Resp BP Pulse Ox
98.2 F 60 14 117/55 99
06/25/25 07:40 06/25/25 08:02 06/25/25 08:02 06/25/25 07:40 06/25/25 08:02
Intake & Output
06/23/25 06/24/25 06/25/25 06/26/25
06:59 06:59 06:59 06:59
Intake Total 2240 / 2240 670 / 670 1630 / 1630
Output Total 4300 / 4300 2950 / 2950 4200 / 4200
Balance -2060 / -2060 -2280 / -2280 -2570 / -2570
Physical Exam
Physical Exam
GEN: No distress, awake, Ox3
HEENT: supple, anicteric, mmm
LUNGS: CTA, no wheezes/rales, on room air
CV: irreg, S1/S2, no murmur, rub or gallop
ABD: soft, BS+, NT/ND
EXT: Trace lower extremity edema bilaterally, no clubbing, cyanosis
NEURO: Gross non-focal
SKIN: No rash, warm, dry, pink
[2025-06-25 11:43] LABS: Glucose - Point of Care 133 mg/dl (70-99)
--- NOTE | 2025-06-25 15:02 | CM ---
CM reviewed chart, reviewed with Hospitalist, likely plan for d/c tomorrow.
CM spoke with ARY Buckner at [facility], will have bed for patient tomorrow.
Call to patients , Ingrid, aware of plan.
Patient will require ambulance transport.
CM will continue to follow for all d/c planning needs.
Plan; [facility] SNF, likely tomorrow, will require ambulance transport
[2025-06-25] MEDS: FERRLECIT 110 MG IV (15:18)
[2025-06-25 15:30] VITALS: BP 99/47
[2025-06-25 16:55] LABS: Glucose - Point of Care 100 mg/dl (70-99)
[2025-06-25] MEDS: NOVOLOG FLEXPEN SC (17:14)
[2025-06-25] MEDS: LIPITOR 80 MG PO (17:19)
[2025-06-25] MEDS: PLAVIX 75 MG PO (17:19)
[2025-06-25] MEDS: ARICEPT 10 MG PO (17:19)
[2025-06-25] MEDS: TRICOR 145 MG PO (17:19)
[2025-06-25 17:26] VITALS: BP 120/61
[2025-06-25] MEDS: SINGULAIR 10 MG PO (21:13)
[2025-06-25] MEDS: OCEAN, SALINE MIST 1 SPRAYS NASAL (21:13)
[2025-06-25 21:24] LABS: Glucose - Point of Care 170 mg/dl (70-99)
[2025-06-25] MEDS: LANTUS 0.35 UNITS SC (21:24)
[2025-06-25 23:30] VITALS: BP 110/48
[2025-06-26 06:00] VITALS: BMI 32.3
[2025-06-26] MEDS: TYLENOL 650 MG PO ×2 (06:03→23:13)
[2025-06-26] MEDS: SYNTHROID 50 MCG PO (06:03)
[2025-06-26 07:16] VITALS: BP 118/53
[2025-06-26 07:42] LABS: Glucose - Point of Care 91 mg/dl (70-99)
[2025-06-26] MEDS: STRIVERDI RESPIMAT 2 PUFF INH (08:07)
[2025-06-26] MEDS: NOVOLOG FLEXPEN-LOW RESISTANCE SC ×2 (08:21→17:10)
--- NOTE | 2025-06-26 08:28 | PN.DE.MGMTRT ---
Insulin Management
- -
06/26/2025: Diabetes Management Follow up
Patient admitted 06/11 with confusion, fever - sepsis, UTI. PMH: CAD s/p LAD stent 02/04, A-Fib, T2DM, HTN, HLD.
Prior to admission was taking Lantus 50 units in AM and had recently reduced HS dose from 50 units to 35 units Lantus due to AM hypoglycemia, Humalog ~ 20 units ac with metformin 500 mg in AM and 1000 mg pm and Mounjaro 2.5 mg on Wednesday. A1C 7.8%,
cr 1.6-->1.1, eGFR >60 today. Pt admits he has been quite forgetful recently.
Patient awake, alert and oriented, out of bed in chair, offers no complaints, able to discuss diabetes care. Patient states they are 'still trying to get the fluid off of him'.
Received Lantus 50 units in AM, glucose range yesterday was 100 to 170. Received Lantus 35 units @ HS, Fasting glucose 91.
Will make no changes to current regimen: Lantus 50 units in AM, 35 units in PM, AC NovoLog 12 units and low corrective with meals.
Discussed with nurse. Will cont to follow.
Diabetes History
- -
Type of Diabetes: 2 requiring insulin
Pre-Admission Diabetes Regimen
Insulin Pump Settings
IP Diabetes Regimen
06/25/25 06/25/25 06/25/25
11:42 16:54 21:23
POC Glucose 133 H 100 H 170 H
06/26/25
07:39
POC Glucose 91
Meal type: Lunch
Meal type: Breakfast
Amount consumed: 100%
Amount consumed: 100%
Patient Education
[2025-06-26 08:31] LABS: Hematocrit 27.9 % (39.0-52.0); Hemoglobin 9.0 g/dL (13.0-18.0); Mean Corp Hgb Conc. 32.3 g/dL (33.0-37.0); Mean Corpuscular Volume 87.2 fL (80.0-94.0); Nucleated Red Blood Cells % 0 % (-); Platelet Count 599 10^3/uL (130-400); Red Cell Dist. Width 16.1 % (11.5-14.5)
[2025-06-26] MEDS: IMDUR (EXTENDED RELEASE) 120 MG PO (08:37)
[2025-06-26] MEDS: NOVOLOG FLEXPEN 12 UNITS SC ×3 (08:37→17:25)
[2025-06-26] MEDS: PROTONIX 40 MG PO (08:38)
[2025-06-26] MEDS: LASIX 80 MG IV (08:38)
[2025-06-26] MEDS: ELIQUIS 5 MG PO ×2 (08:38→19:56)
[2025-06-26] MEDS: LYRICA 100 MG PO ×2 (08:38→19:56)
[2025-06-26] MEDS: COZAAR 50 MG PO (08:38)
[2025-06-26] MEDS: BUSPAR 10 MG PO ×2 (08:38→19:56)
[2025-06-26] MEDS: LANTUS 0.5 UNITS SC (08:42)
[2025-06-26 09:00] LABS: Blood Urea Nitrogen 42 mg/dl (9-20); Calcium 9.3 mg/dl (8.4-10.2); Carbon Dioxide 29 mmol/L (22-30); Chloride 102 mmol/L (98-107); Estimated Creatinine Clearance 61 ml/min; Glucose 77 mg/dl (70-99); Magnesium 2.3 mg/dl (1.6-2.3); Potassium 4.4 mmol/L (3.5-5.1); Sodium 138 mmol/L (135-145); eGFR 59.10
--- NOTE | 2025-06-26 10:48 | W.PN.HOSP.TC ---
Addendum entered and electronically signed by Grant Zamora MD 06/26/25 11:27:
dont use billing under this note, use D/C summary billing
Original Note:
Today's Communication/Plan
-
pending final cardio reccs
Assessment / Plan
Assessment / Plan
69yo M with PMHx of CAD s/p PCI in 01/2025, hypothyroidism, HTN, GERD, AFib on eliquis, DM came with confusion, found UTI and later managed for CHF exacerbation. As per ID Abx switched to oral and to be completed on 06/24/24. Lasix swuitched to oral
as per cardiology and patient medically stable to be d/c to [facility] as recommended by PT/OT
A/P:
#Mild acute on chronic HFpEF
#CAD, stable
#Elevated trop, unclear etiology
Recent VAN to LAD in January 2025
Echo: EF 55-60%, mild-moderate TR and mild pulm HTN - similar to January 2025
Follow[address] up with Dr. Donohue outpatient
Chest x-ray showing possible interstitial pulmonary edema
cw IV Lasix, daily weight, electrolytes
Dry weight 225lbs targeted
cardiology following
DAPT
#Intermittent wrist and calf pain
cannot exclude 2/2 statin -add Zetia, try hydrophilic statin rosuvastatin instead of lipitor
check CPK
Tylenol
one dose Flexiril
#Sepsis 2/2UTI with possibility of pyelonephritis
#Toxic metabolic encephalopathy 2/2 infection
Urine culture with E. coli. transition to keflex, through 06/24/25. Blood culture from admission NGTD. Repeat blood culture remains negative as well.
CT scan of the abdomen pelvis with mild chronic perinephric stranding, no obstructive uropathy
COVID-negative
Patient WBC has been normalized. Fever is getting less frequent and less severe. Monitor for effervescence
#suspected underlying Alzheimer's versus vascular dementia.
Mentation has improved.
CT scan of the head with no acute abnormalities.
Continue preadmission Aricept
Lyrica restarted; inc to 100mg BID
Continue BuSpar
#Acute kidney injury on CKD stage IIIa-IIIb
Bladder scan ruled out retention.
Creatinine slowly improved
Follow BMP
#DM type 2 with neuropathy
Hemoglobin A1c 7.1
Preadmission regimen including Mounjaro, Lantus, metformin
Continue Lantus, Requested diabetes [employer] for management as he sees them outpatient, Added mealtime insulin
Hold metformin
#Ambulatory deficiency
PT/OT recommended rehab
#Chronic atrial fibrillation
rate controlled with metoprolol.
Continue anticoagulation with Eliquis
#Chronic anemia
#FRANCISCO
IV iron
stool neg for occult blood
B12, folate not decreased
Outpatient follow up with repeated CBC and possible model dresser eval - defer to PCP
#Dyslipidemia
#Essential Hypertension
#Chronic obstructive pulmonary disease/asthma.
#Obesity due to excessive calories BMI 34.
#Obstructive sleep apnea on CPAP at night
#Hypothyroidism on replacement
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
#BPH
Decrease calorie intake
cont home meds
watch for retention
#Dementia, unspecified with short term memory impairment
frequent reorientation
DVT ppx Eliquis
Full code
I have spent at least 51min reviewing chart, test reuslts, communication with consultants, over the phone and providing direct patient care
Anticipated Discharge: Within 24 hours
Subjective/Interval History
-
Date of Service: June 26, 2025
Objective Data
-
Labs:
Laboratory Results
06/26/25
07:28
WBC 6.7
Hgb 9.0 L
Hct 27.9 L
Plt Count 599 H
Sodium 138
Potassium 4.4
Chloride 102
Carbon Dioxide 29
BUN 42 H
Creatinine 1.3
Glucose 77
Calcium 9.3
Total Bilirubin Pending
AST Pending
ALT Pending
Alkaline Phosphatase Pending
Vital Signs:
Vital Signs
Temp Pulse Resp BP Pulse Ox
98.4 F 67 16 118/53 97
06/26/25 07:16 06/26/25 07:16 06/26/25 07:16 06/26/25 07:16 06/26/25 07:16
I&O
06/25/25 06/26/25 06/27/25
06:59 06:59 06:59
Intake Total 1630 / 1630 1140 / 1140
Output Total 4200 / 4200 3075 / 3075
Balance -2570 / -2570 -1934 / -1934
Review of Systems
-
History Source: Patient
All other systems: Reviewed and negative
Musculoskeletal: Reports Other (b/l wrist and calf pain)
Physical Exam
-
General: No Apparent Distress
HEENT: Normocephalic
GI: Soft, Nontender and Nondistended
Musculoskeletal: Edema, Right Lower Extrem (trace) and Edema, Left Lower Extrem (trace)
Neuro: Awake, Alert, Oriented and AO x 3
Psych: Calm
[2025-06-26 11:10] LABS: Glucose - Point of Care 160 mg/dl (70-99)
[2025-06-26 11:10] LABS: ALT (SGPT) 29 U/L (0-50); AST (SGOT) 20 U/L (17-59); Albumin 3.6 g/dl (3.5-5.0); Alkaline Phosphatase 60 U/L (38-126); Total Protein 6.6 g/dl (6.3-8.2)
[2025-06-26] MEDS: FLEXERIL 5 MG PO (11:22)
[2025-06-26] MEDS: NOVOLOG FLEXPEN-LOW RESISTANCE 1 UNITS SC (11:25)
--- NOTE | 2025-06-26 11:26 | W.DCSUMMARY ---
Addendum entered and electronically signed by Grant Zamora MD 06/28/25 18:10:
Discharge date 06.27.25
Addendum entered and electronically signed by Grant Zamora MD 06/27/25 12:13:
ROsuvastatin and zetia switched back to Lipitor 80mg nightly
Insulin Glargine 50units AM and 35units PM with Humalog 12units AC and sliding scale
Original Note:
Discharge Summary
Discharge Data
Date of Admission: 06/11/25
Date of Discharge: 06/26/25
-
Pending Results: No
Hospital Course
69yo M with PMHx of CAD s/p PCI in 01/2025, hypothyroidism, HTN, GERD, AFib on eliquis, DM came with confusion, found UTI and later managed for CHF exacerbation. As per ID Abx switched to oral and to be completed on 06/24/24. Lasix swuitched to oral
as per cardiology and patient medically stable to be d/c to [facility] as recommended by PT/OT. Atorvastatin switched to Rosuvastatin and Zetia combination due to intermittent muscle aches. Cardiology advised to start Lasix 80mg BID PO on 06/27/25. CBC abd
BMP in 1 weeks advised. Instructions porvided in writing. Anemia stable with negative FOBT. MEdcially stable for d/c
I have spent at least 51min reviewing chart, test reuslts, communication with consultants, over the phone and providing direct patient care
Patient was managed for:
#Mild acute on chronic HFpEF
#CAD, stable
#Elevated trop, unclear etiology
#Intermittent wrist and calf pain
#Sepsis 2/2UTI with possibility of pyelonephritis
#Toxic metabolic encephalopathy 2/2 infection
#suspected underlying Alzheimer's versus vascular dementia.
#Acute kidney injury on CKD stage IIIa-IIIb
#DM type 2 with neuropathy
#Ambulatory deficiency
#Chronic atrial fibrillation
#Chronic anemia
#FRANCISCO
#Dyslipidemia
#Essential Hypertension
#Chronic obstructive pulmonary disease/asthma.
#Obesity due to excessive calories BMI 34.
#Obstructive sleep apnea on CPAP at night
#Hypothyroidism on replacement
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
#BPH
#Dementia, unspecified with short term memory impairment
Discharge Plan
-
Patient Disposition: Fci/SNF
Discharge Diagnosis/Procedures: CHF
Diet: 2 Gram Sodium and Restrict fluids to 48 oz
Activity: As tolerated
Blood Work: BMP, CBC in 1 week with family doctor
Specialty Instructions: Weigh Daily- Call MD for wt gain/loss 3 lbs overnight/5 lbs in 1 week
Instructions: *DCA Heart Failure Instructions
Referrals:
Calin Conrad MD [Family Provider, Internal Medicine]
Kurt Donohue MD [Active, Cardiology] - 07/19/25 4:20 pm
Referral Note: You have a cardiology follow-up appointment at the [place] office. Please call with questions
Additional Discharge Medication Instructions: Start Lasix in AM 06/27/25
Prescriptions:
New
Insulin Glargine Lantus [Lantus] 35 UNITS
Subcutaneous Insulin Syringe [Syringe-Insulin] 0 UNIT
As Directed mls/hr SC HS
Ordered By: Grant Zamora MD
Last Taken: 06/25/25 21:24 0.35 mls
ferrous sulfate 325 mg (65 mg iron) tablet
325 mg PO DAILY Qty: 30 0RF
ezetimibe 10 mg Tablet
10 mg PO DAILY Qty: 30 0RF
rosuvastatin 20 mg Tablet
20 mg PO QPM Qty: 30 0RF
Continued
multivitamin [One-A-Day Essential] Tablet
1 tab PO DAILY Qty: 0
montelukast 10 MG tablet
10 mg PO HS
cyanocobalamin (vitamin B-12) [Vitamin B-12] 100 mcg Tablet
300 mcg PO DAILY@1200 Qty: 0
pyridoxine (vitamin B6) [Vitamin B-6] 100 mg Tablet
100 mg PO DAILY@1200 Qty: 0
levothyroxine 50 mcg tablet
50 mcg PO DAILY AT 0700
Serevent Diskus 50 mcg/dose blister with device
1 inh INHALATION R BID
albuterol sulfate 90 mcg/actuation Hfa Aerosol Inhaler
2 puff INHALATION R Q4HPRN PRN (Reason: sob)
cholecalciferol (vitamin D3) [Vitamin D3] 25 mcg (1,000 unit) Tablet
50 mcg PO DAILY@1200
apixaban 5 mg Tablet
5 mg PO BID
metformin 500 mg Tablet
500 mg PO DAILY
donepezil [Aricept] 10 mg Tablet
10 mg PO QPM
losartan 50 mg tablet
50 mg PO DAILY
fenofibrate micronized 134 mg Capsule
134 mg PO QPM
ascorbic acid (vitamin C) [Vitamin C] 500 mg Tablet
250 mg PO DAILY@1200
buspirone 10 mg Tablet
10 mg PO Q12
pregabalin [Lyrica] 75 mg Capsule
75 mg PO BID
omega [id number]-ces-fish oil [Fish Oil] 1,000 (120-180) mg Capsule
2 cap PO BID
metformin 500 mg Tablet
1,000 mg PO QPM
pantoprazole 40 mg Tablet,Delayed Release (Dr/Ec)
40 mg PO DAILY Qty: 30 11RF
isosorbide mononitrate 120 mg Tablet Extended Release 24 Hr
120 mg PO DAILY
insulin lispro [Humalog U-100 Insulin] 100 unit/mL Solution
20 sliding scale dose SC AC
sodium chloride 0.65 % Aerosol,[place]
2 spray INTRANASAL HS
Mounjaro 2.5 mg/0.5 mL Pen Injector
2.5 mg SC FR
Rx Instructions:
for 4 weeks
clopidogrel 75 mg tablet
75 mg PO QPM
furosemide 80 mg tablet
80 mg PO BID Qty: 0 0RF
Changed
insulin glargine 100 UNIT/ML solution
50 unit SC DAILY Qty: 0 0RF
Discontinued
atorvastatin 80 MG tablet
80 mg PO QPM
metolazone 2.5 mg Tablet
2.5 mg PO MOFR
furosemide 40 mg tablet
40 mg PO QPM
testosterone 20.25 mg/1.25 gram (1.62 %) gel in metered-dose pump
2 pump topical DAILY
Discharge Orders:
Discharge Patient (As Directed); Ordered 06/26/25
Ordered By: Grant Zamora
Discharge Date and Time
Print Language: YAKUT
--- NOTE | 2025-06-26 12:17 | W.PN.CARDCBS ---
Today's Communication / Plan
-
Plan:
-Presented 06/11/2025 with fever, confusion found to have acute UTI with E. coli. Per ID continue Keflex through 06/24/2025 then discontinue
-Appears significantly better from volume standpoint. Appears close to euvolemic on exam. Creatinine up to 1.3 while he has been on IV 80 mg of Lasix twice daily. At home he used to be on 80 mg p.o. in the morning and 40 mg of p.o. in the
afternoon. Plan to discharge on 80 mg p.o. twice daily. Given he got an IV dose this morning already with creatinine bumping up to 1.3 overnight, recommend no further diuresis today and to encourage some hydration with plan to resume p.o.
diuretics tomorrow morning. Educated him in regards to checking daily upright weights and calling our office in case there is a 3 to 5 pound weight gain. Strongly recommending a low-sodium diet. Reviewed signs and symptoms of decompensated heart
failure again.
-BMP in 1 week upon DC
-echo 06/15 with results as above, EF preserved
-he has permanent afib with history of AVJ ablation. remains vpaced. not on BB due to COPD
-continue eliquis, plavix for afib and LAD PCI 01/2025. has chronic anemia, hgb 8.7
-continue imdur, cozaar
-plan for SNF upon DC
-OP cardiac follow up arranged
Discussed with nursing, hospitalist
Impression / Plan
-
PCP: Chan Conrad MD
CDY: Tim Donohue MD
Impression:
Presented 06/11/2025 with fever, confusion
Acute UTI
Lower extremity edema
acute on chronic HFpEF, proBNP 2049
elevated troponin, peaked 0.123
Chest pain
CAD status post LAD VAN 01/30/2025, known 50% RCA stenosis, nonflow limiting
Permanent atrial fibrillation status post AVJ ablation, on Eliquis
Sick sinus syndrome
Pacemaker-Medtr[employer]
Hypertension
COPD
hyperlipidemia
Diabetes mellitus
Previous cardiovascular testing:
Left heart cath 01/29/15: 50% mid RCA lesion that was non flow limiting, and high grade 90% mid LAD stenosis, s/p angioplasty VAN LAD 01/30/2025., LVEDP 22 mmHg
*initially referred to CT surgery, and given underlying pulmonary issues with IFR negative RCA disease, was felt to be too high risk for CABG and returned to lab for mid LAD PCI.
Lexiscan nuclear stress test 01/08/2025: Small, mild defect in the apical inferior and apical lateral segments which is reversible and persistent prone imaging suggestive of mild ischemia
Echo 01/16/2025: Normal LV chamber size, LVEF 50 to 55%, RV enlarged, mild to moderate MR, PAP 34 mmHg
echo 06/15/25: LVEF of 55 to 60%, RV is mildly dilated with normal systolic function, there is pacing wire seen in the right ventricle. There is abnormal paradoxical septal motion consistent with pacing. Both the left atrium and the right atrium
are mildly enlarged. There is mild to moderate pulmonary hypertension. Pulmonary artery systolic pressure is estimated at 45 mmHg. When compared to echocardiogram from January 16, 2025 there is no significant change.
Plan:
-Presented 06/11/2025 with fever, confusion found to have acute UTI with E. coli. Per ID continue Keflex through 06/24/2025 then discontinue
-Appears significantly better from volume standpoint. Appears close to euvolemic on exam. Creatinine up to 1.3 while he has been on IV 80 mg of Lasix twice daily. At home he used to be on 80 mg p.o. in the morning and 40 mg of p.o. in the
afternoon. Plan to discharge on 80 mg p.o. twice daily. Given he got an IV dose this morning already with creatinine bumping up to 1.3 overnight, recommend no further diuresis today and to encourage some hydration with plan to resume p.o.
diuretics tomorrow morning. Educated him in regards to checking daily upright weights and calling our office in case there is a 3 to 5 pound weight gain. Strongly recommending a low-sodium diet. Reviewed signs and symptoms of decompensated heart
failure again.
-BMP in 1 week upon DC
-echo 06/15 with results as above, EF preserved
-he has permanent afib with history of AVJ ablation. remains vpaced. not on BB due to COPD
-continue eliquis, plavix for afib and LAD PCI 01/2025. has chronic anemia, hgb 8.7
-continue imdur, cozaar
-plan for SNF upon DC
-OP cardiac follow up arranged
Discussed with nursing, hospitalist
PREADMIT DATA:
69 yo M with CAD s/p VAN LAD 01/2025, permanent afib, AVN ablation, PPM, chronic HFpEF, HTN, HLD, DM, CKD3b, asthma, obesity, recently with reoccurrence with chest discomfort that has both typical and atypical features with uptitration in isosorbide
and plan for outpt nuclear stress test, presents to ED 06/11/25 with fever 103, confusion, found to have E. coli UTI with concern for pyelonephritis. Blood cultures checked and so far negative, influenza A and B negative. Lasix held due to THANIA with
creatinine up to 2.0, baseline creatinine 1-1.3.
He has developed increasing lower extremity edema since admission, cardiology consulted for evaluation of edema.
proBNP today 2049.
Progress Note - Telephone Mechanic
Subjective
Date of Service: June 26, 2025
Patient did well overnight with no acute complaints. He denies any chest discomfort or shortness of breath.
Objective
Labs:
06/26/25 07:28
06/26/25 07:28
Labs
Hgb 9.0 g/dL (13.0-18.0) L 06/26/25 07:28
Hct 27.9 % (39.0-52.0) L 06/26/25 07:28
Plt Count 599 10^3/uL (130-400) H 06/26/25 07:28
Sodium 138 mmol/L (135-145) 06/26/25 07:28
Potassium 4.4 mmol/L (3.5-5.1) 06/26/25 07:28
BUN 42 mg/dl (9-20) H 06/26/25 07:28
Creatinine 1.3 mg/dL (0.7-1.3) 06/26/25 07:28
Glucose 77 mg/dl (70-99) 06/26/25 07:28
Vital Signs and I&O:
Vital Signs
Temp Pulse Resp BP Pulse Ox
98.4 F 67 16 118/53 97
06/26/25 07:16 06/26/25 07:16 06/26/25 07:16 06/26/25 07:16 06/26/25 07:16
Vital Signs
Temp Pulse Resp BP Pulse Ox
98.4 F 67 16 118/53 97
06/26/25 07:16 06/26/25 07:16 06/26/25 07:16 06/26/25 07:16 06/26/25 07:16
Intake & Output
06/24/25 06/25/25 06/26/25 06/27/25
06:59 06:59 06:59 06:59
Intake Total 670 / 670 1630 / 1630 1140 / 1140
Output Total 2950 / 2950 4200 / 4200 3075 / 3075
Balance -2280 / -2280 -2570 / -2570 -1935 / -1934
Physical Exam
Physical Exam
GEN: No distress, awake, Ox3
HEENT: supple, anicteric, mmm
LUNGS: CTA, no wheezes/rales, on room air
CV: irreg, S1/S2, no murmur, rub or gallop
ABD: soft, BS+, NT/ND
EXT: Trace lower extremity edema bilaterally, no clubbing, cyanosis
NEURO: Gross non-focal
SKIN: No rash, warm, dry, pink
--- NOTE | 2025-06-26 12:39 | CM ---
CM reviewed chart, spoke with DON at [facility], will have rehab bed available tomorrow for patient. There is a bed available on LTC/Dementia unit, would move patient to rehab floor once available.
RAFAELA spoke with , Ingrid, not comfortable with patient admitting to LTC floor and then moving again to rehab floor.
Updates to Hospitalist
Plan for d/c to [facility] tomorrow 06/27
Plan; [facility] SNF tomorrow 06/27, will require ambulance transport
[2025-06-26 15:20] VITALS: BP 120/87; PULSE 67; O2SAT 99
[2025-06-26 15:37] VITALS: BP 104/39
[2025-06-26] MEDS: FERRLECIT 110 MG IV (16:04)
[2025-06-26 17:07] LABS: Glucose - Point of Care 102 mg/dl (70-99)
[2025-06-26] MEDS: CRESTOR 20 MG PO (17:26)
[2025-06-26] MEDS: PLAVIX 75 MG PO (17:26)
[2025-06-26] MEDS: ARICEPT 10 MG PO (17:26)
[2025-06-26] MEDS: TRICOR 145 MG PO (17:27)
[2025-06-26 20:55] LABS: Glucose - Point of Care 144 mg/dl (70-99)
[2025-06-26] MEDS: LANTUS 0.35 UNITS SC (23:08)
[2025-06-26] MEDS: SINGULAIR 10 MG PO (23:08)
[2025-06-26] MEDS: OCEAN, SALINE MIST 1 SPRAYS NASAL (23:08)
[2025-06-26 23:30] VITALS: BP 116/52
[2025-06-27] MEDS: TYLENOL 650 MG PO (03:20)
[2025-06-27] MEDS: SYNTHROID 50 MCG PO (06:33)
[2025-06-27 07:20] VITALS: BP 110/51
[2025-06-27 07:45] LABS: Glucose - Point of Care 82 mg/dl (70-99)
--- NOTE | 2025-06-27 08:11 | PN.DE.MGMTRT ---
Insulin Management
- -
06/27/2025: Diabetes Management Follow up
Patient admitted 06/11 with confusion, fever - sepsis, UTI. PMH: CAD s/p LAD stent 02/04, A-Fib, T2DM, HTN, HLD.
Prior to admission was taking Lantus 50 units in AM and had recently reduced HS dose from 50 units to 35 units Lantus due to AM hypoglycemia, Humalog ~ 20 units ac with metformin 500 mg in AM and 1000 mg pm and Mounjaro 2.5 mg on Wednesday. A1C 7.8%,
cr 1.6-->1.1, eGFR >60 today. Pt admits he has been quite forgetful recently.
Patient awake, alert and oriented, out of bed in chair, offers no complaints, able to discuss diabetes care. He is planned for transfer to [facility] today.
Received Lantus 50 units in AM, glucose range yesterday was 91 to 160. Received Lantus 35 units @ HS, Fasting glucose 82.
Will make no changes to current regimen: Lantus 50 units in AM, 35 units in PM, AC NovoLog 12 units and low corrective with meals.
Discussed with nurse. Will cont to follow.
Diabetes History
- -
Type of Diabetes: 2 requiring insulin
Pre-Admission Diabetes Regimen
06/26/25
07:28
Creatinine 1.3
Insulin Pump Settings
IP Diabetes Regimen
06/26/25 06/26/25 06/26/25
07:28 11:09 17:03
Glucose 77
POC Glucose 160 H 102 H
06/26/25 06/27/25
20:53 07:44
Glucose
POC Glucose 144 H 82
Meal type: Lunch
Amount consumed: 100%
Patient Education
[2025-06-27] MEDS: STRIVERDI RESPIMAT 2 PUFF INH (08:36)
[2025-06-27] MEDS: NOVOLOG FLEXPEN 12 UNITS SC (08:50)
[2025-06-27] MEDS: NOVOLOG FLEXPEN-LOW RESISTANCE SC ×2 (08:50→12:31)
[2025-06-27] MEDS: ELIQUIS 5 MG PO (08:51)
[2025-06-27] MEDS: ZETIA 10 MG PO (08:52)
[2025-06-27] MEDS: LYRICA 100 MG PO (08:52)
[2025-06-27] MEDS: IMDUR (EXTENDED RELEASE) 120 MG PO (08:52)
[2025-06-27] MEDS: LASIX 80 MG PO (08:52)
[2025-06-27] MEDS: BUSPAR 10 MG PO (08:52)
[2025-06-27] MEDS: PROTONIX 40 MG PO (08:52)
[2025-06-27] MEDS: COZAAR 50 MG PO (08:52)
[2025-06-27] MEDS: LANTUS 0.5 UNITS SC (08:53)
--- NOTE | 2025-06-27 11:40 | W.PN.HOSP.TC ---
Today's Communication/Plan
-
DC
Assessment / Plan
Assessment / Plan
69yo M with PMHx of CAD s/p PCI in 01/2025, hypothyroidism, HTN, GERD, AFib on eliquis, DM came with confusion, found UTI and later managed for CHF exacerbation. As per ID Abx switched to oral and to be completed on 06/24/24. Lasix swuitched to oral
as per cardiology and patient medically stable to be d/c to [facility] as recommended by PT/OT. Medically stable for d/c
A/P:
#Mild acute on chronic HFpEF
#CAD, stable
#Elevated trop, unclear etiology
Recent VAN to LAD in January 2025
Echo: EF 55-60%, mild-moderate TR and mild pulm HTN - similar to January 2025
Follows up with Dr. Donohue outpatient
Chest x-ray showing possible interstitial pulmonary edema
cw IV Lasix, daily weight, electrolytes
Dry weight 225lbs targeted
cardiology following
DAPT
#Intermittent wrist and calf pain
cannot exclude 2/2 statin -however patient previously had poor response to Rosuvastatin, so will need to continue lipitor. With Hx of neuropathy and no generalized muscular pain - unlikely myopathy with low CPK on labs.
Tylenol
one dose Flexeril
#Sepsis 2/2UTI with possibility of pyelonephritis
#Toxic metabolic encephalopathy 2/2 infection
Urine culture with E. coli. transition to keflex, through 06/24/25. Blood culture from admission NGTD. Repeat blood culture remains negative as well.
CT scan of the abdomen pelvis with mild chronic perinephric stranding, no obstructive uropathy
COVID-negative
Patient WBC has been normalized. Fever is getting less frequent and less severe. Monitor for effervescence
#suspected underlying Alzheimer's versus vascular dementia.
Mentation has improved.
CT scan of the head with no acute abnormalities.
Continue preadmission Aricept
Lyrica restarted; inc to 100mg BID
Continue BuSpar
#Acute kidney injury on CKD stage IIIa-IIIb
Bladder scan ruled out retention.
Creatinine slowly improved
Follow BMP
#DM type 2 with neuropathy
Hemoglobin A1c 7.1
Preadmission regimen including Mounjaro, Lantus, metformin
Continue Lantus, Requested diabetes BREAKDOWN PERSON for management as he sees them outpatient, Added mealtime insulin
Hold metformin
#Ambulatory deficiency
PT/OT recommended rehab
#Chronic atrial fibrillation
rate controlled with metoprolol.
Continue anticoagulation with Eliquis
#Chronic anemia
#FRANCISCO
IV iron
stool neg for occult blood
B12, folate not decreased
Outpatient follow up with repeated CBC and possible alteration workroom supervisor eval - defer to PCP
#Dyslipidemia
#Essential Hypertension
#Chronic obstructive pulmonary disease/asthma.
#Obesity due to excessive calories BMI 34.
#Obstructive sleep apnea on CPAP at night
#Hypothyroidism on replacement
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
#BPH
Decrease calorie intake
cont home meds
watch for retention
#Dementia, unspecified with short term memory impairment
frequent reorientation
DVT ppx Eliquis
Full code
I have spent at least 51min reviewing chart, test reuslts, communication with consultants, over the phone and providing direct patient care
Anticipated Discharge: Today
Subjective/Interval History
-
Date of Service: June 27, 2025
Objective Data
-
Vital Signs:
Vital Signs
Temp Pulse Resp BP Pulse Ox
98.1 F 63 19 110/51 96
06/27/25 07:20 06/27/25 08:52 06/27/25 08:39 06/27/25 08:52 06/27/25 08:39
I&O
06/26/25 06/27/25 06/28/25
06:59 06:59 06:59
Intake Total 1140 / 1140 480 / 480
Output Total 3075 / 3075 875 / 875
Balance -1935 / -1935 -395 / -395
Review of Systems
-
History Source: Patient
All other systems: Reviewed and negative
Musculoskeletal: Reports Other (mostly L foot pain)
Physical Exam
-
General: Comfortable
HEENT: Normocephalic
Neuro: Awake, Alert, Oriented and AO x 3
Psych: Calm and Apparent Dementia
--- NOTE | 2025-06-27 12:08 | CM ---
CM reviewed chart, patient for d/c today to [facility].
CM spoke with patients , Ingrid, aware of transport time 2:00 p.m. via ambulance.
IMM verbally reviewed, placed in chart.
Patient's requesting call from Cardiology, TT with request.
CM will continue to follow for all d/c planning needs.
Plan; [facility], 2:00 p.m. via ambulance
[facility]
Report: [phone]
--- NOTE | 2025-06-27 12:56 | W.PN.UPDATE ---
Update Note
Progress Note Update
Was asked by nursing to call and speak to patient's , Ingrid about medication questions she had in preparation for discharge. We went over all cardiac medications for discharge. Patient had previously been on regimen of p.o. Lasix 80 mg every
morning with 40 mg every afternoon, however could increase to 80 mg every afternoon based on weight/edema. He is being discharged on p.o. Lasix 80 mg twice daily. He was also taking metolazone 2.5 mg on Wednesday and Fridays. As patient presently
felt to be on dry side with bump in creatinine yesterday to 1.3, will plan to send out on metolazone 2.5 mg on Mondays only and can reassess blood work next week and make further adjustments in dosing based on this. She also requested that he be
sent with sublingual nitroglycerin, which I have ordered. She reports patient is having joint pain on Lipitor, and previously had similar symptoms on Crestor in the past. We discussed alternative options including PCSK9 inhibitors such as Repatha,
and will discuss further in the office and can start process for approval if desired. Patient's knows to call us if his symptoms of joint discomfort are not improving, or are worsening, and we will consider a statin holiday. Outpatient cardiac
follow-up arranged. patient planned for DC to SNF this afternoon. total time on phone with 10:00.
[2025-06-27] MEDS: NOVOLOG FLEXPEN SC (13:45)
[2025-06-27] MEDS: FLUZONE HIGH-DOSE 2025-26 0.5 ML IM (14:13)
[2025-06-28 13:36] LABS: Glucose - Point of Care 76 mg/dl (70-99)
== END 2025-06-27 14:20 | DRG 871 ==
LOC: 4 WEST ACU 22:15
PROVIDERS: Hospitalist; Internal Medicine; Internal Medicine Cardiovascular Disease; Physician Assistant; Registered Nurse; ADMITTING PHYSICIAN Internal Medicine; ATTENDING PHYSICIAN Internal Medicine; CONSULT PHYSICIAN Internal Medicine Cardiovascular Disease; CONSULT PHYSICIAN Internal Medicine Infectious Disease; EMERGENCY PHYSICIAN Emergency Medicine; FAMILY PHYSICIAN Internal Medicine
PROC: 5A09357 Assistance with Respiratory Ventilation, Less than 24 Consecutive Hours, Continuous Positive Airway Pressure (ICD-10-PCS; 2025-06-12)
PROC: 3E02340 Introduction of Influenza Vaccine into Muscle, Percutaneous Approach (ICD-10-PCS; 2025-06-26)
DX: A41.51 Sepsis due to Escherichia coli [E. coli] (principal); G92.8 Other toxic encephalopathy; I50.33 Acute on chronic diastolic (congestive) heart failure; I13.0 Hypertensive heart and chronic kidney disease with heart failure and stage 1 through stage 4 chronic kidney disease, or unspecified chronic kidney disease; I48.21 Permanent atrial fibrillation; N17.9 Acute kidney failure, unspecified; J44.0 Chronic obstructive pulmonary disease with (acute) lower respiratory infection; F02.84 Dementia in other diseases classified elsewhere, unspecified severity, with anxiety; E87.1 Hypo-osmolality and hyponatremia; I5A Non-ischemic myocardial injury (non-traumatic); N12 Tubulo-interstitial nephritis, not specified as acute or chronic; I25.10 Atherosclerotic heart disease of native coronary artery without angina pectoris; E78.00 Pure hypercholesterolemia, unspecified; E78.1 Pure hyperglyceridemia; J30.1 Allergic rhinitis due to pollen; N18.32 Chronic kidney disease, stage 3b; R32 Unspecified urinary incontinence; F17.200 Nicotine dependence, unspecified, uncomplicated; D63.8 Anemia in other chronic diseases classified elsewhere; K76.0 Fatty (change of) liver, not elsewhere classified; R16.0 Hepatomegaly, not elsewhere classified; K21.9 Gastro-esophageal reflux disease without esophagitis; N28.1 Cyst of kidney, acquired; K57.30 Diverticulosis of large intestine without perforation or abscess without bleeding; G47.33 Obstructive sleep apnea (adult) (pediatric); G30.9 Alzheimer's disease, unspecified; H49.02 Third [oculomotor] nerve palsy, left eye; N40.0 Benign prostatic hyperplasia without lower urinary tract symptoms; E11.42 Type 2 diabetes mellitus with diabetic polyneuropathy; E11.22 Type 2 diabetes mellitus with diabetic chronic kidney disease; G89.29 Other chronic pain; M48.061 Spinal stenosis, lumbar region without neurogenic claudication; E66.812 Obesity, class 2; E03.9 Hypothyroidism, unspecified; I95.89 Other hypotension; E86.0 Dehydration; I27.20 Pulmonary hypertension, unspecified; D75.839 Thrombocytosis, unspecified; Z95.5 Presence of coronary angioplasty implant and graft; Z95.0 Presence of cardiac pacemaker; Z98.1 Arthrodesis status; Z88.5 Allergy status to narcotic agent; Z91.018 Allergy to other foods; Z88.8 Allergy status to other drugs, medicaments and biological substances; Z79.01 Long term (current) use of anticoagulants; Z79.890 Hormone replacement therapy; Z79.84 Long term (current) use of oral hypoglycemic drugs; Z79.4 Long term (current) use of insulin; Z79.02 Long term (current) use of antithrombotics/antiplatelets; Z79.85 Long-term (current) use of injectable non-insulin antidiabetic drugs; Z86.73 Personal history of transient ischemic attack (TIA), and cerebral infarction without residual deficits; Z23 Encounter for immunization; Z11.52 Encounter for screening for COVID-19; Z79.899 Other long term (current) drug therapy; Z68.34 Body mass index [BMI] 34.0-34.9, adult
CPT/HCPCS: 36415; 70450; 71046; 74177; 80048; 80053; 80061; 81003; 81015; 82043; 82306; 82550; 82570; 82607; 82626; 82746; 82962; 83036; 83540; 83550; 83605; 83615; 83735; 83880; 84439; 84443; 84481; 84484; 85025; 85027; 85045; 86376; 87040; 87070; 87077; 87086; 87186; 87502; 87811; 93005; 93306; 94640; 96361; 96374; 97110; 97116; 97163; 97166; 97530; 97535; 99285; G0422; G0423; J2916; Q9967

== ENCOUNTER → 2025-07-13 15:52 | Outpatient (REF) | payer MEDICARE, OTHER, SELFPAY ==
[2025-07-13 17:57] LABS: Hematocrit 29.4 % (39.0-52.0); Hemoglobin 9.3 g/dL (13.0-18.0); Mean Corp Hgb Conc. 31.6 g/dL (33.0-37.0); Mean Corpuscular Volume 91.6 fL (80.0-94.0); Nucleated Red Blood Cells % 0 % (-); Platelet Count 201 10^3/uL (130-400); Red Cell Dist. Width 17.9 % (11.5-14.5)
[2025-07-13 18:21] LABS: ALT (SGPT) 19 U/L (0-50); AST (SGOT) 20 U/L (17-59); Albumin 4.1 g/dl (3.5-5.0); Alkaline Phosphatase 58 U/L (38-126); Blood Urea Nitrogen 50 mg/dl (9-20); Calcium 9.3 mg/dl (8.4-10.2); Carbon Dioxide 29 mmol/L (22-30); Chloride 102 mmol/L (98-107); Glucose 88 mg/dl (70-99); Magnesium 1.2 mg/dl (1.6-2.3); Potassium 4.0 mmol/L (3.5-5.1); Sodium 139 mmol/L (135-145); Total Protein 7.3 g/dl (6.3-8.2); eGFR 59.10
== END ==
LOC: REG 15:52
PROVIDERS: ATTENDING PHYSICIAN Internal Medicine; OTHER PHYSICIAN Internal Medicine Cardiovascular Disease
DX: Z09 Encounter for follow-up examination after completed treatment for conditions other than malignant neoplasm (principal); Z87.440 Personal history of urinary (tract) infections; A41.9 Sepsis, unspecified organism; I50.33 Acute on chronic diastolic (congestive) heart failure; R60.0 Localized edema; N18.32 Chronic kidney disease, stage 3b; I48.21 Permanent atrial fibrillation
CPT/HCPCS: 36415; 80053; 83735; 83880; 85025

== ENCOUNTER → 2025-07-23 10:16 | Outpatient (REF) | payer MEDICARE, OTHER, SELFPAY ==
[2025-07-23 11:19] LABS: Hematocrit 27.5 % (39.0-52.0); Hemoglobin 8.7 g/dL (13.0-18.0); Mean Corp Hgb Conc. 31.6 g/dL (33.0-37.0); Mean Corpuscular Volume 85.7 fL (80.0-94.0); Nucleated Red Blood Cells % 0 % (-); Platelet Count 244 10^3/uL (130-400); Red Cell Dist. Width 18.6 % (11.5-14.5)
[2025-07-23 11:38] LABS: Glycohemoglobin (HgbA1c) 8.2 % (4.0-5.9)
[2025-07-23 11:46] LABS: ALT (SGPT) 20 U/L (0-50); AST (SGOT) 18 U/L (17-59); Albumin 4.1 g/dl (3.5-5.0); Alkaline Phosphatase 52 U/L (38-126); Blood Urea Nitrogen 70 mg/dl (9-20); Calcium 9.5 mg/dl (8.4-10.2); Carbon Dioxide 32 mmol/L (22-30); Chloride 98 mmol/L (98-107); Glucose 191 mg/dl (70-99); HDL Cholesterol 21 mg/dl; LDL Cholesterol, Calculated 59 mg/dl; Magnesium 1.5 mg/dl (1.6-2.3); Potassium 3.7 mmol/L (3.5-5.1); Sodium 141 mmol/L (135-145); Total Protein 7.0 g/dl (6.3-8.2); Very Low Density Lipoprotein 31 mg/dl (0-30); eGFR 54.07
== END ==
LOC: REG 10:16
PROVIDERS: ATTENDING PHYSICIAN Internal Medicine Cardiovascular Disease; FAMILY PHYSICIAN Internal Medicine; OTHER PHYSICIAN Internal Medicine Endocrinology, Diabetes & Metabolism
DX: I48.21 Permanent atrial fibrillation (principal); I10 Essential (primary) hypertension; D63.8 Anemia in other chronic diseases classified elsewhere; E11.69 Type 2 diabetes mellitus with other specified complication; Z79.4 Long term (current) use of insulin; E66.9 Obesity, unspecified; Z09 Encounter for follow-up examination after completed treatment for conditions other than malignant neoplasm; Z87.440 Personal history of urinary (tract) infections; A41.9 Sepsis, unspecified organism; I50.33 Acute on chronic diastolic (congestive) heart failure; R60.0 Localized edema; N18.32 Chronic kidney disease, stage 3b; E78.2 Mixed hyperlipidemia
CPT/HCPCS: 36415; 80053; 80061; 82248; 83036; 83735; 85025

== ENCOUNTER → 2025-08-08 11:05 | Outpatient (REF) | payer MEDICARE, OTHER, SELFPAY ==
[2025-08-08 12:44] LABS: Blood Urea Nitrogen 79 mg/dl (9-20); Calcium 9.1 mg/dl (8.4-10.2); Carbon Dioxide 28 mmol/L (22-30); Chloride 96 mmol/L (98-107); Glucose 250 mg/dl (70-99); Magnesium 2.0 mg/dl (1.6-2.3); Potassium 4.1 mmol/L (3.5-5.1); Sodium 134 mmol/L (135-145); eGFR 54.07
== END ==
LOC: CLAB 11:05
PROVIDERS: ATTENDING PHYSICIAN Internal Medicine; REFERRING PHYSICIAN Internal Medicine Cardiovascular Disease
DX: I11.0 Hypertensive heart disease with heart failure (principal)
CPT/HCPCS: 36415; 80048; 83735; 83880

== ENCOUNTER 2025-08-15 10:58 | Emergency (ER) | payer MEDICARE, OTHER, SELFPAY ==
[2025-08-15 11:01] VITALS: BP 114/58
--- NOTE | 2025-08-15 12:21 | ED.GENMED ---
History of Present Illness
General
Chief Complaint: Head Injury
Source: patient
Exam Limitations: none
Time Seen by Provider: 08/15/25 11:18
Nursing documentation reviewed up to this point in time: agreed with
History of Present Illness
History of Present Illness:
69-year-old male past medical history of A-fib currently on Eliquis heart failure currently on Plavix presenting to the emergency department after he leaned forward and middle of the night while in the toilet to pull up his pants fell forward
hitting side of his head did not lose consciousness otherwise feels generally well he was seen by his physical therapist today they recommended go to the ER for CT scan. Denies any headache neck pain numbness weakness nausea vomiting or additional
symptoms at this time.
Past History
Past History
ED Past Medical History: Arrthythmia, HTN, Hypercholesterolemia and NIDDM
ED Past Surgical History: Cardiac
Social History
Tobacco: Smoker
Alcohol: None
Drug: None
Personal:
Living: with family
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
Review of Systems
Review of Systems
Allergies reviewed?: Yes
All Other Systems: ROS reviewed and negative except as documented in HPI and ROS
Phy Exam
Physical Exam
Physical Exam:
GENERAL: Alert , in no apparent distress
EYE: pupils equal and reactive
NECK: Supple, no significant adenopathy.
ENT: o/p clr, mmm.
CARDIAC: Regular rate and rhythm .
LUNGS: Clear breath sounds bilaterally, no acute respiratory distress, no wheezes/rales/rhonchi
ABDOMEN: Soft, without focal tenderness, no r/g, no cvat
NEUROLOGICAL: Alert and oriented, no focal neuro deficits
SKIN: Warm and dry, skin intact.
MUSCULOSKELETAL: No edema, well perfused.
PSYCH: Normal and appropriate interaction.
Course
Orders/Labs/Results
Orders:
Orders
08/15/25 11:02
CT Head W/o Iv Contrast Urgent
Comment:
Reason For Exam: head injury on eliquis and plavix
Vital Signs
Initial and Last Documented VS:
Initial Vital Signs
Temp Pulse Resp BP Pulse Ox
97.9 F 89 16 114/58 97
08/15/25 11:01 08/15/25 11:01 08/15/25 11:01 08/15/25 11:01 08/15/25 11:01
Last Documented Vital Signs
Temp Pulse Resp BP Pulse Ox
97.9 F 89 16 114/58 97
08/15/25 11:01 08/15/25 11:01 08/15/25 11:01 08/15/25 11:01 08/15/25 12:21
MDM/Problems Addressed
MDM/Problems Addressed:
69-year-old male presenting to the emergency department today with concerns of a fall hitting his head no loss of consciousness . This occurred a few hours prior to arrival. Patient is on blood thinners. Here CT scan was negative. Patient no
distress normal neurologic evaluation. Stable for close outpatient follow-up. Return precautions given.
*Pulse Oximetry
SaO2: 97
Oxygen Mode of Delivery: Room air
Patient hypoxic: no (97)
*Critical Care Note
Total Time (30-74mins, 75-104mins- exclusive of procedures): Not Applicable
ED Attending Note
-
Portions of this chart may have been created with voice recognition software.� Occasional wrong word or��sound alike� substitutions may have occurred due to the inherent limitations of voice recognition software.
Discharge Plan
Departure
Patient Disposition: Home (Routine Discharge)
Date of Disposition: 08/15/25
Time of Disposition: 12:21
Patient with high blood pressure during this ER visit?: No
Condition: Good
Covid-19: Not Applicable
Discharge Problem:
Fall, Head injury
Instructions: Head Injury in Adults (DC)
Prescriptions:
No Action
multivitamin [One-A-Day Essential] Tablet
1 tab PO DAILY Qty: 0
montelukast 10 MG tablet
10 mg PO HS
cyanocobalamin (vitamin B-12) [Vitamin B-12] 100 mcg Tablet
300 mcg PO DAILY@1200 Qty: 0
pyridoxine (vitamin B6) [Vitamin B-6] 100 mg Tablet
100 mg PO DAILY@1200 Qty: 0
levothyroxine 50 mcg tablet
50 mcg PO DAILY AT 0700
Serevent Diskus 50 mcg/dose blister with device
1 inh INHALATION R BID
albuterol sulfate 90 mcg/actuation Hfa Aerosol Inhaler
2 puff INHALATION R Q4HPRN PRN (Reason: sob)
cholecalciferol (vitamin D3) [Vitamin D3] 25 mcg (1,000 unit) Tablet
50 mcg PO DAILY@1200
apixaban 5 mg Tablet
5 mg PO BID
metformin 500 mg Tablet
500 mg PO DAILY
donepezil [Aricept] 10 mg Tablet
10 mg PO QPM
losartan 50 mg tablet
50 mg PO DAILY
fenofibrate micronized 134 mg Capsule
134 mg PO QPM
ascorbic acid (vitamin C) [Vitamin C] 500 mg Tablet
250 mg PO DAILY@1200
buspirone 10 mg Tablet
10 mg PO Q12
omega 2-mss-dsk-fish oil [Fish Oil] 1,000 (120-180) mg Capsule
2 cap PO BID
metformin 500 mg Tablet
1,000 mg PO QPM
pantoprazole 40 mg Tablet,Delayed Release (Dr/Ec)
40 mg PO DAILY Qty: 30 11RF
isosorbide mononitrate 120 mg Tablet Extended Release 24 Hr
120 mg PO DAILY
sodium chloride 0.65 % Aerosol,[place]
2 spray INTRANASAL HS
Mounjaro 2.5 mg/0.5 mL Pen Injector
2.5 mg SC FR
Rx Instructions:
for 4 weeks
clopidogrel 75 mg tablet
75 mg PO QPM
Insulin Glargine Lantus [Lantus] 35 UNITS
Subcutaneous Insulin Syringe [Syringe-Insulin] 0 UNIT
As Directed mls/hr SC HS
Ordered By: Grant Zamora MD
Last Taken: Unknown
ferrous sulfate 325 mg (65 mg iron) tablet
325 mg PO DAILY Qty: 30 0RF
insulin glargine 100 UNIT/ML solution
50 unit SC DAILY Qty: 0 0RF
furosemide 80 mg tablet
80 mg PO BID Qty: 0 0RF
atorvastatin [Lipitor] 80 mg tablet
80 mg PO HS Qty: 30 0RF
insulin aspart U-100 100 unit/mL (3 mL) Insulin Pen
12 unit SC AC Qty: 15 0RF
insulin lispro [Humalog U-100 Insulin] 100 unit/mL Solution
1 sliding scale dose SC AC Qty: 0 0RF
nitroglycerin 0.4 mg tablet, sublingual
0.4 mg sublingual Q5-15M PRN (Reason: chest pain) Qty: 20 0RF
metolazone 2.5 mg tablet
2.5 mg PO MO Qty: 1 0RF
pregabalin [Lyrica] 75 mg Capsule
75 mg PO BID Qty: 6 0RF
Referrals:
Calin Conrad MD [Family Provider, Internal Medicine]
Activity Restrictions/Additional Instructions:
You came to the emergency department today after hitting her head. Here your reassuring assessment. Please rest over the next few days. Return for any worsening, new or concerning symptoms.
Interventions
Interventions:
ED- Neurological Assessment Last Done: 08/15/25 11:01
ED-Skin Assessment Last Done: 08/15/25 11:01
Discharge Date and Time
Print Language: BELARUSIAN
== END 2025-08-15 12:47 | disposition home or self-care (01) ==
LOC: EMR 10:58
PROVIDERS: EMERGENCY PHYSICIAN Student in an Organized Health Care Education/Training Program; FAMILY PHYSICIAN Internal Medicine
DX: S09.90XA Unspecified injury of head, initial encounter (principal); W18.11XA Fall from or off toilet without subsequent striking against object, initial encounter; E11.9 Type 2 diabetes mellitus without complications; I11.0 Hypertensive heart disease with heart failure; I50.9 Heart failure, unspecified; E78.00 Pure hypercholesterolemia, unspecified; I48.91 Unspecified atrial fibrillation; Z79.01 Long term (current) use of anticoagulants; Z79.02 Long term (current) use of antithrombotics/antiplatelets; F17.200 Nicotine dependence, unspecified, uncomplicated
CPT/HCPCS: 99284; 70450